=== PATIENT | male | born 1985 | race Caucasian/White ===

== ENCOUNTER 2017-06-28 13:48 | Inpatient (IN) | payer OTHER ==
[~2017-06-28] VITALS: Ht 177.8 cm; Wt 52.8 kg
[~2017-06-28 13:48] MED LIST: ABAC300; ACETAMINOPHEN500 MG PO; ALBU8HFA2 INH; ALBU90OI INH; ALBU90OI6; AMOCLA875 PO; AMOX500 PO; AZIT250 PO; Atrovent Inha12.9 GM INH; BASAGLAR K100 UNIT/1 SQ; Bactrim Ds Tab1 EACH PO; CEPH500 PO; CLIN150 PO; CLON1 PO; CYCL10 PO; Ciprodex Otic7.5 ML RIGHTEAR; D3-5050000 UNIT PO; DICL250 PO; DOXY100 PO; HYDACE5 PO; HYDGUAL120 PO; Humalog100 UNIT/1 SC; INS70/30I; INSDET100; INSDET100 SC; INSDET100 SQ; INSDETPEN SC; INSR10I; INSR10I SC; INSULANI; INSULANI SC; INSULIN; INSULIN 70/30; INSULISPEN SC; Keflex500 MG PO; LISI5; Lisinopril2.5 MG PO; MAGOX 400400 MG PO; MARIJUANA; NAPR500 PO; NAPR550 PO; NEOPOLHCSU LEFTEAR; Novolog Fl100 UNIT/1 SC; Novolog Fl100 UNIT/1 SQ; OMEP20ER PO; OXYACE5T PO; PENVK500 PO; PRED20 PO; PROC10 PO; Prednisone50 MG PO; RXCYCL10 PO; RXHYDACE PO; RXNAPNA550 PO; RXOXYACE PO; RXTRAM50 PO; SUCR1 PO; TRAM50 PO; TRAZ50 PO; Ventolin/Prove6.7 GM INH; Zithromax Tri-500 MG PO; Zofran Odt4 MG SL; [UNRECOGNIZED DRUG - OTHER]; [UNRECOGNIZED DRUG - OTHER] PO
[2017-06-28 15:14] LABS: BASOPHILS ABSOLUTE AUTO 0.08 K/mm3 (0.00-0.23); BASOPHILS PERCENT AUTO 0 % (0-2); EOSINOPHILS ABSOLUTE AUTO 0.08 K/mm3 (0.00-0.68); EOSINOPHILS PERCENT AUTO 0 % (0-6); Hematocrit 37.7 % (37.0-53.0); Hemoglobin 12.5 g/dL (13.5-17.5); IMMATURE GRAN ABSOLUTE AUTO 0.14 K/mm3 (0.00-0.10); IMMATURE GRAN PERCENT AUTO 1 % (0-1); LYMPHOCYTES ABSOLUTE AUTO 1.88 K/mm3 (0.84-5.20); LYMPHOCYTES PERCENT AUTO 8 % (21-46); MONOCYTES ABSOLUTE AUTO 1.07 K/mm3 (0.16-1.47); MONOCYTES PERCENT AUTO 5 % (4-13); Mean Corpuscular HGB 28.7 pg (26.0-34.0); Mean Corpuscular HGB Conc 33.2 g/dL (31.5-36.5); Mean Corpuscular Volume 87 fL (80-100); Mean Platelet Volume 9.2 fL (9.1-12.4); NEUTROPHILS ABSOLUTE AUTO 19.17 K/mm3 (1.96-9.15); NEUTROPHILS PERCENT AUTO 85 % (41-73); Platelet Count 440 K/mm3 (150-400); RDW Coefficient Variation 11.6 % (11.7-14.2); Red Blood Cell Count 4.36 M/mm3 (4.30-5.90); White Blood Cell Count 22.42 K/mm3 (4.00-11.30)
[2017-06-28 15:34] LABS: Alanine Aminotransfer (ALT/SGP 12 U/L (12-78); Albumin, Blood 2.7 g/dL (3.4-5.0); Albumin/Globulin Ratio 0.5 (0.8-1.8); Alk Phos 143 U/L (50-136); Anion Gap 10 mmol/L (6-16); Aspartate Aminotrans (AST/SGOT 5 U/L (12-37); Bilirubin, Total 0.2 mg/dL (0.1-1.0); Blood Urea Nitrogen 19 mg/dL (8-24); Bun/Creatinine Ratio 20.3 (12.0-20.0); CO2, Blood 29 mmol/L (21-32); Calcium, Blood 8.6 mg/dL (8.5-10.1); Chloride, Blood 92 mmol/L (98-108); Creatinine, Blood 0.94 mg/dL (0.60-1.20); Globulin, Blood 5.3 g/dL (2.2-4.0); Glomerular Filtration Rate >60 (60-); Glucose, Blood 452 mg/dL (70-99); Potassium, Blood 3.9 mmol/L (3.5-5.5); Sodium, Blood 131 mmol/L (136-145)
[2017-06-28 20:59] LABS: Influenza A Negative (NEGATIVE); Influenza B Negative (NEGATIVE)
[2017-06-29 22:54] LABS: Source, Urine Clean Catch
[2017-06-29 22:59] LABS: Bilirubin, Urine Neg (Neg); Blood, Urine 5+ (Neg); Glucose Qualitative, Urine 4+ (Neg); Ketones, Urine 2+ (Neg); Leukocyte Esterase, Urine Neg (Neg); Nitrite, Urine Neg (Neg); Protein, Urine 3+ (Neg); Urobilinogen, Urine NORM (Normal)
[2017-06-29 23:04] LABS: Appearance, Urine Clear (Clear); Bacteria Not Seen /hpf; Color, Urine Yellow (P-Yellow); Red Blood Cells, Urine 50-100 /hpf (0-2); Squamous Epithelial Cells Rare /hpf (Few); White Blood Cells, Urine Not Seen /hpf (0-5)
[2017-06-30 05:20] LABS: Hematocrit 30.7 % (37.0-53.0); Hemoglobin 9.9 g/dL (13.5-17.5); Mean Corpuscular HGB 28.3 pg (26.0-34.0); Mean Corpuscular HGB Conc 32.2 g/dL (31.5-36.5); Mean Corpuscular Volume 88 fL (80-100); Mean Platelet Volume 9.4 fL (9.1-12.4); Platelet Count 398 K/mm3 (150-400); RDW Coefficient Variation 11.4 % (11.7-14.2); RDW Standard Deviation 36.7 fL (35.1-46.3); White Blood Cell Count 14.09 K/mm3 (4.00-11.30)
[2017-06-30] MEDS ORDERED: ACET325 PO (09:44)
[2017-06-30] MEDS ORDERED: ASCO500 PO (09:45)
[2017-06-30] MEDS ORDERED: NICO21TP TOP (09:46)
[2017-06-30] MEDS ORDERED: AMOX875 PO (09:47)
[2017-06-30] MEDS ORDERED: PRED20 PO (09:48)
[2017-06-30] MEDS ORDERED: ONDA4ODT MM (09:48)
== END 2017-06-30 10:14 | disposition home or self-care (01) | DRG 871 ==
LOC: ER 13:48 → PCU 16:31
PROVIDERS: Family Medicine; Internal Medicine; Psychiatry & Neurology Psychiatry
DX: A41.9 Sepsis, unspecified organism (principal); J18.9 Pneumonia, unspecified organism; R65.21 Severe sepsis with septic shock; E44.0 Moderate protein-calorie malnutrition; J44.0 Chronic obstructive pulmonary disease with (acute) lower respiratory infection; Z68.1 Body mass index [BMI] 19.9 or less, adult; E10.65 Type 1 diabetes mellitus with hyperglycemia; M41.9 Scoliosis, unspecified; G89.29 Other chronic pain; M54.9 Dorsalgia, unspecified; F17.210 Nicotine dependence, cigarettes, uncomplicated; Z88.6 Allergy status to analgesic agent; Z88.1 Allergy status to other antibiotic agents; Z88.2 Allergy status to sulfonamides; Z87.730 Personal history of (corrected) cleft lip and palate; Z79.4 Long term (current) use of insulin
CPT/HCPCS: 36415; 71046; 80053; 81001; 82010; 82947; 83036; 83605; 85025; 85027; 87040; 87070; 87077; 87186; 87205; 87804; 93005; 93010; 94640; 94760; 96361; 96365; 96372; 96375; 99283; 99285; J0456; J0696; J1650; J1815; J2405; J7030; J7050

== ENCOUNTER 2017-08-19 11:09 | Emergency (ER) | payer OTHER ==
[~2017-08-19] VITALS: Ht 177.8 cm; Wt 59.0 kg
[~2017-08-19 11:09] MED LIST changes: +ACET325 PO; +AMOX875 PO; +ASCO500 PO; +NICO21TP TOP; +ONDA4ODT MM
[2017-08-19 12:34] LABS: BASOPHILS ABSOLUTE AUTO 0.06 K/mm3 (0.00-0.23); BASOPHILS PERCENT AUTO 0 % (0-2); EOSINOPHILS ABSOLUTE AUTO 0.03 K/mm3 (0.00-0.68); EOSINOPHILS PERCENT AUTO 0 % (0-6); Hematocrit 41.3 % (37.0-53.0); Hemoglobin 13.3 g/dL (13.5-17.5); IMMATURE GRAN ABSOLUTE AUTO 0.07 K/mm3 (0.00-0.10); IMMATURE GRAN PERCENT AUTO 0 % (0-1); LYMPHOCYTES ABSOLUTE AUTO 1.48 K/mm3 (0.84-5.20); LYMPHOCYTES PERCENT AUTO 9 % (21-46); MONOCYTES ABSOLUTE AUTO 0.69 K/mm3 (0.16-1.47); MONOCYTES PERCENT AUTO 4 % (4-13); Mean Corpuscular HGB 29.2 pg (26.0-34.0); Mean Corpuscular HGB Conc 32.2 g/dL (31.5-36.5); Mean Corpuscular Volume 91 fL (80-100); Mean Platelet Volume 8.6 fL (9.1-12.4); NEUTROPHILS ABSOLUTE AUTO 15.14 K/mm3 (1.96-9.15); NEUTROPHILS PERCENT AUTO 87 % (41-73); Platelet Count 483 K/mm3 (150-400); RDW Coefficient Variation 12.3 % (11.7-14.2); Red Blood Cell Count 4.56 M/mm3 (4.30-5.90); White Blood Cell Count 17.47 K/mm3 (4.00-11.30)
[2017-08-19 12:55] LABS: Alanine Aminotransfer (ALT/SGP 18 U/L (12-78); Albumin, Blood 3.3 g/dL (3.4-5.0); Albumin/Globulin Ratio 0.8 (0.8-1.8); Alk Phos 103 U/L (50-136); Anion Gap 7 mmol/L (6-16); Aspartate Aminotrans (AST/SGOT 16 U/L (12-37); Bilirubin, Total 0.2 mg/dL (0.1-1.0); Blood Urea Nitrogen 13 mg/dL (8-24); Bun/Creatinine Ratio 22.1 (12.0-20.0); CO2, Blood 27 mmol/L (21-32); Calcium, Blood 9.2 mg/dL (8.5-10.1); Chloride, Blood 110 mmol/L (98-108); Creatinine, Blood 0.59 mg/dL (0.60-1.20); Globulin, Blood 4.3 g/dL (2.2-4.0); Glomerular Filtration Rate >60 (60-); Glucose, Blood 81 mg/dL (70-99); Potassium, Blood 3.9 mmol/L (3.5-5.5); Sodium, Blood 144 mmol/L (136-145); Total Protein, Blood 7.6 g/dL (6.4-8.2)
[2017-08-19 13:00] LABS: Troponin I <0.015 ng/mL (0.000-0.040)
[2017-08-19] MEDS ORDERED: PROM25 PO (14:47)
== END 2017-08-19 15:16 | disposition home or self-care (01) ==
LOC: ER 11:09
PROVIDERS: Internal Medicine
DX: A08.4 Viral intestinal infection, unspecified (principal); E86.0 Dehydration; E10.9 Type 1 diabetes mellitus without complications; J44.9 Chronic obstructive pulmonary disease, unspecified; F17.210 Nicotine dependence, cigarettes, uncomplicated; Z88.6 Allergy status to analgesic agent; Z88.2 Allergy status to sulfonamides; Z88.1 Allergy status to other antibiotic agents; Z79.51 Long term (current) use of inhaled steroids; Z79.899 Other long term (current) drug therapy
CPT/HCPCS: 36415; 80053; 82947; 83690; 83735; 84484; 85025; 96374; 96375; 99283; J1630; J2405; J2550; J7120

== ENCOUNTER 2017-08-31 15:45 | Emergency (ER) | payer OTHER ==
[~2017-08-31] VITALS: Ht 177.8 cm; Wt 56.7 kg
[~2017-08-31 15:45] MED LIST changes: +PROM25 PO
[2017-08-31 16:38] LABS: Bicarbonate Venous 23.2 mmol/L (24.0-30.0); PCO2 Venous 34.1 mmHg (38-42); PO2 Venous 132 mmHg (38-42); pH Blood Venous 7.43 (7.34-7.37)
[2017-08-31 16:52] LABS: Source, Urine Clean Catch
[2017-08-31 16:59] LABS: Hematocrit 40.1 % (37.0-53.0); Mean Corpuscular HGB 29.8 pg (26.0-34.0); Mean Corpuscular HGB Conc 32.4 g/dL (31.5-36.5); Mean Corpuscular Volume 92 fL (80-100); Mean Platelet Volume 9.3 fL (9.1-12.4); Platelet Count 464 K/mm3 (150-400); RDW Coefficient Variation 12.3 % (11.7-14.2); RDW Standard Deviation 41.6 fL (35.1-46.3); Red Blood Cell Count 4.36 M/mm3 (4.30-5.90); White Blood Cell Count 28.55 K/mm3 (4.00-11.30)
[2017-08-31 17:14] LABS: Alanine Aminotransfer (ALT/SGP 14 U/L (12-78); Albumin/Globulin Ratio 0.7 (0.8-1.8); Alk Phos 122 U/L (50-136); Anion Gap 16 mmol/L (6-16); Aspartate Aminotrans (AST/SGOT 31 U/L (12-37); Bilirubin, Total 0.7 mg/dL (0.1-1.0); Blood Urea Nitrogen 14 mg/dL (8-24); Bun/Creatinine Ratio 18.9 (12.0-20.0); CO2, Blood 20 mmol/L (21-32); Calcium, Blood 9.3 mg/dL (8.5-10.1); Chloride, Blood 100 mmol/L (98-108); Creatinine, Blood 0.74 mg/dL (0.60-1.20); Globulin, Blood 4.3 g/dL (2.2-4.0); Glomerular Filtration Rate >60 (60-); Glucose, Blood 444 mg/dL (70-99); Sodium, Blood 136 mmol/L (136-145); Total Protein, Blood 7.3 g/dL (6.4-8.2)
[2017-08-31 17:20] LABS: Beta-hydroxybutyrate 31.8 mg/dL (0.2-2.8)
[2017-08-31 17:30] LABS: Appearance, Urine Clear (Clear); Bilirubin, Urine Neg (Neg); Blood, Urine 5+ (Neg); Color, Urine Yellow (P-Yellow); Glucose Qualitative, Urine 4+ (Neg); Ketones, Urine 3+ (Neg); Leukocyte Esterase, Urine Neg (Neg); Nitrite, Urine Neg (Neg); Protein, Urine 4+ (Neg); Specific Gravity, Urine 1.015 (1.003-1.022); Urobilinogen, Urine NORM (Normal)
[2017-08-31 17:43] LABS: Squamous Epithelial Cells Few /hpf (Few)
[2017-08-31 17:44] LABS: Bacteria Few /hpf
[2017-08-31 17:46] LABS: BAND PERCENT MAN 1 % (0-8); BASOPHILS ABSOLUTE MAN 0.28 K/mm3 (0.00-0.23); BASOPHILS PERCENT MAN 1 % (0-2); EOSINOPHILS ABSOLUTE MAN 0.28 K/mm3 (0.00-0.68); EOSINOPHILS PERCENT MAN 1 % (0-6); LYMPHOCYTES ABSOLUTE MAN 1.42 K/mm3 (0.84-5.20); LYMPHOCYTES PERCENT MAN 5 % (21-46); MONOCYTES ABSOLUTE MAN 1.14 K/mm3 (0.16-1.47); MONOCYTES PERCENT MAN 4 % (4-13); SEG NEUTROPHILS PERCENT MAN 88 % (41-73); TOTAL CELLS COUNTED 100
[2017-08-31] MEDS ORDERED: PROM25 PO (19:55)
[2017-08-31] MEDS ORDERED: PROM25S PR (19:55)
== END 2017-08-31 20:20 | disposition home or self-care (01) ==
LOC: ER 15:45
PROVIDERS: Emergency Medicine; Physician Assistant
DX: E10.65 Type 1 diabetes mellitus with hyperglycemia (principal); J44.9 Chronic obstructive pulmonary disease, unspecified; F17.210 Nicotine dependence, cigarettes, uncomplicated; Z88.2 Allergy status to sulfonamides; Z88.6 Allergy status to analgesic agent; Z88.8 Allergy status to other drugs, medicaments and biological substances; Z79.4 Long term (current) use of insulin; Z79.51 Long term (current) use of inhaled steroids; Z79.899 Other long term (current) drug therapy
CPT/HCPCS: 36415; 80053; 81001; 82010; 82803; 82947; 85025; 93005; 93010; 96361; 96374; 96375; 99284; J1630; J1815; J2405; J2550; J7030; J7120

== ENCOUNTER 2017-11-20 08:05 | Emergency (ER) | payer OTHER ==
[~2017-11-20] VITALS: Ht 177.8 cm; Wt 54.4 kg
[~2017-11-20 08:05] MED LIST changes: +PROM25S PR
[2017-11-20 09:06] LABS: BASOPHILS ABSOLUTE AUTO 0.08 K/mm3 (0.00-0.23); BASOPHILS PERCENT AUTO 1 % (0-2); EOSINOPHILS ABSOLUTE AUTO 0.22 K/mm3 (0.00-0.68); EOSINOPHILS PERCENT AUTO 1 % (0-6); Hematocrit 42.6 % (37.0-53.0); Hemoglobin 14.2 g/dL (13.5-17.5); IMMATURE GRAN ABSOLUTE AUTO 0.06 K/mm3 (0.00-0.10); IMMATURE GRAN PERCENT AUTO 0 % (0-1); LYMPHOCYTES ABSOLUTE AUTO 2.58 K/mm3 (0.84-5.20); LYMPHOCYTES PERCENT AUTO 15 % (21-46); MONOCYTES PERCENT AUTO 5 % (4-13); Mean Corpuscular HGB 29.3 pg (26.0-34.0); Mean Corpuscular HGB Conc 33.3 g/dL (31.5-36.5); Mean Corpuscular Volume 88 fL (80-100); Mean Platelet Volume 8.8 fL (9.1-12.4); NEUTROPHILS ABSOLUTE AUTO 13.11 K/mm3 (1.96-9.15); NEUTROPHILS PERCENT AUTO 77 % (41-73); Platelet Count 507 K/mm3 (150-400); RDW Coefficient Variation 12.3 % (11.7-14.2); RDW Standard Deviation 39.4 fL (35.1-46.3); Red Blood Cell Count 4.84 M/mm3 (4.30-5.90); White Blood Cell Count 16.95 K/mm3 (4.00-11.30)
[2017-11-20 09:10] LABS: Chloride (POC) 99 mmol/L (98-108); Creatinine (POC) 0.9 mg/dL (0.8-1.3); Glucose (ISTAT POC) 74 mg/dL (70-99); Potassium (POC) 3.3 mmol/L (3.5-5.5); Sodium (POC) 143 mmol/L (135-148); Total CO2 (POC) 32 mmol/L (21-32)
[2017-11-20 09:20] LABS: Alanine Aminotransfer (ALT/SGP 22 U/L (12-78); Albumin, Blood 3.5 g/dL (3.4-5.0); Albumin/Globulin Ratio 0.8 (0.8-1.8); Alk Phos 120 U/L (50-136); Anion Gap 10 mmol/L (6-16); Aspartate Aminotrans (AST/SGOT 22 U/L (12-37); Bilirubin, Total 0.4 mg/dL (0.1-1.0); Blood Urea Nitrogen 24 mg/dL (8-24); CO2, Blood 30 mmol/L (21-32); Calcium, Blood 9.5 mg/dL (8.5-10.1); Chloride, Blood 104 mmol/L (98-108); Creatinine, Blood 0.92 mg/dL (0.60-1.20); Globulin, Blood 4.3 g/dL (2.2-4.0); Glomerular Filtration Rate >60 (60-); Glucose, Blood 73 mg/dL (70-99); Potassium, Blood 3.4 mmol/L (3.5-5.5); Sodium, Blood 144 mmol/L (136-145); Total Protein, Blood 7.8 g/dL (6.4-8.2)
[2017-11-20] MEDS ORDERED: METO10 PO (10:10)
[2017-11-20] MEDS ORDERED: PHENERGAN25 MG PR (10:10)
== END 2017-11-20 10:32 | disposition home or self-care (01) ==
LOC: ER 08:05
PROVIDERS: Emergency Medicine
DX: R10.13 Epigastric pain (principal); R10.11 Right upper quadrant pain; R11.2 Nausea with vomiting, unspecified; E87.6 Hypokalemia; E10.9 Type 1 diabetes mellitus without complications; J44.9 Chronic obstructive pulmonary disease, unspecified; F17.210 Nicotine dependence, cigarettes, uncomplicated; Z88.6 Allergy status to analgesic agent; Z88.2 Allergy status to sulfonamides; Z88.1 Allergy status to other antibiotic agents; Z79.51 Long term (current) use of inhaled steroids
CPT/HCPCS: 36415; 76705; 80047; 80053; 82947; 83690; 85014; 85025; 96361; 96374; 96375; 99284; J1200; J2765; J7030

== ENCOUNTER 2017-12-20 08:39 | Emergency (ER) | payer OTHER ==
[~2017-12-20] VITALS: Ht 177.8 cm; Wt 56.7 kg
[~2017-12-20 08:39] MED LIST changes: +METO10 PO; +PHENERGAN25 MG PR
[2017-12-20] MEDS ORDERED: LISI5 PO (08:56)
[2017-12-20 09:16] LABS: BASOPHILS ABSOLUTE AUTO 0.09 K/mm3 (0.00-0.23); BASOPHILS PERCENT AUTO 1 % (0-2); EOSINOPHILS ABSOLUTE AUTO 0.43 K/mm3 (0.00-0.68); EOSINOPHILS PERCENT AUTO 3 % (0-6); IMMATURE GRAN ABSOLUTE AUTO 0.06 K/mm3 (0.00-0.10); IMMATURE GRAN PERCENT AUTO 1 % (0-1); LYMPHOCYTES ABSOLUTE AUTO 2.02 K/mm3 (0.84-5.20); LYMPHOCYTES PERCENT AUTO 15 % (21-46); MONOCYTES ABSOLUTE AUTO 0.79 K/mm3 (0.16-1.47); MONOCYTES PERCENT AUTO 6 % (4-13); Mean Corpuscular HGB 29.2 pg (26.0-34.0); Mean Corpuscular HGB Conc 32.5 g/dL (31.5-36.5); Mean Corpuscular Volume 90 fL (80-100); Mean Platelet Volume 8.8 fL (9.1-12.4); NEUTROPHILS ABSOLUTE AUTO 9.92 K/mm3 (1.96-9.15); NEUTROPHILS PERCENT AUTO 75 % (41-73); Platelet Count 438 K/mm3 (150-400); RDW Coefficient Variation 12.1 % (11.7-14.2); RDW Standard Deviation 40.2 fL (35.1-46.3); Red Blood Cell Count 4.45 M/mm3 (4.30-5.90); White Blood Cell Count 13.31 K/mm3 (4.00-11.30)
[2017-12-20 09:30] LABS: Calcium, Ionized (POC) 1.24 mmol/L (1.10-1.46); Chloride (POC) 99 mmol/L (98-108); Creatinine (POC) 0.9 mg/dL (0.8-1.3); Glucose (ISTAT POC) 548 mg/dL (70-99); Hemoglobin (POC) 13.3 g/dL (13.5-17.5); Potassium (POC) 4.3 mmol/L (3.5-5.5); Sodium (POC) 138 mmol/L (135-148); Total CO2 (POC) 29 mmol/L (21-32)
[2017-12-20 09:42] LABS: Alanine Aminotransfer (ALT/SGP 13 U/L (12-78); Albumin, Blood 3.6 g/dL (3.4-5.0); Albumin/Globulin Ratio 0.9 (0.8-1.8); Alk Phos 112 U/L (50-136); Anion Gap 8 mmol/L (6-16); Aspartate Aminotrans (AST/SGOT 13 U/L (12-37); Bilirubin, Total 0.4 mg/dL (0.1-1.0); Blood Urea Nitrogen 20 mg/dL (8-24); Bun/Creatinine Ratio 25.4 (12.0-20.0); CO2, Blood 29 mmol/L (21-32); Calcium, Blood 9.6 mg/dL (8.5-10.1); Chloride, Blood 102 mmol/L (98-108); Creatinine, Blood 0.79 mg/dL (0.60-1.20); Globulin, Blood 3.8 g/dL (2.2-4.0); Glomerular Filtration Rate >60 (60-); Glucose, Blood 584 mg/dL (70-99); Potassium, Blood 4.3 mmol/L (3.5-5.5); Sodium, Blood 139 mmol/L (136-145); Total Protein, Blood 7.4 g/dL (6.4-8.2)
[2017-12-20 09:47] LABS: Beta-hydroxybutyrate 6.9 mg/dL (0.2-2.8)
[2017-12-20 09:49] LABS: PCO2 Arterial 30.4 mmHg (35-45); PO2 Arterial 95.2 mmHg (80-100); pH Blood Arterial 7.53 (7.35-7.45)
== END 2017-12-20 10:40 | disposition home or self-care (01) ==
LOC: ER 08:39
PROVIDERS: Emergency Medicine
DX: R11.2 Nausea with vomiting, unspecified (principal); Z88.8 Allergy status to other drugs, medicaments and biological substances; Z88.2 Allergy status to sulfonamides; Z79.899 Other long term (current) drug therapy; Z79.4 Long term (current) use of insulin; E10.9 Type 1 diabetes mellitus without complications; J44.9 Chronic obstructive pulmonary disease, unspecified; F17.210 Nicotine dependence, cigarettes, uncomplicated
CPT/HCPCS: 36415; 36600; 80047; 80053; 82010; 82803; 83690; 85014; 85025; 96361; 96374; 96375; 99284-25; J2405; J2550; J7030

== ENCOUNTER 2018-01-25 06:24 | Emergency (ER) | payer OTHER ==
[~2018-01-25] VITALS: Ht 177.8 cm; Wt 52.2 kg
[~2018-01-25 06:24] MED LIST changes: +LISI5 PO
[2018-01-25] MEDS ORDERED: FLUO10 (06:45)
[2018-01-25 07:35] LABS: Calcium, Ionized (POC) 1.12 mmol/L (1.10-1.46); Chloride (POC) 92 mmol/L (98-108); Creatinine (POC) 0.7 mg/dL (0.8-1.3); Glucose (ISTAT POC) 507 mg/dL (70-99); Hemoglobin (POC) 12.6 g/dL (13.5-17.5); Potassium (POC) 4.2 mmol/L (3.5-5.5); Sodium (POC) 132 mmol/L (135-148); Total CO2 (POC) 28 mmol/L (21-32)
[2018-01-25] MEDS ORDERED: Zovirax800 MG PO (08:06)
[2018-01-25] MEDS ORDERED: Cleocin HCl300 MG PO (08:06)
[2018-01-25] MEDS ORDERED: Naprosyn500 MG PO (22:10)
[2018-01-25] MEDS ORDERED: Augmentin 875-1 EACH PO (22:10)
== END 2018-01-25 09:03 | disposition home or self-care (01) ==
LOC: ER 06:24
PROVIDERS: Emergency Medicine
DX: B00.1 Herpesviral vesicular dermatitis (principal); E10.65 Type 1 diabetes mellitus with hyperglycemia; Z88.2 Allergy status to sulfonamides; Z88.1 Allergy status to other antibiotic agents; Z88.8 Allergy status to other drugs, medicaments and biological substances; Z79.899 Other long term (current) drug therapy; Z79.4 Long term (current) use of insulin; Z79.2 Long term (current) use of antibiotics; J44.9 Chronic obstructive pulmonary disease, unspecified; F17.210 Nicotine dependence, cigarettes, uncomplicated
CPT/HCPCS: 36415; 80047; 82947; 85014; 96360; 99283-25; J7030

== ENCOUNTER 2018-01-25 19:38 | Emergency (ER) | payer OTHER ==
[~2018-01-25] VITALS: Ht 177.8 cm; Wt 52.2 kg
[~2018-01-25 19:38] MED LIST changes: +Cleocin HCl300 MG PO; +FLUO10; +Zovirax800 MG PO
[2018-01-25] MEDS ORDERED: Naprosyn500 MG PO (22:10)
[2018-01-25] MEDS ORDERED: Augmentin 875-1 EACH PO (22:10)
== END 2018-01-25 22:25 | disposition home or self-care (01) ==
LOC: ER 19:38
DX: K13.0 Diseases of lips (principal); E11.9 Type 2 diabetes mellitus without complications; J44.9 Chronic obstructive pulmonary disease, unspecified; Z88.8 Allergy status to other drugs, medicaments and biological substances; Z88.2 Allergy status to sulfonamides; Z88.1 Allergy status to other antibiotic agents; Z79.899 Other long term (current) drug therapy; Z79.4 Long term (current) use of insulin; F17.200 Nicotine dependence, unspecified, uncomplicated
CPT/HCPCS: 10060; 64400; 82947; 90471; 90714; 99283-25

== ENCOUNTER 2018-07-12 14:31 | Emergency (ER) | payer OTHER ==
[~2018-07-12] VITALS: Ht 177.8 cm; Wt 59.0 kg
[~2018-07-12 14:31] MED LIST changes: +Augmentin 875-1 EACH PO; +Naprosyn500 MG PO
[2018-07-12 15:20] LABS: Base Excess Venous 5.4 mmol/L; Bicarbonate Venous 27.7 mmol/L (24.0-30.0); PCO2 Venous 51.3 mmHg (38-42); PO2 Venous 46.6 mmHg (38-42); pH Blood Venous 7.38 (7.34-7.37)
[2018-07-12 15:31] LABS: BASOPHILS ABSOLUTE AUTO 0.12 K/mm3 (0.00-0.23); BASOPHILS PERCENT AUTO 1 % (0-2); EOSINOPHILS ABSOLUTE AUTO 0.04 K/mm3 (0.00-0.68); EOSINOPHILS PERCENT AUTO 0 % (0-6); Hematocrit 43.5 % (37.0-53.0); Hemoglobin 14.2 g/dL (13.5-17.5); IMMATURE GRAN PERCENT AUTO 1 % (0-1); LYMPHOCYTES PERCENT AUTO 7 % (21-46); MONOCYTES ABSOLUTE AUTO 0.51 K/mm3 (0.16-1.47); MONOCYTES PERCENT AUTO 2 % (4-13); Mean Corpuscular HGB 29.5 pg (26.0-34.0); Mean Corpuscular HGB Conc 32.6 g/dL (31.5-36.5); Mean Corpuscular Volume 90 fL (80-100); Mean Platelet Volume 9.2 fL (9.1-12.4); NEUTROPHILS ABSOLUTE AUTO 19.43 K/mm3 (1.96-9.15); NEUTROPHILS PERCENT AUTO 89 % (41-73); Platelet Count 521 K/mm3 (150-400); RDW Coefficient Variation 12.1 % (11.7-14.2); Red Blood Cell Count 4.81 M/mm3 (4.30-5.90)
[2018-07-12 16:00] LABS: Alanine Aminotransfer (ALT/SGP 22 U/L (12-78); Albumin, Blood 3.8 g/dL (3.4-5.0); Albumin/Globulin Ratio 0.9 (0.8-1.8); Alk Phos 144 U/L (50-136); Anion Gap 9 mmol/L (6-16); Aspartate Aminotrans (AST/SGOT 12 U/L (12-37); Bilirubin, Total 0.3 mg/dL (0.1-1.0); Blood Urea Nitrogen 20 mg/dL (8-24); Bun/Creatinine Ratio 22.3 (12.0-20.0); CO2, Blood 29 mmol/L (21-32); Calcium, Blood 9.7 mg/dL (8.5-10.1); Chloride, Blood 99 mmol/L (98-108); Globulin, Blood 4.4 g/dL (2.2-4.0); Glomerular Filtration Rate >60 (60-); Glucose, Blood 404 mg/dL (70-99); Potassium, Blood 4.2 mmol/L (3.5-5.5); Sodium, Blood 137 mmol/L (136-145); Total Protein, Blood 8.2 g/dL (6.4-8.2)
[2018-07-12 16:05] LABS: Beta-hydroxybutyrate 9.6 mg/dL (0.2-2.8)
[2018-07-12] MEDS ORDERED: Zofran4 MG PO (16:42)
== END 2018-07-12 17:53 | disposition home or self-care (01) ==
LOC: ER 14:31
PROVIDERS: Physician Assistant
DX: G43.A0 Cyclical vomiting, in migraine, not intractable (principal); D72.829 Elevated white blood cell count, unspecified; E10.65 Type 1 diabetes mellitus with hyperglycemia; J44.9 Chronic obstructive pulmonary disease, unspecified; F17.210 Nicotine dependence, cigarettes, uncomplicated
CPT/HCPCS: 36415; 80053; 82010; 82803; 82947; 83690; 83735; 85025; 93005; 93010; 96361; 96374; 96375; 99285-25; J1200; J1815; J2405; J2765; J7030

== ENCOUNTER 2018-08-17 09:20 | Emergency (ER) | payer OTHER ==
[~2018-08-17] VITALS: Ht 177.8 cm; Wt 58.1 kg
[~2018-08-17 09:20] MED LIST changes: +Zofran4 MG PO
[2018-08-17] MEDS ORDERED: AMOX875 PO (09:49)
== END 2018-08-17 09:53 | disposition home or self-care (01) ==
LOC: ER 09:20
DX: L02.01 Cutaneous abscess of face (principal); E11.9 Type 2 diabetes mellitus without complications; J44.9 Chronic obstructive pulmonary disease, unspecified; F17.210 Nicotine dependence, cigarettes, uncomplicated; Z79.899 Other long term (current) drug therapy; Z79.4 Long term (current) use of insulin
CPT/HCPCS: 10060; 99282-25

== ENCOUNTER 2018-11-05 11:10 | Emergency (ER) | payer OTHER ==
[~2018-11-05] VITALS: Ht 175.3 cm; Wt 61.2 kg
[~2018-11-05 11:10] MED LIST changes: +Flagyl500 MG PO
[2018-11-05 11:39] LABS: BASOPHILS ABSOLUTE AUTO 0.11 K/mm3 (0.00-0.23); BASOPHILS PERCENT AUTO 1 % (0-2); EOSINOPHILS ABSOLUTE AUTO 0.21 K/mm3 (0.00-0.68); EOSINOPHILS PERCENT AUTO 1 % (0-6); Hematocrit 41.8 % (37.0-53.0); Hemoglobin 13.9 g/dL (13.5-17.5); IMMATURE GRAN ABSOLUTE AUTO 0.05 K/mm3 (0.00-0.10); IMMATURE GRAN PERCENT AUTO 0 % (0-1); LYMPHOCYTES ABSOLUTE AUTO 1.39 K/mm3 (0.84-5.20); LYMPHOCYTES PERCENT AUTO 9 % (21-46); MONOCYTES ABSOLUTE AUTO 0.71 K/mm3 (0.16-1.47); MONOCYTES PERCENT AUTO 4 % (4-13); Mean Corpuscular HGB 29.9 pg (26.0-34.0); Mean Corpuscular HGB Conc 33.3 g/dL (31.5-36.5); Mean Corpuscular Volume 90 fL (80-100); Mean Platelet Volume 8.7 fL (9.1-12.4); NEUTROPHILS ABSOLUTE AUTO 13.69 K/mm3 (1.96-9.15); NEUTROPHILS PERCENT AUTO 85 % (41-73); Platelet Count 451 K/mm3 (150-400); RDW Coefficient Variation 12.2 % (11.7-14.2); RDW Standard Deviation 40.5 fL (35.1-46.3); Red Blood Cell Count 4.65 M/mm3 (4.30-5.90); White Blood Cell Count 16.16 K/mm3 (4.00-11.30)
[2018-11-05 11:57] LABS: Alanine Aminotransfer (ALT/SGP 22 U/L (12-78); Albumin, Blood 3.8 g/dL (3.4-5.0); Alk Phos 113 U/L (50-136); Anion Gap 6 mmol/L (6-16); Aspartate Aminotrans (AST/SGOT 13 U/L (12-37); Bilirubin, Total 0.5 mg/dL (0.1-1.0); Blood Urea Nitrogen 32 mg/dL (8-24); Bun/Creatinine Ratio 25.4 (12.0-20.0); CO2, Blood 29 mmol/L (21-32); Calcium, Blood 9.6 mg/dL (8.5-10.1); Chloride, Blood 103 mmol/L (98-108); Creatinine, Blood 1.26 mg/dL (0.60-1.20); Glomerular Filtration Rate >60 (60-); Glucose, Blood 351 mg/dL (70-99); Potassium, Blood 4.1 mmol/L (3.5-5.5); Sodium, Blood 138 mmol/L (136-145); Total Protein, Blood 7.8 g/dL (6.4-8.2)
[2018-11-05 12:02] LABS: PCO2 Arterial 43.8 mmHg (35-45); pH Blood Arterial 7.41 (7.35-7.45)
[2018-11-05] MEDS ORDERED: COMPAZINE10 MG PO (12:32)
== END 2018-11-05 12:56 | disposition home or self-care (01) ==
LOC: ER 11:10
PROVIDERS: Emergency Medicine
DX: R11.2 Nausea with vomiting, unspecified (principal); T40.7X5A Adverse effect of cannabis (derivatives), initial encounter; F12.10 Cannabis abuse, uncomplicated; J44.9 Chronic obstructive pulmonary disease, unspecified; E11.9 Type 2 diabetes mellitus without complications; Z90.49 Acquired absence of other specified parts of digestive tract; F17.210 Nicotine dependence, cigarettes, uncomplicated
CPT/HCPCS: 36415; 36600; 80053; 82010; 82803; 82947; 83690; 85025; 96361; 96374; 96375; 99284-25; J1200; J1630; J2405; J7030

== ENCOUNTER 2018-12-28 18:26 | Emergency (ER) | payer OTHER ==
[~2018-12-28] VITALS: Ht 177.8 cm; Wt 62.1 kg
[~2018-12-28 18:26] MED LIST changes: +COMPAZINE10 MG PO; +NOVOLOG FL100 UNIT/1 SC; -Novolog Fl100 UNIT/1 SC
[2018-12-28 18:55] LABS: Calcium, Ionized (POC) 1.19 mmol/L (1.10-1.46); Chloride (POC) 100 mmol/L (98-108); Creatinine (POC) 0.9 mg/dL (0.8-1.3); Glucose (ISTAT POC) 214 mg/dL (70-99); Hemoglobin (POC) 12.9 g/dL (13.5-17.5); Potassium (POC) 3.8 mmol/L (3.5-5.5); Sodium (POC) 142 mmol/L (135-148); Total CO2 (POC) 29 mmol/L (21-32)
== END 2018-12-28 19:01 | disposition home or self-care (01) ==
LOC: ER 18:26
PROVIDERS: Physician Assistant
DX: S86.112A Strain of other muscle(s) and tendon(s) of posterior muscle group at lower leg level, left leg, initial encounter (principal); J44.9 Chronic obstructive pulmonary disease, unspecified; E11.9 Type 2 diabetes mellitus without complications; F17.210 Nicotine dependence, cigarettes, uncomplicated; Z88.1 Allergy status to other antibiotic agents; Z88.6 Allergy status to analgesic agent; Z88.2 Allergy status to sulfonamides; Z79.899 Other long term (current) drug therapy; Z79.4 Long term (current) use of insulin; X58.XXXA Exposure to other specified factors, initial encounter
CPT/HCPCS: 80047; 85014; 99283

== ENCOUNTER 2019-02-05 14:47 | Observation (INO) | payer OTHER ==
[~2019-02-05] VITALS: Ht 177.8 cm; Wt 58.2 kg
[2019-02-05 15:36] LABS: BASOPHILS ABSOLUTE AUTO 0.08 K/mm3 (0.00-0.23); BASOPHILS PERCENT AUTO 0 % (0-2); EOSINOPHILS PERCENT AUTO 0 % (0-6); Hematocrit 43.2 % (37.0-53.0); Hemoglobin 14.1 g/dL (13.5-17.5); IMMATURE GRAN ABSOLUTE AUTO 0.15 K/mm3 (0.00-0.10); IMMATURE GRAN PERCENT AUTO 1 % (0-1); LYMPHOCYTES ABSOLUTE AUTO 0.72 K/mm3 (0.84-5.20); LYMPHOCYTES PERCENT AUTO 3 % (21-46); MONOCYTES ABSOLUTE AUTO 0.84 K/mm3 (0.16-1.47); MONOCYTES PERCENT AUTO 3 % (4-13); Mean Corpuscular HGB 29.6 pg (26.0-34.0); Mean Corpuscular HGB Conc 32.6 g/dL (31.5-36.5); Mean Corpuscular Volume 91 fL (80-100); NEUTROPHILS ABSOLUTE AUTO 26.32 K/mm3 (1.96-9.15); NEUTROPHILS PERCENT AUTO 94 % (41-73); Platelet Count 463 K/mm3 (150-400); RDW Coefficient Variation 12.2 % (11.7-14.2); RDW Standard Deviation 40.6 fL (35.1-46.3); Red Blood Cell Count 4.77 M/mm3 (4.30-5.90); White Blood Cell Count 28.11 K/mm3 (4.00-11.30)
[2019-02-05 15:56] LABS: Alanine Aminotransfer (ALT/SGP 24 U/L (12-78); Albumin, Blood 3.8 g/dL (3.4-5.0); Albumin/Globulin Ratio 0.9 (0.8-1.8); Alk Phos 131 U/L (50-136); Anion Gap 5 mmol/L (6-16); Aspartate Aminotrans (AST/SGOT 14 U/L (12-37); Bilirubin, Total 0.4 mg/dL (0.1-1.0); Blood Urea Nitrogen 22 mg/dL (8-24); Bun/Creatinine Ratio 23.8 (12.0-20.0); CO2, Blood 27 mmol/L (21-32); Calcium, Blood 10.1 mg/dL (8.5-10.1); Chloride, Blood 105 mmol/L (98-108); Creatinine, Blood 0.92 mg/dL (0.60-1.20); Globulin, Blood 4.1 g/dL (2.2-4.0); Glomerular Filtration Rate >60 (60-); Glucose, Blood 435 mg/dL (70-99); Potassium, Blood 4.2 mmol/L (3.5-5.5); Sodium, Blood 137 mmol/L (136-145); Total Protein, Blood 7.9 g/dL (6.4-8.2)
[2019-02-05] MEDS ORDERED: QUET25 PO (16:42)
[2019-02-05] MEDS ORDERED: BASAGLAR SC (16:42)
[2019-02-05 19:53] LABS: Source, Urine Clean Catch
[2019-02-05 19:59] LABS: Bilirubin, Urine Neg (Neg); Blood, Urine 5+ (Neg); Glucose Qualitative, Urine 4+ (Neg); Ketones, Urine 3+ (Neg); Leukocyte Esterase, Urine Neg (Neg); Nitrite, Urine Neg (Neg); Protein, Urine 3+ (Neg); Specific Gravity, Urine 1.015 (1.003-1.022); Urobilinogen, Urine NORM (Normal)
[2019-02-05 20:05] LABS: Appearance, Urine Clear (Clear); Color, Urine Yellow (P-Yellow)
[2019-02-05 20:06] LABS: Bacteria Mod /hpf; Mucus Light (0-Heavy); Squamous Epithelial Cells Rare /hpf (Few); White Blood Cells, Urine 0-2 /hpf (0-5)
--- NOTE | 2019-02-05 21:30 | NUR ---
transfer report from Leonor VANN in ER on diabetic PT being admitted with NVD acute and chronic issues with gastroparesis. Will be on tele monitoring. Await admission. BG was elevated and had insulin in ER will check HS blood glucose and administer insulin as RX.
[2019-02-05] MEDS ORDERED: Ventolin/Prove6.7 GM INH (22:38)
--- NOTE | 2019-02-05 23:47 | NUR ---
33 year old MAle admitted with nausea and vomiting intractable. He also had diarrhea athome. Tolerating clear liquid diet. On 3rd l normal saline. BG at HS 381 and sliding scale was for 15 units which he onluy took 8 units. He said he would bottom out if he took 15 units. He takes long acting insulin once daily in AM skipped yesterday. He only uses sliding scale insulin 2 times daily and drinks regular mountain dew daily. He smokes 3/4 PPD cigarettes daily and marijuana daily. Encouraged cessation. Refused lovenox allows SCD. Up to bathroom passed large amts flatus. On tele sinus tach 104. Denies acute pain. Declined seroquel then requested it for anxiety. Uses PRN MDI albuterol.
[2019-02-06 05:09] LABS: BASOPHILS ABSOLUTE AUTO 0.07 K/mm3 (0.00-0.23); BASOPHILS PERCENT AUTO 0 % (0-2); EOSINOPHILS ABSOLUTE AUTO 0.06 K/mm3 (0.00-0.68); EOSINOPHILS PERCENT AUTO 0 % (0-6); Hematocrit 33.9 % (37.0-53.0); Hemoglobin 11.2 g/dL (13.5-17.5); IMMATURE GRAN ABSOLUTE AUTO 0.08 K/mm3 (0.00-0.10); IMMATURE GRAN PERCENT AUTO 0 % (0-1); LYMPHOCYTES ABSOLUTE AUTO 3.69 K/mm3 (0.84-5.20); LYMPHOCYTES PERCENT AUTO 18 % (21-46); MONOCYTES ABSOLUTE AUTO 1.35 K/mm3 (0.16-1.47); MONOCYTES PERCENT AUTO 7 % (4-13); Mean Corpuscular HGB 30.3 pg (26.0-34.0); Mean Corpuscular Volume 92 fL (80-100); NEUTROPHILS ABSOLUTE AUTO 15.59 K/mm3 (1.96-9.15); NEUTROPHILS PERCENT AUTO 75 % (41-73); Platelet Count 359 K/mm3 (150-400); RDW Coefficient Variation 12.3 % (11.7-14.2); RDW Standard Deviation 41.2 fL (35.1-46.3); White Blood Cell Count 20.84 K/mm3 (4.00-11.30)
[2019-02-06 05:31] LABS: Anion Gap 7 mmol/L (6-16); Blood Urea Nitrogen 22 mg/dL (8-24); Bun/Creatinine Ratio 26.7 (12.0-20.0); CO2, Blood 25 mmol/L (21-32); Calcium, Blood 8.2 mg/dL (8.5-10.1); Chloride, Blood 108 mmol/L (98-108); Creatinine, Blood 0.82 mg/dL (0.60-1.20); Glomerular Filtration Rate >60 (60-); Glucose, Blood 273 mg/dL (70-99); Potassium, Blood 4.1 mmol/L (3.5-5.5); Sodium, Blood 140 mmol/L (136-145)
[2019-02-06 11:44] LABS: U Amphetamine Screen Not Detected; U Barbituate Screen Not Detected; U Benzodiazapine Screen Not Detected; U Cocaine Screen Not Detected; U Methamphetamine Screen Not Detected
[2019-02-06 11:45] LABS: U Buprenorphine Screen Not Detected; U Cannabinoids Screen DETECTED; U Methadone Screen Not Detected; U Opiates Screen Not Detected; U Oxycodone Screen Not Detected; U Phencyclidine Screen Not Detected; U Propoxyphene Screen Not Detected
--- NOTE | 2019-02-06 18:38 | NUR ---
SHIFT SUMMARY PATIENT A&OX4, SOMEWHAT IRRITABLE AND IMPULSIVE AT TIMES. PATIENT C/O NAUSEA AND VOMITING FOR A COUPLE HOURS AT THE BEGINNING OF THE SHIFT, STATES HE HAS HAD SEVERE N/V AT THAT TIME FOR ABOUT A WEEK NOW. ZOFRAN GIVEN, N/V IMPROVED AFTER A BIT. FULL LIQUIDS ORDERED FOR LUNCH, PATIENT TOLERATED WELL. PT DID NOT HAVE ANY MORE DIARRHEA. PT DENIES PAIN, SOB, WEAKNESS. BLOOD SUGARS HIGH ALL OF SHIFT, LANTUS AND REGULAR INSULIN GIVEN. SCDS ON. ADA DIET ORDERED FOR DINNER, PATIENT TOLERATED MEAL. PT TOOK A WALK WITH HIS MOTHER.
[2019-02-07 04:56] LABS: BASOPHILS ABSOLUTE AUTO 0.09 K/mm3 (0.00-0.23); BASOPHILS PERCENT AUTO 1 % (0-2); EOSINOPHILS ABSOLUTE AUTO 0.22 K/mm3 (0.00-0.68); EOSINOPHILS PERCENT AUTO 2 % (0-6); Hematocrit 32.1 % (37.0-53.0); Hemoglobin 10.3 g/dL (13.5-17.5); IMMATURE GRAN ABSOLUTE AUTO 0.04 K/mm3 (0.00-0.10); IMMATURE GRAN PERCENT AUTO 0 % (0-1); LYMPHOCYTES ABSOLUTE AUTO 3.94 K/mm3 (0.84-5.20); LYMPHOCYTES PERCENT AUTO 30 % (21-46); MONOCYTES ABSOLUTE AUTO 0.86 K/mm3 (0.16-1.47); MONOCYTES PERCENT AUTO 7 % (4-13); Mean Corpuscular HGB 28.7 pg (26.0-34.0); Mean Corpuscular HGB Conc 32.1 g/dL (31.5-36.5); Mean Platelet Volume 9.2 fL (9.1-12.4); NEUTROPHILS ABSOLUTE AUTO 7.88 K/mm3 (1.96-9.15); NEUTROPHILS PERCENT AUTO 61 % (41-73); Platelet Count 336 K/mm3 (150-400); RDW Coefficient Variation 12.3 % (11.7-14.2); RDW Standard Deviation 39.7 fL (35.1-46.3); Red Blood Cell Count 3.59 M/mm3 (4.30-5.90); White Blood Cell Count 13.03 K/mm3 (4.00-11.30)
[2019-02-07 04:57] LABS: Mean Corpuscular Volume 89 fL (80-100)
--- NOTE | 2019-02-07 05:03 | NUR ---
PATIENT UP INDEPENDENTLY IN ROOM AND HALLWAYS. PATIENT WENT OUTSIDE A COUPLE OF TIMES AT THE BEGINNING OF THE NIGHT. PATIENT DENIES ANY PAIN. PATIENT SLIGHTLY AGGRESSION VERBALLY AT TIMES. PATIENT IRRATATED IF HE HAS TO WAIT FOR ANYTHING. PATIENT USING CALL LIGHT APPROPRIATELY.
[2019-02-07 05:31] LABS: Anion Gap 5 mmol/L (6-16); Blood Urea Nitrogen 15 mg/dL (8-24); CO2, Blood 28 mmol/L (21-32); Calcium, Blood 8.2 mg/dL (8.5-10.1); Chloride, Blood 111 mmol/L (98-108); Creatinine, Blood 0.68 mg/dL (0.60-1.20); Glomerular Filtration Rate >60 (60-); Glucose, Blood 86 mg/dL (70-99); Potassium, Blood 3.8 mmol/L (3.5-5.5); Sodium, Blood 144 mmol/L (136-145)
--- NOTE | 2019-02-07 07:12 | NUR ---
PATIENT VOMITING, GIVEN PRN.
--- NOTE | 2019-02-07 18:28 | NUR ---
SHIFT SUMMARY PATIENT NAUSEOUS AT BEGINNING OF SHIFT. NIGHT RN GAVE PRN NAUSEA MED, PT STATED THE MED HELPED SOMEWHAT. PATIENT STAYED IN BED ATTEMPTING TO SLEEP ALL MORNING, STATED HE WAS "GOING TO RIDE OUT" THE NAUSEA. PT REFUSED BREAKFAST AND LUNCH, REFUSED SCHEDULED REGULAR SS INSULIN, AND REFUSED AM SEROQUEL. PT REQUESTED 35 UNITS OF LANTUS GIVEN INSTEAD OF THE ORDERED 20 UNITS (35 GIVEN). TELE DC-ED BY DR ROGERS. BP HIGH, DR ROGERS AWARE, NORVASC ORDERED. IN AFTERNOON PT DENIED NAUSEA AND FELT BETTER. PT SHOWERED AND ORDERED/ATE A REGULAR ADA MEAL FOR DINNER.
[2019-02-08 04:51] LABS: BASOPHILS ABSOLUTE AUTO 0.07 K/mm3 (0.00-0.23); BASOPHILS PERCENT AUTO 1 % (0-2); EOSINOPHILS ABSOLUTE AUTO 0.21 K/mm3 (0.00-0.68); EOSINOPHILS PERCENT AUTO 2 % (0-6); Hematocrit 33.8 % (37.0-53.0); Hemoglobin 11.3 g/dL (13.5-17.5); IMMATURE GRAN ABSOLUTE AUTO 0.04 K/mm3 (0.00-0.10); IMMATURE GRAN PERCENT AUTO 0 % (0-1); LYMPHOCYTES ABSOLUTE AUTO 3.68 K/mm3 (0.84-5.20); LYMPHOCYTES PERCENT AUTO 31 % (21-46); MONOCYTES ABSOLUTE AUTO 0.92 K/mm3 (0.16-1.47); MONOCYTES PERCENT AUTO 8 % (4-13); Mean Corpuscular HGB 30.2 pg (26.0-34.0); Mean Corpuscular HGB Conc 33.4 g/dL (31.5-36.5); Mean Corpuscular Volume 90 fL (80-100); Mean Platelet Volume 8.8 fL (9.1-12.4); NEUTROPHILS ABSOLUTE AUTO 7.05 K/mm3 (1.96-9.15); NEUTROPHILS PERCENT AUTO 59 % (41-73); Platelet Count 348 K/mm3 (150-400); RDW Coefficient Variation 12.1 % (11.7-14.2); RDW Standard Deviation 40.2 fL (35.1-46.3); Red Blood Cell Count 3.74 M/mm3 (4.30-5.90); White Blood Cell Count 11.97 K/mm3 (4.00-11.30)
[2019-02-08 05:14] LABS: Alanine Aminotransfer (ALT/SGP 19 U/L (12-78); Albumin, Blood 2.5 g/dL (3.4-5.0); Albumin/Globulin Ratio 0.8 (0.8-1.8); Alk Phos 84 U/L (50-136); Anion Gap 6 mmol/L (6-16); Aspartate Aminotrans (AST/SGOT 11 U/L (12-37); Bilirubin, Total 0.2 mg/dL (0.1-1.0); Blood Urea Nitrogen 10 mg/dL (8-24); Bun/Creatinine Ratio 14.8 (12.0-20.0); CO2, Blood 30 mmol/L (21-32); Chloride, Blood 109 mmol/L (98-108); Creatinine, Blood 0.68 mg/dL (0.60-1.20); Globulin, Blood 3.2 g/dL (2.2-4.0); Glomerular Filtration Rate >60 (60-); Glucose, Blood 90 mg/dL (70-99); Phosphorus, Blood 3.8 mg/dL (2.5-4.9); Potassium, Blood 3.4 mmol/L (3.5-5.5); Sodium, Blood 145 mmol/L (136-145); Total Protein, Blood 5.7 g/dL (6.4-8.2)
--- NOTE | 2019-02-08 06:27 | NUR ---
SHIFT SUMMARY: BHAVIK WAS COOPERATIVE BUT TENDED TO HAVE AN ATTITUDE ABOUT HIS DX AND TREATMENTS. HE WAS IN AND OUT OF THE ROOM A COUPLE OF TIMES THIS SHIFT TO GO SIT OUTSIDE, DENYING HE SMOKED. THEN HE HAD HIS FRIENDS COME IN AND THERE HE CAME BACK SMELLING LIKE MARIJUANA. HE ADMITTED TO GOING OUT TO SMOKE IT, INFORMED IT THAT IT WAS AGAINST HOSPITAL POLICY HE SAID HE KNEW THAT, AND THAT WE CAN NOT ALLOW HIM OUT IF THAT IS WHAT HE WILL BE DOING. HE SAID HE WILL NOT GO OUT ANYMORE TONIGHT. HE ONLY ALLOWED THIS RN TO GIVE 4 UNITS OF INSULIN WHICH WAS LESS THEN RECOMMENED ORDER DOSE. LATER IN THE NIGHT HIS BLOOD SUGAR DROPPED TO 70'S OJ WAS GIVEN PER HIS REQUEST. HE SLEPT THROUGHOUT THE REST OF THE NIGHT. CALL LIGHT REMAINED WITH IN REACH AND USED APPROPRIATLY. WILL REPORT TO DAY SHIFT RN.
--- NOTE | 2019-02-08 08:19 | NUR ---
Called Physician Notified Dr. Rm RE: pt requesting 30u of Lantus (10u more than prescribed dose on EMAR). Received orders to administer per EMAR only. 20u of Lantus given per EMAR. Patient was cooperative with decision.
[2019-02-08] MEDS ORDERED: AMLO10 PO (10:00)
[2019-02-08] MEDS ORDERED: OMEPRAZOLE20 MG PO (10:01)
[2019-02-08] MEDS ORDERED: Prinivil10 MG PO (10:01)
--- NOTE | 2019-02-08 10:32 | NUR ---
Discharge Summary Reviewed discharge paperwork with patient and family member at bedside. Given opportunity for patient to ask questions. Meds faxed to [facility]. Patient to discharge home via personal vehicle. Belongings sent home with patient. Followup appointment to be scheduled by Virgilio. IVs taken out, both WNL. Offered wheelchair transport to exit doors, patient declined; instead ambulated out of hospital. Education and pamphlets provided on new meds.
== END 2019-02-08 10:29 | disposition home or self-care (01) ==
LOC: ER 14:47 → MEDS 14:48
PROVIDERS: Family Medicine; Hospitalist; Physician Assistant; ADMIT Family Medicine
DX: R11.2 Nausea with vomiting, unspecified (principal); D72.829 Elevated white blood cell count, unspecified; E10.9 Type 1 diabetes mellitus without complications; I10 Essential (primary) hypertension; F11.20 Opioid dependence, uncomplicated; F41.9 Anxiety disorder, unspecified; F17.210 Nicotine dependence, cigarettes, uncomplicated; Z88.1 Allergy status to other antibiotic agents; Z88.6 Allergy status to analgesic agent; Z88.2 Allergy status to sulfonamides
CPT/HCPCS: 36415; 71046; 80048; 80053; 81001; 82010; 82800; 82947; 83605; 83735; 84100; 85025; 87040; 87086; 93005; 93010; 96361; 96372; 96374; 96375; 96376; 99285-25; C9113; G0378; G0480; J1650; J1815; J2405; J2550; J7030

== ENCOUNTER 2019-06-10 13:32 | Emergency (ER) | payer OTHER ==
[~2019-06-10] VITALS: Ht 177.8 cm; Wt 61.2 kg
[~2019-06-10 13:32] MED LIST changes: +AMLO10 PO; +BASAGLAR SC; +OMEPRAZOLE20 MG PO; +Prinivil10 MG PO; +QUET25 PO
== END 2019-06-10 15:19 | disposition home or self-care (01) ==
LOC: ER 13:32
DX: S60.221A Contusion of right hand, initial encounter (principal); W22.8XXA Striking against or struck by other objects, initial encounter; E10.9 Type 1 diabetes mellitus without complications; J44.9 Chronic obstructive pulmonary disease, unspecified; F17.210 Nicotine dependence, cigarettes, uncomplicated; Z88.8 Allergy status to other drugs, medicaments and biological substances; Z88.1 Allergy status to other antibiotic agents; Z88.2 Allergy status to sulfonamides; Z79.899 Other long term (current) drug therapy
CPT/HCPCS: 73130; 99283-25

== ENCOUNTER 2019-08-03 11:05 | Observation (INO) | payer OTHER ==
[~2019-08-03] VITALS: Ht 177.8 cm; Wt 56.9 kg
[~2019-08-03 11:05] MED LIST changes: +ADMELOG SO100 UNIT/1 SC; +ATOR20 PO; +BASAGLAR K100 UNIT/2 SC; +CILO100 PO; +QUET100 PO
[2019-08-03 12:06] LABS: BASOPHILS ABSOLUTE AUTO 0.09 K/mm3 (0.00-0.23); BASOPHILS PERCENT AUTO 1 % (0-2); EOSINOPHILS ABSOLUTE AUTO 0.03 K/mm3 (0.00-0.68); EOSINOPHILS PERCENT AUTO 0 % (0-6); Hematocrit 43.1 % (37.0-53.0); Hemoglobin 13.9 g/dL (13.5-17.5); IMMATURE GRAN PERCENT AUTO 1 % (0-1); LYMPHOCYTES ABSOLUTE AUTO 2.14 K/mm3 (0.84-5.20); LYMPHOCYTES PERCENT AUTO 11 % (21-46); MONOCYTES ABSOLUTE AUTO 1.21 K/mm3 (0.16-1.47); MONOCYTES PERCENT AUTO 6 % (4-13); Mean Corpuscular HGB Conc 32.3 g/dL (31.5-36.5); Mean Corpuscular Volume 93 fL (80-100); NEUTROPHILS ABSOLUTE AUTO 16.41 K/mm3 (1.96-9.15); NEUTROPHILS PERCENT AUTO 82 % (41-73); Platelet Count 550 K/mm3 (150-400); RDW Coefficient Variation 11.9 % (11.7-14.2); RDW Standard Deviation 40.5 fL (35.1-46.3); Red Blood Cell Count 4.64 M/mm3 (4.30-5.90); White Blood Cell Count 19.98 K/mm3 (4.00-11.30)
[2019-08-03 12:23] LABS: Alanine Aminotransfer (ALT/SGP 28 U/L (12-78); Albumin/Globulin Ratio 0.9 (0.8-1.8); Alk Phos 129 U/L (50-136); Anion Gap 13 mmol/L (6-16); Aspartate Aminotrans (AST/SGOT 29 U/L (12-37); Beta-hydroxybutyrate 37.8 mg/dL (0.2-2.8); Bilirubin, Total 0.8 mg/dL (0.1-1.0); Blood Urea Nitrogen 29 mg/dL (8-24); Bun/Creatinine Ratio 27.6 (12.0-20.0); CO2, Blood 22 mmol/L (21-32); Chloride, Blood 97 mmol/L (98-108); Creatinine, Blood 1.05 mg/dL (0.60-1.20); Globulin, Blood 4.7 g/dL (2.2-4.0); Glomerular Filtration Rate >60 (60-); Glucose, Blood 579 mg/dL (70-99); Potassium, Blood 4.8 mmol/L (3.5-5.5); Sodium, Blood 132 mmol/L (136-145); Total Protein, Blood 8.7 g/dL (6.4-8.2)
[2019-08-03 12:27] LABS: Base Excess Venous -6.2 mmol/L; Bicarbonate Venous 19.3 mmol/L (24.0-30.0); PCO2 Venous 45.2 mmHg (38-42); pH Blood Venous 7.27 (7.34-7.37)
[2019-08-03 12:56] LABS: Glucose, Blood 601 mg/dL (70-99)
[2019-08-03 17:20] LABS: Source, Urine Clean Catch
[2019-08-03 17:33] LABS: Bilirubin, Urine Neg (Neg); Blood, Urine 3+ (Neg); Glucose Qualitative, Urine 4+ (Neg); Ketones, Urine 2+ (Neg); Leukocyte Esterase, Urine Neg (Neg); Nitrite, Urine Neg (Neg); Protein, Urine 3+ (Neg); Specific Gravity, Urine 1.015 (1.003-1.022); Urobilinogen, Urine NORM (Normal)
[2019-08-03 17:40] LABS: Appearance, Urine Clear (Clear); Color, Urine Yellow (P-Yellow)
[2019-08-03 18:16] LABS: White Blood Cells, Urine 0-2 /hpf (0-5)
[2019-08-03 18:17] LABS: Bacteria Few /hpf; Hyaline Casts 0-2 /lpf (0-2); Squamous Epithelial Cells Few /hpf (Few)
--- NOTE | 2019-08-03 19:00 | NUR ---
ASUMMED CARE NOTE: ASSUMED CARE @ 1900, RECEVIED REPORT FROM CHIDI VANN. PT IS ALERT AND ORIENTEDX4. PT IS INDEPENDENT IN ROOM. PT IN SINUS TACH W/ HR @ 105. PT IS DENYING NAUSEA/VOMITING AT THIS TIME. PT IS AGITATED THAT HE IS BEING PLACED ON CLEAR LIQUIDS. HE IS SCREAMING IN HIS ROOM WHILE ON THE PHONE WITH HIS MOM. PT WAS REMINDED ON HOW TO TREAT STAFF. WILL CONTINUE TO MONITOR PT T/O SHIFT.
--- NOTE | 2019-08-03 19:17 | NUR ---
PATIENT ARRIVED FROM ED AT 1816 VIA GURNEY. TRANSFERRED TO BED INDEPENDENTLY, AMBULATED STEADILY. CALL LIGHT IN REACH. IV NS AND 1/2 NS + 20 KCL INFUSING ON ARRIVAL. DENIES PAIN, N/V, REQUESTING CLEAR ENSURE.
[2019-08-03 20:49] LABS: Anion Gap 9 mmol/L (6-16); Blood Urea Nitrogen 28 mg/dL (8-24); Bun/Creatinine Ratio 31.2 (12.0-20.0); CO2, Blood 23 mmol/L (21-32); Calcium, Blood 8.1 mg/dL (8.5-10.1); Chloride, Blood 105 mmol/L (98-108); Glomerular Filtration Rate >60 (60-); Glucose, Blood 390 mg/dL (70-99); Potassium, Blood 3.9 mmol/L (3.5-5.5); Sodium, Blood 137 mmol/L (136-145)
--- NOTE | 2019-08-03 21:35 | NUR ---
UPDATE: CALLED HOSPITALIST JUAN DAVID, UPDATING HER ON PT'S RECENT LABS AND BLOOD SUGAR. PT ALSO REQUESTED THAT HIS SEROQUEL DOSE BE CHANGED FROM 150 TO 100MG. WILL CONTINUE TO MONITOR PT.
[2019-08-04 00:57] LABS: Anion Gap 5 mmol/L (6-16); Blood Urea Nitrogen 23 mg/dL (8-24); Bun/Creatinine Ratio 26.3 (12.0-20.0); CO2, Blood 27 mmol/L (21-32); Chloride, Blood 109 mmol/L (98-108); Creatinine, Blood 0.87 mg/dL (0.60-1.20); Glomerular Filtration Rate >60 (60-); Glucose, Blood 167 mg/dL (70-99); Potassium, Blood 3.8 mmol/L (3.5-5.5); Sodium, Blood 141 mmol/L (136-145)
[2019-08-04 03:32] LABS: BASOPHILS ABSOLUTE AUTO 0.08 K/mm3 (0.00-0.23); BASOPHILS PERCENT AUTO 1 % (0-2); EOSINOPHILS ABSOLUTE AUTO 0.14 K/mm3 (0.00-0.68); EOSINOPHILS PERCENT AUTO 1 % (0-6); Hematocrit 31.3 % (37.0-53.0); Hemoglobin 10.3 g/dL (13.5-17.5); IMMATURE GRAN ABSOLUTE AUTO 0.09 K/mm3 (0.00-0.10); IMMATURE GRAN PERCENT AUTO 1 % (0-1); LYMPHOCYTES ABSOLUTE AUTO 4.88 K/mm3 (0.84-5.20); LYMPHOCYTES PERCENT AUTO 28 % (21-46); MONOCYTES PERCENT AUTO 8 % (4-13); Mean Corpuscular HGB 30.2 pg (26.0-34.0); Mean Corpuscular HGB Conc 32.9 g/dL (31.5-36.5); Mean Corpuscular Volume 92 fL (80-100); Mean Platelet Volume 8.6 fL (9.1-12.4); NEUTROPHILS ABSOLUTE AUTO 10.64 K/mm3 (1.96-9.15); NEUTROPHILS PERCENT AUTO 62 % (41-73); Platelet Count 372 K/mm3 (150-400); RDW Coefficient Variation 11.8 % (11.7-14.2); RDW Standard Deviation 39.8 fL (35.1-46.3); Red Blood Cell Count 3.41 M/mm3 (4.30-5.90); White Blood Cell Count 17.23 K/mm3 (4.00-11.30)
[2019-08-04 03:51] LABS: Alanine Aminotransfer (ALT/SGP 16 U/L (12-78); Albumin, Blood 2.6 g/dL (3.4-5.0); Albumin/Globulin Ratio 0.9 (0.8-1.8); Alk Phos 81 U/L (50-136); Anion Gap 6 mmol/L (6-16); Aspartate Aminotrans (AST/SGOT 9 U/L (12-37); Bilirubin, Total 0.3 mg/dL (0.1-1.0); Blood Urea Nitrogen 21 mg/dL (8-24); Bun/Creatinine Ratio 24.5 (12.0-20.0); CO2, Blood 27 mmol/L (21-32); Calcium, Blood 8.2 mg/dL (8.5-10.1); Chloride, Blood 110 mmol/L (98-108); Creatinine, Blood 0.86 mg/dL (0.60-1.20); Globulin, Blood 2.9 g/dL (2.2-4.0); Glomerular Filtration Rate >60 (60-); Glucose, Blood 104 mg/dL (70-99); Sodium, Blood 143 mmol/L (136-145); Total Protein, Blood 5.5 g/dL (6.4-8.2)
--- NOTE | 2019-08-04 05:47 | NUR ---
SHIFT SUMMARY: PT HAS REMAINED ALERT AND ORIENTEDX3 AND ON RA. PT CONTINUES TO DENY N/V. PT WAS ABLE TO EAT A HALF A SANDWICH, DIET ORDER FOR ADA DIET WAS PLACED. PT REFUSED TO TAKE LONG ACTING INSULIN. PT WAS EDUCATED ON S/S OF DKA AND MANAGMENT OF HYPERGLYCEMIA. BLOOD SUGARS ARE NOW BELOW 200, CBG'S CAN NOW BE CHECKED AC&HS. PT WAS IN SINUS TACH AT THE START OF SHIFT, PT IS NOW NSR WITH HR IN THE 80'S. EKG PERFOMED PER ORDERS, SEE CHART. PT HAS BEEN USING URINAL AT BEDSIDE. BED AT LOWEST LEVEL, CALL LIGHT WITHIN REACH. WILL CONTINUE TO MONITOR UNTIL REPORT IS GIVEN TO ONCOMING SHIFT.
[2019-08-04 08:25] LABS: BASOPHILS PERCENT AUTO 1 % (0-2); EOSINOPHILS ABSOLUTE AUTO 0.16 K/mm3 (0.00-0.68); EOSINOPHILS PERCENT AUTO 1 % (0-6); Hematocrit 33.2 % (37.0-53.0); Hemoglobin 10.8 g/dL (13.5-17.5); IMMATURE GRAN ABSOLUTE AUTO 0.04 K/mm3 (0.00-0.10); IMMATURE GRAN PERCENT AUTO 0 % (0-1); LYMPHOCYTES ABSOLUTE AUTO 2.89 K/mm3 (0.84-5.20); LYMPHOCYTES PERCENT AUTO 20 % (21-46); MONOCYTES ABSOLUTE AUTO 0.96 K/mm3 (0.16-1.47); MONOCYTES PERCENT AUTO 7 % (4-13); Mean Corpuscular HGB 29.9 pg (26.0-34.0); Mean Corpuscular HGB Conc 32.5 g/dL (31.5-36.5); Mean Corpuscular Volume 92 fL (80-100); Mean Platelet Volume 8.6 fL (9.1-12.4); NEUTROPHILS ABSOLUTE AUTO 10.27 K/mm3 (1.96-9.15); NEUTROPHILS PERCENT AUTO 71 % (41-73); Platelet Count 404 K/mm3 (150-400); RDW Coefficient Variation 11.8 % (11.7-14.2); RDW Standard Deviation 39.8 fL (35.1-46.3); Red Blood Cell Count 3.61 M/mm3 (4.30-5.90); White Blood Cell Count 14.42 K/mm3 (4.00-11.30)
[2019-08-04 08:34] LABS: Anion Gap 6 mmol/L (6-16); Blood Urea Nitrogen 19 mg/dL (8-24); Bun/Creatinine Ratio 28.1 (12.0-20.0); CO2, Blood 24 mmol/L (21-32); Calcium, Blood 8.3 mg/dL (8.5-10.1); Chloride, Blood 106 mmol/L (98-108); Creatinine, Blood 0.68 mg/dL (0.60-1.20); Glomerular Filtration Rate >60 (60-); Glucose, Blood 236 mg/dL (70-99); Potassium, Blood 4.3 mmol/L (3.5-5.5); Sodium, Blood 136 mmol/L (136-145)
--- NOTE | 2019-08-04 13:27 | NUR ---
CARE ASSUMED ASSESSMENT COMPLETED. PT A&OX4, ABRUPT AND CHILDLIKE WITH BEHAVIORS AND AFFECT, IRRITABLE AND IRRATIONAL. HR 100-110 SINUS, BP ELEVATED, PT AGREED TO TAKE LISINOPRIL ONLY AFTER EXPLAINING DANGERS OF HTN, REFUSED OTHER AM MEDICATIONS. LANUTS AND PLETAL SCHEDULES CHANGED TO REFLECT HOME REGIMEN. PT MEDICATED FOR NAUSEA PER ORDERS, THEN VOMITED AFTER EATING BREAKFAST.
--- NOTE | 2019-08-04 13:29 | NUR ---
UPDATE DR. GARDINER IN TO SEE PATIENT, NEW ORDERS RECEIVED. PT MEDICATED FOR HYPERGLYCEMIA, REFUSED LUNCH D/T CONTINUED NAUSEA/VOMITING. DR. GARDINER CONTACTED FOR ADDTIONAL N/V ORDERS. PT SLEEPING UPON RECEIVING NEW ORDERS, NOT WOKEN TO MEDICATE. BP REMAINS ELEVATED BUT HAS DECREASED, DR. HEIN. HR REMAINS 90'S-110. IVF DC'D.
[2019-08-04] MEDS ORDERED: ACET325 PO (15:33)
[2019-08-04] MEDS ORDERED: PANT40 PO (15:36)
--- NOTE | 2019-08-04 16:32 | NUR ---
DISCHARGE NOTE PT WOKE UP FROM [facility] THIS AFTERNOON WITH NO C/O N/V, ATE LUNCH WITHOUT DIFFICULTY, DENIES DISCOMFORT AFTER EATING. TOLERATED PO MEDICATION WELL. DR. GARDINER IN TO REASSESS, DISCHARGE ORDERS RECEIVED. 1630 GLUCOSE LEVEL TAKEN, INSULIN ADMINISTERED PER AUG. IV DC'D WITH TIP INTACT, PRESSURE DRESSING APPLIED. PT GIVEN DC INSTRUCTIONS, VERBALIZES UNDERSTANDING, RX SENT TO [facility] IN [place] PER PT PREFERENCE, PT AWARE. PT DC TO HOME WITH BELONGINGS AND DC INSTRUCTIONS, MOTHER TO DRIVE, GAIT STEADY UPON DISCHARGE, PT PLEASANT AND COOPERATIVE AT THIS TIME.
== END 2019-08-04 16:20 | disposition home or self-care (01) ==
LOC: ER 11:05 → PCU 11:06 → ICUW 18:23
PROVIDERS: Emergency Medicine; Family Medicine; Physician Assistant; ADMIT Hospitalist
DX: E10.65 Type 1 diabetes mellitus with hyperglycemia (principal); E86.9 Volume depletion, unspecified; R11.2 Nausea with vomiting, unspecified; K21.9 Gastro-esophageal reflux disease without esophagitis; I10 Essential (primary) hypertension; E10.51 Type 1 diabetes mellitus with diabetic peripheral angiopathy without gangrene; J44.9 Chronic obstructive pulmonary disease, unspecified; F17.210 Nicotine dependence, cigarettes, uncomplicated; F41.9 Anxiety disorder, unspecified; Z88.6 Allergy status to analgesic agent; Z88.2 Allergy status to sulfonamides; Z79.899 Other long term (current) drug therapy; Z88.8 Allergy status to other drugs, medicaments and biological substances
CPT/HCPCS: 36415; 80048; 80053; 81001; 82010; 82803; 82947; 85025; 93005; 93010; 96361; 96374; 96376; 99285-25; A9270-GY; G0378; J1815; J2550; J3480; J7030; J7120

== ENCOUNTER 2019-08-25 09:48 | Inpatient (IN) | payer OTHER ==
[~2019-08-25] VITALS: Ht 162.6 cm; Wt 65.8 kg
[~2019-08-25 09:48] MED LIST changes: +ATOR10 PO; -ATOR20 PO; -CILO100 PO; +Cilostazol100 MG PO; +PANT40 PO; -QUET100 PO
[2019-08-25 10:15] LABS: BASOPHILS PERCENT AUTO 0 % (0-2); EOSINOPHILS PERCENT AUTO 0 % (0-6); Hematocrit 43.7 % (37.0-53.0); Hemoglobin 13.4 g/dL (13.5-17.5); IMMATURE GRAN ABSOLUTE AUTO 0.19 K/mm3 (0.00-0.10); IMMATURE GRAN PERCENT AUTO 1 % (0-1); LYMPHOCYTES ABSOLUTE AUTO 1.24 K/mm3 (0.84-5.20); LYMPHOCYTES PERCENT AUTO 5 % (21-46); MONOCYTES ABSOLUTE AUTO 0.53 K/mm3 (0.16-1.47); MONOCYTES PERCENT AUTO 2 % (4-13); Mean Corpuscular HGB 29.5 pg (26.0-34.0); Mean Corpuscular HGB Conc 30.7 g/dL (31.5-36.5); Mean Corpuscular Volume 96 fL (80-100); NEUTROPHILS ABSOLUTE AUTO 21.82 K/mm3 (1.96-9.15); NEUTROPHILS PERCENT AUTO 91 % (41-73); Platelet Count 559 K/mm3 (150-400); RDW Coefficient Variation 12.3 % (11.7-14.2); Red Blood Cell Count 4.54 M/mm3 (4.30-5.90); White Blood Cell Count 23.88 K/mm3 (4.00-11.30)
[2019-08-25 10:30] LABS: Base Excess Venous -6.1 mmol/L; Bicarbonate Venous 19.5 mmol/L (24.0-30.0); PCO2 Venous 42.7 mmHg (38-42); PO2 Venous 64.2 mmHg (38-42); pH Blood Venous 7.29 (7.34-7.37)
[2019-08-25 10:44] LABS: Albumin, Blood 3.9 g/dL (3.4-5.0); Albumin/Globulin Ratio 0.9 (0.8-1.8); Bilirubin, Total 0.7 mg/dL (0.1-1.0); Bun/Creatinine Ratio 29.4 (12.0-20.0); Creatinine, Blood 1.53 mg/dL (0.60-1.20); Globulin, Blood 4.3 g/dL (2.2-4.0); Potassium, Blood 4.8 mmol/L (3.5-5.5); Total Protein, Blood 8.2 g/dL (6.4-8.2)
[2019-08-25 13:13] LABS: Source, Urine Clean Catch
[2019-08-25 13:27] LABS: Bilirubin, Urine Neg (Neg); Blood, Urine 3+ (Neg); Glucose Qualitative, Urine 4+ (Neg); Ketones, Urine 2+ (Neg); Leukocyte Esterase, Urine Neg (Neg); Nitrite, Urine Neg (Neg); Protein, Urine 2+ (Neg); Urobilinogen, Urine NORM (Normal)
[2019-08-25 13:47] LABS: Appearance, Urine Clear (Clear); Color, Urine Pale Yellow (P-Yellow)
[2019-08-25] MEDS ORDERED: QUETIAPINE FUMA50 M1 PO (13:54)
[2019-08-25 13:57] LABS: Bacteria Few /hpf; Squamous Epithelial Cells Not Seen /hpf (Few); White Blood Cells, Urine 0-2 /hpf (0-5)
[2019-08-25 14:25] LABS: Alanine Aminotransfer (ALT/SGP 27 U/L (12-78); Albumin/Globulin Ratio 0.9 (0.8-1.8); Alk Phos 100 U/L (50-136); Anion Gap 11 mmol/L (6-16); Aspartate Aminotrans (AST/SGOT 11 U/L (12-37); Bilirubin, Total 0.4 mg/dL (0.1-1.0); Blood Urea Nitrogen 41 mg/dL (8-24); Bun/Creatinine Ratio 31.1 (12.0-20.0); CO2, Blood 24 mmol/L (21-32); Calcium, Blood 8.1 mg/dL (8.5-10.1); Chloride, Blood 105 mmol/L (98-108); Creatinine, Blood 1.32 mg/dL (0.60-1.20); Globulin, Blood 3.4 g/dL (2.2-4.0); Glomerular Filtration Rate >60 (60-); Glucose, Blood 297 mg/dL (70-99); Total Protein, Blood 6.4 g/dL (6.4-8.2)
[2019-08-25 14:49] LABS: Sodium, Blood 140 mmol/L (136-145)
== END 2019-08-25 15:19 | disposition left against medical advice (07) | DRG 639 ==
LOC: ER 09:48 → ERHOLD 15:03
PROVIDERS: Physician Assistant; ADMIT Internal Medicine
DX: E10.10 Type 1 diabetes mellitus with ketoacidosis without coma (principal); G89.29 Other chronic pain; M41.9 Scoliosis, unspecified; J44.9 Chronic obstructive pulmonary disease, unspecified; E10.51 Type 1 diabetes mellitus with diabetic peripheral angiopathy without gangrene; I10 Essential (primary) hypertension; F41.9 Anxiety disorder, unspecified; F17.210 Nicotine dependence, cigarettes, uncomplicated; Z53.29 Procedure and treatment not carried out because of patient's decision for other reasons; Z79.899 Other long term (current) drug therapy; Z79.4 Long term (current) use of insulin
CPT/HCPCS: 36415; 80053; 81001; 82010; 82803; 82947; 85025; 93005; 93010; 96361; 96374; 99285-25; J1815; J2550; J7030

== ENCOUNTER 2019-10-23 18:35 | Emergency (ER) | payer OTHER ==
[~2019-10-23] VITALS: Ht 177.8 cm; Wt 56.7 kg
[~2019-10-23 18:35] MED LIST changes: +QUETIAPINE FUMA50 M1 PO
[2019-10-23 19:57] LABS: BASOPHILS ABSOLUTE AUTO 0.07 K/mm3 (0.00-0.23); BASOPHILS PERCENT AUTO 0 % (0-2); EOSINOPHILS PERCENT AUTO 0 % (0-6); Hematocrit 46.2 % (37.0-53.0); Hemoglobin 14.9 g/dL (13.5-17.5); IMMATURE GRAN ABSOLUTE AUTO 0.13 K/mm3 (0.00-0.10); IMMATURE GRAN PERCENT AUTO 1 % (0-1); LYMPHOCYTES ABSOLUTE AUTO 1.07 K/mm3 (0.84-5.20); LYMPHOCYTES PERCENT AUTO 5 % (21-46); MONOCYTES ABSOLUTE AUTO 0.71 K/mm3 (0.16-1.47); MONOCYTES PERCENT AUTO 3 % (4-13); Mean Corpuscular HGB 29.4 pg (26.0-34.0); Mean Corpuscular HGB Conc 32.3 g/dL (31.5-36.5); Mean Corpuscular Volume 91 fL (80-100); NEUTROPHILS ABSOLUTE AUTO 20.44 K/mm3 (1.96-9.15); NEUTROPHILS PERCENT AUTO 91 % (41-73); Platelet Count 561 K/mm3 (150-400); RDW Coefficient Variation 12.1 % (11.7-14.2); RDW Standard Deviation 40.2 fL (35.1-46.3); Red Blood Cell Count 5.06 M/mm3 (4.30-5.90); White Blood Cell Count 22.42 K/mm3 (4.00-11.30)
[2019-10-23 20:17] LABS: Albumin, Blood 4.4 g/dL (3.4-5.0); Albumin/Globulin Ratio 0.9 (0.8-1.8); Bilirubin, Total 0.5 mg/dL (0.1-1.0); Bun/Creatinine Ratio 18.6 (12.0-20.0); Calcium, Blood 9.7 mg/dL (8.5-10.1); Creatinine, Blood 1.56 mg/dL (0.60-1.20); Potassium, Blood 4.7 mmol/L (3.5-5.5); Total Protein, Blood 9.4 g/dL (6.4-8.2)
[2019-10-23 20:51] LABS: Base Excess Venous 1.2 mmol/L; Bicarbonate Venous 25.3 mmol/L (24.0-30.0); PCO2 Venous 41.4 mmHg (38-42); PO2 Venous 100 mmHg (38-42); pH Blood Venous 7.41 (7.34-7.37)
[2019-10-23] MEDS ORDERED: PROM25 PO (21:56)
[2019-10-23] MEDS ORDERED: Phenergan25 MG PR (21:56)
== END 2019-10-23 23:13 | disposition home or self-care (01) ==
LOC: ER 18:35
PROVIDERS: Emergency Medicine
DX: E10.65 Type 1 diabetes mellitus with hyperglycemia (principal); E86.0 Dehydration; M54.9 Dorsalgia, unspecified; G89.29 Other chronic pain; J44.9 Chronic obstructive pulmonary disease, unspecified; F17.210 Nicotine dependence, cigarettes, uncomplicated; Z88.2 Allergy status to sulfonamides; Z88.1 Allergy status to other antibiotic agents; Z88.6 Allergy status to analgesic agent; Z88.8 Allergy status to other drugs, medicaments and biological substances; Z79.899 Other long term (current) drug therapy
CPT/HCPCS: 36415; 80053; 82803; 82947; 85025; 96361; 96374; 96375; 99284-25; A9270-GY; J1200; J2765; J7030; J7120

== ENCOUNTER 2019-11-16 19:55 | Emergency (ER) | payer OTHER ==
[~2019-11-16] VITALS: Ht 177.8 cm; Wt 49.9 kg
[~2019-11-16 19:55] MED LIST changes: -ADMELOG SO100 UNIT/1 SC; -ATOR10 PO; -BASAGLAR K100 UNIT/2 SC; -Cilostazol100 MG PO; +Phenergan25 MG PR; -Prinivil10 MG PO; -QUETIAPINE FUMA50 M1 PO
[2019-11-16 20:49] LABS: BASOPHILS ABSOLUTE AUTO 0.12 K/mm3 (0.00-0.23); BASOPHILS PERCENT AUTO 0 % (0-2); EOSINOPHILS ABSOLUTE AUTO 0.05 K/mm3 (0.00-0.68); EOSINOPHILS PERCENT AUTO 0 % (0-6); Hematocrit 44.8 % (37.0-53.0); Hemoglobin 14.1 g/dL (13.5-17.5); IMMATURE GRAN ABSOLUTE AUTO 0.18 K/mm3 (0.00-0.10); IMMATURE GRAN PERCENT AUTO 1 % (0-1); LYMPHOCYTES ABSOLUTE AUTO 1.21 K/mm3 (0.84-5.20); LYMPHOCYTES PERCENT AUTO 5 % (21-46); MONOCYTES ABSOLUTE AUTO 1.28 K/mm3 (0.16-1.47); MONOCYTES PERCENT AUTO 5 % (4-13); Mean Corpuscular HGB 29.2 pg (26.0-34.0); Mean Corpuscular HGB Conc 31.5 g/dL (31.5-36.5); Mean Corpuscular Volume 93 fL (80-100); Mean Platelet Volume 8.7 fL (9.1-12.4); NEUTROPHILS ABSOLUTE AUTO 24.16 K/mm3 (1.96-9.15); NEUTROPHILS PERCENT AUTO 90 % (41-73); Platelet Count 519 K/mm3 (150-400); RDW Standard Deviation 41.3 fL (35.1-46.3); Red Blood Cell Count 4.83 M/mm3 (4.30-5.90)
[2019-11-16 21:31] LABS: Alanine Aminotransfer (ALT/SGP 24 U/L (12-78); Albumin, Blood 3.8 g/dL (3.4-5.0); Albumin/Globulin Ratio 0.9 (0.8-1.8); Alk Phos 111 U/L (50-136); Anion Gap 9 mmol/L (6-16); Aspartate Aminotrans (AST/SGOT 15 U/L (12-37); Bilirubin, Total 0.4 mg/dL (0.1-1.0); Blood Urea Nitrogen 23 mg/dL (8-24); Bun/Creatinine Ratio 20.2 (12.0-20.0); CO2, Blood 26 mmol/L (21-32); Calcium, Blood 9.5 mg/dL (8.5-10.1); Chloride, Blood 109 mmol/L (98-108); Creatinine, Blood 1.14 mg/dL (0.60-1.20); Globulin, Blood 4.2 g/dL (2.2-4.0); Glomerular Filtration Rate >60 (60-); Glucose, Blood 350 mg/dL (70-99); Potassium, Blood 4.4 mmol/L (3.5-5.5); Sodium, Blood 144 mmol/L (136-145)
[2019-11-16] MEDS ORDERED: Cartridge Stam1 EACH (21:45)
[2019-11-16 22:10] LABS: Beta-hydroxybutyrate 18.9 mg/dL (0.2-2.8)
[2019-11-16 22:34] LABS: Bicarbonate Venous 23.3 mmol/L (24.0-30.0); PO2 Venous 115 mmHg (38-42); pH Blood Venous 7.34 (7.34-7.37)
[2019-11-18] MEDS ORDERED: LISI5 PO (12:54)
[2019-11-18] MEDS ORDERED: QUETIAPINE FUMA50 M1 PO (12:55)
[2019-11-18] MEDS ORDERED: ADMELOG100 UNIT/2 (12:57)
[2019-11-18] MEDS ORDERED: ATOR10 PO (13:07)
[2019-11-18] MEDS ORDERED: Cilostazol100 MG PO (13:07)
[2019-11-18] MEDS ORDERED: ALBU90OI INH (13:08)
[2019-11-18] MEDS ORDERED: METO10 PO (16:00)
== END 2019-11-17 00:07 | disposition home or self-care (01) ==
LOC: ER 19:55
PROVIDERS: Emergency Medicine; Physician Assistant
DX: E10.65 Type 1 diabetes mellitus with hyperglycemia (principal); R11.2 Nausea with vomiting, unspecified; Z88.1 Allergy status to other antibiotic agents; Z88.2 Allergy status to sulfonamides; Z88.6 Allergy status to analgesic agent; Z88.8 Allergy status to other drugs, medicaments and biological substances; Z79.899 Other long term (current) drug therapy; J44.9 Chronic obstructive pulmonary disease, unspecified; F17.210 Nicotine dependence, cigarettes, uncomplicated
CPT/HCPCS: 36415; 80053; 82010; 82803; 85025; 96361; 96374; 96375; 99284-25; J1200; J1630; J7120

== ENCOUNTER 2019-12-07 08:41 | Observation (INO) | payer OTHER ==
[~2019-12-07] VITALS: Ht 177.8 cm; Wt 56.1 kg
[~2019-12-07 08:41] MED LIST changes: +ADMELOG100 UNIT/2 SC; +ATOR10 PO; +Cartridge Stam1 EACH; +Cilostazol100 MG PO; +QUETIAPINE FUMA50 M1 PO
[2019-12-07 09:07] LABS: BASOPHILS ABSOLUTE AUTO 0.08 K/mm3 (0.00-0.23); BASOPHILS PERCENT AUTO 0 % (0-2); EOSINOPHILS ABSOLUTE AUTO 0.01 K/mm3 (0.00-0.68); EOSINOPHILS PERCENT AUTO 0 % (0-6); Hematocrit 43.9 % (37.0-53.0); Hemoglobin 13.3 g/dL (13.5-17.5); IMMATURE GRAN ABSOLUTE AUTO 0.11 K/mm3 (0.00-0.10); IMMATURE GRAN PERCENT AUTO 1 % (0-1); LYMPHOCYTES PERCENT AUTO 7 % (21-46); MONOCYTES ABSOLUTE AUTO 1.01 K/mm3 (0.16-1.47); MONOCYTES PERCENT AUTO 4 % (4-13); Mean Corpuscular HGB 29.2 pg (26.0-34.0); Mean Corpuscular HGB Conc 30.3 g/dL (31.5-36.5); Mean Corpuscular Volume 97 fL (80-100); Mean Platelet Volume 9.1 fL (9.1-12.4); NEUTROPHILS ABSOLUTE AUTO 21.05 K/mm3 (1.96-9.15); NEUTROPHILS PERCENT AUTO 88 % (41-73); Platelet Count 548 K/mm3 (150-400); RDW Coefficient Variation 11.9 % (11.7-14.2); RDW Standard Deviation 42.4 fL (35.1-46.3); Red Blood Cell Count 4.55 M/mm3 (4.30-5.90); White Blood Cell Count 23.86 K/mm3 (4.00-11.30)
[2019-12-07 09:28] LABS: Magnesium, Blood 2.2 mg/dL (1.6-2.4)
[2019-12-07 09:51] LABS: Albumin, Blood 3.7 g/dL (3.4-5.0); Albumin/Globulin Ratio 0.9 (0.8-1.8); Beta-hydroxybutyrate 58.5 mg/dL (0.2-2.8); Bilirubin, Total 0.6 mg/dL (0.1-1.0); Bun/Creatinine Ratio 27.2 (12.0-20.0); Calcium, Blood 8.5 mg/dL (8.5-10.1); Creatinine, Blood 1.58 mg/dL (0.60-1.20); Globulin, Blood 4.1 g/dL (2.2-4.0); Potassium, Blood 4.9 mmol/L (3.5-5.5); Total Protein, Blood 7.8 g/dL (6.4-8.2)
--- NOTE | 2019-12-07 11:21 | NUR ---
PATIENT ARRIVED ICU 3 AFTER REPORT FROM SHANI VANN. MALNOURISHED LOOKING 36 YO MAIL WITH SORES IN VARIOUS STAGES OF HEALING ON HIS SKIN. CHEWING ICE CHIPS. WAS ABLE TO TRANSFER HIMSELF FROM STRETCHER TO ICU BED WITHOUT INCIDENT.
[2019-12-07 11:40] LABS: PCO2 Arterial 36.3 mmHg (35-45); PO2 Arterial 78.1 mmHg (80-100); pH Blood Arterial 7.39 (7.35-7.45)
[2019-12-07 12:12] LABS: Bun/Creatinine Ratio 28.8 (12.0-20.0); Calcium, Blood 8.4 mg/dL (8.5-10.1); Creatinine, Blood 1.53 mg/dL (0.60-1.20); Potassium, Blood 4.5 mmol/L (3.5-5.5)
[2019-12-07 13:11] LABS: Glucose, Blood 611 mg/dL (70-99)
[2019-12-07 13:41] LABS: PCO2 Arterial 41.1 mmHg (35-45); PO2 Arterial 78.3 mmHg (80-100); pH Blood Arterial 7.43 (7.35-7.45)
[2019-12-07 13:59] LABS: Anion Gap 7 mmol/L (6-16); Blood Urea Nitrogen 43 mg/dL (8-24); Bun/Creatinine Ratio 31.4 (12.0-20.0); CO2, Blood 28 mmol/L (21-32); Calcium, Blood 8.2 mg/dL (8.5-10.1); Chloride, Blood 100 mmol/L (98-108); Creatinine, Blood 1.37 mg/dL (0.60-1.20); Glomerular Filtration Rate >60 (60-); Glucose, Blood 479 mg/dL (70-99); Potassium, Blood 4.6 mmol/L (3.5-5.5); Sodium, Blood 135 mmol/L (136-145)
--- NOTE | 2019-12-07 15:30 | NUR ---
CONSULTED DR. MONGE RE: LABS. ORDER TO TITRATE INSULIN PUMP OFF. GIVE HOME DOSE OF LONG ACTING INSULIN. REDUCE .45% NS TO 125 ML/HR. AND CHANGE STATUS TO MED/NO TELE WHEN INSULIN GTT IS OFF. 01/2019 PATIENT WAS RX'D 35 UNITS GLARGINE DAILY AND LISPRO 8 UNITS TID.
--- NOTE | 2019-12-07 16:32 | NUR ---
CBG 285. INSULIN GTT TO 1 UNIT/HR. LANTUS 35 UNITS SQ GIVEN. 1/2 NS AT 125 ML/HR. WILL TURN OFF INSULIN GTT IN 1 HOUR.
--- NOTE | 2019-12-07 21:34 | NUR ---
REPORT GIVEN TO TINO RN AND PT TRANSPORTED TO ROOM 306 @ 1411.
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
[2019-12-08 04:55] LABS: BASOPHILS PERCENT AUTO 1 % (0-2); EOSINOPHILS ABSOLUTE AUTO 0.18 K/mm3 (0.00-0.68); EOSINOPHILS PERCENT AUTO 1 % (0-6); Hematocrit 35.5 % (37.0-53.0); Hemoglobin 11.4 g/dL (13.5-17.5); IMMATURE GRAN ABSOLUTE AUTO 0.04 K/mm3 (0.00-0.10); IMMATURE GRAN PERCENT AUTO 0 % (0-1); LYMPHOCYTES PERCENT AUTO 19 % (21-46); MONOCYTES ABSOLUTE AUTO 0.98 K/mm3 (0.16-1.47); MONOCYTES PERCENT AUTO 6 % (4-13); Mean Corpuscular HGB Conc 32.1 g/dL (31.5-36.5); Mean Platelet Volume 8.4 fL (9.1-12.4); NEUTROPHILS ABSOLUTE AUTO 13.14 K/mm3 (1.96-9.15); NEUTROPHILS PERCENT AUTO 74 % (41-73); Platelet Count 446 K/mm3 (150-400); RDW Coefficient Variation 11.9 % (11.7-14.2); Red Blood Cell Count 3.93 M/mm3 (4.30-5.90); White Blood Cell Count 17.74 K/mm3 (4.00-11.30)
[2019-12-08 04:56] LABS: Mean Corpuscular Volume 90 fL (80-100)
[2019-12-08 05:13] LABS: Alanine Aminotransfer (ALT/SGP 17 U/L (12-78); Albumin/Globulin Ratio 0.9 (0.8-1.8); Alk Phos 81 U/L (50-136); Anion Gap 4 mmol/L (6-16); Aspartate Aminotrans (AST/SGOT 12 U/L (12-37); Bilirubin, Total 0.5 mg/dL (0.1-1.0); Blood Urea Nitrogen 25 mg/dL (8-24); Bun/Creatinine Ratio 27.1 (12.0-20.0); CO2, Blood 30 mmol/L (21-32); Calcium, Blood 8.1 mg/dL (8.5-10.1); Chloride, Blood 107 mmol/L (98-108); Creatinine, Blood 0.92 mg/dL (0.60-1.20); Globulin, Blood 3.2 g/dL (2.2-4.0); Glomerular Filtration Rate >60 (60-); Glucose, Blood 88 mg/dL (70-99); Potassium, Blood 3.9 mmol/L (3.5-5.5); Sodium, Blood 141 mmol/L (136-145); Total Protein, Blood 6.2 g/dL (6.4-8.2)
[2019-12-08] MEDS ORDERED: METO10 PO (14:59)
--- NOTE | 2019-12-08 15:53 | NUR ---
PATIENT DISCHARGE: PATIENT DISCHARGED TO HOME THIS SHIFT. MEDICATION RECONCILIATION COMPLETED; NO NEW MEDS TO REPORT. DISCHARGE EDUCATION COMPLETED WITH PATIENT. PATIENT INDEPENDENT IN ROOM; PATIENT ESCORTED TO EXIT BY [facility] STAFF @ 6957. PATIENT DEPARTED [facility] VIA PRIVATE AUTO.
== END 2019-12-08 15:43 | disposition home or self-care (01) ==
LOC: ER 08:41 → ICUW 08:42 → ER 08:42 → MEDS 08:43 → ICUW 08:43 → MEDS 08:44 → ICUW 10:47 → MEDS 10:47 → ICUE 11:02 → ICUW 11:02 → ICUE 11:03 → MEDS 21:38 → ICUE 21:38 → MEDS 12-08 15:43
PROVIDERS: Emergency Medicine; ADMIT Family Medicine
DX: E10.10 Type 1 diabetes mellitus with ketoacidosis without coma (principal); E86.0 Dehydration; I10 Essential (primary) hypertension; E10.51 Type 1 diabetes mellitus with diabetic peripheral angiopathy without gangrene; J44.9 Chronic obstructive pulmonary disease, unspecified; F41.9 Anxiety disorder, unspecified; F17.200 Nicotine dependence, unspecified, uncomplicated; Z88.2 Allergy status to sulfonamides; Z88.1 Allergy status to other antibiotic agents; Z88.6 Allergy status to analgesic agent; Z88.8 Allergy status to other drugs, medicaments and biological substances; Z79.899 Other long term (current) drug therapy
CPT/HCPCS: 36415; 36600; 80048; 80053; 82010; 82803; 82947; 83735; 85025; 96361; 96374; 96375; 99285-25; A9270-GY; G0378; J1200; J1815; J2405; J2550; J3480; J7120

== ENCOUNTER 2019-12-29 04:26 | Emergency (ER) | payer OTHER ==
[~2019-12-29] VITALS: Ht 177.8 cm; Wt 61.2 kg
[2019-12-29 06:36] LABS: BASOPHILS ABSOLUTE AUTO 0.09 K/mm3 (0.00-0.23); BASOPHILS PERCENT AUTO 1 % (0-2); EOSINOPHILS PERCENT AUTO 2 % (0-6); Hematocrit 39.7 % (37.0-53.0); Hemoglobin 12.9 g/dL (13.5-17.5); IMMATURE GRAN ABSOLUTE AUTO 0.05 K/mm3 (0.00-0.10); IMMATURE GRAN PERCENT AUTO 0 % (0-1); LYMPHOCYTES ABSOLUTE AUTO 2.26 K/mm3 (0.84-5.20); LYMPHOCYTES PERCENT AUTO 18 % (21-46); MONOCYTES ABSOLUTE AUTO 0.81 K/mm3 (0.16-1.47); MONOCYTES PERCENT AUTO 6 % (4-13); Mean Corpuscular HGB 30.3 pg (26.0-34.0); Mean Corpuscular HGB Conc 32.5 g/dL (31.5-36.5); Mean Corpuscular Volume 93 fL (80-100); Mean Platelet Volume 9.8 fL (9.1-12.4); NEUTROPHILS PERCENT AUTO 72 % (41-73); Platelet Count 438 K/mm3 (150-400); RDW Standard Deviation 40.9 fL (35.1-46.3); Red Blood Cell Count 4.26 M/mm3 (4.30-5.90); White Blood Cell Count 12.71 K/mm3 (4.00-11.30)
[2019-12-29 06:42] LABS: Albumin, Blood 3.9 g/dL (3.4-5.0); Albumin/Globulin Ratio 1.1 (0.8-1.8); Bilirubin, Total 0.4 mg/dL (0.1-1.0); Bun/Creatinine Ratio 10.3 (12.0-20.0); Creatinine, Blood 1.75 mg/dL (0.60-1.20); Globulin, Blood 3.5 g/dL (2.2-4.0); Potassium, Blood 3.5 mmol/L (3.5-5.5); Total Protein, Blood 7.4 g/dL (6.4-8.2)
[2019-12-29 06:44] LABS: Creatine Kinase MB 2.4 ng/mL (0.0-3.6)
== END 2019-12-29 07:35 | disposition home or self-care (01) ==
LOC: ER 04:26
PROVIDERS: Emergency Medicine
DX: R07.9 Chest pain, unspecified (principal); E86.0 Dehydration; Z88.1 Allergy status to other antibiotic agents; Z88.2 Allergy status to sulfonamides; Z88.6 Allergy status to analgesic agent; Z88.8 Allergy status to other drugs, medicaments and biological substances; Z79.899 Other long term (current) drug therapy; E10.9 Type 1 diabetes mellitus without complications; J44.9 Chronic obstructive pulmonary disease, unspecified; F17.200 Nicotine dependence, unspecified, uncomplicated
CPT/HCPCS: 36415; 71046; 80053; 82550; 82553; 85025; 96360; 99284-25; J7030

== ENCOUNTER 2020-03-25 10:33 | Emergency (ER) | payer OTHER ==
[~2020-03-25] VITALS: Ht 177.8 cm; Wt 59.0 kg
[2020-03-25 11:24] LABS: BASOPHILS ABSOLUTE AUTO 0.08 K/mm3 (0.00-0.23); BASOPHILS PERCENT AUTO 1 % (0-2); EOSINOPHILS ABSOLUTE AUTO 0.21 K/mm3 (0.00-0.68); EOSINOPHILS PERCENT AUTO 2 % (0-6); Hematocrit 44.6 % (37.0-53.0); Hemoglobin 14.6 g/dL (13.5-17.5); IMMATURE GRAN ABSOLUTE AUTO 0.04 K/mm3 (0.00-0.10); IMMATURE GRAN PERCENT AUTO 0 % (0-1); LYMPHOCYTES ABSOLUTE AUTO 1.66 K/mm3 (0.84-5.20); LYMPHOCYTES PERCENT AUTO 15 % (21-46); MONOCYTES ABSOLUTE AUTO 1.24 K/mm3 (0.16-1.47); MONOCYTES PERCENT AUTO 11 % (4-13); Mean Corpuscular HGB Conc 32.7 g/dL (31.5-36.5); Mean Corpuscular Volume 92 fL (80-100); Mean Platelet Volume 9.1 fL (9.1-12.4); NEUTROPHILS ABSOLUTE AUTO 8.11 K/mm3 (1.96-9.15); NEUTROPHILS PERCENT AUTO 72 % (41-73); Platelet Count 397 K/mm3 (150-400); RDW Coefficient Variation 11.8 % (11.7-14.2); RDW Standard Deviation 39.6 fL (35.1-46.3); Red Blood Cell Count 4.87 M/mm3 (4.30-5.90); White Blood Cell Count 11.34 K/mm3 (4.00-11.30)
[2020-03-25 11:42] LABS: Alanine Aminotransfer (ALT/SGP 28 U/L (12-78); Albumin, Blood 3.4 g/dL (3.4-5.0); Albumin/Globulin Ratio 0.9 (0.8-1.8); Alk Phos 121 U/L (50-136); Anion Gap 7 mmol/L (6-16); Aspartate Aminotrans (AST/SGOT 12 U/L (12-37); Bilirubin, Total 0.4 mg/dL (0.1-1.0); Blood Urea Nitrogen 23 mg/dL (8-24); Bun/Creatinine Ratio 17.6 (12.0-20.0); CO2, Blood 30 mmol/L (21-32); Calcium, Blood 9.3 mg/dL (8.5-10.1); Chloride, Blood 100 mmol/L (98-108); Creatinine, Blood 1.31 mg/dL (0.60-1.20); Globulin, Blood 3.9 g/dL (2.2-4.0); Glomerular Filtration Rate >60 (60-); Glucose, Blood 322 mg/dL (70-99); Potassium, Blood 4.2 mmol/L (3.5-5.5); Sodium, Blood 137 mmol/L (136-145); Total Protein, Blood 7.3 g/dL (6.4-8.2)
[2020-03-25 12:23] LABS: Base Excess Venous 2.4 mmol/L; Bicarbonate Venous 25.3 mmol/L (24.0-30.0); PCO2 Venous 51.2 mmHg (38-42); PO2 Venous 47.7 mmHg (38-42); pH Blood Venous 7.35 (7.34-7.37)
[2020-03-25 15:20] LABS: Appearance, Urine Clear (Clear); Bilirubin, Urine Neg (Neg); Blood, Urine 3+ (Neg); Color, Urine Yellow (P-Yellow); Glucose Qualitative, Urine 4+ (Neg); Ketones, Urine 1+ (Neg); Leukocyte Esterase, Urine Neg (Neg); Nitrite, Urine Neg (Neg); Protein, Urine 4+ (Neg); Urobilinogen, Urine NORM (Normal)
[2020-03-25 15:46] LABS: Bacteria Few /hpf; Squamous Epithelial Cells Rare /hpf (Few)
[2020-03-25] MEDS ORDERED: Reglan10 MG PO (16:01)
== END 2020-03-25 16:10 | disposition home or self-care (01) ==
LOC: ER 10:33
PROVIDERS: Emergency Medicine
DX: E10.65 Type 1 diabetes mellitus with hyperglycemia (principal); E86.0 Dehydration; R11.2 Nausea with vomiting, unspecified; F17.200 Nicotine dependence, unspecified, uncomplicated; Z88.1 Allergy status to other antibiotic agents; Z88.2 Allergy status to sulfonamides; Z88.6 Allergy status to analgesic agent; Z88.8 Allergy status to other drugs, medicaments and biological substances; Z79.899 Other long term (current) drug therapy
CPT/HCPCS: 36415; 71045; 80053; 81001; 82330; 82803; 82947; 85025; 93005; 93010; 96374; 96375; 99284-25; J1200; J2765; J7030

== ENCOUNTER 2020-03-29 15:11 | Emergency (ER) | payer OTHER ==
[~2020-03-29] VITALS: Ht 177.8 cm; Wt 59.0 kg
[~2020-03-29 15:11] MED LIST changes: +Reglan10 MG PO
== END 2020-03-29 18:19 | disposition left against medical advice (07) ==
LOC: ER 15:11
DX: R06.02 Shortness of breath (principal); R05 Cough; Z53.21 Procedure and treatment not carried out due to patient leaving prior to being seen by health care provider
CPT/HCPCS: 71046; 82947

== ENCOUNTER 2020-03-29 20:06 | Emergency (ER) | payer OTHER ==
[~2020-03-29] VITALS: Ht 177.8 cm; Wt 59.0 kg
== END 2020-03-29 21:35 | disposition home or self-care (01) ==
LOC: ER 20:06
DX: R45.1 Restlessness and agitation (principal); R45.851 Suicidal ideations; F17.210 Nicotine dependence, cigarettes, uncomplicated; Z88.1 Allergy status to other antibiotic agents; Z88.2 Allergy status to sulfonamides; Z88.6 Allergy status to analgesic agent; Z88.8 Allergy status to other drugs, medicaments and biological substances; Z79.4 Long term (current) use of insulin; Z79.899 Other long term (current) drug therapy
CPT/HCPCS: 99284

== ENCOUNTER 2020-04-22 12:21 | Emergency (ER) | payer OTHER ==
[~2020-04-22] VITALS: Ht 177.8 cm; Wt 57.1 kg
[2020-04-22] MEDS ORDERED: BASAGLAR K100 UNIT/6 SC (13:08)
== END 2020-04-22 13:40 | disposition home or self-care (01) ==
LOC: ER 12:21
DX: Z76.0 Encounter for issue of repeat prescription (principal); E10.9 Type 1 diabetes mellitus without complications; J44.9 Chronic obstructive pulmonary disease, unspecified; F17.200 Nicotine dependence, unspecified, uncomplicated; Z88.2 Allergy status to sulfonamides; Z88.1 Allergy status to other antibiotic agents; Z88.6 Allergy status to analgesic agent; Z79.4 Long term (current) use of insulin; Z79.899 Other long term (current) drug therapy
CPT/HCPCS: 99281

== ENCOUNTER 2020-04-29 19:06 | Emergency (ER) | payer OTHER ==
[~2020-04-29] VITALS: Ht 177.8 cm; Wt 57.1 kg
[~2020-04-29 19:06] MED LIST changes: +BASAGLAR K100 UNIT/6 SC
[2020-04-29 19:48] LABS: BASOPHILS ABSOLUTE AUTO 0.09 K/mm3 (0.00-0.23); BASOPHILS PERCENT AUTO 1 % (0-2); EOSINOPHILS ABSOLUTE AUTO 0.28 K/mm3 (0.00-0.68); EOSINOPHILS PERCENT AUTO 2 % (0-6); Hemoglobin 12.5 g/dL (13.5-17.5); IMMATURE GRAN ABSOLUTE AUTO 0.11 K/mm3 (0.00-0.10); IMMATURE GRAN PERCENT AUTO 1 % (0-1); LYMPHOCYTES ABSOLUTE AUTO 2.48 K/mm3 (0.84-5.20); LYMPHOCYTES PERCENT AUTO 16 % (21-46); MONOCYTES ABSOLUTE AUTO 0.73 K/mm3 (0.16-1.47); MONOCYTES PERCENT AUTO 5 % (4-13); Mean Corpuscular HGB 29.9 pg (26.0-34.0); Mean Corpuscular HGB Conc 32.1 g/dL (31.5-36.5); Mean Corpuscular Volume 93 fL (80-100); Mean Platelet Volume 8.6 fL (9.1-12.4); NEUTROPHILS ABSOLUTE AUTO 11.62 K/mm3 (1.96-9.15); NEUTROPHILS PERCENT AUTO 76 % (41-73); Platelet Count 567 K/mm3 (150-400); RDW Coefficient Variation 11.9 % (11.7-14.2); Red Blood Cell Count 4.18 M/mm3 (4.30-5.90); White Blood Cell Count 15.31 K/mm3 (4.00-11.30)
[2020-04-29 20:06] LABS: Alanine Aminotransfer (ALT/SGP 21 U/L (12-78); Albumin/Globulin Ratio 0.8 (0.8-1.8); Alk Phos 104 U/L (50-136); Anion Gap 4 mmol/L (6-16); Aspartate Aminotrans (AST/SGOT 15 U/L (12-37); Bilirubin, Total 0.3 mg/dL (0.1-1.0); Blood Urea Nitrogen 21 mg/dL (8-24); Bun/Creatinine Ratio 17.1 (12.0-20.0); CO2, Blood 30 mmol/L (21-32); Calcium, Blood 8.8 mg/dL (8.5-10.1); Chloride, Blood 100 mmol/L (98-108); Creatinine, Blood 1.23 mg/dL (0.60-1.20); Glomerular Filtration Rate >60 (60-); Glucose, Blood 496 mg/dL (70-99); Potassium, Blood 4.6 mmol/L (3.5-5.5); Sodium, Blood 134 mmol/L (136-145)
== END 2020-04-29 21:51 | disposition left against medical advice (07) ==
LOC: ER 19:06
PROVIDERS: Emergency Medicine
DX: Z53.21 Procedure and treatment not carried out due to patient leaving prior to being seen by health care provider (principal)
CPT/HCPCS: 36415; 80053; 82947; 85025

== ENCOUNTER 2020-07-27 07:44 | Emergency (ER) | payer OTHER ==
[~2020-07-27] VITALS: Ht 177.8 cm; Wt 56.7 kg
[2020-07-27] MEDS ORDERED: ALBU90OI INH (09:08)
[2020-07-27] MEDS ORDERED: [UNRECOGNIZED DRUG - OTHER] (09:20)
== END 2020-07-27 09:22 | disposition home or self-care (01) ==
LOC: ER 07:44
DX: J20.9 Acute bronchitis, unspecified (principal); Z20.822 Contact with and (suspected) exposure to COVID-19; Z88.1 Allergy status to other antibiotic agents; Z88.2 Allergy status to sulfonamides; Z88.8 Allergy status to other drugs, medicaments and biological substances; Z79.899 Other long term (current) drug therapy; Z79.4 Long term (current) use of insulin; E10.9 Type 1 diabetes mellitus without complications; J44.9 Chronic obstructive pulmonary disease, unspecified; F17.210 Nicotine dependence, cigarettes, uncomplicated
CPT/HCPCS: 71045; 99283-25; A9270; J1100

== ENCOUNTER 2020-07-31 14:09 | Emergency (ER) | payer OTHER ==
[~2020-07-31] VITALS: Ht 177.8 cm; Wt 58.0 kg
[~2020-07-31 14:09] MED LIST changes: +[UNRECOGNIZED DRUG - OTHER]
[2020-07-31 14:54] LABS: BASOPHILS ABSOLUTE AUTO 0.08 K/mm3 (0.00-0.23); BASOPHILS PERCENT AUTO 1 % (0-2); EOSINOPHILS ABSOLUTE AUTO 0.54 K/mm3 (0.00-0.68); EOSINOPHILS PERCENT AUTO 4 % (0-6); Hemoglobin 13.3 g/dL (13.5-17.5); IMMATURE GRAN ABSOLUTE AUTO 0.03 K/mm3 (0.00-0.10); IMMATURE GRAN PERCENT AUTO 0 % (0-1); LYMPHOCYTES ABSOLUTE AUTO 2.89 K/mm3 (0.84-5.20); LYMPHOCYTES PERCENT AUTO 23 % (21-46); MONOCYTES ABSOLUTE AUTO 0.75 K/mm3 (0.16-1.47); MONOCYTES PERCENT AUTO 6 % (4-13); Mean Corpuscular HGB 29.8 pg (26.0-34.0); Mean Corpuscular HGB Conc 32.4 g/dL (31.5-36.5); Mean Corpuscular Volume 92 fL (80-100); Mean Platelet Volume 9.2 fL (9.1-12.4); NEUTROPHILS ABSOLUTE AUTO 8.49 K/mm3 (1.96-9.15); NEUTROPHILS PERCENT AUTO 67 % (41-73); Platelet Count 412 K/mm3 (150-400); RDW Coefficient Variation 11.8 % (11.7-14.2); RDW Standard Deviation 39.5 fL (35.1-46.3); Red Blood Cell Count 4.46 M/mm3 (4.30-5.90); White Blood Cell Count 12.78 K/mm3 (4.00-11.30)
[2020-07-31 15:37] LABS: Alanine Aminotransfer (ALT/SGP 24 U/L (12-78); Albumin/Globulin Ratio 0.8 (0.8-1.8); Alk Phos 104 U/L (50-136); Anion Gap 7 mmol/L (6-16); Aspartate Aminotrans (AST/SGOT 15 U/L (12-37); Bilirubin, Total 0.2 mg/dL (0.1-1.0); Blood Urea Nitrogen 19 mg/dL (8-24); CO2, Blood 31 mmol/L (21-32); Calcium, Blood 8.7 mg/dL (8.5-10.1); Chloride, Blood 101 mmol/L (98-108); Creatinine, Blood 0.83 mg/dL (0.60-1.20); Globulin, Blood 3.6 g/dL (2.2-4.0); Glomerular Filtration Rate >60 (60-); Glucose, Blood 291 mg/dL (70-99); Potassium, Blood 3.7 mmol/L (3.5-5.5); Sodium, Blood 139 mmol/L (136-145); Total Protein, Blood 6.6 g/dL (6.4-8.2)
[2020-07-31] MEDS ORDERED: AZIT250 PO (15:56)
== END 2020-07-31 16:30 | disposition home or self-care (01) ==
LOC: ER 14:09
PROVIDERS: Physician Assistant
DX: J40 Bronchitis, not specified as acute or chronic (principal); J44.9 Chronic obstructive pulmonary disease, unspecified; F17.210 Nicotine dependence, cigarettes, uncomplicated; E10.9 Type 1 diabetes mellitus without complications; Z79.899 Other long term (current) drug therapy; Z88.1 Allergy status to other antibiotic agents; Z88.2 Allergy status to sulfonamides; Z88.6 Allergy status to analgesic agent
CPT/HCPCS: 36415; 71045; 80053; 82947; 85025; 99283-25

== ENCOUNTER 2021-02-07 17:37 | Inpatient (IN) | payer OTHER ==
[~2021-02-07] VITALS: Ht 177.8 cm; Wt 68.0 kg
[2021-02-07 18:42] LABS: EOSINOPHILS ABSOLUTE AUTO 0.02 K/mm3 (0.00-0.68); EOSINOPHILS PERCENT AUTO 0 % (0-6); Hematocrit 40.2 % (37.0-53.0); Hemoglobin 12.4 g/dL (13.5-17.5); IMMATURE GRAN ABSOLUTE AUTO 1.46 K/mm3 (0.00-0.10); IMMATURE GRAN PERCENT AUTO 4 % (0-1); LYMPHOCYTES ABSOLUTE AUTO 3.24 K/mm3 (0.84-5.20); LYMPHOCYTES PERCENT AUTO 8 % (21-46); MONOCYTES ABSOLUTE AUTO 2.32 K/mm3 (0.16-1.47); MONOCYTES PERCENT AUTO 6 % (4-13); Mean Corpuscular HGB Conc 30.8 g/dL (31.5-36.5); Mean Corpuscular Volume 97 fL (80-100); Mean Platelet Volume 10.1 fL (9.1-12.4); NEUTROPHILS ABSOLUTE AUTO 32.05 K/mm3 (1.96-9.15); NEUTROPHILS PERCENT AUTO 82 % (41-73); NRBC ABSOLUTE 0.06 K/mm3 (0.00-0.02); NRBC Auto 0.2 /100 WBC (0.0-0.2); Platelet Count 439 K/mm3 (150-400); RDW Coefficient Variation 11.5 % (11.7-14.2); RDW Standard Deviation 40.9 fL (35.1-46.3); Red Blood Cell Count 4.14 M/mm3 (4.30-5.90); White Blood Cell Count 39.17 K/mm3 (4.00-11.30)
[2021-02-07 18:44] LABS: BASOPHILS ABSOLUTE AUTO 0.08 K/mm3 (0.00-0.23); BASOPHILS PERCENT AUTO 0 % (0-2)
[2021-02-07 19:05] LABS: Ethanol (Alcohol), Blood, Med <3 mg/dL; Magnesium, Blood 2.9 mg/dL (1.6-2.4); Salicylate 5.5 mg/dL (2.8-20.0); Troponin I <0.015 ng/mL (0.000-0.040)
[2021-02-07 19:17] LABS: Alanine Aminotransfer (ALT/SGP 32 U/L (12-78); Albumin, Blood 2.9 g/dL (3.4-5.0); Albumin/Globulin Ratio 0.7 (0.8-1.8); Alk Phos 126 U/L (50-136); Anion Gap 36 mmol/L (6-16); Aspartate Aminotrans (AST/SGOT 27 U/L (12-37); Bilirubin, Total 0.6 mg/dL (0.1-1.0); Blood Urea Nitrogen 63 mg/dL (8-24); Bun/Creatinine Ratio 34.1 (12.0-20.0); CO2, Blood 3 mmol/L (21-32); Calcium, Blood 8.5 mg/dL (8.5-10.1); Chloride, Blood 76 mmol/L (98-108); Creatinine, Blood 1.85 mg/dL (0.60-1.20); Globulin, Blood 4.2 g/dL (2.2-4.0); Glomerular Filtration Rate 41 (60-); Glucose, Blood 1125 mg/dL (70-99); Sodium, Blood 115 mmol/L (136-145); Total Protein, Blood 7.1 g/dL (6.4-8.2)
[2021-02-07 19:18] LABS: Acetaminophen, Random <2.0 ug/mL (10.0-30.0)
[2021-02-07 19:21] LABS: Glucose, Blood 1106 mg/dL (70-99)
[2021-02-07 19:47] LABS: PCO2 Venous 16.8 mmHg (38-42); pH Blood Venous 6.95 (7.34-7.37)
[2021-02-07 19:48] LABS: Base Excess Venous -28.4 mmol/L; Bicarbonate Venous 6.5 mmol/L (24.0-30.0); PO2 Venous 118 mmHg (38-42)
[2021-02-07 20:34] LABS: Source, Urine Clean Catch
[2021-02-07 20:38] LABS: Appearance, Urine Clear (Clear); Bilirubin, Urine Neg (Neg); Blood, Urine 1+ (Neg); Color, Urine Yellow (P-Yellow); Glucose Qualitative, Urine 4+ (Neg); Ketones, Urine 3+ (Neg); Leukocyte Esterase, Urine Neg (Neg); Nitrite, Urine Neg (Neg); Protein, Urine 3+ (Neg); Urobilinogen, Urine NORM (Normal)
[2021-02-07 20:47] LABS: Bacteria Mod /hpf; Granular Casts 0-2 /lpf (0); Red Blood Cells, Urine 0-2 /hpf (0-2); Squamous Epithelial Cells Few /hpf (Few)
[2021-02-07 20:51] LABS: U Amphetamine Screen DETECTED; U Barbituate Screen Not Detected; U Benzodiazapine Screen Not Detected; U Buprenorphine Screen Not Detected; U Cannabinoids Screen DETECTED; U Cocaine Screen Not Detected; U Methadone Screen Not Detected; U Methamphetamine Screen DETECTED; U Opiates Screen Not Detected; U Oxycodone Screen Not Detected; U Phencyclidine Screen Not Detected; U Propoxyphene Screen Not Detected
[2021-02-07 20:53] LABS: Glucose, Blood 1069 mg/dL (70-99)
[2021-02-07 21:50] LABS: SARS-Cov-2 (COVID-19) PCR, MMC NEGATIVE (NEGATIVE)
[2021-02-07 21:52] LABS: Glucose, Blood 993 mg/dL (70-99)
[2021-02-07 22:40] LABS: Glucose, Blood 938 mg/dL (70-99)
[2021-02-07 23:48] LABS: Glucose, Blood 832 mg/dL (70-99)
[2021-02-08 00:43] LABS: Glucose, Blood 781 mg/dL (70-99)
[2021-02-08 01:42] LABS: Bun/Creatinine Ratio 32.7 (12.0-20.0); Calcium, Blood 7.3 mg/dL (8.5-10.1); Creatinine, Blood 1.96 mg/dL (0.60-1.20); Potassium, Blood 3.8 mmol/L (3.5-5.5)
[2021-02-08 02:57] LABS: Bun/Creatinine Ratio 33.7 (12.0-20.0); Calcium, Blood 7.3 mg/dL (8.5-10.1); Creatinine, Blood 1.84 mg/dL (0.60-1.20); Potassium, Blood 3.7 mmol/L (3.5-5.5)
[2021-02-08 04:01] LABS: Glucose, Blood 526 mg/dL (70-99)
[2021-02-08 06:10] LABS: Hematocrit 27.7 % (37.0-53.0); Hemoglobin 10.4 g/dL (13.5-17.5); Mean Corpuscular HGB 30.8 pg (26.0-34.0); Mean Corpuscular HGB Conc 37.5 g/dL (31.5-36.5); Mean Platelet Volume 8.8 fL (9.1-12.4); Platelet Count 387 K/mm3 (150-400); RDW Coefficient Variation 11.1 % (11.7-14.2); RDW Standard Deviation 32.6 fL (35.1-46.3); Red Blood Cell Count 3.38 M/mm3 (4.30-5.90); White Blood Cell Count 20.57 K/mm3 (4.00-11.30)
[2021-02-08 06:11] LABS: Mean Corpuscular Volume 82 fL (80-100)
[2021-02-08 06:29] LABS: Bun/Creatinine Ratio 38.6 (12.0-20.0); Calcium, Blood 7.5 mg/dL (8.5-10.1); Creatinine, Blood 1.53 mg/dL (0.60-1.20); Potassium, Blood 3.9 mmol/L (3.5-5.5)
[2021-02-08 13:25] LABS: Base Excess Venous -1.7 mmol/L; Bicarbonate Venous 23.2 mmol/L (24.0-30.0); PCO2 Venous 38.4 mmHg (38-42); pH Blood Venous 7.39 (7.34-7.37)
--- NOTE | 2021-02-08 13:42 | NUR ---
RECEIVED REPORT FROM SOO PIEDRA. PT TRANSPORTED TO UNIT. VITAL SIGNS TAKEN, ORDERS REVIEWED. SPOKE WITH DR. RUANO FOR CLARIFICATION OF ORDERS. IV SITES PATENT WITH NO SIGNS OF INFILTRATION. IV ON LHAND INFUSING NS AT 250ML/HR. PT CHANGED TO DIABETIC DIET. WILL CONTINUE TO MONITOR BG Q4H ORDERED.
[2021-02-08 15:52] LABS: Anion Gap 14 mmol/L (6-16); Blood Urea Nitrogen 42 mg/dL (8-24); Bun/Creatinine Ratio 38.5 (12.0-20.0); CO2, Blood 19 mmol/L (21-32); Chloride, Blood 106 mmol/L (98-108); Creatinine, Blood 1.09 mg/dL (0.60-1.20); Glomerular Filtration Rate >60 (60-); Glucose, Blood 325 mg/dL (70-99); Potassium, Blood 4.9 mmol/L (3.5-5.5); Sodium, Blood 139 mmol/L (136-145)
--- NOTE | 2021-02-08 17:47 | NUR ---
PT RESTING COMFORTABLY IN BED. NO COMPLAINTS OF NAUSEA, VOMITING OR PAIN. IV RUNNING NS AT 125ML/HR AT [facility]. PT CALLS APPROPRIATLY WHEN NEEDS ARISE. SLIDING SCALE INSULIN ORDER CHANGED TO HIGH CORRECTION SCALE. NEW ORDER FOR LISINOPRIL STARTED TODAY. WILL CONTINUE TO CHECK BLOOD GLUCOSE Q4H. WILL GIVE REPORT TO ONCOMING TOURIST ESCORT RN.
[2021-02-08 21:20] LABS: Anion Gap 3 mmol/L (6-16); Blood Urea Nitrogen 32 mg/dL (8-24); Bun/Creatinine Ratio 32.3 (12.0-20.0); CO2, Blood 28 mmol/L (21-32); Calcium, Blood 7.5 mg/dL (8.5-10.1); Chloride, Blood 109 mmol/L (98-108); Creatinine, Blood 0.99 mg/dL (0.60-1.20); Glomerular Filtration Rate >60 (60-); Glucose, Blood 199 mg/dL (70-99); Potassium, Blood 4.3 mmol/L (3.5-5.5); Sodium, Blood 140 mmol/L (136-145)
--- NOTE | 2021-02-09 00:31 | NUR ---
PT RANG CALL LIGHT.STATED HE FELT "WEIRD." CHEM-BG CHECKED.RESULTS SHOWED GLUCOSE TO BE 36. HE WAS SITTING UP IN BED EATING A DINNER ROLL. PT WAS PROVIDED JUICE AND SODA. PT WAS RE-CHECKED AND GLUCOSE WAS BACK UP TO 101.WILL CONTINUE TO MONITOR.
--- NOTE | 2021-02-09 02:31 | NUR ---
PT AMBULATED TO RESTROOM AND HAD BOWEL MOVEMENT. BEDDING WAS CHANGED PRIOR TO HIM GETTING BACK IN BED. PT ASKED FOR A SANDWICH. PT GIVEN HALF OF TURKEY SANDWICH AND DIET CHAD MIST.
[2021-02-09 02:51] LABS: Anion Gap 1 mmol/L (6-16); Blood Urea Nitrogen 24 mg/dL (8-24); Bun/Creatinine Ratio 27.8 (12.0-20.0); CO2, Blood 28 mmol/L (21-32); Calcium, Blood 7.1 mg/dL (8.5-10.1); Chloride, Blood 111 mmol/L (98-108); Creatinine, Blood 0.86 mg/dL (0.60-1.20); Glomerular Filtration Rate >60 (60-); Glucose, Blood 136 mg/dL (70-99); Sodium, Blood 140 mmol/L (136-145)
--- NOTE | 2021-02-09 06:54 | NUR ---
PT UPSET BY ORDERED DOSE OF [address] RN [address] RIVERA AND ORDER WAS READJUSTED. PT STILL UPSET BY READJUSTED DOSE. PT THREATENED TO LEAVE AMA MULTIPLE TIMES THROUGHOUT THE NIGHT AND WAS THREATENING TO LEAVE AMA BEFORE GETTING [address] RUANO CAME IN TO ROUND ON HIM AT THIS MOMENT AND CHANGED ORDERED DOSE TO 38UNITS. PT AGREED TO GET DOSE OF INSULIN BUT STILL WANTED TO LEAVE AMA. DR. RUANO FILLED OUT AMA FORM AND EXPLAINED TO PT THE RISK. PT SIGNED AMA FORM, IV'S DC'D AND GOWN WAS GIVEN HIM TO WEAR HOME. PT LEFT AMA AT 0654 WITH ALL PERSONAL BELONGINGS AND WAS WALKED OUT BY MA. BLAIR AND ESCORTED TO PT'S DAD'S VEHICLE.
== END 2021-02-09 07:15 | disposition left against medical advice (07) | DRG 638 ==
LOC: ER 17:37 → ERHOLD 20:27 → ORSCIP 02-08 11:15
PROVIDERS: Emergency Medicine Emergency Medical Services; Family Medicine; Student in an Organized Health Care Education/Training Program; ADMIT Internal Medicine
DX: E10.10 Type 1 diabetes mellitus with ketoacidosis without coma (principal); N17.9 Acute kidney failure, unspecified; E87.1 Hypo-osmolality and hyponatremia; R65.10 Systemic inflammatory response syndrome (SIRS) of non-infectious origin without acute organ dysfunction; E86.0 Dehydration; Z20.822 Contact with and (suspected) exposure to COVID-19; E87.5 Hyperkalemia; D72.829 Elevated white blood cell count, unspecified; I10 Essential (primary) hypertension; F41.9 Anxiety disorder, unspecified; F15.10 Other stimulant abuse, uncomplicated; E10.649 Type 1 diabetes mellitus with hypoglycemia without coma; E10.51 Type 1 diabetes mellitus with diabetic peripheral angiopathy without gangrene; M54.9 Dorsalgia, unspecified; G89.29 Other chronic pain; J44.9 Chronic obstructive pulmonary disease, unspecified; F17.210 Nicotine dependence, cigarettes, uncomplicated; Z91.14 Patient's other noncompliance with medication regimen; Z98.890 Other specified postprocedural states; Z79.4 Long term (current) use of insulin; Z79.899 Other long term (current) drug therapy; Z88.1 Allergy status to other antibiotic agents; Z88.2 Allergy status to sulfonamides; Z88.8 Allergy status to other drugs, medicaments and biological substances
CPT/HCPCS: 36415; 71045; 80048; 80053; 81001; 82010; 82803; 82947; 83605; 83690; 83735; 84132; 84484; 85025; 85027; 87086; 93005; 93010; 94644; 96361; 96365; 96375; 99285-25; A9270; G0480; J0610; J0780; J1200; J1650; J1815; J1885; J2543; J3480; J7030; J7042; U0004

== ENCOUNTER 2021-04-20 08:38 | Inpatient (IN) | payer OTHER ==
[~2021-04-20] VITALS: Ht 177.8 cm; Wt 54.4 kg
[~2021-04-20 08:38] MED LIST changes: +CILOSTAZOL50 M1 PO; -Cilostazol100 MG PO; -[UNRECOGNIZED DRUG - OTHER]; +[UNRECOGNIZED DRUG - OTHER] SC
[2021-04-20 09:48] LABS: BASOPHILS ABSOLUTE AUTO 0.12 K/mm3 (0.00-0.23); BASOPHILS PERCENT AUTO 1 % (0-2); EOSINOPHILS ABSOLUTE AUTO 0.01 K/mm3 (0.00-0.68); EOSINOPHILS PERCENT AUTO 0 % (0-6); Hematocrit 42.1 % (37.0-53.0); Hemoglobin 13.2 g/dL (13.5-17.5); IMMATURE GRAN ABSOLUTE AUTO 0.77 K/mm3 (0.00-0.10); IMMATURE GRAN PERCENT AUTO 3 % (0-1); LYMPHOCYTES ABSOLUTE AUTO 1.58 K/mm3 (0.84-5.20); LYMPHOCYTES PERCENT AUTO 6 % (21-46); MONOCYTES ABSOLUTE AUTO 0.75 K/mm3 (0.16-1.47); MONOCYTES PERCENT AUTO 3 % (4-13); Mean Corpuscular HGB 30.4 pg (26.0-34.0); Mean Corpuscular HGB Conc 31.4 g/dL (31.5-36.5); Mean Corpuscular Volume 97 fL (80-100); Mean Platelet Volume 9.5 fL (9.1-12.4); NEUTROPHILS ABSOLUTE AUTO 23.09 K/mm3 (1.96-9.15); NEUTROPHILS PERCENT AUTO 88 % (41-73); Platelet Count 504 K/mm3 (150-400); RDW Coefficient Variation 12.2 % (11.7-14.2); RDW Standard Deviation 43.4 fL (35.1-46.3); Red Blood Cell Count 4.34 M/mm3 (4.30-5.90); White Blood Cell Count 26.32 K/mm3 (4.00-11.30)
[2021-04-20 09:50] LABS: Base Excess Venous -21.6 mmol/L; Bicarbonate Venous 9.9 mmol/L (24.0-30.0); PCO2 Venous 30.9 mmHg (38-42); PO2 Venous 79.7 mmHg (38-42); pH Blood Venous 7.06 (7.34-7.37)
[2021-04-20 10:17] LABS: Albumin, Blood 2.8 g/dL (3.4-5.0); Albumin/Globulin Ratio 0.6 (0.8-1.8); Bilirubin, Total 0.4 mg/dL (0.1-1.0); Calcium, Blood 9.1 mg/dL (8.5-10.1); Creatinine, Blood 1.63 mg/dL (0.60-1.20); Globulin, Blood 4.4 g/dL (2.2-4.0); Potassium, Blood 5.6 mmol/L (3.5-5.5); Total Protein, Blood 7.2 g/dL (6.4-8.2)
[2021-04-20 13:24] LABS: Glucose, Blood 630 mg/dL (70-99)
[2021-04-20 14:18] LABS: Source, Urine Clean Catch
[2021-04-20 14:22] LABS: Appearance, Urine Clear (Clear); Bilirubin, Urine Neg (Neg); Blood, Urine 2+ (Neg); Color, Urine Yellow (P-Yellow); Glucose Qualitative, Urine 4+ (Neg); Ketones, Urine 4+ (Neg); Leukocyte Esterase, Urine Neg (Neg); Nitrite, Urine Neg (Neg); Protein, Urine 3+ (Neg); Specific Gravity, Urine 1.015 (1.003-1.022); Urobilinogen, Urine NORM (Normal)
[2021-04-20 14:35] LABS: U Amphetamine Screen Not Detected; U Barbituate Screen Not Detected; U Benzodiazapine Screen Not Detected; U Buprenorphine Screen Not Detected; U Cannabinoids Screen DETECTED; U Cocaine Screen Not Detected; U Methadone Screen Not Detected; U Methamphetamine Screen Not Detected; U Opiates Screen Not Detected; U Oxycodone Screen Not Detected; U Phencyclidine Screen Not Detected; U Propoxyphene Screen Not Detected
[2021-04-20 14:36] LABS: Bacteria Few /hpf; Red Blood Cells, Urine 0-2 /hpf (0-2); Squamous Epithelial Cells Rare /hpf (Few); White Blood Cells, Urine 0-2 /hpf (0-5)
[2021-04-20 14:55] LABS: Bun/Creatinine Ratio 29.1 (12.0-20.0); Calcium, Blood 8.5 mg/dL (8.5-10.1); Creatinine, Blood 1.41 mg/dL (0.60-1.20); Potassium, Blood 4.5 mmol/L (3.5-5.5)
[2021-04-20 15:57] LABS: SARS-Cov-2 (COVID-19) PCR, MMC NEGATIVE (NEGATIVE)
--- NOTE | 2021-04-20 16:53 | NUR ---
1300 Pt transferred from ER on stretcher AAOX3, on RA saturating well. Pt assessment done. Pt has R arm PIV infusing Insulin @ 5U/ml, urine sample, and labs collected. Pt febrile, able to void, move all extremties. Pt NPO, damp swabs given. Family updated on status of pt. Will monitor pt closely.
[2021-04-20 18:29] LABS: Anion Gap 7 mmol/L (6-16); Blood Urea Nitrogen 32 mg/dL (8-24); Bun/Creatinine Ratio 30.2 (12.0-20.0); CO2, Blood 25 mmol/L (21-32); Calcium, Blood 8.7 mg/dL (8.5-10.1); Chloride, Blood 113 mmol/L (98-108); Creatinine, Blood 1.06 mg/dL (0.60-1.20); Glomerular Filtration Rate >60 (60-); Glucose, Blood 173 mg/dL (70-99); Sodium, Blood 145 mmol/L (136-145)
[2021-04-20 22:16] LABS: Anion Gap 5 mmol/L (6-16); Blood Urea Nitrogen 28 mg/dL (8-24); Bun/Creatinine Ratio 30.1 (12.0-20.0); CO2, Blood 27 mmol/L (21-32); Calcium, Blood 8.2 mg/dL (8.5-10.1); Chloride, Blood 111 mmol/L (98-108); Creatinine, Blood 0.93 mg/dL (0.60-1.20); Glomerular Filtration Rate >60 (60-); Glucose, Blood 166 mg/dL (70-99); Potassium, Blood 3.8 mmol/L (3.5-5.5); Sodium, Blood 143 mmol/L (136-145)
--- NOTE | 2021-04-21 05:10 | NUR ---
SUMMARY: neuro- wnl cv- htn and tachy but overall stable tonight. cap refill <3sec, palp pulsesx4 resp wnl gi diet ordered. had 1 sandwhich with semglee. insulin turned off 1hr later per . ac/hs bsc. gu 1L out. clear yellow skin intact. PIVx2 flush.
[2021-04-21 09:01] LABS: BASOPHILS ABSOLUTE AUTO 0.07 K/mm3 (0.00-0.23); BASOPHILS PERCENT AUTO 0 % (0-2); EOSINOPHILS PERCENT AUTO 1 % (0-6); Hematocrit 38.2 % (37.0-53.0); IMMATURE GRAN ABSOLUTE AUTO 0.06 K/mm3 (0.00-0.10); IMMATURE GRAN PERCENT AUTO 0 % (0-1); LYMPHOCYTES ABSOLUTE AUTO 2.79 K/mm3 (0.84-5.20); LYMPHOCYTES PERCENT AUTO 15 % (21-46); MONOCYTES ABSOLUTE AUTO 0.91 K/mm3 (0.16-1.47); MONOCYTES PERCENT AUTO 5 % (4-13); Mean Corpuscular HGB 30.4 pg (26.0-34.0); NEUTROPHILS ABSOLUTE AUTO 14.66 K/mm3 (1.96-9.15); NEUTROPHILS PERCENT AUTO 79 % (41-73); Platelet Count 438 K/mm3 (150-400); RDW Coefficient Variation 12.2 % (11.7-14.2); RDW Standard Deviation 39.6 fL (35.1-46.3); Red Blood Cell Count 4.28 M/mm3 (4.30-5.90); White Blood Cell Count 18.59 K/mm3 (4.00-11.30)
[2021-04-21 09:04] LABS: Mean Corpuscular Volume 89 fL (80-100)
[2021-04-21] MEDS ORDERED: HUMULIN R100 UNIT/2 IV (09:59)
--- NOTE | 2021-04-21 12:34 | NUR ---
PT DISCHARGED TO HOME AROUND 1030. EDUCATION ON BLOOD GLUCOSE MANAGEMENT PROVIDED. DISCHARGE PACKET EXPLAINED AND PROVIDED TO PATIENT. MEDICATIONS CALLED INTO [facility]. [facility] WITH NEW PCP.
--- NOTE | 2021-04-21 12:38 | NUR ---
MORNING SMEGLEE NOT GIVEN PATIENT STATES HE LIKES TO TAKE HIS LANTUS AT NIGHT. PATIENT AWARE TO FOLLOW MEDICATION REGIMEN ORDERED. NURSING CARE PROVIDED ALONGSIDE MACHINE MARKER THAD.
== END 2021-04-21 10:30 | disposition home or self-care (01) | DRG 638 ==
LOC: ER 08:38 → ICUW 11:28
PROVIDERS: Emergency Medicine; Nurse Practitioner Acute Care; ADMIT Internal Medicine
DX: E10.10 Type 1 diabetes mellitus with ketoacidosis without coma (principal); N17.9 Acute kidney failure, unspecified; R65.10 Systemic inflammatory response syndrome (SIRS) of non-infectious origin without acute organ dysfunction; E87.1 Hypo-osmolality and hyponatremia; Z20.822 Contact with and (suspected) exposure to COVID-19; J44.9 Chronic obstructive pulmonary disease, unspecified; E87.6 Hypokalemia; E86.0 Dehydration; Z23 Encounter for immunization; Z91.14 Patient's other noncompliance with medication regimen; E10.51 Type 1 diabetes mellitus with diabetic peripheral angiopathy without gangrene; F15.10 Other stimulant abuse, uncomplicated; G89.29 Other chronic pain; Z98.890 Other specified postprocedural states; F17.210 Nicotine dependence, cigarettes, uncomplicated; Z88.1 Allergy status to other antibiotic agents; Z88.8 Allergy status to other drugs, medicaments and biological substances
CPT/HCPCS: 36415; 80048; 80053; 81001; 82010; 82803; 82947; 85025; 96361; 96374; 99285; A9270; J1650; J1815; J2765; J7030; J7120; U0004

== ENCOUNTER 2021-06-02 10:29 | Emergency (ER) | payer OTHER ==
[~2021-06-02] VITALS: Ht 177.8 cm; Wt 66.7 kg
[~2021-06-02 10:29] MED LIST changes: +HUMULIN R100 UNIT/2 IV
== END 2021-06-02 12:00 | disposition home or self-care (01) ==
LOC: ER 10:29
DX: S92.525A Nondisplaced fracture of middle phalanx of left lesser toe(s), initial encounter for closed fracture (principal); E10.9 Type 1 diabetes mellitus without complications; J44.9 Chronic obstructive pulmonary disease, unspecified; F17.210 Nicotine dependence, cigarettes, uncomplicated; Z88.2 Allergy status to sulfonamides; Z88.1 Allergy status to other antibiotic agents; Z88.8 Allergy status to other drugs, medicaments and biological substances; Z79.899 Other long term (current) drug therapy; X58.XXXA Exposure to other specified factors, initial encounter
CPT/HCPCS: 73630; 82947; 99283-25

== ENCOUNTER 2021-08-06 09:33 | Inpatient (IN) | payer OTHER ==
[~2021-08-06] VITALS: Ht 177.8 cm; Wt 59.0 kg
[~2021-08-06 09:33] MED LIST changes: +HUMALOG KW100 UNIT/1 SC; +LEVFLO500 PO
[2021-08-06 10:03] LABS: Base Excess Venous -28.1 mmol/L; Bicarbonate Venous 6.7 mmol/L (24.0-30.0); PCO2 Venous 14.6 mmHg (38-42); PO2 Venous 128 mmHg (38-42)
[2021-08-06 10:05] LABS: pH Blood Venous 6.98 (7.34-7.37)
[2021-08-06 10:13] LABS: EOSINOPHILS ABSOLUTE AUTO 0.05 K/mm3 (0.00-0.68); EOSINOPHILS PERCENT AUTO 0 % (0-6); Hematocrit 38.1 % (37.0-53.0); Hemoglobin 11.4 g/dL (13.5-17.5); IMMATURE GRAN ABSOLUTE AUTO 2.02 K/mm3 (0.00-0.10); IMMATURE GRAN PERCENT AUTO 5 % (0-1); LYMPHOCYTES ABSOLUTE AUTO 3.59 K/mm3 (0.84-5.20); LYMPHOCYTES PERCENT AUTO 9 % (21-46); MONOCYTES PERCENT AUTO 6 % (4-13); Mean Corpuscular HGB 30.9 pg (26.0-34.0); Mean Corpuscular HGB Conc 29.9 g/dL (31.5-36.5); Mean Corpuscular Volume 103 fL (80-100); Mean Platelet Volume 10.1 fL (9.1-12.4); NEUTROPHILS ABSOLUTE AUTO 32.17 K/mm3 (1.96-9.15); NEUTROPHILS PERCENT AUTO 80 % (41-73); Platelet Count 526 K/mm3 (150-400); RDW Coefficient Variation 11.9 % (11.7-14.2); RDW Standard Deviation 44.8 fL (35.1-46.3); Red Blood Cell Count 3.69 M/mm3 (4.30-5.90); White Blood Cell Count 40.19 K/mm3 (4.00-11.30)
[2021-08-06 10:15] LABS: Calcium, Ionized (POC) 0.91 mmol/L (1.10-1.46); Chloride (POC) 79 mmol/L (98-108); Creatinine (POC) 2.9 mg/dL (0.8-1.3); Glucose (ISTAT POC) >700 mg/dL (70-99); Hemoglobin (POC) 13.3 g/dL (13.5-17.5); Potassium (POC) 7.8 mmol/L (3.5-5.5); Sodium (POC) 108 mmol/L (135-148); Total CO2 (POC) 6 mmol/L (21-32)
[2021-08-06 10:17] LABS: BASOPHILS ABSOLUTE AUTO 0.06 K/mm3 (0.00-0.23); BASOPHILS PERCENT AUTO 0 % (0-2)
[2021-08-06 10:55] LABS: Albumin, Blood 2.8 g/dL (3.4-5.0); Albumin/Globulin Ratio 0.8 (0.8-1.8); Bilirubin, Total 0.5 mg/dL (0.1-1.0); Calcium, Blood 7.5 mg/dL (8.5-10.1); Creatinine, Blood 2.46 mg/dL (0.60-1.20); Globulin, Blood 3.5 g/dL (2.2-4.0); Potassium, Blood 7.8 mmol/L (3.5-5.5); Total Protein, Blood 6.3 g/dL (6.4-8.2)
[2021-08-06 11:22] LABS: Beta-hydroxybutyrate 134.1 mg/dL (0.2-2.8)
[2021-08-06] MEDS ORDERED: SEMGLEE (Y100 UNIT/2 SC (13:06)
[2021-08-06] MEDS ORDERED: BASAGLAR K100 UNIT/1 SC (13:08)
[2021-08-06 14:19] LABS: Glucose, Blood 926 mg/dL (70-99)
[2021-08-06 15:07] LABS: Bun/Creatinine Ratio 28.4 (12.0-20.0); Calcium, Blood 7.7 mg/dL (8.5-10.1); Creatinine, Blood 2.04 mg/dL (0.60-1.20)
[2021-08-06 15:11] LABS: Potassium, Blood 4.1 mmol/L (3.5-5.5)
[2021-08-06 16:27] LABS: Glucose, Blood 691 mg/dL (70-99)
--- NOTE | 2021-08-06 18:32 | NUR ---
PT ARRIVED FROM ED THIS AFTERNOON. HE HAS BEEN SLEEPY, BUT AROUSES TO VOICE AND IS ORIENTEDX4. SOMEWHAT IRRITABLE AND UNCOOPERATIVE. SUPERVISION WHILE USING BATHROOM HE APPEARS SOMEWHAT UNSTEADY. ROOM AIR, RR 25-35. ST 110-120. 1 BM THIS SHIFT. URINATES IN URINAL. ISULIN HAS BEEN RUNNING AT 8ML/HR FOR MOST OF THIS SHIFT, JUST DECREASED TO 7ML/HR.
[2021-08-06 19:33] LABS: Bun/Creatinine Ratio 30.3 (12.0-20.0); Calcium, Blood 7.4 mg/dL (8.5-10.1); Creatinine, Blood 1.45 mg/dL (0.60-1.20)
--- NOTE | 2021-08-06 19:52 | NUR ---
Assumed care. Report received from adalgisa RN. Pt resting in bed, on room air. IV access in L/EJ and L/arm, IV pumps running Insulin 7 units/hr, 1/2 NS 500 ml/hr, and NS tko 10 ml/hr. VS stable, no acute needs at this time. Will continue to monitor.
[2021-08-06 23:02] LABS: Anion Gap 6 mmol/L (6-16); Blood Urea Nitrogen 42 mg/dL (8-24); Bun/Creatinine Ratio 35.3 (12.0-20.0); CO2, Blood 30 mmol/L (21-32); Calcium, Blood 7.6 mg/dL (8.5-10.1); Chloride, Blood 103 mmol/L (98-108); Creatinine, Blood 1.19 mg/dL (0.60-1.20); Glomerular Filtration Rate >60 (60-); Glucose, Blood 226 mg/dL (70-99); Potassium, Blood 3.6 mmol/L (3.5-5.5); Sodium, Blood 139 mmol/L (136-145)
--- NOTE | 2021-08-06 23:51 | NUR ---
PHYSICIAN CONTACT. DR. SAWANT CONTACTED FOR PT BG LEVEL 175, ORDERS OBTAINED FOR 25 UNITS LONG ACTING INSULIN, FEED PATIENT AND TURN INSULIN DRIP OFF 1/2 HOUR AFTER FOOD AND LONG ACTING INSULIN GIVEN. ADDITIONAL ORDERS OBTAINED TO CONTINUE 1/2 NS AN INFUSION AT 125 ML/HR AND ONE TIME DOSE OF 20 MEQ POTASSIUM.
[2021-08-07 03:57] LABS: BASOPHILS ABSOLUTE AUTO 0.06 K/mm3 (0.00-0.23); BASOPHILS PERCENT AUTO 0 % (0-2); EOSINOPHILS ABSOLUTE AUTO 0.04 K/mm3 (0.00-0.68); EOSINOPHILS PERCENT AUTO 0 % (0-6); Hematocrit 29.6 % (37.0-53.0); Hemoglobin 10.5 g/dL (13.5-17.5); IMMATURE GRAN ABSOLUTE AUTO 0.26 K/mm3 (0.00-0.10); IMMATURE GRAN PERCENT AUTO 1 % (0-1); LYMPHOCYTES ABSOLUTE AUTO 2.09 K/mm3 (0.84-5.20); LYMPHOCYTES PERCENT AUTO 8 % (21-46); MONOCYTES ABSOLUTE AUTO 1.75 K/mm3 (0.16-1.47); MONOCYTES PERCENT AUTO 7 % (4-13); Mean Corpuscular HGB 30.6 pg (26.0-34.0); Mean Corpuscular HGB Conc 35.5 g/dL (31.5-36.5); Mean Platelet Volume 9.6 fL (9.1-12.4); NEUTROPHILS ABSOLUTE AUTO 22.87 K/mm3 (1.96-9.15); NEUTROPHILS PERCENT AUTO 85 % (41-73); Platelet Count 441 K/mm3 (150-400); RDW Coefficient Variation 11.7 % (11.7-14.2); RDW Standard Deviation 36.3 fL (35.1-46.3); Red Blood Cell Count 3.43 M/mm3 (4.30-5.90); White Blood Cell Count 27.07 K/mm3 (4.00-11.30)
[2021-08-07 03:59] LABS: Mean Corpuscular Volume 86 fL (80-100)
[2021-08-07 04:31] LABS: Anion Gap 9 mmol/L (6-16); Blood Urea Nitrogen 35 mg/dL (8-24); Bun/Creatinine Ratio 32.1 (12.0-20.0); CO2, Blood 27 mmol/L (21-32); Calcium, Blood 7.8 mg/dL (8.5-10.1); Chloride, Blood 103 mmol/L (98-108); Creatinine, Blood 1.09 mg/dL (0.60-1.20); Glomerular Filtration Rate >60 (60-); Glucose, Blood 126 mg/dL (70-99); Sodium, Blood 139 mmol/L (136-145)
[2021-08-07 06:29] LABS: Anion Gap 5 mmol/L (6-16); Blood Urea Nitrogen 29 mg/dL (8-24); Bun/Creatinine Ratio 27.4 (12.0-20.0); CO2, Blood 29 mmol/L (21-32); Calcium, Blood 7.4 mg/dL (8.5-10.1); Chloride, Blood 106 mmol/L (98-108); Creatinine, Blood 1.06 mg/dL (0.60-1.20); Glomerular Filtration Rate >60 (60-); Glucose, Blood 177 mg/dL (70-99); Sodium, Blood 140 mmol/L (136-145)
--- NOTE | 2021-08-07 06:39 | NUR ---
Shift summary. Pt rested in bed throughout shift. Alert and oriented, able to use call light. Pt very hungry, several sandwiches fed to patient after transitioning off of insulin drip, see note. 1/2 NS infusing at 125 ml/hr, NS tko at 10 ml/hr. No other acute needs during shift. See shift assessment for further details. Will continue to monitor and report off to dayshift RN.
--- NOTE | 2021-08-07 09:20 | NUR ---
ASSUMED CARE OF PATIENT 0700: AOX4, FOLLOWS COMMANDS, AGITATED OVER PHONE WITH FAMILY, VSS ON RA, NEW 18G IV ROJELIO, L EJ REMOVED NO BLEEDING DRESSING CDI, CBG WNL, TOLERATING BREAKFAST, SLIDING SCALE ORDER PLACED, WILL CONTINUE TO MONITOR.
--- NOTE | 2021-08-07 13:21 | NUR ---
AOX4, FOLLOWS COMMANDS, CBGS 100-LOW 300S, COVERED WITH LISPRO, ST 100S, +2 PULSES, BP WNL, LUNGS CLEAR/DIM, DENIES SOB, SATS WNL, ABDOMEN NON TENDER, DKA LABS CO2/GAP CORRECTED, LINES STOPPED, WENT OVER DIABETIC EDUCATION WITH PATIENT AND TO FOLLOW UP WITH PCP IN 1 WEEK REGARDING HEALTH AND HOUSING CONCERNS, PATIENT AGREED TO DISCHARGE PLAN, PAPER SCRUBS PROVIDED, IVS REMOVED, SITES CDI NO BLEEDING, PATIENT LEFT WITHOUT WITNESS BUT VERBALIZED TO NURSE WHEN IN ROOM THAT HIS MOM WOULD BE PICKING HIM UP BY PRIVATE VEHICLE.
== END 2021-08-07 13:00 | disposition home or self-care (01) | DRG 638 ==
LOC: ER 09:33 → ICUW 13:21 → ICUE 13:21
PROVIDERS: Family Medicine; Student in an Organized Health Care Education/Training Program; ADMIT Internal Medicine
DX: E10.10 Type 1 diabetes mellitus with ketoacidosis without coma (principal); N17.9 Acute kidney failure, unspecified; E86.0 Dehydration; I95.9 Hypotension, unspecified; R00.0 Tachycardia, unspecified; T73.0XXA Starvation, initial encounter; Z88.1 Allergy status to other antibiotic agents; Z88.2 Allergy status to sulfonamides; Z79.4 Long term (current) use of insulin; F12.90 Cannabis use, unspecified, uncomplicated; E87.5 Hyperkalemia; R53.83 Other fatigue; E78.5 Hyperlipidemia, unspecified; D72.829 Elevated white blood cell count, unspecified; M41.9 Scoliosis, unspecified; F15.90 Other stimulant use, unspecified, uncomplicated; Z79.899 Other long term (current) drug therapy; G89.29 Other chronic pain; M54.9 Dorsalgia, unspecified; F17.210 Nicotine dependence, cigarettes, uncomplicated
CPT/HCPCS: 36415; 71045; 80047; 80048; 80053; 82010; 82803; 82947; 83605; 85014; 85025; 93005; 93010; 94644; 94760; 96365; 96366; 96375; 96376; 99285-25; A9270; J0610; J1815; J3480; J7030; J7120

== ENCOUNTER 2021-09-20 18:45 | Inpatient (IN) | payer OTHER ==
[~2021-09-20] VITALS: Ht 177.8 cm; Wt 53.9 kg
[~2021-09-20 18:45] MED LIST changes: +BASAGLAR K100 UNIT/1 SC; +SEMGLEE (Y100 UNIT/2 SC
[2021-09-20 19:14] LABS: BASOPHILS ABSOLUTE AUTO 0.16 K/mm3 (0.00-0.23); BASOPHILS PERCENT AUTO 1 % (0-2); EOSINOPHILS ABSOLUTE AUTO 0.01 K/mm3 (0.00-0.68); EOSINOPHILS PERCENT AUTO 0 % (0-6); Hematocrit 43.4 % (37.0-53.0); Hemoglobin 12.3 g/dL (13.5-17.5); IMMATURE GRAN ABSOLUTE AUTO 1.01 K/mm3 (0.00-0.10); IMMATURE GRAN PERCENT AUTO 4 % (0-1); LYMPHOCYTES ABSOLUTE AUTO 2.01 K/mm3 (0.84-5.20); LYMPHOCYTES PERCENT AUTO 7 % (21-46); MONOCYTES ABSOLUTE AUTO 1.27 K/mm3 (0.16-1.47); MONOCYTES PERCENT AUTO 4 % (4-13); Mean Corpuscular HGB 30.1 pg (26.0-34.0); Mean Corpuscular HGB Conc 28.3 g/dL (31.5-36.5); Mean Corpuscular Volume 106 fL (80-100); Mean Platelet Volume 9.8 fL (9.1-12.4); NEUTROPHILS ABSOLUTE AUTO 24.32 K/mm3 (1.96-9.15); NEUTROPHILS PERCENT AUTO 85 % (41-73); Platelet Count 577 K/mm3 (150-400); RDW Coefficient Variation 12.1 % (11.7-14.2); RDW Standard Deviation 48.1 fL (35.1-46.3); Red Blood Cell Count 4.09 M/mm3 (4.30-5.90); White Blood Cell Count 28.78 K/mm3 (4.00-11.30)
[2021-09-20 19:15] LABS: Calcium, Ionized (POC) 0.99 mmol/L (1.10-1.46); Chloride (POC) 78 mmol/L (98-108); Creatinine (POC) 2.4 mg/dL (0.8-1.3); Glucose (ISTAT POC) >700 mg/dL (70-99); Hemoglobin (POC) 12.6 g/dL (13.5-17.5); Potassium (POC) 7.8 mmol/L (3.5-5.5); Sodium (POC) 105 mmol/L (135-148); Total CO2 (POC) 7 mmol/L (21-32)
[2021-09-20 19:45] LABS: Magnesium, Blood 2.7 mg/dL (1.6-2.4)
[2021-09-20 20:06] LABS: Albumin, Blood 3.2 g/dL (3.4-5.0); Albumin/Globulin Ratio 0.8 (0.8-1.8); Bilirubin, Total 0.6 mg/dL (0.1-1.0); Bun/Creatinine Ratio 30.5 (12.0-20.0); Calcium, Blood 8.1 mg/dL (8.5-10.1); Creatinine, Blood 2.1 mg/dL (0.60-1.20); Potassium, Blood 7.6 mmol/L (3.5-5.5); Total Protein, Blood 7.2 g/dL (6.4-8.2)
[2021-09-20 20:25] LABS: pH Blood Venous 7.04 (7.34-7.37)
[2021-09-20 20:26] LABS: Base Excess Venous -25.3 mmol/L; PCO2 Venous 19.6 mmHg (38-42); PO2 Venous 124 mmHg (38-42)
[2021-09-20 21:02] LABS: Beta-hydroxybutyrate 131.1 mg/dL (0.2-2.8); Phosphorus, Blood 10.1 mg/dL (2.5-4.9)
[2021-09-20 21:32] LABS: Glucose, Blood 1139 mg/dL (70-99)
[2021-09-20 21:52] LABS: Source, Urine Voided
[2021-09-20 21:58] LABS: Appearance, Urine Clear (Clear); Bilirubin, Urine Neg (Neg); Blood, Urine 2+ (Neg); Glucose Qualitative, Urine 4+ (Neg); Ketones, Urine 4+ (Neg); Leukocyte Esterase, Urine Neg (Neg); Nitrite, Urine Neg (Neg); Protein, Urine 2+ (Neg); Specific Gravity, Urine 1.015 (1.003-1.022); Urobilinogen, Urine NORM (Normal)
[2021-09-20 22:17] LABS: Color, Urine Pale Yellow (P-Yellow); Hyaline Casts 0-2 /lpf (0-2)
[2021-09-20 22:18] LABS: Bacteria Mod /hpf; Red Blood Cells, Urine 0-2 /hpf (0-2); Squamous Epithelial Cells Rare /hpf (Few); White Blood Cells, Urine 0-2 /hpf (0-5)
[2021-09-20 22:31] LABS: U Amphetamine Screen DETECTED; U Barbituate Screen Not Detected; U Benzodiazapine Screen Not Detected; U Buprenorphine Screen Not Detected; U Cannabinoids Screen Not Detected; U Cocaine Screen Not Detected; U Methadone Screen Not Detected; U Methamphetamine Screen DETECTED; U Opiates Screen Not Detected; U Oxycodone Screen Not Detected; U Phencyclidine Screen Not Detected; U Propoxyphene Screen Not Detected
[2021-09-20 22:43] LABS: Calcium, Blood 9.6 mg/dL (8.5-10.1); Creatinine, Blood 1.85 mg/dL (0.60-1.20); Potassium, Blood 4.5 mmol/L (3.5-5.5)
--- NOTE | 2021-09-20 23:00 | NUR ---
PT ADMITTED TO ROOM ICU 6 FROM ED. PT ARRIVES TO ROOM AT 2140. PT VERY IRRITABLE AND VOICES HIS DISPLEASURE AT HAVING TO HAVE HIS BLOOD GLUCOSE CHECKED FREQUENTLY WHILE ON INSULIN DRIP AND WITH CURRENT DKA.
[2021-09-20 23:29] LABS: Glucose, Blood 806 mg/dL (70-99)
--- NOTE | 2021-09-21 00:40 | NUR ---
PT CONTINUES ON INSULIN DRIP THAT HAS BEEN REDUCED TO 6 UNITS PER HOUR. HOURLY LAB DRAW THROUGH IV TO MONITOR DKA PROGRESS. ORDERS HAVE BEEN RECEIVED FROM DR FUENTES. PT HAS BEEN UP TO VOID AND DOES HAVE 1 LITER URINE OUTPUT. PT UNSTABLE ON HIS FEET WHEN HE WAS STANDING. PT ANGRY THAT THIS RN WAS IN ROOM TO ENSURE HE IS SAFE AND DOES NOT FALL. PT AWARE OF FALL RISK AND IS ACCEPTING. PT AGREES TO SIT AT EDGE OF BED TO URINATE. WILL REVIEW CHART AND PLAN OF CARE FOR THIS PT.
[2021-09-21 01:01] LABS: Glucose, Blood 669 mg/dL (70-99)
--- NOTE | 2021-09-21 01:17 | NUR ---
PT'S BLOOD GLUCOSE HAS DECREASED FASTER THAN 80 PER HOUR. HAVE PLACED INSULIN ON HOLD FOR 1 HOUR. WILL RECHECK AT 0200.
[2021-09-21 03:17] LABS: Bun/Creatinine Ratio 36.1 (12.0-20.0); Calcium, Blood 8.9 mg/dL (8.5-10.1); Creatinine, Blood 1.47 mg/dL (0.60-1.20); Potassium, Blood 4.8 mmol/L (3.5-5.5)
--- NOTE | 2021-09-21 03:31 | NUR ---
HAVE RESTARTED INSULIN AT 2 UNITS PER HOUR. PT'S GLUCOSE LEVEL LESS THAN 500 AT THIS TIME. WILL CONTINUE HOURLY GLUCOSE CHECKS. CALL MADE TO DR FUENTES WITH UPDATE ON PT.
--- NOTE | 2021-09-21 05:28 | NUR ---
0400 INCREASED INSULIN DRIP TO 3 UNITS/HR. THIS REMAINS UNCHANGED. PT CONTINUES TO KEEP HIMSELF COVERED WITH HIS OWN SLEEPING BAG THAT HE BROUGHT TO THE HOSPITAL. PT REMAINS WITHOUT WANTING TO COOPERATE FULLY WITH CARE. NON AGRESSIVE. WILL CONTINUE TO MONITOR PT, AND WILL REPORT OFF TO ONCOMING RN.
[2021-09-21 06:11] LABS: Hematocrit 28.9 % (37.0-53.0); Hemoglobin 10.4 g/dL (13.5-17.5); Mean Corpuscular HGB 30.7 pg (26.0-34.0); Mean Platelet Volume 8.7 fL (9.1-12.4); Platelet Count 502 K/mm3 (150-400); RDW Coefficient Variation 11.7 % (11.7-14.2); Red Blood Cell Count 3.39 M/mm3 (4.30-5.90); White Blood Cell Count 25.05 K/mm3 (4.00-11.30)
[2021-09-21 06:13] LABS: Mean Corpuscular Volume 85 fL (80-100)
[2021-09-21 06:29] LABS: Anion Gap 7 mmol/L (6-16); Blood Urea Nitrogen 45 mg/dL (8-24); Bun/Creatinine Ratio 35.4 (12.0-20.0); CO2, Blood 27 mmol/L (21-32); Calcium, Blood 8.9 mg/dL (8.5-10.1); Chloride, Blood 107 mmol/L (98-108); Creatinine, Blood 1.27 mg/dL (0.60-1.20); Glomerular Filtration Rate >60 (60-); Glucose, Blood 366 mg/dL (70-99); Potassium, Blood 4.3 mmol/L (3.5-5.5); Sodium, Blood 141 mmol/L (136-145)
--- NOTE | 2021-09-21 08:31 | NUR ---
REPORTED TO DR LEE VIA CELL PHONE BS 250, DR THOMAS WANTS TO WAIT ABOUT FOUR HOURS BEFORE WE START D5 1/2 NS. PATIETN VERY DROWSY, PATIENTS OWN SLEEPING BAG OVER HIS HEAD, REPORT FROM PM RN, CALL LIGHT WITH IN REACH
[2021-09-21 10:39] LABS: Anion Gap 4 mmol/L (6-16); Blood Urea Nitrogen 38 mg/dL (8-24); Bun/Creatinine Ratio 37.6 (12.0-20.0); CO2, Blood 27 mmol/L (21-32); Calcium, Blood 8.8 mg/dL (8.5-10.1); Chloride, Blood 109 mmol/L (98-108); Creatinine, Blood 1.01 mg/dL (0.60-1.20); Glomerular Filtration Rate >60 (60-); Glucose, Blood 191 mg/dL (70-99); Potassium, Blood 4.3 mmol/L (3.5-5.5); Sodium, Blood 140 mmol/L (136-145)
--- NOTE | 2021-09-21 16:36 | NUR ---
Pt. is awake and ferociously eating a meat sandwich. Pt. welcomes my visit. Pt. is unsettled about his family that is non-supportive. Listen empthetically and provide pastoral care with a calming presence. Pt. verbalizes "I normally don't want to talk to you guys." (referring to pastoral care) I thanked him for trusting me. As pt. verbalizes details of his home situation, pt. becomes cathartic. Pt. displays evidence of anxiety about being discharged to an unsupportive environment. With more empathy, the pt. displays evidenceof being supportive. Prayed for Pt. with his permission. Pt. verbalized gratitude for the spiritual care visit.
--- NOTE | 2021-09-21 17:56 | NUR ---
REPORT TO BENOIT RN ON MEDICAL, PATIENT TRANSFERRED VIA W/C TO ROOM 340, PATIENT VERY INPATIENT, NON COMPLIANT TO FOOD AMOUNTS, PATIENT INDEPEDANT IN ROOM, MAKES NEEDS KNOWN, STATUS CHANGED TO MEDICAL NO TELE
--- NOTE | 2021-09-21 18:05 | NUR ---
PT TRANSFER FROM ICU TO MED FLOOR. 35 YR OLD MALE PT ADMITTED FOR DKA, CURRENT CBG OF 411, ON RA, INDEPENDENT IN ROOM, A/O, ADA/VEG DIET. PT HAS HIS OWN SLEEPING BAG WITH HIM HE USES RATHER THAN HOSPITAL BLANKETS. PT ORIENTED TO ROOM, SURROUNDING AREA, AND CALL LIGHT. CALL LIGHT WITHIN REACH AND ABLE TO CALL APPROPRIATE.
--- NOTE | 2021-09-22 03:50 | NUR ---
SHIFT SUMMARY PT ADMITTED FOR DKA, INITIALLY AT ICU FOR DM MANAGEMENT WITH INSULIN DRIP. PT AOX4. PT REQUEST FOR SNACKS MULTIPLE TIMES LAST NIGHT. PROVIDE EDUC REGARDING ADA DIET. PT APPEARS TO BECOME UPSET ABOUT HIS LIMITATION TO HIS DIET. ALSO PT WAS ANXIOUS AND HAD A PANIC ATTACK. CALLED HIS MOM AND REQUESTING TO GET PICKED UP SO HE CAN LEAVE AMA. I EXPLAINED PT RIGHTS AND SAFETY CONCERNS FOR LEAVING AMA. SINCE MOM REFUSE TO PICK HIM UP, HE GOT REALLY UPSET, CURSING AND AGITATED. CALLED HOSPITALIST, DR. PRESLEY, NOTIFIED OF THIS, NEW ORDER ATIVAN 1MG FOR 1 TIME DOSE WAS GIVEN VIA IV. AND ALSO NOTIFIED HIM OF INCREASE CBG AND ELEVATED BP. PT APPEARS TO BE CALM AFTER ATIVAN WAS GIVEN. PT DECIDED TO STAY AND NOT LEAVE AMA. CALL LIGHT WITHIN REACH. WILL CONTINUE TO MONITOR AND NOTIFY ONCOMING NURSE.
[2021-09-22 05:28] LABS: BASOPHILS ABSOLUTE AUTO 0.05 K/mm3 (0.00-0.23); BASOPHILS PERCENT AUTO 0 % (0-2); EOSINOPHILS ABSOLUTE AUTO 0.07 K/mm3 (0.00-0.68); EOSINOPHILS PERCENT AUTO 0 % (0-6); Hematocrit 30.9 % (37.0-53.0); Hemoglobin 10.4 g/dL (13.5-17.5); IMMATURE GRAN ABSOLUTE AUTO 0.06 K/mm3 (0.00-0.10); IMMATURE GRAN PERCENT AUTO 0 % (0-1); LYMPHOCYTES ABSOLUTE AUTO 3.12 K/mm3 (0.84-5.20); LYMPHOCYTES PERCENT AUTO 19 % (21-46); MONOCYTES ABSOLUTE AUTO 0.75 K/mm3 (0.16-1.47); MONOCYTES PERCENT AUTO 5 % (4-13); Mean Corpuscular HGB 30.4 pg (26.0-34.0); Mean Corpuscular HGB Conc 33.7 g/dL (31.5-36.5); Mean Platelet Volume 9.1 fL (9.1-12.4); NEUTROPHILS ABSOLUTE AUTO 12.61 K/mm3 (1.96-9.15); NEUTROPHILS PERCENT AUTO 76 % (41-73); Platelet Count 417 K/mm3 (150-400); RDW Coefficient Variation 12.4 % (11.7-14.2); RDW Standard Deviation 41.3 fL (35.1-46.3); Red Blood Cell Count 3.42 M/mm3 (4.30-5.90); White Blood Cell Count 16.66 K/mm3 (4.00-11.30)
[2021-09-22 05:32] LABS: Mean Corpuscular Volume 90 fL (80-100)
[2021-09-22 05:50] LABS: Anion Gap 4 mmol/L (6-16); Blood Urea Nitrogen 24 mg/dL (8-24); Bun/Creatinine Ratio 27.6 (12.0-20.0); CO2, Blood 28 mmol/L (21-32); Chloride, Blood 107 mmol/L (98-108); Creatinine, Blood 0.87 mg/dL (0.60-1.20); Glomerular Filtration Rate >60 (60-); Glucose, Blood 277 mg/dL (70-99); Sodium, Blood 139 mmol/L (136-145)
--- NOTE | 2021-09-22 08:00 | NUR ---
PT IRRITABLE BUT COOPERATIVE. DENIES BLOOD SUGAR BEING ELEVATED. DENIES PAIN. A/O X3. H/R REGUALR. NO MURMURS NOTED. ON ROOM AIR. LUNGS CLEAR BILATERALLY. BREATHING IS EASY AND UNLABORED. BOWEL SOUNDS HYPERACTIVE. PT STATES LAST BOWEL MOVEMENT WAS YESTERDAY. AMBULATES INDEPENDENTLY TO RESTROOM. WALK OCCASIONALLY. DR. THOMAS CHANGED INSULIN MEDICATIONS. MEDICATED PER EMAR. PT STATES HE IS HOMELESS. REFERALL MADE TO CARE MANAGEMENT. REFERALL ALSO MADE TO GREEN CHAIN MARKER TO EDUCATE PATIENT. BED IN LOW POSTION, CALL LIGHT IN REACH, CALLS APPROPRIATLY.
[2021-09-22 09:02] LABS: Percent Saturation 32.2 % (20.0-50.0)
--- NOTE | 2021-09-22 10:29 | NUR ---
PT UP AMBULATING IN HALLWAY. IRRITABLE THAT HE HAS TO WEAR A MASK IN THE FACITLITY. PT WAS GIVEN SHIRT AND MASK.
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
--- NOTE | 2021-09-22 12:42 | NUR ---
Spiritual Care Attempted. Pt. is sleeping under covers and not respond to my presence.
--- NOTE | 2021-09-22 18:17 | NUR ---
PT IRRITABLE AND FLAT DURING SHIFT. NON-COMPLIANT WITH DIABETIC DIET OR WANTING TO TAKE INSULIN. STS "MY DOCTOR TOLD ME IF MY BS WAS BETWEEN 150-200 I DID NOT HAVE TO TAKE INSULIN". PT REMINDED THE DR. THOMAS IS TRYING TO MANAGE HIS BS DOWN TO A REGULAR LEVEL. PT DENIES WANTING TO TAKE INSULIN BEFORE DINNER. NURSE AND I STRESSED IMPORTANCE OF MEDICATION ADHERENCE. HE AGREED TO TAKE INSULIN DOSE BEFORE DINNER. PT A/O X3-4. H/R REGULAR IN 80'S. NO MURMUR NOTED. NO TELE. PT ON ROOM AIR. LUNG SOUNDS CLEAR BILATERALLY. BREATHING IS EASY AND UNLABORED. PT AMBULATES TO RESTROOM INDEPENDENTLY. REPEATEDLY ASKED FOR SNACKS AND DIET PEPSI TODAY. CALL LIGHT IN REACH, CALLS APPROPRIALTY, BED IN LOW POSITION.
--- NOTE | 2021-09-22 18:25 | NUR ---
AGREE WITH STUDENT NOTES.
--- NOTE | 2021-09-22 18:52 | NUR ---
PT WENT FOR WALK, CAME BACK. UPSET WITH STEVE MOTHER. HE STATES REFUSING TO LET HIM TALK TO HIS CHILD ON PHONE. STATES NOT SUICIDAL, BUT ANGRY AND UPSET, STATES HAS SUICIDAL GENE, BUT WOULD NEVER KILL SELF THIS WOULD HURT CHILD. SPOKE TO DR THOMAS ON PHONE. HE STATES BELIEVES PT NOT HARMING SELF. STATES PRETTY UNDERSTANDING OF THIS PTS SITUATION. PASSING INFO TO BENJAMIN VANN ALSO
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
--- NOTE | 2021-09-22 22:46 | NUR ---
PER CHARGE NURSE YADI. PT LEFT AMA, SIGNED FORM. AND CHARGE NURSE CALLED THE MD. IV PULLED BY PATIENT. HE WAS UPSET. HE STATES THAT HIS PARENT WOULD PICK HIM UP.
== END 2021-09-22 21:34 | disposition left against medical advice (07) | DRG 637 ==
LOC: ER 18:45 → ICUE 20:30 → ICUW 20:30 → ICUE 21:45 → MEDS 09-21 17:57
PROVIDERS: Emergency Medicine; Internal Medicine; Student in an Organized Health Care Education/Training Program; ADMIT Internal Medicine
DX: E10.10 Type 1 diabetes mellitus with ketoacidosis without coma (principal); R65.11 Systemic inflammatory response syndrome (SIRS) of non-infectious origin with acute organ dysfunction; N17.9 Acute kidney failure, unspecified; E44.0 Moderate protein-calorie malnutrition; G89.29 Other chronic pain; M54.9 Dorsalgia, unspecified; F17.210 Nicotine dependence, cigarettes, uncomplicated; E87.5 Hyperkalemia; M41.9 Scoliosis, unspecified; J44.9 Chronic obstructive pulmonary disease, unspecified; F15.10 Other stimulant abuse, uncomplicated; I73.00 Raynaud's syndrome without gangrene; E83.39 Other disorders of phosphorus metabolism; E83.51 Hypocalcemia; Z91.14 Patient's other noncompliance with medication regimen; Z59.00 Homelessness unspecified; Z68.20 Body mass index [BMI] 20.0-20.9, adult; Z88.1 Allergy status to other antibiotic agents; Z88.8 Allergy status to other drugs, medicaments and biological substances; Z90.89 Acquired absence of other organs; Z98.890 Other specified postprocedural states; Z79.51 Long term (current) use of inhaled steroids
CPT/HCPCS: 36415; 80047; 80048; 80053; 81001; 82010; 82607; 82728; 82746; 82803; 82947; 83540; 83550; 83690; 83735; 84100; 85014; 85025; 85027; 87086; 93005; 93010; 96365; 96366; 96375; 96376; 99285-25; A9270; C1751; G0480; J1650; J1815; J2060; J3480; J7030

== ENCOUNTER 2021-10-23 10:33 | Emergency (ER) | payer OTHER ==
[~2021-10-23] VITALS: Ht 177.8 cm; Wt 59.0 kg
[2021-10-23 12:35] LABS: Albumin, Blood 2.3 g/dL (3.4-5.0); Albumin/Globulin Ratio 0.5 (0.8-1.8); Bilirubin, Total 0.2 mg/dL (0.1-1.0); Calcium, Blood 8.8 mg/dL (8.5-10.1); Creatinine, Blood 1.22 mg/dL (0.60-1.20); Globulin, Blood 4.4 g/dL (2.2-4.0); Potassium, Blood 4.6 mmol/L (3.5-5.5); Total Protein, Blood 6.7 g/dL (6.4-8.2)
[2021-10-23 13:11] LABS: BASOPHILS ABSOLUTE AUTO 0.06 K/mm3 (0.00-0.23); BASOPHILS PERCENT AUTO 1 % (0-2); EOSINOPHILS ABSOLUTE AUTO 0.01 K/mm3 (0.00-0.68); EOSINOPHILS PERCENT AUTO 0 % (0-6); Hematocrit 39.2 % (37.0-53.0); Hemoglobin 13.2 g/dL (13.5-17.5); IMMATURE GRAN PERCENT AUTO 2 % (0-1); LYMPHOCYTES ABSOLUTE AUTO 1.53 K/mm3 (0.84-5.20); LYMPHOCYTES PERCENT AUTO 16 % (21-46); MONOCYTES ABSOLUTE AUTO 0.99 K/mm3 (0.16-1.47); MONOCYTES PERCENT AUTO 11 % (4-13); Mean Corpuscular HGB 29.8 pg (26.0-34.0); Mean Corpuscular HGB Conc 33.7 g/dL (31.5-36.5); Mean Corpuscular Volume 89 fL (80-100); Mean Platelet Volume 8.7 fL (9.1-12.4); NEUTROPHILS ABSOLUTE AUTO 6.68 K/mm3 (1.96-9.15); NEUTROPHILS PERCENT AUTO 71 % (41-73); Platelet Count 456 K/mm3 (150-400); RDW Coefficient Variation 12.5 % (11.7-14.2); RDW Standard Deviation 40.9 fL (35.1-46.3); Red Blood Cell Count 4.43 M/mm3 (4.30-5.90); White Blood Cell Count 9.47 K/mm3 (4.00-11.30)
[2021-10-23 13:12] LABS: Base Excess Venous -0.3 mmol/L; Bicarbonate Venous 23.8 mmol/L (24.0-30.0); PCO2 Venous 45.7 mmHg (38-42); pH Blood Venous 7.35 (7.34-7.37)
== END 2021-10-23 14:12 | disposition home or self-care (01) ==
LOC: ER 10:33
PROVIDERS: Emergency Medicine
DX: E10.65 Type 1 diabetes mellitus with hyperglycemia (principal); E86.0 Dehydration; J44.9 Chronic obstructive pulmonary disease, unspecified; F17.210 Nicotine dependence, cigarettes, uncomplicated; F12.90 Cannabis use, unspecified, uncomplicated; Z88.1 Allergy status to other antibiotic agents; Z88.2 Allergy status to sulfonamides; Z88.8 Allergy status to other drugs, medicaments and biological substances; Z79.4 Long term (current) use of insulin; Z79.899 Other long term (current) drug therapy
CPT/HCPCS: 36415; 80053; 82803; 82947; 85025; J1815; J7030

== ENCOUNTER 2021-10-29 04:31 | Emergency (ER) | payer OTHER ==
[~2021-10-29] VITALS: Ht 177.8 cm; Wt 59.0 kg
== END 2021-10-29 06:21 | disposition home or self-care (01) ==
LOC: ER 04:31
DX: U07.1 COVID-19 (principal); E10.9 Type 1 diabetes mellitus without complications; J44.9 Chronic obstructive pulmonary disease, unspecified; F17.210 Nicotine dependence, cigarettes, uncomplicated; F12.90 Cannabis use, unspecified, uncomplicated; Z88.1 Allergy status to other antibiotic agents; Z88.2 Allergy status to sulfonamides; Z88.8 Allergy status to other drugs, medicaments and biological substances; Z79.4 Long term (current) use of insulin; Z79.899 Other long term (current) drug therapy
CPT/HCPCS: 71045; 82947; A9270

== ENCOUNTER 2021-11-30 21:10 | Inpatient (IN) | payer OTHER ==
[~2021-11-30] VITALS: Ht 182.9 cm; Wt 60.6 kg
[2021-11-30 21:44] LABS: Base Excess Venous -28.7 mmol/L; Bicarbonate Venous 6.2 mmol/L (24.0-30.0); PCO2 Venous 14.4 mmHg (38-42)
[2021-11-30 21:45] LABS: Calcium, Ionized (POC) 0.97 mmol/L (1.10-1.46); Chloride (POC) 81 mmol/L (98-108); Creatinine (POC) 2.3 mg/dL (0.8-1.3); Glucose (ISTAT POC) >700 mg/dL (70-99); Hemoglobin (POC) 12.2 g/dL (13.5-17.5); Potassium (POC) 7.4 mmol/L (3.5-5.5); Sodium (POC) 109 mmol/L (135-148); Total CO2 (POC) 6 mmol/L (21-32)
[2021-11-30 21:46] LABS: pH Blood Venous 6.96 (7.34-7.37)
[2021-11-30 21:48] LABS: BASOPHILS ABSOLUTE AUTO 0.23 K/mm3 (0.00-0.23); BASOPHILS PERCENT AUTO 1 % (0-2); EOSINOPHILS ABSOLUTE AUTO 0.02 K/mm3 (0.00-0.68); EOSINOPHILS PERCENT AUTO 0 % (0-6); Hematocrit 35.7 % (37.0-53.0); Hemoglobin 10.7 g/dL (13.5-17.5); IMMATURE GRAN ABSOLUTE AUTO 1.15 K/mm3 (0.00-0.10); IMMATURE GRAN PERCENT AUTO 3 % (0-1); LYMPHOCYTES ABSOLUTE AUTO 2.08 K/mm3 (0.84-5.20); LYMPHOCYTES PERCENT AUTO 6 % (21-46); MONOCYTES PERCENT AUTO 6 % (4-13); Mean Corpuscular HGB 31.2 pg (26.0-34.0); Mean Corpuscular Volume 104 fL (80-100); Mean Platelet Volume 9.6 fL (9.1-12.4); NEUTROPHILS PERCENT AUTO 84 % (41-73); Platelet Count 644 K/mm3 (150-400); RDW Coefficient Variation 13.2 % (11.7-14.2); RDW Standard Deviation 50.8 fL (35.1-46.3); Red Blood Cell Count 3.43 M/mm3 (4.30-5.90); White Blood Cell Count 34.78 K/mm3 (4.00-11.30)
[2021-11-30 22:20] LABS: Alanine Aminotransfer (ALT/SGP 20 U/L (12-78); Albumin, Blood 2.7 g/dL (3.4-5.0); Albumin/Globulin Ratio 0.8 (0.8-1.8); Alk Phos 138 U/L (50-136); Anion Gap 38 mmol/L (6-16); Aspartate Aminotrans (AST/SGOT 16 U/L (12-37); Bilirubin, Total 0.6 mg/dL (0.1-1.0); Blood Urea Nitrogen 56 mg/dL (8-24); Bun/Creatinine Ratio 25.8 (12.0-20.0); CO2, Blood 4 mmol/L (21-32); Chloride, Blood 71 mmol/L (98-108); Creatinine, Blood 2.17 mg/dL (0.60-1.20); Globulin, Blood 3.5 g/dL (2.2-4.0); Glomerular Filtration Rate 39 (60-); Glucose, Blood 1185 mg/dL (70-99); Potassium, Blood 7.3 mmol/L (3.5-5.5); Sodium, Blood 113 mmol/L (136-145); Total Protein, Blood 6.2 g/dL (6.4-8.2)
[2021-11-30 22:21] LABS: Beta-hydroxybutyrate >138.0 mg/dL (0.2-2.8)
[2021-11-30 23:18] LABS: Bun/Creatinine Ratio 27.4 (12.0-20.0); Creatinine, Blood 1.97 mg/dL (0.60-1.20); Potassium, Blood 7.2 mmol/L (3.5-5.5)
[2021-11-30 23:24] LABS: Calcium, Blood 10.6 mg/dL (8.5-10.1)
[2021-12-01 00:15] LABS: Glucose, Blood 1027 mg/dL (70-99)
[2021-12-01 00:16] LABS: Source, Urine Clean Catch
[2021-12-01 00:21] LABS: Bilirubin, Urine Neg (Neg); Blood, Urine 2+ (Neg); Glucose Qualitative, Urine 4+ (Neg); Ketones, Urine 3+ (Neg); Leukocyte Esterase, Urine Neg (Neg); Nitrite, Urine Neg (Neg); Protein, Urine 3+ (Neg); Urobilinogen, Urine NORM (Normal)
[2021-12-01 00:26] LABS: Appearance, Urine Clear (Clear); Color, Urine Yellow (P-Yellow)
[2021-12-01 00:27] LABS: Bacteria Not Seen /hpf; Red Blood Cells, Urine 0-2 /hpf (0-2); Renal Epithelial Few /hpf (0-Rare); Squamous Epithelial Cells Not Seen /hpf (Few); White Blood Cells, Urine Not Seen /hpf (0-5)
[2021-12-01 00:33] LABS: U Amphetamine Screen DETECTED; U Barbituate Screen Not Detected; U Benzodiazapine Screen Not Detected; U Cannabinoids Screen Not Detected; U Cocaine Screen Not Detected; U Methadone Screen Not Detected; U Methamphetamine Screen DETECTED; U Opiates Screen Not Detected; U Phencyclidine Screen Not Detected
[2021-12-01 00:34] LABS: U Buprenorphine Screen Not Detected; U Oxycodone Screen Not Detected; U Propoxyphene Screen Not Detected
[2021-12-01 01:46] LABS: Glucose, Blood 875 mg/dL (70-99)
[2021-12-01 03:24] LABS: Glucose, Blood 616 mg/dL (70-99)
[2021-12-01 03:47] LABS: Hematocrit 29.2 % (37.0-53.0); Hemoglobin 10.4 g/dL (13.5-17.5); Mean Corpuscular HGB 31.6 pg (26.0-34.0); Mean Corpuscular HGB Conc 35.6 g/dL (31.5-36.5); Mean Platelet Volume 8.9 fL (9.1-12.4); Platelet Count 572 K/mm3 (150-400); RDW Coefficient Variation 12.8 % (11.7-14.2); RDW Standard Deviation 41.8 fL (35.1-46.3); Red Blood Cell Count 3.29 M/mm3 (4.30-5.90); White Blood Cell Count 29.85 K/mm3 (4.00-11.30)
[2021-12-01 03:50] LABS: Mean Corpuscular Volume 89 fL (80-100)
[2021-12-01 04:09] LABS: Albumin, Blood 2.4 g/dL (3.4-5.0); Albumin/Globulin Ratio 0.8 (0.8-1.8); Bilirubin, Total 0.8 mg/dL (0.1-1.0); Bun/Creatinine Ratio 29.8 (12.0-20.0); Calcium, Blood 10.2 mg/dL (8.5-10.1); Creatinine, Blood 1.71 mg/dL (0.60-1.20); Globulin, Blood 3.2 g/dL (2.2-4.0); Total Protein, Blood 5.6 g/dL (6.4-8.2)
[2021-12-01 04:12] LABS: Potassium, Blood 4.3 mmol/L (3.5-5.5)
[2021-12-01 04:20] LABS: BAND PERCENT MAN 6 % (0-8); BASOPHILS ABSOLUTE MAN 0.59 K/mm3 (0.00-0.23); BASOPHILS PERCENT MAN 2 % (0-2); EOSINOPHILS PERCENT MAN 0 % (0-6); LYMPHOCYTES ABSOLUTE MAN 3.58 K/mm3 (0.84-5.20); LYMPHOCYTES PERCENT MAN 12 % (21-46); MONOCYTES ABSOLUTE MAN 1.49 K/mm3 (0.16-1.47); MONOCYTES PERCENT MAN 5 % (4-13); NEUTROPHILS ABSOLUTE MAN 24.17 K/mm3 (1.96-9.15); SEG NEUTROPHILS PERCENT MAN 75 % (41-73); TOTAL CELLS COUNTED 100
[2021-12-01 04:55] LABS: Glucose (ISTAT POC) 431 mg/dL (70-99)
--- NOTE | 2021-12-01 04:56 | NUR ---
PT'S BG WAS RAN ON ISTAT AT BEDSIDE. BEDSIDE READING WAS 431. INSULIN DRIP DECREASED TO 6
--- NOTE | 2021-12-01 06:04 | NUR ---
PT. CAME IN OVERNIGHT IN DKA WITH A BG IN 1100S, PT. WAS PLACED ON AN INSULIN DRIP AND HAS BEEN TITRATED ALL NIGHT AND IS NOW RECIEVING 6 UNITS PER HOUR, DOWN FROM 12 WHEN HE CAME IN. GAP IS STILL OPEN BUT PT. IS NO LONGER SLURRING OR NAUSEOUS AT THIS TIME. PT. URINATED IN URINAL AND PUT OUT AROUND 3 LITERS OVERNIGHT. PT. RESTING COMFORTABLY AT THIS TIME.
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
[2021-12-01 09:41] LABS: Bun/Creatinine Ratio 33.1 (12.0-20.0); Calcium, Blood 9.9 mg/dL (8.5-10.1); Creatinine, Blood 1.21 mg/dL (0.60-1.20)
--- NOTE | 2021-12-01 10:40 | NUR ---
DR BAEZ: PROVIDER AT BEDSIDE TO MASOOD PT. 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 ORDERS PLACED FOR LONG-ACTING & SS INSULIN COVERAGE TO BEGIN NOW. INSULIN DRIP MAY BE D/C'd 90 MINS AFTER LONG-ACTING HAS BEEN GIVEN. ADA DIET ORDERED TO BEGIN AT LUNCH & THE D5 1/2 NS DRIP HAS BEEN STOPPED PER ORDERS.
--- NOTE | 2021-12-01 17:26 | NUR ---
ASSUMED CARE FROM DANE VANN, PLANS FOR PT TO TRANSFER TO MEDICAL FLOOR. REMAINS ALERT AND ORIENTED, INDEPENDENT IN ROOM. SITTING UP EATING DINNER AT THIS TIME. ALL NEEDS MET AT THIS TIME. REPORT TO MED FLOOR RN
--- NOTE | 2021-12-01 18:35 | NUR ---
PT TRANSFERRED TO MEDICAL FLOOR WITH ALL BELONGINGS.
--- NOTE | 2021-12-01 22:25 | NUR ---
AMA NOTE PT DEMANDED I REMOVE ONE OF HIS IV'S. PT THREATENED TO REMOVE IT HIMSELF IF I DID NOT COMPLY IMMEDIATELY. PT DEMANDED SNACKS (HE WAS EATING A PLATE OF FOOD WHEN I ARRIVED ON SHIFT AND WAS INTRODUCED TO HIM). PT LEFT FLOOR TO [employer] MACHINE BECAUSE "NURSING STAFF ARE TOO SLOW". WHEN HE RETURNED THE PT DEMANDED CUP OF ICE IMMEDIATELY. PT STATED "IF YOU ARE NOT TOO BUSY". I DID RETRIEVE HIS CUP OF ICE. I THEN TESTED HIS BLOOD GLUCOSE LEVEL. PT YELLING AND CURSING LOUDLY ON PHONE AT HIS MOTHER. PRESSURED SPEECH NOTED. HE SEEMED IMPATIENT WITH NURSING STAFF. I DID REMOVE ONE IV HE REQUESTED. THEN HE DECIDED TO LEAVE AMA SOON AFTER. I DID ADMINISTER HIS SCHEDULED INSULIN BEFORE HE LEFT. I THEN REMOVED THE OTHER IV.
== END 2021-12-01 21:25 | disposition left against medical advice (07) | DRG 637 ==
LOC: ER 21:10 → ICUW 22:00 → MEDS 12-01 18:53
PROVIDERS: Student in an Organized Health Care Education/Training Program; ADMIT Internal Medicine
DX: E10.10 Type 1 diabetes mellitus with ketoacidosis without coma (principal); R65.11 Systemic inflammatory response syndrome (SIRS) of non-infectious origin with acute organ dysfunction; E87.1 Hypo-osmolality and hyponatremia; I47.2 Ventricular tachycardia; N17.9 Acute kidney failure, unspecified; M54.9 Dorsalgia, unspecified; J44.9 Chronic obstructive pulmonary disease, unspecified; G89.29 Other chronic pain; M41.9 Scoliosis, unspecified; F17.210 Nicotine dependence, cigarettes, uncomplicated; E87.5 Hyperkalemia; F15.10 Other stimulant abuse, uncomplicated; Z91.14 Patient's other noncompliance with medication regimen; Z90.89 Acquired absence of other organs; Z98.890 Other specified postprocedural states; Z88.1 Allergy status to other antibiotic agents; Z88.2 Allergy status to sulfonamides; Z88.8 Allergy status to other drugs, medicaments and biological substances; Z79.4 Long term (current) use of insulin; Z79.899 Other long term (current) drug therapy
CPT/HCPCS: 36415; 71045; 80047; 80048; 80053; 81001; 82010; 82803; 82947; 83735; 85014; 85025; 93005; 93010; 96365; 99285-25; A9270; J1650; J1815; J2765; J7030; J7042

== ENCOUNTER 2022-01-12 12:20 | Inpatient (IN) | payer OTHER ==
[~2022-01-12] VITALS: Ht 177.8 cm; Wt 60.3 kg
[2022-01-12 13:21] LABS: Base Excess Venous -28.8 mmol/L; Bicarbonate Venous 6.3 mmol/L (24.0-30.0); PCO2 Venous 11.7 mmHg (38-42)
[2022-01-12 13:22] LABS: BASOPHILS ABSOLUTE AUTO 0.24 K/mm3 (0.00-0.23); BASOPHILS PERCENT AUTO 1 % (0-2); EOSINOPHILS ABSOLUTE AUTO 0.03 K/mm3 (0.00-0.68); EOSINOPHILS PERCENT AUTO 0 % (0-6); Hemoglobin 10.8 g/dL (13.5-17.5); IMMATURE GRAN ABSOLUTE AUTO 1.73 K/mm3 (0.00-0.10); IMMATURE GRAN PERCENT AUTO 5 % (0-1); LYMPHOCYTES ABSOLUTE AUTO 2.89 K/mm3 (0.84-5.20); LYMPHOCYTES PERCENT AUTO 9 % (21-46); MONOCYTES ABSOLUTE AUTO 1.84 K/mm3 (0.16-1.47); MONOCYTES PERCENT AUTO 6 % (4-13); Mean Corpuscular HGB 31.2 pg (26.0-34.0); Mean Corpuscular HGB Conc 31.8 g/dL (31.5-36.5); Mean Corpuscular Volume 98 fL (80-100); Mean Platelet Volume 10.2 fL (9.1-12.4); NEUTROPHILS ABSOLUTE AUTO 26.59 K/mm3 (1.96-9.15); NEUTROPHILS PERCENT AUTO 80 % (41-73); Platelet Count 317 K/mm3 (150-400); RDW Coefficient Variation 12.9 % (11.7-14.2); RDW Standard Deviation 46.1 fL (35.1-46.3); Red Blood Cell Count 3.46 M/mm3 (4.30-5.90); White Blood Cell Count 33.32 K/mm3 (4.00-11.30); pH Blood Venous 6.98 (7.34-7.37)
[2022-01-12 14:00] LABS: Albumin, Blood 2.2 g/dL (3.4-5.0); Albumin/Globulin Ratio 0.7 (0.8-1.8); Bilirubin, Total 0.5 mg/dL (0.1-1.0); Bun/Creatinine Ratio 34.2 (12.0-20.0); Calcium, Blood 6.5 mg/dL (8.5-10.1); Creatinine, Blood 1.52 mg/dL (0.60-1.20); Globulin, Blood 3.1 g/dL (2.2-4.0); Potassium, Blood 7.4 mmol/L (3.5-5.5); Total Protein, Blood 5.3 g/dL (6.4-8.2)
[2022-01-12 16:32] LABS: Glucose, Blood 1019 mg/dL (70-99)
[2022-01-12 17:06] LABS: Source, Urine Clean Catch
[2022-01-12 17:14] LABS: Appearance, Urine Clear (Clear); Bilirubin, Urine Neg (Neg); Blood, Urine 2+ (Neg); Glucose Qualitative, Urine 4+ (Neg); Ketones, Urine 3+ (Neg); Leukocyte Esterase, Urine Neg (Neg); Nitrite, Urine Neg (Neg); Protein, Urine 2+ (Neg); Urobilinogen, Urine NORM (Normal)
[2022-01-12 17:23] LABS: Color, Urine Pale Yellow (P-Yellow)
[2022-01-12 17:24] LABS: Red Blood Cells, Urine 0-2 /hpf (0-2); White Blood Cells, Urine 0-2 /hpf (0-5)
[2022-01-12 17:25] LABS: Bacteria Rare /hpf; Squamous Epithelial Cells Not Seen /hpf (Few)
[2022-01-12 17:32] LABS: U Methamphetamine Screen DETECTED
[2022-01-12 17:33] LABS: U Amphetamine Screen Not Detected; U Barbituate Screen Not Detected; U Benzodiazapine Screen Not Detected; U Buprenorphine Screen Not Detected; U Cannabinoids Screen Not Detected; U Cocaine Screen Not Detected; U Methadone Screen Not Detected; U Opiates Screen Not Detected; U Oxycodone Screen Not Detected; U Phencyclidine Screen Not Detected; U Propoxyphene Screen Not Detected
[2022-01-12 17:55] LABS: Albumin, Blood 2.4 g/dL (3.4-5.0); Anion Gap 23 mmol/L (6-16); Blood Urea Nitrogen 55 mg/dL (8-24); Bun/Creatinine Ratio 34.2 (12.0-20.0); CO2, Blood 11 mmol/L (21-32); Calcium, Blood 7.9 mg/dL (8.5-10.1); Chloride, Blood 95 mmol/L (98-108); Creatinine, Blood 1.61 mg/dL (0.60-1.20); Glomerular Filtration Rate 56 (60-); Glucose, Blood 671 mg/dL (70-99); Phosphorus, Blood 5.4 mg/dL (2.5-4.9); Potassium, Blood 4.4 mmol/L (3.5-5.5); Sodium, Blood 129 mmol/L (136-145)
--- NOTE | 2022-01-12 18:53 | NUR ---
ADMIT PT ARRIVED TO ICU 5 AT 1814. PT DROWSY, BUT WAKES EASILY TO VOICE. SINUS TACH WITH RATE IN THE 110S, BP STABLE, SPO2 98% ON RA. INSULIN GTT INFUSING AT 4UN/HR UPON ARRIVAL. ADMIT COMPLETED WITH PT. CALL LIGHT IN REACH. CONTINUING TO MONITOR.
--- NOTE | 2022-01-12 19:19 | NUR ---
Assumed care. Report received from adalgisa RN. Pt resting in bed att, alert and oriented, on room air. Pt has IV access in L/ac & R/ac. NS infusing at 200 ml/hr, insulin infusing at 2 units/hr. VS stable, no acute needs at this time. Will continue to monitor.
[2022-01-12 21:20] LABS: Albumin, Blood 2.3 g/dL (3.4-5.0); Anion Gap 13 mmol/L (6-16); Blood Urea Nitrogen 44 mg/dL (8-24); Bun/Creatinine Ratio 34.4 (12.0-20.0); CO2, Blood 21 mmol/L (21-32); Calcium, Blood 7.7 mg/dL (8.5-10.1); Chloride, Blood 103 mmol/L (98-108); Creatinine, Blood 1.28 mg/dL (0.60-1.20); Glomerular Filtration Rate 73 (60-); Glucose, Blood 317 mg/dL (70-99); Magnesium, Blood 2.1 mg/dL (1.6-2.4); Phosphorus, Blood 2.7 mg/dL (2.5-4.9); Potassium, Blood 4.4 mmol/L (3.5-5.5); Sodium, Blood 137 mmol/L (136-145)
[2022-01-13 01:31] LABS: Albumin, Blood 2.1 g/dL (3.4-5.0); Anion Gap 7 mmol/L (6-16); Blood Urea Nitrogen 38 mg/dL (8-24); Bun/Creatinine Ratio 35.8 (12.0-20.0); CO2, Blood 24 mmol/L (21-32); Calcium, Blood 7.5 mg/dL (8.5-10.1); Chloride, Blood 107 mmol/L (98-108); Creatinine, Blood 1.06 mg/dL (0.60-1.20); Glomerular Filtration Rate 92 (60-); Glucose, Blood 321 mg/dL (70-99); Magnesium, Blood 1.9 mg/dL (1.6-2.4); Phosphorus, Blood 2.5 mg/dL (2.5-4.9); Potassium, Blood 4.4 mmol/L (3.5-5.5); Sodium, Blood 138 mmol/L (136-145)
--- NOTE | 2022-01-13 06:16 | NUR ---
Shift summary. Pt rested in bed throughout shift. C/o hunger, order obtained from Dr. Cosme for ADA diet. Insulin infusing at 7 units/hr currently, D5 1/2NS with KCL at 150 ml/hr. No acute overnight events, VS stable throughout shift. See assessment for further details. Will continue to monitor and report off to dayshift RN.
--- NOTE | 2022-01-13 07:18 | NUR ---
TOOK OVER CARE OF PT AT 0700, PT ON 7 UNITS OF INSULIN GTT.
[2022-01-13 08:14] LABS: Hematocrit 28.7 % (37.0-53.0); Hemoglobin 10.4 g/dL (13.5-17.5); Mean Corpuscular HGB 31.2 pg (26.0-34.0); Mean Corpuscular HGB Conc 36.2 g/dL (31.5-36.5); Mean Platelet Volume 8.8 fL (9.1-12.4); Platelet Count 408 K/mm3 (150-400); RDW Coefficient Variation 12.6 % (11.7-14.2); RDW Standard Deviation 39.6 fL (35.1-46.3); Red Blood Cell Count 3.33 M/mm3 (4.30-5.90); White Blood Cell Count 26.81 K/mm3 (4.00-11.30)
[2022-01-13 08:17] LABS: Mean Corpuscular Volume 86 fL (80-100)
[2022-01-13 08:30] LABS: Albumin, Blood 2.2 g/dL (3.4-5.0); Anion Gap 5 mmol/L (6-16); Blood Urea Nitrogen 30 mg/dL (8-24); CO2, Blood 26 mmol/L (21-32); Calcium, Blood 7.7 mg/dL (8.5-10.1); Chloride, Blood 107 mmol/L (98-108); Creatinine, Blood 0.94 mg/dL (0.60-1.20); Glomerular Filtration Rate 106 (60-); Glucose, Blood 260 mg/dL (70-99); Phosphorus, Blood 1.1 mg/dL (2.5-4.9); Sodium, Blood 138 mmol/L (136-145)
--- NOTE | 2022-01-13 16:55 | NUR ---
SUMMARY NEURO: WNL LUNGS: DIMINISHED BASES, TACHYPNEIC IN LOW 20'S CARDIAC; ST 110'S SKIN: SCATTERED ABRASIONS GI: WNL : WNL
--- NOTE | 2022-01-13 19:22 | NUR ---
ASSUMED CARE AT 1900 PATIENT IS ALERT AND ORIENTED X4. 02 SATS >95% ON RA, DENIES ANY SOB. HR SR-ST 95-110. DENIES CP/PRESSURE, BP STABLE. INDEPENDENT IN THE ROOM. SITTING UP EATING A SANDWICH IN BED. CALL LIGHT IN REACH. SEE SHIFT ASSESSMENT FROM MORE INFORMATION.
--- NOTE | 2022-01-13 20:16 | NUR ---
PATIENT REFUSED NIGHT TIME MEDICATIONS. PATIENT TEACHING ON IMPORTANCE OF MEDICATIONS. PATIENT CALLED THIS RN BACK TO THE ROOM APPROX. 20 MINUTES LATER, REQUESTED INSULIN COVERAGE, INSULIN GIVEN. PATIENT BECOMING MORE AGITATED AFTER TALKING ON THE PHONE. NOW IN ROOM WATCHING TV.
--- NOTE | 2022-01-14 01:38 | NUR ---
PATIENT EATING THROUGH THE NIGHT DESPITE EDUCATION PROVIDED ON GLUCOSE LEVELS AND DIET. PATIENT ASKED FOR GLUCOSE TO BE RECHECKED, GLUCOSE 360, CALLED HOSPITALIST, ORDERS FOR ADDITIONAL COVERAGE. PATIENT REFUSED INSULIN STATING "I'LL BE FINE, I WILL BE LOW NEXT TIME". EDUCATION PROVIDED, PATIENT STILL REFUSING.
[2022-01-14 03:43] LABS: BASOPHILS ABSOLUTE AUTO 0.03 K/mm3 (0.00-0.23); BASOPHILS PERCENT AUTO 0 % (0-2); EOSINOPHILS ABSOLUTE AUTO 0.08 K/mm3 (0.00-0.68); EOSINOPHILS PERCENT AUTO 1 % (0-6); Hematocrit 30.2 % (37.0-53.0); Hemoglobin 10.5 g/dL (13.5-17.5); IMMATURE GRAN ABSOLUTE AUTO 0.07 K/mm3 (0.00-0.10); IMMATURE GRAN PERCENT AUTO 0 % (0-1); LYMPHOCYTES ABSOLUTE AUTO 3.13 K/mm3 (0.84-5.20); LYMPHOCYTES PERCENT AUTO 19 % (21-46); MONOCYTES ABSOLUTE AUTO 0.85 K/mm3 (0.16-1.47); MONOCYTES PERCENT AUTO 5 % (4-13); Mean Corpuscular HGB 31.3 pg (26.0-34.0); Mean Corpuscular HGB Conc 34.8 g/dL (31.5-36.5); Mean Corpuscular Volume 90 fL (80-100); Mean Platelet Volume 8.7 fL (9.1-12.4); NEUTROPHILS ABSOLUTE AUTO 12.22 K/mm3 (1.96-9.15); NEUTROPHILS PERCENT AUTO 75 % (41-73); Platelet Count 343 K/mm3 (150-400); RDW Coefficient Variation 13.4 % (11.7-14.2); Red Blood Cell Count 3.36 M/mm3 (4.30-5.90); White Blood Cell Count 16.38 K/mm3 (4.00-11.30)
[2022-01-14 03:58] LABS: Albumin, Blood 2.1 g/dL (3.4-5.0); Anion Gap 7 mmol/L (6-16); Blood Urea Nitrogen 21 mg/dL (8-24); CO2, Blood 28 mmol/L (21-32); Calcium, Blood 7.5 mg/dL (8.5-10.1); Chloride, Blood 104 mmol/L (98-108); Creatinine, Blood 0.78 mg/dL (0.60-1.20); Glomerular Filtration Rate 117 (60-); Glucose, Blood 314 mg/dL (70-99); Phosphorus, Blood 1.9 mg/dL (2.5-4.9); Potassium, Blood 4.4 mmol/L (3.5-5.5); Sodium, Blood 139 mmol/L (136-145)
--- NOTE | 2022-01-14 08:34 | NUR ---
PT BECOMING AGITATED DUE TO LACK OF ACCESS TO PHONE IN THEIR ROOM. STAFF TRIED TO FIND ALTERNATE CORDS AND TRIED A NEW PHONE. PT INSISTED ON USING PHONE AT NURSES STATION. PT DECLINED ACCESS TO PHONE AT NURSES STATION DUE TO CONCERN FOR PRIVACY OF OTHER PT'S. WHEN DIRECTED BACK TO ROOM, PT STATED THEY WANTED TO LEAVE AMA, USING PROFANITY TOWARDS STAFF, TOSSING HOSPTAL SUPPLIES AND STATING HE IS CONFRONTATIONAL. SECURITY NOTIFIED AND CAME TO UNIT. DR. HALEY NOTIFIED OF PT'S WISHES TO LEAVE AMA, SHE STATED SHE WILL BE IN BY 9AM. PT EDUCATED ON RISK AND BENEFITS OF LEAVING AMA, VERBALIZED UNDERSTANDING, SIGNED AMA PAPERWORK. IV'S REMOVED. PT LEFT AROUND 0830
--- NOTE | 2022-01-14 10:10 | NUR ---
Left AMA: This RN came to east side of unit and noticed patient was outside his room, using the phone, with RN Monique standing near and speaking to patient. Monique RN informing patient that he needs to return to his room, and cannot be out at the nurses station. This RN then approached patient and asked if his phone call had already connected to whomever he was calling. Patient then stated "No". This RN then asked patient to return to his room, and would be assisted with making a phone call from his room. Patient immediately became angry, raising his voice, stating "the phone in the room doesn't work", "you dont want to mess with me, I'm confrontational, I'll fuck you up". This RN informed that exceptions would be made if unable to get phone to dial out from room. This RN also informed the patient that his behavior and threatening comments are not acceptable or tolerated by [facility] Medical staff. Security called to unit. Patient continued to be angry and yell at staff, demanding he was leaving the hospital. Patient informed of risk involved with leaving hospital AMA. IV's removed, and security escorted patient out of facility.
== END 2022-01-14 08:30 | disposition left against medical advice (07) | DRG 638 ==
LOC: ER 12:20 → ERHOLD 15:00 → ICUE 18:10
PROVIDERS: Emergency Medicine; Physician Assistant; ADMIT Internal Medicine
DX: E10.10 Type 1 diabetes mellitus with ketoacidosis without coma (principal); N17.9 Acute kidney failure, unspecified; R65.10 Systemic inflammatory response syndrome (SIRS) of non-infectious origin without acute organ dysfunction; E86.0 Dehydration; E87.5 Hyperkalemia; J44.9 Chronic obstructive pulmonary disease, unspecified; E78.00 Pure hypercholesterolemia, unspecified; M54.9 Dorsalgia, unspecified; G89.29 Other chronic pain; M41.9 Scoliosis, unspecified; E83.39 Other disorders of phosphorus metabolism; Z53.29 Procedure and treatment not carried out because of patient's decision for other reasons; M51.9 Unspecified thoracic, thoracolumbar and lumbosacral intervertebral disc disorder; R94.31 Abnormal electrocardiogram [ECG] [EKG]; F17.210 Nicotine dependence, cigarettes, uncomplicated; F15.90 Other stimulant use, unspecified, uncomplicated; F12.90 Cannabis use, unspecified, uncomplicated; R00.0 Tachycardia, unspecified; Z88.1 Allergy status to other antibiotic agents; Z91.14 Patient's other noncompliance with medication regimen; Z88.8 Allergy status to other drugs, medicaments and biological substances; Z88.2 Allergy status to sulfonamides; Z79.4 Long term (current) use of insulin; Z79.02 Long term (current) use of antithrombotics/antiplatelets; Z79.51 Long term (current) use of inhaled steroids; Z98.890 Other specified postprocedural states
CPT/HCPCS: 36415; 71045; 80053; 80069; 81001; 82010; 82803; 82947; 83605; 83735; 85025; 85027; 87040; 93005; 93010; 96365; 96366; 96375; 99285-25; A9270; C9113; J0610; J1815; J3480; J7030; J7040; J7060; J7120

== ENCOUNTER 2022-02-08 13:58 | Inpatient (IN) | payer OTHER ==
[~2022-02-08] VITALS: Ht 172.7 cm; Wt 58.4 kg
[2022-02-08 14:38] LABS: Hematocrit 34.1 % (37.0-53.0); Mean Corpuscular HGB 31.4 pg (26.0-34.0); Mean Corpuscular HGB Conc 32.3 g/dL (31.5-36.5); Mean Corpuscular Volume 97 fL (80-100); Platelet Count 626 K/mm3 (150-400); RDW Coefficient Variation 12.8 % (11.7-14.2); RDW Standard Deviation 45.8 fL (35.1-46.3); White Blood Cell Count 35.15 K/mm3 (4.00-11.30)
[2022-02-08 14:47] LABS: PCO2 Venous 13.7 mmHg (38-42); pH Blood Venous 6.95 (7.34-7.37)
[2022-02-08 14:48] LABS: Bicarbonate Venous 6.1 mmol/L (24.0-30.0)
[2022-02-08 14:57] LABS: BAND PERCENT MAN 1 % (0-8); BASOPHILS PERCENT MAN 3 % (0-2); EOSINOPHILS PERCENT MAN 0 % (0-6); LYMPHOCYTES PERCENT MAN 3 % (21-46); METAMYELOCYTE PERCENT MAN 1 % (0-0); MONOCYTES PERCENT MAN 2 % (4-13); SEG NEUTROPHILS PERCENT MAN 90 % (41-73); TOTAL CELLS COUNTED 100
[2022-02-08 14:58] LABS: EOSINOPHILS ABSOLUTE AUTO 3.71 K/mm3 (0.00-0.68); EOSINOPHILS PERCENT AUTO 11 % (0-6); IMMATURE GRAN ABSOLUTE AUTO 0.92 K/mm3 (0.00-0.10); IMMATURE GRAN PERCENT AUTO 3 % (0-1); NEUTROPHILS ABSOLUTE AUTO 26.85 K/mm3 (1.96-9.15); NEUTROPHILS PERCENT AUTO 76 % (41-73)
[2022-02-08 15:05] LABS: Magnesium, Blood 2.8 mg/dL (1.6-2.4)
[2022-02-08 15:08] LABS: Albumin, Blood 2.3 g/dL (3.4-5.0); Albumin/Globulin Ratio 0.7 (0.8-1.8); Bilirubin, Total 0.7 mg/dL (0.1-1.0); Bun/Creatinine Ratio 26.7 (12.0-20.0); Calcium, Blood 7.7 mg/dL (8.5-10.1); Creatinine, Blood 2.02 mg/dL (0.60-1.20); Globulin, Blood 3.4 g/dL (2.2-4.0); Potassium, Blood 7.4 mmol/L (3.5-5.5); Total Protein, Blood 5.7 g/dL (6.4-8.2)
[2022-02-08 15:46] LABS: Glucose, Blood 1409 mg/dL (70-99)
[2022-02-08 15:49] LABS: Beta-hydroxybutyrate >138.0 mg/dL (0.2-2.8)
[2022-02-08 18:09] LABS: Glucose, Blood 991 mg/dL (70-99)
--- NOTE | 2022-02-08 18:49 | NUR ---
SUMMARY Assumed care of pt with Marika VANN, on pt arrival to ICU 12 from ED at 1631. Admit for DKA. Pt arrived with insulin drip at 5.5 units/hr. Orders per Dr Adams for 5 units regular insulin IV bolus held until current sugar and electrolyte measurements obtained. Noted that potassium was normal and sugar decreasing within recommended parameters, therefore IV insulin bolus held. Drip continued at rate of 5.5 units/hr. Powerglide placed to ROJELIO. Pt tolerated well. Responsive to verbal stimulus but lethargic and does not answer questions. Follows commands, but slowly. Kussmaul breathing noted. SpO2 90% or greater RA. ST per monitor. BP stable.
--- NOTE | 2022-02-08 19:00 | NUR ---
ASSUMED CARE PT A/O X3. SLIGHT CONFUSION AT TIMES. PT STATES HE 'DOSEN'T WANT TO AWNSER QUESTIONS'. LUNG SOUNDS CLEAR W/ DIM BASES. ON RA. ST 110's. SBP 130's. INSULIN GTT AT 5.5UNITS/HR. NS 75ML/HR. PT ABLE TO STAND AT BEDSIDE TO VOID.
[2022-02-08 19:27] LABS: Potassium, Blood 4.6 mmol/L (3.5-5.5)
[2022-02-08 20:02] LABS: Glucose, Blood 792 mg/dL (70-99)
[2022-02-08 21:53] LABS: Glucose, Blood 515 mg/dL (70-99)
--- NOTE | 2022-02-08 23:01 | NUR ---
CALL TO MD CALL TO DR. CANTU REGARDING PT'S COMPLAINT OF ITCHINESS. ORDERS RECEIVED.
[2022-02-09 03:13] LABS: Potassium, Blood 3.5 mmol/L (3.5-5.5)
[2022-02-09 03:32] LABS: Bun/Creatinine Ratio 37.2 (12.0-20.0); Calcium, Blood 7.9 mg/dL (8.5-10.1); Creatinine, Blood 1.13 mg/dL (0.60-1.20); Potassium, Blood 3.6 mmol/L (3.5-5.5)
[2022-02-09 04:21] LABS: Hematocrit 29.1 % (37.0-53.0); Hemoglobin 10.8 g/dL (13.5-17.5); Mean Corpuscular Volume 82 fL (80-100); Mean Platelet Volume 9.4 fL (9.1-12.4); NRBC ABSOLUTE 0.02 K/mm3 (0.00-0.02); NRBC Auto 0.1 /100 WBC (0.0-0.2); Platelet Count 510 K/mm3 (150-400); RDW Coefficient Variation 12.2 % (11.7-14.2); RDW Standard Deviation 36.4 fL (35.1-46.3); Red Blood Cell Count 3.53 M/mm3 (4.30-5.90); White Blood Cell Count 27.42 K/mm3 (4.00-11.30)
[2022-02-09 04:22] LABS: Mean Corpuscular HGB 30.5 pg (26.0-34.0); Mean Corpuscular HGB Conc 37.1 g/dL (31.5-36.5)
--- NOTE | 2022-02-09 05:44 | NUR ---
SHIFT SUMMARY PT A/O X 3, CONFUSED AT TIMES. MENTATION CLEARING T/O NIGHT. IRRITABLE THIS AM AND ASKING FOR FOOD. EDUCATED ON NPO STATUS, AND PLAN TO TRANSITION TO SQ INSULIN THIS AM. OFFERED ICE CHIPS. PT ABLE TO STAND AT BEDSIDE TO VOID. INSULIN GTT CURRENTLY AT 1 UNIT/HR AND D5 1/2 AT 150ML/HR. TITRATING TO KEEP GLUCOSE BETWEEN 150-250. BED ALARM IN PLACE.
--- NOTE | 2022-02-09 07:15 | NUR ---
ASSUMED CARE OF PT @0700. PT RESTING IN BED DURING BEDSIDE REPORT. ASKING FOR FOOD AND COMPLAINING HIS IV'S ARE UNCOMFORTABLE. A&O X4. RR 20'S, HR 100-110, SBP 120'S. INSULIN INFUSING @1U/HR.
--- NOTE | 2022-02-09 18:20 | NUR ---
SUMMARY PT MEDICAL FLOOR STATUS WITHOUT TELEMETRY. DR JENNINGS OFFERED DISCHARGE. PT STATES HE IS NOT READY FOR DISCHARGE UNTIL TOMORROW MORNING. ASSESSMENT REMAINS UNCHANGED THROUGHOUT DAY. PT INDEPENDENTLY MOVING AROUND BED AND ROOM, AND FEEDING SELF. ON RA.
--- NOTE | 2022-02-09 19:43 | NUR ---
ASSUMED CARE PT LAYING IN BED. REQUESTING FOOD AND DRINKS. GIVEN A SNACK. CBG TAKEN AND COVERAGE GIVEN. VSS. MED c NO TELE STATUS. IND IN ROOM AND VOIDING UNMEASURED IN TOILET. CALL LIGHT IN REACH.
--- NOTE | 2022-02-10 02:00 | NUR ---
ASSUMED CARE ASSUMED CARE OF PT. WAS NOTIFIED BY RN'S THAT PT WISHED TO BE LEFT ALONE TIL MORNING LABS.
[2022-02-10 04:29] LABS: Hematocrit 29.5 % (37.0-53.0); Hemoglobin 10.5 g/dL (13.5-17.5); Mean Corpuscular HGB 31.3 pg (26.0-34.0); Mean Corpuscular HGB Conc 35.6 g/dL (31.5-36.5); Mean Platelet Volume 8.6 fL (9.1-12.4); Platelet Count 365 K/mm3 (150-400); RDW Standard Deviation 41.1 fL (35.1-46.3); Red Blood Cell Count 3.36 M/mm3 (4.30-5.90); White Blood Cell Count 14.04 K/mm3 (4.00-11.30)
[2022-02-10 04:30] LABS: Mean Corpuscular Volume 88 fL (80-100)
[2022-02-10 04:58] LABS: Bun/Creatinine Ratio 24.4 (12.0-20.0); Creatinine, Blood 0.82 mg/dL (0.60-1.20); Potassium, Blood 3.4 mmol/L (3.5-5.5)
--- NOTE | 2022-02-10 06:23 | NUR ---
SHIFT SUMMARY PT IS ALERT AND ORIENTED X4. PT IN A GOOD MOOD. ASKING FOR A LOT OF SNACKS AND WAS GIVEN CHEESE/JELLO/PUDDING AND A DIET PEPSI. PT SPEAKS RAPIDLY, BUT SEEMS COMFORTABLE.
--- NOTE | 2022-02-10 17:25 | NUR ---
PT GIVEN WRITTEN & VERBAL DC INSTRUCTIONS. EDUCATED THOROUGHLY ON THE IMPORTANCE OF BEING VIGILANT FOR RETURN OF DKA SYMPTOMS & RETURNING TO ED IF WORSE IN ANY WAY. UNDERSTANDING VERB. OPPORTUNITY PROVIDED FOR QUESTIONS, ALL QUESTIONS ANSWERED. PT DENIES ANY UNMET NEEDS.
== END 2022-02-10 17:45 | disposition home or self-care (01) | DRG 637 ==
LOC: ER 13:58 → ICUW 15:37
PROVIDERS: Emergency Medicine; Internal Medicine; ADMIT Internal Medicine
DX: E10.10 Type 1 diabetes mellitus with ketoacidosis without coma (principal); G92.8 Other toxic encephalopathy; N17.9 Acute kidney failure, unspecified; E87.5 Hyperkalemia; F43.9 Reaction to severe stress, unspecified; D64.9 Anemia, unspecified; D75.839 Thrombocytosis, unspecified; E10.65 Type 1 diabetes mellitus with hyperglycemia; M54.9 Dorsalgia, unspecified; G89.29 Other chronic pain; M41.9 Scoliosis, unspecified; J44.9 Chronic obstructive pulmonary disease, unspecified; M51.9 Unspecified thoracic, thoracolumbar and lumbosacral intervertebral disc disorder; D72.828 Other elevated white blood cell count; F15.10 Other stimulant abuse, uncomplicated; I73.00 Raynaud's syndrome without gangrene; F17.210 Nicotine dependence, cigarettes, uncomplicated; F12.10 Cannabis abuse, uncomplicated; Z91.14 Patient's other noncompliance with medication regimen; Z59.00 Homelessness unspecified; Z71.51 Drug abuse counseling and surveillance of drug abuser; Z88.8 Allergy status to other drugs, medicaments and biological substances; Z88.1 Allergy status to other antibiotic agents; Z88.2 Allergy status to sulfonamides; Z98.890 Other specified postprocedural states; Z79.4 Long term (current) use of insulin; Z79.51 Long term (current) use of inhaled steroids
CPT/HCPCS: 36415; 80048; 80051; 80053; 82010; 82803; 82947; 83605; 83690; 83735; 85025; 85027; 93005; 93010; 96365; 96375; 99285-25; A9270; C1751; J0610; J1815; J7030; J7042

== ENCOUNTER 2022-03-18 20:54 | Inpatient (IN) | payer OTHER ==
[~2022-03-18] VITALS: Ht 177.8 cm; Wt 59.9 kg
[2022-03-18 21:35] LABS: Calcium, Ionized (POC) 1.02 mmol/L (1.10-1.46); Chloride (POC) 81 mmol/L (98-108); Creatinine (POC) 2.3 mg/dL (0.8-1.3); Glucose (ISTAT POC) >700 mg/dL (70-99); Hemoglobin (POC) 12.6 g/dL (13.5-17.5); Potassium (POC) 7.2 mmol/L (3.5-5.5); Sodium (POC) 106 mmol/L (135-148); Total CO2 (POC) 6 mmol/L (21-32)
[2022-03-18 21:49] LABS: Hematocrit 36.3 % (37.0-53.0); Hemoglobin 11.1 g/dL (13.5-17.5); Mean Corpuscular HGB 32.2 pg (26.0-34.0); Mean Corpuscular HGB Conc 30.6 g/dL (31.5-36.5); Mean Corpuscular Volume 105 fL (80-100); Mean Platelet Volume 9.7 fL (9.1-12.4); Platelet Count 571 K/mm3 (150-400); RDW Coefficient Variation 13.6 % (11.7-14.2); RDW Standard Deviation 52.5 fL (35.1-46.3); Red Blood Cell Count 3.45 M/mm3 (4.30-5.90); White Blood Cell Count 36.66 K/mm3 (4.00-11.30)
[2022-03-18 22:24] LABS: Alanine Aminotransfer (ALT/SGP 38 U/L (12-78); Albumin, Blood 2.8 g/dL (3.4-5.0); Albumin/Globulin Ratio 0.8 (0.8-1.8); Alk Phos 146 U/L (50-136); Anion Gap 39 mmol/L (6-16); Aspartate Aminotrans (AST/SGOT 24 U/L (12-37); Bilirubin, Total 0.5 mg/dL (0.1-1.0); Blood Urea Nitrogen 62 mg/dL (8-24); CO2, Blood 3 mmol/L (21-32); Calcium, Blood 8.1 mg/dL (8.5-10.1); Chloride, Blood 69 mmol/L (98-108); Globulin, Blood 3.7 g/dL (2.2-4.0); Glomerular Filtration Rate 36 (60-); Glucose, Blood 1291 mg/dL (70-99); Potassium, Blood 7.2 mmol/L (3.5-5.5); Sodium, Blood 111 mmol/L (136-145); Total Protein, Blood 6.5 g/dL (6.4-8.2)
[2022-03-18 22:30] LABS: BAND PERCENT MAN 17 % (0-8); BASOPHILS ABSOLUTE MAN 0.73 K/mm3 (0.00-0.23); BASOPHILS PERCENT MAN 2 % (0-2); EOSINOPHILS PERCENT MAN 0 % (0-6); LYMPHOCYTES ABSOLUTE MAN 3.29 K/mm3 (0.84-5.20); LYMPHOCYTES PERCENT MAN 9 % (21-46); METAMYELOCYTE ABSOLUTE MAN 0.36 K/mm3 (0.00-0.00); METAMYELOCYTE PERCENT MAN 1 % (0-0); MONOCYTES ABSOLUTE MAN 1.46 K/mm3 (0.16-1.47); MONOCYTES PERCENT MAN 4 % (4-13); MYELOCYTE ABSOLUTE MAN 0.73 K/mm3 (0.00-0.00); MYELOCYTE PERCENT MAN 2 % (0-0); NEUTROPHILS ABSOLUTE MAN 30.06 K/mm3 (1.96-9.15); SEG NEUTROPHILS PERCENT MAN 65 % (41-73); TOTAL CELLS COUNTED 100
[2022-03-18 22:30] LABS: Base Excess Venous -30.2 mmol/L; Bicarbonate Venous 5.2 mmol/L (24.0-30.0); PCO2 Venous 21.3 mmHg (38-42); pH Blood Venous 6.84 (7.34-7.37)
[2022-03-18 22:38] LABS: Beta-hydroxybutyrate >138.0 mg/dL (0.2-2.8)
[2022-03-18 23:24] LABS: International Normalized Ratio 1.02; Prothrombin Time Results 10.7 Sec (9.7-11.5)
[2022-03-18 23:46] LABS: Calcium, Blood 7.5 mg/dL (8.5-10.1); Creatinine, Blood 2.32 mg/dL (0.60-1.20); Potassium, Blood 7.4 mmol/L (3.5-5.5)
--- NOTE | 2022-03-19 00:23 | NUR ---
ASSUMED PT CARE AT 2355 PT ARRIVED FROM ER SECONDARY TO DKA. INSULIN GTT INFUSING WITH CALCIUM GLUCONATE PIGGYBACKED, WHICH WAS SWITCHED TO Y SITE. SODIUM BICARB INFUSING AT 125MLHR. 20G TO RIGHT FOREARM. POWERGLIDE TO LEFT UPPER ARM. PT KUSSMAUL BREATHING. ALERT AND ORIENTED X3. ONLY ABLE TO SPEAK 1-2 WORDS D/T SOB WITH RR 30'S. PT NSR WITH HR 90-100'S. BP'S STABLE, SEE FLOWSHEET. PT ARRIVED FROM ED IN BILATERAL SOFT WRIST RESTRAINTS; HOWEVER, NO BEHAVIORS SINCE HE'S BEEN ON THE UNIT; THEREFORE, THEY REMAIN OFF AT THIS TIME. PT WAS GIVEN A WARM BLANKET AND HOB ELEVATED. NAUSEA BAG AT BEDSIDE; WILL CONTINUE TO ASSESS AND MEDICATE PER ORDERS.
[2022-03-19 00:43] LABS: Glucose, Blood 1198 mg/dL (70-99)
[2022-03-19 01:27] LABS: Glucose, Blood 1111 mg/dL (70-99)
[2022-03-19 02:27] LABS: Glucose, Blood 997 mg/dL (70-99)
[2022-03-19 03:21] LABS: Glucose, Blood 899 mg/dL (70-99)
[2022-03-19 04:25] LABS: Glucose, Blood 824 mg/dL (70-99)
--- NOTE | 2022-03-19 05:29 | NUR ---
END OF SHIFT SUMMARY PT HAS SLEPT MOST OF SHIFT. INSULING GTT AT 2 UNITS/HR WITH GLUCOSE SLOWLY TRENDING DOWN. PT HAS NOT VOIDED SINCE ARRIVAL TO UNIT. PT STATED HE DIDN'T HAVE TO AND WHEN INFORMED HIM OF A STRAIGHT CATH; HE ADAMANTELY REFUSED. WILL CONTINUE TO ENCOURAGE HIM TO VOID IN URINAL. BICARB CONTINUES INFUSING AT 125ML/HR. WILL CONTINUE TO MONITOR UNTIL REPORT IS HANDED OFF TO ONCOMING RN
[2022-03-19 05:32] LABS: Albumin, Blood 2.4 g/dL (3.4-5.0); Albumin/Globulin Ratio 0.8 (0.8-1.8); Bilirubin, Total 0.5 mg/dL (0.1-1.0); Bun/Creatinine Ratio 31.2 (12.0-20.0); Calcium, Blood 7.6 mg/dL (8.5-10.1); Creatinine, Blood 2.18 mg/dL (0.60-1.20); Total Protein, Blood 5.4 g/dL (6.4-8.2)
[2022-03-19 05:36] LABS: Potassium, Blood 5.2 mmol/L (3.5-5.5)
[2022-03-19 06:09] LABS: BASOPHILS ABSOLUTE AUTO 0.12 K/mm3 (0.00-0.23); BASOPHILS PERCENT AUTO 0 % (0-2); EOSINOPHILS ABSOLUTE AUTO 0.05 K/mm3 (0.00-0.68); EOSINOPHILS PERCENT AUTO 0 % (0-6); Hematocrit 26.4 % (37.0-53.0); Hemoglobin 9.7 g/dL (13.5-17.5); IMMATURE GRAN ABSOLUTE AUTO 0.94 K/mm3 (0.00-0.10); IMMATURE GRAN PERCENT AUTO 3 % (0-1); LYMPHOCYTES ABSOLUTE AUTO 3.54 K/mm3 (0.84-5.20); LYMPHOCYTES PERCENT AUTO 13 % (21-46); MONOCYTES ABSOLUTE AUTO 1.85 K/mm3 (0.16-1.47); MONOCYTES PERCENT AUTO 7 % (4-13); Mean Corpuscular HGB 31.9 pg (26.0-34.0); Mean Corpuscular HGB Conc 36.7 g/dL (31.5-36.5); Mean Platelet Volume 8.9 fL (9.1-12.4); NEUTROPHILS ABSOLUTE AUTO 21.63 K/mm3 (1.96-9.15); NEUTROPHILS PERCENT AUTO 77 % (41-73); Platelet Count 443 K/mm3 (150-400); RDW Coefficient Variation 13.1 % (11.7-14.2); RDW Standard Deviation 41.1 fL (35.1-46.3); Red Blood Cell Count 3.04 M/mm3 (4.30-5.90); White Blood Cell Count 28.13 K/mm3 (4.00-11.30)
[2022-03-19 06:10] LABS: Mean Corpuscular Volume 87 fL (80-100)
[2022-03-19 06:19] LABS: Source, Urine Clean Catch
[2022-03-19 06:23] LABS: Appearance, Urine Clear (Clear); Bilirubin, Urine Neg (Neg); Blood, Urine 4+ (Neg); Color, Urine Yellow (P-Yellow); Glucose Qualitative, Urine 4+ (Neg); Ketones, Urine 3+ (Neg); Leukocyte Esterase, Urine Neg (Neg); Nitrite, Urine Neg (Neg); Protein, Urine 3+ (Neg); Urobilinogen, Urine NORM (Normal)
[2022-03-19 06:25] LABS: Glucose, Blood 673 mg/dL (70-99)
[2022-03-19 06:34] LABS: Bacteria Few /hpf; Red Blood Cells, Urine 0-2 /hpf (0-2); Squamous Epithelial Cells Rare /hpf (Few)
[2022-03-19 06:40] LABS: Renal Epithelial Rare /hpf (0-Rare)
[2022-03-19 06:42] LABS: Granular Casts 0-2 /lpf (0); Mucus Light (0-Heavy)
[2022-03-19 07:18] LABS: U Amphetamine Screen Not Detected; U Barbituate Screen Not Detected; U Benzodiazapine Screen Not Detected; U Buprenorphine Screen Not Detected; U Cannabinoids Screen DETECTED; U Cocaine Screen Not Detected; U Methadone Screen Not Detected; U Methamphetamine Screen Not Detected; U Opiates Screen Not Detected; U Oxycodone Screen Not Detected; U Phencyclidine Screen Not Detected; U Propoxyphene Screen Not Detected
[2022-03-19 07:42] LABS: Glucose, Blood 607 mg/dL (70-99)
--- NOTE | 2022-03-19 08:06 | NUR ---
SHIFT ASSESSMENT ASSUMED CARE OF PT @ 1900. BEDSIDE REPORT RECEIVED FROM SOO MARCANO. PT SLEEPING, WAKENS EASILY TO VERBAL STIMULI. SLOW TO RESPOND BUT ALERT AND ORIENTED, QUICKLY BACK TO SLEEP WITH DECREASED STIMULI. PT REMAINS TACHYCARDIC c HR <115. BP STABLE. PT USING URINAL, SPECIMEN SENT TO LAB BY NIGHT NURSE. Q1 CBG'S. INSULIN GTT @ 2U/HR, DECREASED TO 1.5U/HR. SODIUM BICARB c 1/2NS INFUSING @ 125ML/HR.
[2022-03-19 09:03] LABS: Phosphorus, Blood 3.2 mg/dL (2.5-4.9)
--- NOTE | 2022-03-19 09:09 | NUR ---
ULTRASOUND IN ROOM WE ATTEMPTED TO OBTAIN POST VOID TEST, PT REFUSING TO COMPLY. DURING THAT TIME PT ALSO REFUSING HEPARIN INJECTION, PT EDUCATED OF THE PURPOSE AND RISKS, PT CONTINUED TO DECLINE.
[2022-03-19 09:58] LABS: Glucose, Blood 500 mg/dL (70-99)
[2022-03-19 11:16] LABS: Bun/Creatinine Ratio 35.6 (12.0-20.0); Calcium, Blood 7.8 mg/dL (8.5-10.1); Creatinine, Blood 1.63 mg/dL (0.60-1.20); Potassium, Blood 4.3 mmol/L (3.5-5.5)
[2022-03-19 16:55] LABS: Bun/Creatinine Ratio 36.4 (12.0-20.0); Calcium, Blood 8.2 mg/dL (8.5-10.1); Creatinine, Blood 1.29 mg/dL (0.60-1.20); Potassium, Blood 3.9 mmol/L (3.5-5.5)
--- NOTE | 2022-03-19 17:54 | NUR ---
SHIFT SUMMARY PT ALERT AND ORIENTED, TALKING WITH STAFF IN FULL SENTENCES. TOLERATING FOOD AND DRINK, WALKING TO BEDSIDE URINAL NEEDED. INSULIN GTT IS OFF, GLUCOSE ~200. INSULIN COVERAGE TRANSITIONED TO HOME REGIMEN. SINUS TACH ON THE COOK LARDER, BP STABLE, PT REFUSING TO WEAR PULSE OXIMETRY AT THIS TIME, LAST PULSE OX READING WAS 98% ON RA. WILL CONTINUE TO MONITOR.
[2022-03-19 23:47] LABS: Bun/Creatinine Ratio 38.8 (12.0-20.0); Creatinine, Blood 0.98 mg/dL (0.60-1.20); Potassium, Blood 3.7 mmol/L (3.5-5.5)
[2022-03-20 06:07] LABS: BASOPHILS ABSOLUTE AUTO 0.01 K/mm3 (0.00-0.23); BASOPHILS PERCENT AUTO 0 % (0-2); EOSINOPHILS ABSOLUTE AUTO 0.03 K/mm3 (0.00-0.68); EOSINOPHILS PERCENT AUTO 0 % (0-6); Hematocrit 26.4 % (37.0-53.0); Hemoglobin 9.7 g/dL (13.5-17.5); IMMATURE GRAN ABSOLUTE AUTO 0.08 K/mm3 (0.00-0.10); IMMATURE GRAN PERCENT AUTO 0 % (0-1); LYMPHOCYTES ABSOLUTE AUTO 1.92 K/mm3 (0.84-5.20); LYMPHOCYTES PERCENT AUTO 11 % (21-46); MONOCYTES ABSOLUTE AUTO 0.97 K/mm3 (0.16-1.47); MONOCYTES PERCENT AUTO 5 % (4-13); Mean Corpuscular HGB 32.4 pg (26.0-34.0); Mean Corpuscular HGB Conc 36.7 g/dL (31.5-36.5); Mean Corpuscular Volume 88 fL (80-100); Mean Platelet Volume 8.8 fL (9.1-12.4); NEUTROPHILS PERCENT AUTO 83 % (41-73); Platelet Count 393 K/mm3 (150-400); RDW Coefficient Variation 14.3 % (11.7-14.2); RDW Standard Deviation 45.3 fL (35.1-46.3); Red Blood Cell Count 2.99 M/mm3 (4.30-5.90); White Blood Cell Count 17.81 K/mm3 (4.00-11.30)
[2022-03-20 06:19] LABS: Bun/Creatinine Ratio 29.1 (12.0-20.0); Calcium, Blood 7.9 mg/dL (8.5-10.1); Magnesium, Blood 2.3 mg/dL (1.6-2.4); Phosphorus, Blood 1.9 mg/dL (2.5-4.9); Potassium, Blood 3.5 mmol/L (3.5-5.5)
--- NOTE | 2022-03-20 07:30 | NUR ---
DR. SAWANT UPDATED ON PATIENT STATUS. INFORMED THAT PATIENT HAD BLOOD SUGAR OF 57 THIS AM BUT CAME UP AFTER SOME JUICE AND CHEESE PER GUN TESTER RN. INFORMED THAT PHOS 1.9 THIS AM. STATED SHE WOULD PLACE ORDERS.
--- NOTE | 2022-03-20 08:10 | NUR ---
INITIAL ASSESSMENT PATIENT ALERT AND ORIENTED X 4. PATIENT COOPERATIVE. FLAT AFFECT NOTED. PATIENT HAS NO COMPLAINTS OF PAIN. PATIENT HAS TEMP OF 100.3 DEGREES FAHRENHEIT BUT HAS NUMEROUS BLANKETS ON AND DOES NOT WANT TO TAKE THEM OFF. PATIENT SATTING 90% AND GREATER ON RA. LUNGS CLEAR. PATIENT IN ST, HR LOW 100S. SBP IN THE 130S. GI WNL. STRONG APPETITE. WNL. SCATTERED SCABS NOTED. BLOOD SUGAR OF 241; COVERAGE GIVEN. BED LOW, CALL LIGHT IN REACH. WILL CONTINUE TO MONITOR.
--- NOTE | 2022-03-20 12:05 | NUR ---
PATIENT HAS TEMP OF 99.5 DEGREES FAHRENHEIT. HR IN THE 80S. SBP IN THE 120S. PATIENT CONTINUOUSLY HUNGRY AND ASKING FOR FOOD. NO COMPLAINTS OF PAIN. NO OTHER ACUTE CHANGES TO NOTE ON AT THIS TIME. WILL CONTINUE TO MONITOR.
--- NOTE | 2022-03-20 14:51 | NUR ---
SHIFT SUMMARY PATIENT REMAINED ALERT AND ORIENTED THROUGHOUT SHIFT. PATIENT HAD SLIGHT TEMP DURING SHIFT BUT ALSO USUALLY HAD MANY BLANKETS ON. PATIENT FLAT AND COOPERATIVE AT BEGINNING OF SHIFT. PATIENT MOOD IMPROVED THROUGHOUT SHIFT. PATIENT REMAINED SATTING 90% AND GREATER ON RA. PATIENT REMAINED SR TO ST, HR 80S TO LOW 100S. SBP 120S TO 130S. GI WNL. PATIENT HAD STRONG APPETITE. WNL. NO CHANGES TO SKIN NOTED. PATIENT RECEIVED 30 MM K PHOS FOR PHOS OF 1.9 THIS AM. PATIENT ALSO RECEIVED 1 L NS FOR FLUID HYDRATION THIS SHIFT. BLOOD SUGARS 200S TO 300S, ALTHOUGH PATIENT EATING CONSTANTLY. PATIENT HAD SHOWER. IVS REMOVED. FAMILY CALLED TO COME SENIOR RESTAURANT MANAGER. PATIENT STATED HE UNDERSTOOD ALL DISCHARGE INFORMATION. BELONGINGS TAKEN OUT WITH PATIENT AND PATIENT WALKED OUT TO STEP-FATHER, ANANDFinicity, TRUCK. DISCHARGE COMPLETE.
== END 2022-03-20 14:50 | disposition home or self-care (01) | DRG 638 ==
LOC: ER 20:54 → ICUW 03-19 00:01 → ICUE 03-19 00:01
PROVIDERS: Emergency Medicine; Internal Medicine; ADMIT Internal Medicine
DX: E10.10 Type 1 diabetes mellitus with ketoacidosis without coma (principal); N17.9 Acute kidney failure, unspecified; E86.0 Dehydration; E83.39 Other disorders of phosphorus metabolism; E87.6 Hypokalemia; E78.00 Pure hypercholesterolemia, unspecified; I95.9 Hypotension, unspecified; M54.9 Dorsalgia, unspecified; G89.29 Other chronic pain; M41.9 Scoliosis, unspecified; J44.9 Chronic obstructive pulmonary disease, unspecified; F15.10 Other stimulant abuse, uncomplicated; I73.00 Raynaud's syndrome without gangrene; F17.210 Nicotine dependence, cigarettes, uncomplicated; F12.10 Cannabis abuse, uncomplicated; M51.9 Unspecified thoracic, thoracolumbar and lumbosacral intervertebral disc disorder; Z91.14 Patient's other noncompliance with medication regimen; Z88.1 Allergy status to other antibiotic agents; Z79.899 Other long term (current) drug therapy; Z98.890 Other specified postprocedural states; Z88.2 Allergy status to sulfonamides; Z88.8 Allergy status to other drugs, medicaments and biological substances; Z79.4 Long term (current) use of insulin; Z79.51 Long term (current) use of inhaled steroids
CPT/HCPCS: 76770; 80047; 80048; 80053; 81001; 82010; 82803; 82947; 83735; 83880; 84100; 85014; 85025; 85610; 93005; 93010; 96361; 96365; 96368; 96372-59; 99285-25; A9270; C1751; J0610; J1644; J1815; J3010; J7030; J7040; J7060

== ENCOUNTER 2022-04-24 13:14 | Inpatient (IN) | payer OTHER ==
[~2022-04-24] VITALS: Ht 177.8 cm; Wt 57.3 kg
[2022-04-24 14:43] LABS: BASOPHILS ABSOLUTE AUTO 0.13 K/mm3 (0.00-0.23); BASOPHILS PERCENT AUTO 1 % (0-2); EOSINOPHILS ABSOLUTE AUTO 0.05 K/mm3 (0.00-0.68); EOSINOPHILS PERCENT AUTO 0 % (0-6); Hematocrit 39.3 % (37.0-53.0); Hemoglobin 12.6 g/dL (13.5-17.5); IMMATURE GRAN ABSOLUTE AUTO 0.23 K/mm3 (0.00-0.10); IMMATURE GRAN PERCENT AUTO 1 % (0-1); LYMPHOCYTES ABSOLUTE AUTO 1.58 K/mm3 (0.84-5.20); LYMPHOCYTES PERCENT AUTO 10 % (21-46); MONOCYTES ABSOLUTE AUTO 0.89 K/mm3 (0.16-1.47); MONOCYTES PERCENT AUTO 6 % (4-13); Mean Corpuscular HGB 31.9 pg (26.0-34.0); Mean Corpuscular HGB Conc 32.1 g/dL (31.5-36.5); Mean Corpuscular Volume 100 fL (80-100); Mean Platelet Volume 9.4 fL (9.1-12.4); NEUTROPHILS ABSOLUTE AUTO 13.14 K/mm3 (1.96-9.15); NEUTROPHILS PERCENT AUTO 82 % (41-73); Platelet Count 473 K/mm3 (150-400); RDW Coefficient Variation 12.7 % (11.7-14.2); RDW Standard Deviation 46.4 fL (35.1-46.3); Red Blood Cell Count 3.95 M/mm3 (4.30-5.90); White Blood Cell Count 16.02 K/mm3 (4.00-11.30)
[2022-04-24 14:47] LABS: Base Excess Venous -23.1 mmol/L; Bicarbonate Venous 9.1 mmol/L (24.0-30.0); PCO2 Venous 28.7 mmHg (38-42)
[2022-04-24 14:49] LABS: pH Blood Venous 7.03 (7.34-7.37)
[2022-04-24 15:27] LABS: Alanine Aminotransfer (ALT/SGP 44 U/L (12-78); Albumin, Blood 2.7 g/dL (3.4-5.0); Albumin/Globulin Ratio 0.6 (0.8-1.8); Alk Phos 196 U/L (50-136); Anion Gap 30 mmol/L (6-16); Aspartate Aminotrans (AST/SGOT 23 U/L (12-37); Bilirubin, Total 0.4 mg/dL (0.1-1.0); Blood Urea Nitrogen 34 mg/dL (8-24); Bun/Creatinine Ratio 28.8 (12.0-20.0); CO2, Blood 8 mmol/L (21-32); Calcium, Blood 8.8 mg/dL (8.5-10.1); Chloride, Blood 84 mmol/L (98-108); Creatinine, Blood 1.18 mg/dL (0.60-1.20); Globulin, Blood 4.2 g/dL (2.2-4.0); Glomerular Filtration Rate 81 (60-); Glucose, Blood 841 mg/dL (70-99); Sodium, Blood 122 mmol/L (136-145); Total Protein, Blood 6.9 g/dL (6.4-8.2)
[2022-04-24 15:28] LABS: Beta-hydroxybutyrate >138.0 mg/dL (0.2-2.8)
[2022-04-24 17:09] LABS: Source, Urine Clean Catch
[2022-04-24 17:15] LABS: Appearance, Urine Clear (Clear); Bilirubin, Urine Neg (Neg); Blood, Urine 2+ (Neg); Color, Urine Yellow (P-Yellow); Glucose Qualitative, Urine 4+ (Neg); Ketones, Urine 4+ (Neg); Leukocyte Esterase, Urine Neg (Neg); Nitrite, Urine Neg (Neg); Protein, Urine 3+ (Neg); Specific Gravity, Urine 1.015 (1.003-1.022); Urobilinogen, Urine NORM (Normal)
[2022-04-24 17:29] LABS: Hyaline Casts 0-2 /lpf (0-2)
[2022-04-24 17:30] LABS: Amorphous Light (0-Heavy); Bacteria Few /hpf; Red Blood Cells, Urine 0-2 /hpf (0-2); Squamous Epithelial Cells Not Seen /hpf (Few); White Blood Cells, Urine 0-2 /hpf (0-5)
[2022-04-24] MEDS ORDERED: Novolog Flexpen SC (19:12)
[2022-04-24] MEDS ORDERED: BASAGLAR K100 UNIT/6 SC (19:13)
[2022-04-24 19:46] LABS: Albumin, Blood 2.2 g/dL (3.4-5.0); Anion Gap 20 mmol/L (6-16); Blood Urea Nitrogen 33 mg/dL (8-24); Bun/Creatinine Ratio 31.7 (12.0-20.0); CO2, Blood 14 mmol/L (21-32); Calcium, Blood 7.9 mg/dL (8.5-10.1); Chloride, Blood 101 mmol/L (98-108); Creatinine, Blood 1.04 mg/dL (0.60-1.20); Glomerular Filtration Rate 94 (60-); Glucose, Blood 409 mg/dL (70-99); Phosphorus, Blood 3.7 mg/dL (2.5-4.9); Potassium, Blood 4.3 mmol/L (3.5-5.5)
[2022-04-24 19:48] LABS: Sodium, Blood 135 mmol/L (136-145)
[2022-04-25 00:37] LABS: Anion Gap 11 mmol/L (6-16); Blood Urea Nitrogen 23 mg/dL (8-24); CO2, Blood 20 mmol/L (21-32); Calcium, Blood 7.5 mg/dL (8.5-10.1); Chloride, Blood 107 mmol/L (98-108); Creatinine, Blood 0.82 mg/dL (0.60-1.20); Glomerular Filtration Rate 115 (60-); Glucose, Blood 245 mg/dL (70-99); Phosphorus, Blood 2.5 mg/dL (2.5-4.9); Potassium, Blood 4.5 mmol/L (3.5-5.5); Sodium, Blood 138 mmol/L (136-145)
[2022-04-25 03:30] LABS: BASOPHILS ABSOLUTE AUTO 0.06 K/mm3 (0.00-0.23); BASOPHILS PERCENT AUTO 1 % (0-2); EOSINOPHILS ABSOLUTE AUTO 0.11 K/mm3 (0.00-0.68); EOSINOPHILS PERCENT AUTO 1 % (0-6); Hematocrit 29.9 % (37.0-53.0); Hemoglobin 10.5 g/dL (13.5-17.5); IMMATURE GRAN ABSOLUTE AUTO 0.08 K/mm3 (0.00-0.10); IMMATURE GRAN PERCENT AUTO 1 % (0-1); LYMPHOCYTES ABSOLUTE AUTO 2.51 K/mm3 (0.84-5.20); LYMPHOCYTES PERCENT AUTO 22 % (21-46); MONOCYTES ABSOLUTE AUTO 0.93 K/mm3 (0.16-1.47); MONOCYTES PERCENT AUTO 8 % (4-13); Mean Corpuscular HGB 31.7 pg (26.0-34.0); Mean Corpuscular HGB Conc 35.1 g/dL (31.5-36.5); Mean Platelet Volume 8.5 fL (9.1-12.4); NEUTROPHILS PERCENT AUTO 68 % (41-73); Platelet Count 403 K/mm3 (150-400); RDW Coefficient Variation 12.7 % (11.7-14.2); RDW Standard Deviation 41.8 fL (35.1-46.3); Red Blood Cell Count 3.31 M/mm3 (4.30-5.90); White Blood Cell Count 11.69 K/mm3 (4.00-11.30)
[2022-04-25 03:33] LABS: Mean Corpuscular Volume 90 fL (80-100)
[2022-04-25 03:47] LABS: Albumin, Blood 1.9 g/dL (3.4-5.0); Anion Gap 8 mmol/L (6-16); Blood Urea Nitrogen 20 mg/dL (8-24); Bun/Creatinine Ratio 27.4 (12.0-20.0); CO2, Blood 22 mmol/L (21-32); Calcium, Blood 7.4 mg/dL (8.5-10.1); Chloride, Blood 107 mmol/L (98-108); Creatinine, Blood 0.73 mg/dL (0.60-1.20); Glomerular Filtration Rate 119 (60-); Glucose, Blood 272 mg/dL (70-99); Magnesium, Blood 1.7 mg/dL (1.6-2.4); Potassium, Blood 4.2 mmol/L (3.5-5.5); Sodium, Blood 137 mmol/L (136-145)
[2022-04-25 08:30] LABS: Bun/Creatinine Ratio 20.4 (12.0-20.0); Calcium, Blood 7.7 mg/dL (8.5-10.1); Creatinine, Blood 0.79 mg/dL (0.60-1.20); Potassium, Blood 4.5 mmol/L (3.5-5.5)
[2022-04-25 09:56] LABS: Base Excess Venous -9.3 mmol/L; Bicarbonate Venous 17.6 mmol/L (24.0-30.0); PCO2 Venous 35.8 mmHg (38-42); pH Blood Venous 7.29 (7.34-7.37)
[2022-04-26 03:58] LABS: Bun/Creatinine Ratio 32.5 (12.0-20.0); Calcium, Blood 7.7 mg/dL (8.5-10.1); Creatinine, Blood 0.65 mg/dL (0.60-1.20); Potassium, Blood 3.8 mmol/L (3.5-5.5)
== END 2022-04-26 12:00 | disposition home or self-care (01) | DRG 639 ==
LOC: ER 13:14 → ICUW 17:03 → ICUE 18:55 → ICUW 04-26 05:30
PROVIDERS: Family Medicine; Physician Assistant; ADMIT Internal Medicine
DX: E10.10 Type 1 diabetes mellitus with ketoacidosis without coma (principal); E87.5 Hyperkalemia; M54.9 Dorsalgia, unspecified; G89.29 Other chronic pain; Q35.9 Cleft palate, unspecified; J44.9 Chronic obstructive pulmonary disease, unspecified; F17.210 Nicotine dependence, cigarettes, uncomplicated; M41.9 Scoliosis, unspecified; M51.9 Unspecified thoracic, thoracolumbar and lumbosacral intervertebral disc disorder; E78.5 Hyperlipidemia, unspecified; F15.10 Other stimulant abuse, uncomplicated; Z59.819 Housing instability, housed unspecified; Z59.00 Homelessness unspecified; Z91.14 Patient's other noncompliance with medication regimen; Z98.890 Other specified postprocedural states; Z88.8 Allergy status to other drugs, medicaments and biological substances; Z88.1 Allergy status to other antibiotic agents; Z79.4 Long term (current) use of insulin; Z79.899 Other long term (current) drug therapy
CPT/HCPCS: 36415; 80048; 80053; 80069; 81001; 82010; 82803; 82947; 83735; 85025; 93005; 93010; A9270; C9113; J1650; J1815; J7030

== ENCOUNTER 2022-05-03 12:23 | Inpatient (IN) | payer OTHER ==
[~2022-05-03] VITALS: Ht 177.8 cm; Wt 60.0 kg
[~2022-05-03 12:23] MED LIST changes: +Novolog Flexpen SC
[2022-05-03 13:35] LABS: Bicarbonate Venous 5.3 mmol/L (24.0-30.0); PCO2 Venous 13.7 mmHg (38-42)
[2022-05-03 13:38] LABS: pH Blood Venous 6.87 (7.34-7.37)
[2022-05-03 13:39] LABS: Base Excess Venous -30.9 mmol/L
[2022-05-03 13:51] LABS: BASOPHILS ABSOLUTE AUTO 0.21 K/mm3 (0.00-0.23); BASOPHILS PERCENT AUTO 1 % (0-2); EOSINOPHILS ABSOLUTE AUTO 0.03 K/mm3 (0.00-0.68); EOSINOPHILS PERCENT AUTO 0 % (0-6); Hematocrit 38.1 % (37.0-53.0); Hemoglobin 12.1 g/dL (13.5-17.5); IMMATURE GRAN ABSOLUTE AUTO 0.78 K/mm3 (0.00-0.10); IMMATURE GRAN PERCENT AUTO 3 % (0-1); LYMPHOCYTES ABSOLUTE AUTO 2.29 K/mm3 (0.84-5.20); LYMPHOCYTES PERCENT AUTO 8 % (21-46); MONOCYTES ABSOLUTE AUTO 1.54 K/mm3 (0.16-1.47); MONOCYTES PERCENT AUTO 6 % (4-13); Mean Corpuscular HGB 32.1 pg (26.0-34.0); Mean Corpuscular HGB Conc 31.8 g/dL (31.5-36.5); Mean Corpuscular Volume 101 fL (80-100); Mean Platelet Volume 9.2 fL (9.1-12.4); NEUTROPHILS ABSOLUTE AUTO 22.94 K/mm3 (1.96-9.15); NEUTROPHILS PERCENT AUTO 83 % (41-73); Platelet Count 920 K/mm3 (150-400); RDW Coefficient Variation 12.8 % (11.7-14.2); RDW Standard Deviation 47.5 fL (35.1-46.3); Red Blood Cell Count 3.77 M/mm3 (4.30-5.90); White Blood Cell Count 27.79 K/mm3 (4.00-11.30)
[2022-05-03 14:04] LABS: Alanine Aminotransfer (ALT/SGP 29 U/L (12-78); Albumin, Blood 2.3 g/dL (3.4-5.0); Albumin/Globulin Ratio 0.6 (0.8-1.8); Alk Phos 173 U/L (50-136); Anion Gap 35 mmol/L (6-16); Aspartate Aminotrans (AST/SGOT 27 U/L (12-37); Bilirubin, Total 0.4 mg/dL (0.1-1.0); Blood Urea Nitrogen 37 mg/dL (8-24); Bun/Creatinine Ratio 26.2 (12.0-20.0); CO2, Blood 3 mmol/L (21-32); Calcium, Blood 7.8 mg/dL (8.5-10.1); Chloride, Blood 82 mmol/L (98-108); Creatinine, Blood 1.41 mg/dL (0.60-1.20); Globulin, Blood 3.9 g/dL (2.2-4.0); Glomerular Filtration Rate 65 (60-); Glucose, Blood 898 mg/dL (70-99); Potassium, Blood 6.6 mmol/L (3.5-5.5); Sodium, Blood 120 mmol/L (136-145); Total Protein, Blood 6.2 g/dL (6.4-8.2)
[2022-05-03 14:10] LABS: Calcium, Ionized (POC) 1.08 mmol/L (1.10-1.46); Chloride (POC) 93 mmol/L (98-108); Creatinine (POC) 1.6 mg/dL (0.8-1.3); Glucose (ISTAT POC) >700 mg/dL (70-99); Hemoglobin (POC) 13.9 g/dL (13.5-17.5); Potassium (POC) 7.2 mmol/L (3.5-5.5); Sodium (POC) 117 mmol/L (135-148); Total CO2 (POC) 5 mmol/L (21-32)
[2022-05-03 16:28] LABS: Anion Gap 30 mmol/L (6-16); Blood Urea Nitrogen 36 mg/dL (8-24); Bun/Creatinine Ratio 26.9 (12.0-20.0); CO2, Blood 4 mmol/L (21-32); Calcium, Blood 7.3 mg/dL (8.5-10.1); Chloride, Blood 91 mmol/L (98-108); Creatinine, Blood 1.34 mg/dL (0.60-1.20); Glomerular Filtration Rate 70 (60-); Glucose, Blood 829 mg/dL (70-99); Potassium, Blood 5.8 mmol/L (3.5-5.5); Sodium, Blood 125 mmol/L (136-145)
[2022-05-03 16:40] LABS: Chloride (POC) 98 mmol/L (98-108); Creatinine (POC) 1.4 mg/dL (0.8-1.3); Glucose (ISTAT POC) >700 mg/dL (70-99); Hemoglobin (POC) 12.2 g/dL (13.5-17.5); Potassium (POC) 5.2 mmol/L (3.5-5.5); Sodium (POC) 124 mmol/L (135-148); Total CO2 (POC) 6 mmol/L (21-32)
[2022-05-03 17:24] LABS: Influenza A, PCR NEGATIVE (NEGATIVE); Influenza B, PCR NEGATIVE (NEGATIVE); Resp Syncytial Virus, PCR NEGATIVE (NEGATIVE); SARS-Cov-2 (COVID-19) PCR, MMC NEGATIVE (NEGATIVE)
[2022-05-03 17:42] LABS: Glucose, Blood 313 mg/dL (70-99)
[2022-05-03 17:47] LABS: Base Excess Venous -22.7 mmol/L; PCO2 Venous 23.2 mmHg (38-42)
--- NOTE | 2022-05-03 17:47 | NUR ---
NEW ADMIT: PT ARRIVED TO ICU WITH INSULIN GTT RUNNING AT 5.4UNITS/HR. LR RUNNING AT WIDE OPEN. PT TACHYPNEIC AND STATING HE IS COLD AND TIRED. SKIN ASSESSMENT DONE WITH WEBSITE DESIGNER BUT THOROUGH SKIN ASSESSMENT OF GROIN AND LEGS WAS NOT DONE DUE TO PT STATING HE WAS COLD AND WANTED TO BE LEFT ALONE. SCDS NOT PLACED FOR THE SAME REASONING. AFTER FIRST REFLEX GLUCOSE DONE, INSULIN GTT REDUCED TO 4 UNITS/HR. URINAL PROVIDED FOR ORDERED URINE SAMPLE. CALL LIGHT IN REACH.
[2022-05-03 17:48] LABS: pH Blood Venous 7.09 (7.34-7.37)
--- NOTE | 2022-05-03 18:31 | NUR ---
CALL TO DR DUMONT REGARDING CRITICAL LACTIC ACID. DR ORDERED RECHECK AT 1900 DUE TO QUESTIONING RESULTS. INFORMED DR THAT THIS RN IS QUESTIONING 313 BLOOD SUGAR WELL DUE TO 2 DIFFERENT MONITORS AND 3 DIFFERENT SITES USED ALL SHOWING "HIGH ON GLUCOSE MONITOR." REFLEX LABS PENDING.
[2022-05-03 18:45] LABS: Glucose, Blood 618 mg/dL (70-99)
[2022-05-03 20:10] LABS: Source, Urine Clean Catch
[2022-05-03 20:11] LABS: Base Excess Venous -16.7 mmol/L; Bicarbonate Venous 13.4 mmol/L (24.0-30.0); PCO2 Venous 18.3 mmHg (38-42); pH Blood Venous 7.32 (7.34-7.37)
[2022-05-03 20:15] LABS: Bun/Creatinine Ratio 26.4 (12.0-20.0); Calcium, Blood 7.7 mg/dL (8.5-10.1); Creatinine, Blood 1.21 mg/dL (0.60-1.20); Potassium, Blood 4.5 mmol/L (3.5-5.5)
[2022-05-03 20:19] LABS: Appearance, Urine Clear (Clear); Bilirubin, Urine Neg (Neg); Blood, Urine 2+ (Neg); Color, Urine Yellow (P-Yellow); Glucose Qualitative, Urine 4+ (Neg); Ketones, Urine 4+ (Neg); Leukocyte Esterase, Urine Neg (Neg); Nitrite, Urine Neg (Neg); Protein, Urine 3+ (Neg); Urobilinogen, Urine NORM (Normal)
[2022-05-03 20:25] LABS: Bacteria Few /hpf; Red Blood Cells, Urine 0-2 /hpf (0-2); Squamous Epithelial Cells Rare /hpf (Few); White Blood Cells, Urine 0-2 /hpf (0-5)
[2022-05-03 20:46] LABS: U Amphetamine Screen DETECTED; U Barbituate Screen Not Detected; U Benzodiazapine Screen Not Detected; U Buprenorphine Screen Not Detected; U Cannabinoids Screen Not Detected; U Cocaine Screen Not Detected; U Methadone Screen Not Detected; U Methamphetamine Screen DETECTED; U Opiates Screen Not Detected; U Oxycodone Screen Not Detected; U Phencyclidine Screen Not Detected; U Propoxyphene Screen Not Detected
[2022-05-03 21:02] LABS: Magnesium, Blood 2.1 mg/dL (1.6-2.4); Phosphorus, Blood 3.6 mg/dL (2.5-4.9)
[2022-05-03 21:53] LABS: Base Excess Venous -13.8 mmol/L; Bicarbonate Venous 15.1 mmol/L (24.0-30.0); PCO2 Venous 22.2 mmHg (38-42); pH Blood Venous 7.34 (7.34-7.37)
[2022-05-03 22:58] LABS: Bicarbonate Venous 16.7 mmol/L (24.0-30.0); PCO2 Venous 29.2 mmHg (38-42); pH Blood Venous 7.32 (7.34-7.37)
[2022-05-03 23:30] LABS: Bun/Creatinine Ratio 29.8 (12.0-20.0); Calcium, Blood 7.9 mg/dL (8.5-10.1); Creatinine, Blood 1.04 mg/dL (0.60-1.20); Potassium, Blood 4.4 mmol/L (3.5-5.5)
[2022-05-04 02:59] LABS: Base Excess Venous -0.6 mmol/L; Bicarbonate Venous 24.1 mmol/L (24.0-30.0); PCO2 Venous 36.1 mmHg (38-42); pH Blood Venous 7.43 (7.34-7.37)
[2022-05-04 03:23] LABS: Bun/Creatinine Ratio 26.4 (12.0-20.0); Calcium, Blood 7.7 mg/dL (8.5-10.1); Creatinine, Blood 0.95 mg/dL (0.60-1.20); Potassium, Blood 3.9 mmol/L (3.5-5.5)
--- NOTE | 2022-05-04 04:04 | NUR ---
Author called Dr. Estrada to clarify transitioning from insulin drip to subcutaneous therapy. Patient's BG seems to have stabilized in low- to mid-200s for past several hours. Potassium is 3.9 at last check. His gap has closed and patient is hungry. Per MD, ok to order ADA diet, leave the potassium levels untreated for now (as pt will likely eat) and continue continuous infusion overnight.
--- NOTE | 2022-05-04 07:30 | NUR ---
ASSUMED CARE OF PATIENT AT 0700, HE IS CURRENTLY ON INSULIN @ 2U AND D5.5NS @ 200ML/HR. HE WILL TRANSITION WITH PHYSICIAN APPROVAL THIS AM.
[2022-05-04 07:44] LABS: Bun/Creatinine Ratio 21.2 (12.0-20.0); Calcium, Blood 7.2 mg/dL (8.5-10.1); Creatinine, Blood 0.95 mg/dL (0.60-1.20); Potassium, Blood 3.6 mmol/L (3.5-5.5)
--- NOTE | 2022-05-04 07:46 | NUR ---
Patient remains overnight in ICU. No acute events. BG trending downward nicely. Started D5+1/2NS after 0000. Patient has been a bit resistive to cares, but has so far been cooperative with this author. He was ordered a diet and has been eating since about [id number]. Voiding and had one BM overnight. Has been in mild ST with rates in the 110s. On room air, satting >90% No skin issues observed. He demonstrates good strength and balance to commode.
--- NOTE | 2022-05-04 09:59 | NUR ---
PT TRANSITIONING OFF IV FLUIDS/INSULIN. PT HAS BEEN EATING, DENIES ANY COMPLAINTS. GLARGINE 40U SC GIVEN @ BREAKFAST. D5 1/2NS AND INSULIN GTT TURNED OFF.
--- NOTE | 2022-05-04 17:35 | NUR ---
BHAVIK HAS BEEN UP AND SHOWERED, HE HAS BEEN SLEEPING INTERMITTENTLY, HE JUST WOKE UP COVERED IN SWEAT FOR DINNER. HE FEELS FINE, NO COMPLAINTS, HIS APPETITE IS RAVENOUS AND THERE IS NOT ENOUGH FOOD TO KEEP HIM HAPPY. HE IS INDEPENDENT IN HIS ROOM. HE IS BEING MOVED FROM ICU TO MEDICAL FLOOR. HE HAS RECEIVED ONE DOSE OF HIS ANTIBIOTIC FOR HIS GRAM + COCCI. COUGH CONTINUES PRODUCTIVE OF BROWN/YELLOW RETURN.
--- NOTE | 2022-05-04 19:34 | NUR ---
SHIFT SUMMARY- PT TRANSFERD TO MEDICAL FLOOR FROM ICU. CALLED AND SPOKE TO DR PRESLEY RECIEVED ORDERS FOR BG CHECKS AC/HS AND PRN. LEATHER LEVELER RECOMMENDS CHECKING BG AT 0200 PASSED ON IN BEDSIDE REPORT. PT ALERT AND ORIENTED AND INDEPENDENT IN THE ROOM. PT IN BED, CALL LIGHT IN REACH NO S&S OF DISTRESS AT THE TIME OF DISCHARGE. BEDSIDE REPORT COMPLETED WITH NIGHT RN.
[2022-05-05 06:09] LABS: Bun/Creatinine Ratio 25.1 (12.0-20.0); Calcium, Blood 7.4 mg/dL (8.5-10.1); Creatinine, Blood 0.8 mg/dL (0.60-1.20); Potassium, Blood 3.8 mmol/L (3.5-5.5)
--- NOTE | 2022-05-05 06:38 | NUR ---
SHIFT SUMMARY PATIENT ALERT AND ORIENTED. MEDICATED PER EMAR FOR PAIN. PATIENT REPORTED SOME SHORTNESS OF BREATH, CALLED DR CANTU TO ASK FOR ALBUTERAL INHAILER PER PATIENT REQUEST. NO ACUTE ISSUES NOTED OVERNIGHT. CALL LIGHT WITHIN REACH. REPORT GIVEN TO ONCOMING RN.
[2022-05-05] MEDS ORDERED: HUMULIN R100 UNIT/2 SC (12:12)
[2022-05-05] MEDS ORDERED: Lisinopril2.5 MG PO (12:12)
[2022-05-05] MEDS ORDERED: INSULIN GL100 UNIT/2 SC (12:14)
--- NOTE | 2022-05-05 12:52 | NUR ---
PT DISCHARGED FROM THE UNIT. IV REMOVED DISCHARGE INSTRUCTIONS REVIEWED. PT REFUSED WC TO CAR. AMBULATED OFF THE UNIT. DAD TO DRIVE HOME.
== END 2022-05-05 12:48 | disposition home or self-care (01) | DRG 638 ==
LOC: ER 12:23 → ICUW 15:38 → ICUE 16:27 → MEDS 05-04 17:47 → ICUE 05-04 17:47 → MEDS 05-05 10:40
PROVIDERS: Internal Medicine; Physician Assistant; Student in an Organized Health Care Education/Training Program; ADMIT Student in an Organized Health Care Education/Training Program
DX: E10.10 Type 1 diabetes mellitus with ketoacidosis without coma (principal); R78.81 Bacteremia; F15.10 Other stimulant abuse, uncomplicated; I10 Essential (primary) hypertension; M54.9 Dorsalgia, unspecified; Z66 Do not resuscitate; G89.29 Other chronic pain; M41.9 Scoliosis, unspecified; M51.9 Unspecified thoracic, thoracolumbar and lumbosacral intervertebral disc disorder; J44.9 Chronic obstructive pulmonary disease, unspecified; I73.00 Raynaud's syndrome without gangrene; F17.210 Nicotine dependence, cigarettes, uncomplicated; F12.10 Cannabis abuse, uncomplicated; E78.5 Hyperlipidemia, unspecified; Z20.822 Contact with and (suspected) exposure to COVID-19; Z79.899 Other long term (current) drug therapy; Z88.8 Allergy status to other drugs, medicaments and biological substances; Z98.890 Other specified postprocedural states; Z88.1 Allergy status to other antibiotic agents; Z87.448 Personal history of other diseases of urinary system; Z88.2 Allergy status to sulfonamides; Z79.4 Long term (current) use of insulin
CPT/HCPCS: 0241U; 36415; 80047; 80048; 80053; 81001; 82010; 82803; 82947; 83605; 83735; 84100; 85014; 85025; 87040; 93005; 93010; 94640; 94760; 96374; 99285-25; A9270; J0610; J1815; J2543; J2765; J7030; J7042; J7120

== ENCOUNTER 2022-05-22 14:10 | Inpatient (IN) | payer OTHER ==
[~2022-05-22] VITALS: Ht 177.8 cm; Wt 63.6 kg
[~2022-05-22 14:10] MED LIST changes: +HUMULIN R100 UNIT/2 SC; +INSULIN GL100 UNIT/2 SC
[2022-05-22 15:16] LABS: BASOPHILS ABSOLUTE AUTO 0.17 K/mm3 (0.00-0.23); BASOPHILS PERCENT AUTO 1 % (0-2); EOSINOPHILS ABSOLUTE AUTO 0.01 K/mm3 (0.00-0.68); EOSINOPHILS PERCENT AUTO 0 % (0-6); Hematocrit 38.1 % (37.0-53.0); Hemoglobin 11.7 g/dL (13.5-17.5); IMMATURE GRAN ABSOLUTE AUTO 0.48 K/mm3 (0.00-0.10); IMMATURE GRAN PERCENT AUTO 2 % (0-1); LYMPHOCYTES ABSOLUTE AUTO 1.63 K/mm3 (0.84-5.20); LYMPHOCYTES PERCENT AUTO 5 % (21-46); MONOCYTES ABSOLUTE AUTO 2.26 K/mm3 (0.16-1.47); MONOCYTES PERCENT AUTO 8 % (4-13); Mean Corpuscular HGB 31.9 pg (26.0-34.0); Mean Corpuscular HGB Conc 30.7 g/dL (31.5-36.5); Mean Corpuscular Volume 104 fL (80-100); Mean Platelet Volume 9.6 fL (9.1-12.4); NEUTROPHILS ABSOLUTE AUTO 25.45 K/mm3 (1.96-9.15); NEUTROPHILS PERCENT AUTO 85 % (41-73); Platelet Count 671 K/mm3 (150-400); RDW Coefficient Variation 12.9 % (11.7-14.2); RDW Standard Deviation 49.6 fL (35.1-46.3); Red Blood Cell Count 3.67 M/mm3 (4.30-5.90)
[2022-05-22 15:46] LABS: BAND PERCENT MAN 13 % (0-8); BASOPHILS PERCENT MAN 1 % (0-2); EOSINOPHILS PERCENT MAN 0 % (0-6); LYMPHOCYTES PERCENT MAN 3 % (21-46); MONOCYTES PERCENT MAN 3 % (4-13); SEG NEUTROPHILS PERCENT MAN 80 % (41-73); TOTAL CELLS COUNTED 100
[2022-05-22 15:56] LABS: Alanine Aminotransfer (ALT/SGP 25 U/L (12-78); Albumin, Blood 2.2 g/dL (3.4-5.0); Albumin/Globulin Ratio 0.6 (0.8-1.8); Alk Phos 191 U/L (50-136); Anion Gap 37 mmol/L (6-16); Aspartate Aminotrans (AST/SGOT 19 U/L (12-37); Bilirubin, Total 0.5 mg/dL (0.1-1.0); Blood Urea Nitrogen 43 mg/dL (8-24); Bun/Creatinine Ratio 24.9 (12.0-20.0); CO2, Blood 4 mmol/L (21-32); Calcium, Blood 8.2 mg/dL (8.5-10.1); Chloride, Blood 72 mmol/L (98-108); Creatinine, Blood 1.73 mg/dL (0.60-1.20); Glomerular Filtration Rate 51 (60-); Glucose, Blood 1271 mg/dL (70-99); Potassium, Blood 6.9 mmol/L (3.5-5.5); Sodium, Blood 113 mmol/L (136-145); Total Protein, Blood 6.2 g/dL (6.4-8.2)
[2022-05-22 16:03] LABS: Base Excess Venous -29.6 mmol/L; Bicarbonate Venous 5.8 mmol/L (24.0-30.0); PCO2 Venous 20.3 mmHg (38-42); pH Blood Venous 6.87 (7.34-7.37)
[2022-05-22 16:08] LABS: Beta-hydroxybutyrate >138.0 mg/dL (0.2-2.8)
[2022-05-22 17:40] LABS: Magnesium, Blood 2.7 mg/dL (1.6-2.4)
[2022-05-22 17:43] LABS: Calcium, Blood 7.8 mg/dL (8.5-10.1); Creatinine, Blood 1.68 mg/dL (0.60-1.20); Phosphorus, Blood 8.9 mg/dL (2.5-4.9); Potassium, Blood 6.4 mmol/L (3.5-5.5)
--- NOTE | 2022-05-22 18:40 | NUR ---
PT ARRIVES TO ICU 15, 3L OF NS FINISHING INFUSING WITH INSULIN DRIP @ 6.4U/HR. HR 107, RESP RATE 28, BP 123/64, TEMP 97.6. PT MINIMALLY RESPONSIVE, IV IN LAC PATENT AND ACCEPTING RAPID INFUSION. PT COUGHING WITH CONGESTED COUGH, SHIVERS AND WARM SKIN.
--- NOTE | 2022-05-22 19:17 | NUR ---
ATTEMPTS AT GETTING CYNDIKEARA TO ANSWER QUESTIONS R/T ORIENTATION AND HOW HE IS DOING HAVE RETURNED VOID. REPORT TO SOO COLON. CBG REMAINS "HI". INSULIN AT 6.4U/HR AND LR @ 150ML/HR.
[2022-05-22 20:17] LABS: Influenza A, PCR NEGATIVE (NEGATIVE); Influenza B, PCR NEGATIVE (NEGATIVE); Resp Syncytial Virus, PCR NEGATIVE (NEGATIVE); SARS-Cov-2 (COVID-19) PCR, MMC NEGATIVE (NEGATIVE)
[2022-05-22 20:55] LABS: Glucose, Blood 901 mg/dL (70-99)
--- NOTE | 2022-05-22 21:00 | NUR ---
SPOKE TO DR SAWANT TO NOTIFY HER OF CRITICAL GLUCOSE. ORDERS GIVEN. SEE EMAR
[2022-05-22 22:09] LABS: Albumin, Blood 1.9 g/dL (3.4-5.0); Albumin/Globulin Ratio 0.5 (0.8-1.8); Bilirubin, Total 0.4 mg/dL (0.1-1.0); Bun/Creatinine Ratio 28.7 (12.0-20.0); Calcium, Blood 7.7 mg/dL (8.5-10.1); Creatinine, Blood 1.71 mg/dL (0.60-1.20); Globulin, Blood 3.5 g/dL (2.2-4.0); Potassium, Blood 4.8 mmol/L (3.5-5.5); Total Protein, Blood 5.4 g/dL (6.4-8.2)
[2022-05-22 22:49] LABS: Glucose, Blood 596 mg/dL (70-99)
[2022-05-23 00:10] LABS: Bun/Creatinine Ratio 28.3 (12.0-20.0); Calcium, Blood 7.9 mg/dL (8.5-10.1); Creatinine, Blood 1.52 mg/dL (0.60-1.20); Potassium, Blood 4.3 mmol/L (3.5-5.5)
[2022-05-23 00:43] LABS: Magnesium, Blood 2.4 mg/dL (1.6-2.4); Phosphorus, Blood 3.5 mg/dL (2.5-4.9)
--- NOTE | 2022-05-23 02:17 | NUR ---
PT COMPLAINING/TEARFUL OF GENERALIZED PAIN. TYLENOL WAS GIVEN EARLIER BUT DID NOT HELP. DR SINGLETON NOTIFIED. SEE EMAR
--- NOTE | 2022-05-23 02:56 | NUR ---
PT IS REFUSING TO ALLOW IV FLUIDS/INSULIN TO INFUSE BY REPEATEDLY BENDING HIS ARM. HE ALSO REFUSES TO WEAR HIS BLOOD PRESSURE CUFF AND PULSE OXIMETER. PT HAS BEEN REPEATEDLY EDUCATED AND REDIRECTED TO COMPLY WITH TREATMENTS PRESCRIBED FOR HIM BUT CONTINUES TO REMAIN OBSTINATE AND NON-COMPLIANT.
[2022-05-23 03:08] LABS: BASOPHILS ABSOLUTE AUTO 0.06 K/mm3 (0.00-0.23); BASOPHILS PERCENT AUTO 0 % (0-2); EOSINOPHILS ABSOLUTE AUTO 0.03 K/mm3 (0.00-0.68); EOSINOPHILS PERCENT AUTO 0 % (0-6); Hematocrit 26.1 % (37.0-53.0); Hemoglobin 9.7 g/dL (13.5-17.5); IMMATURE GRAN ABSOLUTE AUTO 0.16 K/mm3 (0.00-0.10); IMMATURE GRAN PERCENT AUTO 1 % (0-1); LYMPHOCYTES PERCENT AUTO 7 % (21-46); MONOCYTES ABSOLUTE AUTO 2.42 K/mm3 (0.16-1.47); MONOCYTES PERCENT AUTO 11 % (4-13); Mean Corpuscular HGB 32.1 pg (26.0-34.0); Mean Corpuscular HGB Conc 37.2 g/dL (31.5-36.5); Mean Platelet Volume 8.6 fL (9.1-12.4); NEUTROPHILS ABSOLUTE AUTO 18.67 K/mm3 (1.96-9.15); NEUTROPHILS PERCENT AUTO 82 % (41-73); Platelet Count 536 K/mm3 (150-400); RDW Coefficient Variation 12.1 % (11.7-14.2); RDW Standard Deviation 38.5 fL (35.1-46.3); Red Blood Cell Count 3.02 M/mm3 (4.30-5.90); White Blood Cell Count 22.84 K/mm3 (4.00-11.30)
[2022-05-23 03:25] LABS: Albumin, Blood 1.9 g/dL (3.4-5.0); Albumin/Globulin Ratio 0.5 (0.8-1.8); Bilirubin, Total 0.2 mg/dL (0.1-1.0); Calcium, Blood 7.9 mg/dL (8.5-10.1); Creatinine, Blood 1.26 mg/dL (0.60-1.20); Globulin, Blood 3.5 g/dL (2.2-4.0); Magnesium, Blood 2.3 mg/dL (1.6-2.4); Phosphorus, Blood 2.3 mg/dL (2.5-4.9); Potassium, Blood 4.3 mmol/L (3.5-5.5); Total Protein, Blood 5.4 g/dL (6.4-8.2)
--- NOTE | 2022-05-23 04:19 | NUR ---
DR SINGLETON NOTIFIED OF PT LABS. SEE ORDERS
[2022-05-23 05:16] LABS: Mean Corpuscular Volume 86 fL (80-100)
--- NOTE | 2022-05-23 05:38 | NUR ---
SHIFT SUMMERY PT HAS TRANSITIONED OFF OF INSULIN GTT TO LANTUS AND SSI PER MD ORDER. HE ATE W/OUT DIFFICULTY AND RESTING W/HIS EYES CLOSED AT THIS TIME. VS ARE STABLE AND LAB VALUES HAVE IMPROVED CONSIDERABLY FROM THE BEGINNING OF THE SHIFT. NO S/S OF ACUTE DISTRESS NOTED AT THIS TIME.
--- NOTE | 2022-05-23 08:15 | NUR ---
SHIFT ASSESSMENT PT ALERT AND ORIENTED, WAS UP IN ROOM USING BEDSIDE COMMODE PRIOR TO ASSESSMENT WITHOUT HELP. PT QUICKLY BACK TO BED WITH BLANKET OVER HIS HEAD. VERY AGITATED, NONCOMPLIANT WITH CARE. NOT LETTING PHYSICIAN PERFORM FULL ASSESSMENT BUT TALKING TO STAFF. CENTRIFUGAL SPINNER IN ROOM SHORTLY AFTER PHYSICIAN, ATTEMPTING TO DRAW BLOOD BUT PT DENIED CENTRIFUGAL SPINNER. THIS NURSE IN ROOM TO EXPLAIN REASONING FOR LAB DRAW BUT PT STILL REFUSED. PT NOW NOT WANTING ANYONE IN ROOM, REFUSING ALL CARE BUT STAYING IN BED. PT HAS HX OF SAME BEHAVIOR, WILL NOTIFY CHARGE NURSE AND SECURITY.
[2022-05-23 09:02] LABS: Bun/Creatinine Ratio 32.3 (12.0-20.0); Calcium, Blood 7.6 mg/dL (8.5-10.1); Creatinine, Blood 0.96 mg/dL (0.60-1.20); Magnesium, Blood 1.9 mg/dL (1.6-2.4); Phosphorus, Blood 2.5 mg/dL (2.5-4.9)
[2022-05-23] MEDS ORDERED: INSULIN GL100 UNIT/3 SC (12:46)
--- NOTE | 2022-05-23 13:39 | NUR ---
DISCHARGE PT ALERT AND ORIENTED, TOLERATING FOOD AND DRINK. REMAINS DIFFICULT TO TALK TO, BRASH AND UNCOOPERATIVE. PROVIDED PT WITH BLUE THROW AWAY SCRUBS AND SOCKS, DISCHARGE PACKET GIVEN AND PRESCRIPTION FAXED TO [facility] PER PT REQUEST. PTS NEPHEW CAME TO UNIT FOR RIDE, PT AMBULATED OUT WITH NEPHEW.
== END 2022-05-23 13:47 | disposition home or self-care (01) | DRG 639 ==
LOC: ER 14:10 → ICUW 16:53
PROVIDERS: Emergency Medicine; ADMIT Internal Medicine
DX: E10.10 Type 1 diabetes mellitus with ketoacidosis without coma (principal); E87.5 Hyperkalemia; M54.9 Dorsalgia, unspecified; G89.29 Other chronic pain; M41.9 Scoliosis, unspecified; M51.9 Unspecified thoracic, thoracolumbar and lumbosacral intervertebral disc disorder; J44.9 Chronic obstructive pulmonary disease, unspecified; F15.10 Other stimulant abuse, uncomplicated; I73.00 Raynaud's syndrome without gangrene; F17.210 Nicotine dependence, cigarettes, uncomplicated; F12.10 Cannabis abuse, uncomplicated; D72.829 Elevated white blood cell count, unspecified; Z20.822 Contact with and (suspected) exposure to COVID-19; Z91.14 Patient's other noncompliance with medication regimen; Q35.9 Cleft palate, unspecified; Z98.890 Other specified postprocedural states
CPT/HCPCS: 0241U; 36415; 71045; 80048; 80053; 82010; 82803; 82947; 83735; 84100; 85025; 93005; 93010; 94760; 96361; 96374; 96375; 99285-25; A9270; J0610; J0780; J1815; J7030

== ENCOUNTER 2022-05-24 12:41 | Inpatient (IN) | payer OTHER ==
[~2022-05-24] VITALS: Ht 177.8 cm; Wt 60.5 kg
[~2022-05-24 12:41] MED LIST changes: +INSULIN GL100 UNIT/3 SC
[2022-05-24 15:43] LABS: Base Excess Venous -21.9 mmol/L; Bicarbonate Venous 9.9 mmol/L (24.0-30.0); PCO2 Venous 25.3 mmHg (38-42)
[2022-05-24 15:50] LABS: BASOPHILS ABSOLUTE AUTO 0.04 K/mm3 (0.00-0.23); BASOPHILS PERCENT AUTO 0 % (0-2); EOSINOPHILS PERCENT AUTO 0 % (0-6); Hematocrit 35.6 % (37.0-53.0); Hemoglobin 10.8 g/dL (13.5-17.5); IMMATURE GRAN ABSOLUTE AUTO 0.06 K/mm3 (0.00-0.10); IMMATURE GRAN PERCENT AUTO 1 % (0-1); LYMPHOCYTES ABSOLUTE AUTO 0.52 K/mm3 (0.84-5.20); LYMPHOCYTES PERCENT AUTO 5 % (21-46); MONOCYTES ABSOLUTE AUTO 0.41 K/mm3 (0.16-1.47); MONOCYTES PERCENT AUTO 4 % (4-13); Mean Corpuscular HGB 31.8 pg (26.0-34.0); Mean Corpuscular HGB Conc 30.3 g/dL (31.5-36.5); Mean Platelet Volume 9.6 fL (9.1-12.4); NEUTROPHILS ABSOLUTE AUTO 9.16 K/mm3 (1.96-9.15); NEUTROPHILS PERCENT AUTO 90 % (41-73); Platelet Count 487 K/mm3 (150-400); RDW Coefficient Variation 13.7 % (11.7-14.2); RDW Standard Deviation 52.5 fL (35.1-46.3); White Blood Cell Count 10.19 K/mm3 (4.00-11.30)
[2022-05-24 15:52] LABS: Mean Corpuscular Volume 105 fL (80-100)
[2022-05-24 16:48] LABS: Albumin, Blood 2.2 g/dL (3.4-5.0); Albumin/Globulin Ratio 0.5 (0.8-1.8); Bilirubin, Total 0.4 mg/dL (0.1-1.0); Calcium, Blood 8.1 mg/dL (8.5-10.1); Globulin, Blood 4.1 g/dL (2.2-4.0); Potassium, Blood 6.1 mmol/L (3.5-5.5); Total Protein, Blood 6.3 g/dL (6.4-8.2)
[2022-05-24 17:27] LABS: Source, Urine Clean Catch
[2022-05-24 17:30] LABS: Appearance, Urine Clear (Clear); Bilirubin, Urine Neg (Neg); Blood, Urine 2+ (Neg); Glucose Qualitative, Urine 4+ (Neg); Ketones, Urine 4+ (Neg); Leukocyte Esterase, Urine Neg (Neg); Nitrite, Urine Neg (Neg); Protein, Urine 2+ (Neg); Urobilinogen, Urine NORM (Normal)
[2022-05-24 17:41] LABS: Color, Urine Pale Yellow (P-Yellow)
[2022-05-24 17:42] LABS: Bacteria Rare /hpf; Red Blood Cells, Urine 0-2 /hpf (0-2); Squamous Epithelial Cells Not Seen /hpf (Few); White Blood Cells, Urine 0-2 /hpf (0-5)
[2022-05-24 19:56] LABS: Anion Gap 27 mmol/L (6-16); CO2, Blood 7 mmol/L (21-32); Chloride, Blood 92 mmol/L (98-108); Glucose, Blood 1087 mg/dL (70-99); Potassium, Blood 5.3 mmol/L (3.5-5.5); Sodium, Blood 126 mmol/L (136-145)
[2022-05-24 21:33] LABS: Glucose, Blood 887 mg/dL (70-99)
--- NOTE | 2022-05-24 21:35 | NUR ---
ARRIVAL TO ICU PT ARRIVED TO ICU 16 VIA ED DAVID. PT A/O X 2. PT FALLS ASLEEP QUICKLY, REQUIRES NOXIOUS STIMULI TO ANSWER QUESTIONS. MOANS AT TIMES. ON RA W/ SPO2 GREATER THAN 90%. KUSSMAUL BREATHING NOTED. SEE ADMIT ASSESSMENT FOR FULL ASSESSMENT. HYPERTENSIVE, OTHER VSS. INSULIN GTT AT 6 UNITS/HR. FINGER STICK 'HI' AND LAB NOTIFIED TO DRAW STAT GLUCOSE. CALL MADE TO JAVIER (MOTHER) TO RECEIVE BLOOD CONSENT AND PROVIDE UPDATE.
[2022-05-24 22:56] LABS: Glucose, Blood 654 mg/dL (70-99)
--- NOTE | 2022-05-24 23:38 | NUR ---
BEHAVIOR PT REQUESTING TO GET OUT OF BED TO VOID. PT VERY UNSTEADY ON FEET AND TILTING BACK/FORTH. PT EDUCATED ON NEED FOR STAFF MEMBER IN ROOM WHILE STANDING. PT RAISED VOICE STATING "YOU JUST WANT TO LOOK AT MY TOBY-A-ANN-MARIE. NOTIFIED PT THAT A NURSE NEEDS TO BE IN ROOM FOR SAFETY AND TO PREVENT FALLS. OFFERED TO HAVE MALE NURSE IN ROOM INSTEAD OF FEMALE STAFF. PT STATED HE WOULD USE THE URINAL IN BED. WHEN THIS NURSE WENT BACK INTO ROOM, PT FOUND TO BE STANDING AT BEDSIDE. MALE NURSE IN TO HELP PT. BED ALARM TURNED ON.
--- NOTE | 2022-05-25 01:10 | NUR ---
PHONE THROWN PT COUGHING AND CRYING. THIS RN TO ROOM TO CHECK ON PT AND ASK IF HE IS OKAY OR IF HE NEEDS ANYTHING. PT STATED NO AND THAT HE WOULD LIKE TO CALL HIS MOM. PT GIVEN PHONE AND THIS RN OFFERED TO DIAL THE NUMBER FOR HIM. HE DECLINED. PT ASKED FOR HIS DOOR TO BE SHUT. A COUPLE OF MINS LATER, A LOUD SOUND WAS HEARD FROM HIS ROOM. WHEN CHECKING ON PT, PHONE FOUND TO BE ON THE GROUND BY THE WALL. PT TOLD THAT THROWING OBJECTS IS NOT ACCEPTABLE BEHAVIOR. THIS RN AGAIN OFFERED TO DIAL PHONE NUMBER. PT STATED WITH RAISED VOICE "GET OUT. GOODBYE. GOODBYE." COMPLIED WITH PT WISHES.
[2022-05-25 04:11] LABS: Potassium, Blood 3.8 mmol/L (3.5-5.5)
[2022-05-25 04:21] LABS: Hematocrit 27.7 % (37.0-53.0); Hemoglobin 9.9 g/dL (13.5-17.5); Mean Corpuscular HGB Conc 35.7 g/dL (31.5-36.5); Mean Platelet Volume 8.9 fL (9.1-12.4); Platelet Count 452 K/mm3 (150-400); RDW Standard Deviation 42.4 fL (35.1-46.3); Red Blood Cell Count 3.09 M/mm3 (4.30-5.90); White Blood Cell Count 11.22 K/mm3 (4.00-11.30)
[2022-05-25 04:26] LABS: Mean Corpuscular Volume 90 fL (80-100)
--- NOTE | 2022-05-25 06:00 | NUR ---
MELA THIS RN IN ROOM TO TAKE BLOOD GLUCOSE AT 0530. PT REQUESTED FOOD. PT EDUCATED ON CLEAR LIQUID DIET UNTIL TRANSITION TO LONG ACTING INSULIN. PT BEGAN RAISING VOICE, STATING "I WANT TO LEAVE RIGHT NOW. CALL MY FUCKING MOM." CALL MADE TO HOSP REGARDING SITUATION AND LONG ACTING INSULIN. 10 UNITS LANTUS ORDERED. PT REFUSED. AMA PAPERWORK SIGNED, IV'S REMOVED, AND PAPER SCRUBS PROVIDED. PT MOTHER CALLED. PT LEFT UNIT AT 0558.
== END 2022-05-25 05:58 | disposition left against medical advice (07) | DRG 639 ==
LOC: ER 12:41 → ICUW 19:26
PROVIDERS: Emergency Medicine; Physician Assistant; ADMIT Internal Medicine
DX: E10.10 Type 1 diabetes mellitus with ketoacidosis without coma (principal); Z91.14 Patient's other noncompliance with medication regimen; Z28.21 Immunization not carried out because of patient refusal; G89.29 Other chronic pain; M54.9 Dorsalgia, unspecified; M41.9 Scoliosis, unspecified; I73.00 Raynaud's syndrome without gangrene; F17.210 Nicotine dependence, cigarettes, uncomplicated; F15.10 Other stimulant abuse, uncomplicated; Z90.89 Acquired absence of other organs; Z98.890 Other specified postprocedural states; Z59.819 Housing instability, housed unspecified; Z88.1 Allergy status to other antibiotic agents; Z88.8 Allergy status to other drugs, medicaments and biological substances; Z79.4 Long term (current) use of insulin; Z79.899 Other long term (current) drug therapy
CPT/HCPCS: 36415; 80051; 80053; 81001; 82010; 82803; 82947; 85025; 85027; 96361; 96374; 99285-25; J0780; J1815; J7030; J7042

== ENCOUNTER 2022-05-27 06:23 | Inpatient (IN) | payer OTHER ==
[~2022-05-27] VITALS: Ht 167.6 cm; Wt 54.4 kg
[2022-05-27 07:35] LABS: Base Excess Venous -29.2 mmol/L; Bicarbonate Venous 5.8 mmol/L (24.0-30.0); PCO2 Venous 18.4 mmHg (38-42)
[2022-05-27 07:35] LABS: Calcium, Ionized (POC) 1.11 mmol/L (1.10-1.46); Chloride (POC) 95 mmol/L (98-108); Creatinine (POC) 1.5 mg/dL (0.8-1.3); Glucose (ISTAT POC) >700 mg/dL (70-99); Hemoglobin (POC) 12.2 g/dL (13.5-17.5); Potassium (POC) 5.6 mmol/L (3.5-5.5); Sodium (POC) 120 mmol/L (135-148); Total CO2 (POC) 6 mmol/L (21-32)
[2022-05-27 07:46] LABS: BASOPHILS ABSOLUTE AUTO 0.03 K/mm3 (0.00-0.23); BASOPHILS PERCENT AUTO 0 % (0-2); EOSINOPHILS ABSOLUTE AUTO 0.01 K/mm3 (0.00-0.68); EOSINOPHILS PERCENT AUTO 0 % (0-6); Hematocrit 33.4 % (37.0-53.0); Hemoglobin 10.4 g/dL (13.5-17.5); IMMATURE GRAN ABSOLUTE AUTO 0.18 K/mm3 (0.00-0.10); IMMATURE GRAN PERCENT AUTO 1 % (0-1); LYMPHOCYTES ABSOLUTE AUTO 0.77 K/mm3 (0.84-5.20); LYMPHOCYTES PERCENT AUTO 5 % (21-46); MONOCYTES ABSOLUTE AUTO 0.71 K/mm3 (0.16-1.47); MONOCYTES PERCENT AUTO 4 % (4-13); Mean Corpuscular HGB 31.9 pg (26.0-34.0); Mean Corpuscular HGB Conc 31.1 g/dL (31.5-36.5); Mean Platelet Volume 9.7 fL (9.1-12.4); NEUTROPHILS ABSOLUTE AUTO 15.16 K/mm3 (1.96-9.15); NEUTROPHILS PERCENT AUTO 90 % (41-73); NRBC ABSOLUTE 0.02 K/mm3 (0.00-0.02); NRBC Auto 0.1 /100 WBC (0.0-0.2); Platelet Count 432 K/mm3 (150-400); RDW Coefficient Variation 13.6 % (11.7-14.2); RDW Standard Deviation 51.3 fL (35.1-46.3); Red Blood Cell Count 3.26 M/mm3 (4.30-5.90); White Blood Cell Count 16.86 K/mm3 (4.00-11.30)
[2022-05-27 07:49] LABS: Mean Corpuscular Volume 103 fL (80-100)
[2022-05-27 07:59] LABS: Magnesium, Blood 2.9 mg/dL (1.6-2.4)
[2022-05-27 08:09] LABS: Alanine Aminotransfer (ALT/SGP 38 U/L (12-78); Albumin/Globulin Ratio 0.5 (0.8-1.8); Alk Phos 226 U/L (50-136); Anion Gap 31 mmol/L (6-16); Aspartate Aminotrans (AST/SGOT 66 U/L (12-37); Bilirubin, Total 0.4 mg/dL (0.1-1.0); Blood Urea Nitrogen 39 mg/dL (8-24); Bun/Creatinine Ratio 27.3 (12.0-20.0); CO2, Blood 5 mmol/L (21-32); Calcium, Blood 8.1 mg/dL (8.5-10.1); Chloride, Blood 86 mmol/L (98-108); Creatinine, Blood 1.43 mg/dL (0.60-1.20); Globulin, Blood 4.1 g/dL (2.2-4.0); Glomerular Filtration Rate 64 (60-); Glucose, Blood 1074 mg/dL (70-99); Potassium, Blood 5.6 mmol/L (3.5-5.5); Sodium, Blood 122 mmol/L (136-145); Total Protein, Blood 6.1 g/dL (6.4-8.2)
[2022-05-27 08:17] LABS: Beta-hydroxybutyrate >138.0 mg/dL (0.2-2.8)
[2022-05-27 08:30] LABS: Influenza A, PCR NEGATIVE (NEGATIVE); Influenza B, PCR NEGATIVE (NEGATIVE); Resp Syncytial Virus, PCR NEGATIVE (NEGATIVE); SARS-Cov-2 (COVID-19) PCR, MMC NEGATIVE (NEGATIVE)
[2022-05-27 09:04] LABS: Glucose, Blood 995 mg/dL (70-99)
[2022-05-27 10:29] LABS: Bun/Creatinine Ratio 29.1 (12.0-20.0); Calcium, Blood 7.6 mg/dL (8.5-10.1); Creatinine, Blood 1.34 mg/dL (0.60-1.20); Potassium, Blood 4.6 mmol/L (3.5-5.5)
[2022-05-27 11:07] LABS: Base Excess Venous -21.8 mmol/L; Bicarbonate Venous 9.6 mmol/L (24.0-30.0); PCO2 Venous 28.9 mmHg (38-42); pH Blood Venous 7.07 (7.34-7.37)
[2022-05-27 11:33] LABS: Glucose, Blood 950 mg/dL (70-99)
[2022-05-27 12:53] LABS: Glucose, Blood 722 mg/dL (70-99)
[2022-05-27 14:17] LABS: Glucose, Blood 515 mg/dL (70-99)
[2022-05-27 15:45] LABS: Source, Urine Clean Catch
[2022-05-27 16:03] LABS: Appearance, Urine Clear (Clear); Bilirubin, Urine Neg (Neg); Blood, Urine 2+ (Neg); Color, Urine Yellow (P-Yellow); Glucose Qualitative, Urine 4+ (Neg); Ketones, Urine 4+ (Neg); Leukocyte Esterase, Urine Neg (Neg); Nitrite, Urine Neg (Neg); Protein, Urine 3+ (Neg); Specific Gravity, Urine 1.015 (1.003-1.022); Urobilinogen, Urine NORM (Normal)
[2022-05-27 16:19] LABS: U Amphetamine Screen DETECTED; U Barbituate Screen Not Detected; U Benzodiazapine Screen Not Detected; U Buprenorphine Screen Not Detected; U Cannabinoids Screen Not Detected; U Cocaine Screen Not Detected; U Methadone Screen Not Detected; U Methamphetamine Screen DETECTED; U Opiates Screen Not Detected; U Oxycodone Screen Not Detected; U Phencyclidine Screen Not Detected; U Propoxyphene Screen Not Detected
[2022-05-27 16:21] LABS: Bacteria Mod /hpf; Hyaline Casts 0-2 /lpf (0-2); Squamous Epithelial Cells Few /hpf (Few); White Blood Cells, Urine 0-2 /hpf (0-5)
[2022-05-27 16:40] LABS: Bun/Creatinine Ratio 30.5 (12.0-20.0); Calcium, Blood 7.9 mg/dL (8.5-10.1); Creatinine, Blood 1.18 mg/dL (0.60-1.20); Potassium, Blood 3.4 mmol/L (3.5-5.5)
--- NOTE | 2022-05-27 17:12 | NUR ---
Pt arrived to ICU at approximately 1010. Pt obtunded, moaning in bed, not following commands or responding to questions. Insulin infusing at 5.94 units/hr. VS stable at time of transfer. Report received from SCHEDULE PLANNING MANAGER.
--- NOTE | 2022-05-27 18:38 | NUR ---
Shift summary. Pt remained in bed throughout shift. In locked wrist restraints for safety. Pt disoriented, pulling on lines and cords, attempting to get out of bed. PG placed, mayorga catheter inserted. Insulin currently infusing at 2 units/hr. VS within normal ranges, see assessment for further details. Will continue to monitor and report off to nightshift RN.
[2022-05-27 22:15] LABS: Bun/Creatinine Ratio 30.6 (12.0-20.0); Calcium, Blood 7.3 mg/dL (8.5-10.1); Creatinine, Blood 0.82 mg/dL (0.60-1.20); Potassium, Blood 3.5 mmol/L (3.5-5.5)
--- NOTE | 2022-05-28 01:34 | NUR ---
PT IS INTERMITTENTLY WAKING UP SAYING HE NEEDS HELP, THAT HE WANTS TO LEAVE. AUTHOR INFORMED HIM HE IS ON AN INVOLUNTARY HOLD FOR NOW AND IS UNABLE TO LEAVE. PT VOICED UNDERSTANDING, HOWEVER RASS -1/-2 ON PRECEDEX, SO MAY NEED TO REINFORCE.
--- NOTE | 2022-05-28 03:28 | NUR ---
NELSON NOT DRAWING BACK, WILL HAVE LAB COME DRAW PT
[2022-05-28 03:54] LABS: BASOPHILS ABSOLUTE AUTO 0.02 K/mm3 (0.00-0.23); BASOPHILS PERCENT AUTO 0 % (0-2); EOSINOPHILS ABSOLUTE AUTO 0.05 K/mm3 (0.00-0.68); EOSINOPHILS PERCENT AUTO 0 % (0-6); Hematocrit 26.2 % (37.0-53.0); Hemoglobin 9.3 g/dL (13.5-17.5); IMMATURE GRAN ABSOLUTE AUTO 0.05 K/mm3 (0.00-0.10); IMMATURE GRAN PERCENT AUTO 0 % (0-1); LYMPHOCYTES ABSOLUTE AUTO 0.93 K/mm3 (0.84-5.20); LYMPHOCYTES PERCENT AUTO 8 % (21-46); MONOCYTES ABSOLUTE AUTO 0.67 K/mm3 (0.16-1.47); MONOCYTES PERCENT AUTO 5 % (4-13); Mean Corpuscular HGB 31.1 pg (26.0-34.0); Mean Corpuscular HGB Conc 35.5 g/dL (31.5-36.5); Mean Platelet Volume 8.9 fL (9.1-12.4); NEUTROPHILS ABSOLUTE AUTO 10.68 K/mm3 (1.96-9.15); NEUTROPHILS PERCENT AUTO 86 % (41-73); Platelet Count 351 K/mm3 (150-400); RDW Coefficient Variation 12.5 % (11.7-14.2); RDW Standard Deviation 40.1 fL (35.1-46.3); Red Blood Cell Count 2.99 M/mm3 (4.30-5.90)
[2022-05-28 03:57] LABS: Mean Corpuscular Volume 88 fL (80-100)
[2022-05-28 04:15] LABS: Bun/Creatinine Ratio 25.4 (12.0-20.0); Calcium, Blood 7.6 mg/dL (8.5-10.1); Creatinine, Blood 0.79 mg/dL (0.60-1.20); Potassium, Blood 3.5 mmol/L (3.5-5.5)
--- NOTE | 2022-05-28 06:38 | NUR ---
SHIFT SUMMARY: patient has remained in locked [id number] medical restraints due to strength and h/o aggression, AMA, etc. See provider note for details. Patient has been mostly somnolent and confused thoughout the shift, but will occasionally wake and yell out for water or other needs. He was told he is on an involuntary hold, but that may need to be reinforced. Denies pain. Precedex increased for pt and staff safety; pt was given one PRN dose of Haldol. He's been SR with rates now in the 60s; BP has been WDL. Mild edema in hands. Lungs clear, occasional nonproductive cough. No BM this shift; good urine output. Insulin gtt remains on at low levels; currently at 0.5 u/hr. Will report off to day shift nurse when able.
--- NOTE | 2022-05-28 07:07 | NUR ---
Assumed care. Report received from nightshift RN. Pt in bed, sedated on Precedex at 1.4 mcg/kg/hr. Pt sleeping at this time. Insulin infusing at 0.5 units/hr, D51/2NS/KCL infusing at 150 ml/hr, NS TKO. Barrera catheter in place. No acute needs, VS stable. Continue to monitor.
[2022-05-28 15:28] LABS: Bun/Creatinine Ratio 23.4 (12.0-20.0); Calcium, Blood 7.5 mg/dL (8.5-10.1); Creatinine, Blood 0.73 mg/dL (0.60-1.20); Percent Saturation 16.7 % (20.0-50.0); Potassium, Blood 4.1 mmol/L (3.5-5.5)
--- NOTE | 2022-05-28 18:26 | NUR ---
Shift summary. Patient alert and oriented att. Precedex titrated off during shift. Insulin gtt DC'd, patient back on medium sliding scale coverage and basal insulin. Barrera catheter DC'd. Patient able to ambulate to the commode, independent in bed. Pt cooperative with care during shift, communicating needs appropriately. VS stable, see assessments for further details. Will report off to oncoming RN.
[2022-05-29 04:03] LABS: BASOPHILS ABSOLUTE AUTO 0.01 K/mm3 (0.00-0.23); BASOPHILS PERCENT AUTO 0 % (0-2); EOSINOPHILS ABSOLUTE AUTO 0.01 K/mm3 (0.00-0.68); EOSINOPHILS PERCENT AUTO 0 % (0-6); Hematocrit 25.8 % (37.0-53.0); Hemoglobin 9.1 g/dL (13.5-17.5); IMMATURE GRAN ABSOLUTE AUTO 0.04 K/mm3 (0.00-0.10); IMMATURE GRAN PERCENT AUTO 0 % (0-1); LYMPHOCYTES ABSOLUTE AUTO 1.17 K/mm3 (0.84-5.20); LYMPHOCYTES PERCENT AUTO 12 % (21-46); MONOCYTES PERCENT AUTO 5 % (4-13); Mean Corpuscular HGB 31.9 pg (26.0-34.0); Mean Corpuscular HGB Conc 35.3 g/dL (31.5-36.5); Mean Corpuscular Volume 91 fL (80-100); Mean Platelet Volume 9.3 fL (9.1-12.4); NEUTROPHILS ABSOLUTE AUTO 8.33 K/mm3 (1.96-9.15); NEUTROPHILS PERCENT AUTO 83 % (41-73); Platelet Count 306 K/mm3 (150-400); RDW Coefficient Variation 13.2 % (11.7-14.2); RDW Standard Deviation 43.4 fL (35.1-46.3); Red Blood Cell Count 2.85 M/mm3 (4.30-5.90); White Blood Cell Count 10.06 K/mm3 (4.00-11.30)
[2022-05-29 04:35] LABS: Alanine Aminotransfer (ALT/SGP 24 U/L (12-78); Albumin, Blood 1.5 g/dL (3.4-5.0); Albumin/Globulin Ratio 0.4 (0.8-1.8); Alk Phos 170 U/L (50-136); Anion Gap 8 mmol/L (6-16); Aspartate Aminotrans (AST/SGOT 16 U/L (12-37); Bilirubin, Total <0.1 mg/dL (0.1-1.0); Blood Urea Nitrogen 16 mg/dL (8-24); Bun/Creatinine Ratio 21.2 (12.0-20.0); CO2, Blood 24 mmol/L (21-32); Calcium, Blood 7.3 mg/dL (8.5-10.1); Chloride, Blood 108 mmol/L (98-108); Creatinine, Blood 0.75 mg/dL (0.60-1.20); Globulin, Blood 3.5 g/dL (2.2-4.0); Glomerular Filtration Rate 118 (60-); Glucose, Blood 328 mg/dL (70-99); Potassium, Blood 3.5 mmol/L (3.5-5.5); Sodium, Blood 140 mmol/L (136-145)
--- NOTE | 2022-05-29 06:23 | NUR ---
PATIENT AOX4 AND DENIES PAIN. PATIENT INTERMITTENTLY HAVING PERIODS OF TEMPERMENTAL OUTBURSTS INVOLVING SCREAMING, SHOUTING OBSCENITIES, AND RUDE/HOSTILE TO STAFF. PRN HALDOL GIVEN X1. RN ATTEMPTED TO GIVE A SECOND TIME BUT PATIENT REFUSED. SINUS TACH AND STABLE BP. MAINTAINING O2 SATS >92% ON ROOM AIR. PATIENT HAS LARGE APPETTITE AND REPORTS FRUSTRATION ABOUT DIABETIC FOOD OPTIONS. 2 BM'S OVERNIGHT. BG >390 AT MIDNIGHT, ONE TIME ORDER FOR 10U NOVOLIN OBTAINED FROM PROVIDER. IMPROVEMENT IN BG NOTED AFTER DOSE.
--- NOTE | 2022-05-29 15:48 | NUR ---
BHAVIK HAS BEEN SLEEPING ON AND OFF T/O THE DAY. HE HAS BEEN EATING WHEN HE IS NOT SLEEPING. WITH TELLING HIM HE CAN EAT HOWEVER MUCH HE WANTS IT HAS BEEN NON STOP SINCE THIS MORNING. HE WAS ABLE TO GET IN THE SHOWER. HIS BLOOD SUGARS HAVE BEEN BELOW 300, COVERAGE INDICATED. IRON INFUSION THIS AM WITH B12 IM INJECTION WELL.
--- NOTE | 2022-05-29 16:58 | NUR ---
DELIVERED IN A GALLON ZIP LOCK BAG WITH HANDWRITTEN CYNDY BERRY ICU 9, 2 BLACK CORDS, 2 WHITE CORDS, 2 WHITE BRICKS FOR PLUG IN, 2 BLACK PHONES, ONE WITH BROKEN SCREEN, ONE PAIR OF GLASSES, BROKEN AND ONE FRAME MG FOR THE LEFT SIDE MISSING. HAND DELIVERED AND VERIFIED WITH BHAVIK.
--- NOTE | 2022-05-29 17:13 | NUR ---
CYNDIKEARA HAS REFUSED ALL VITAL SIGNS TODAY. AGREED TO ALLOW THE POST ANESTHESIA ROOM NURSE TO BE OFF. WHEN HE IS AWAKE HE IS EATING, HE HAS NAPPED A COUPLE OF TIMES. ATTEMPTS MADE TO INCREASE HIS CALORIES WITH PRN TRAY REQUESTS FOR ADDITIONAL FOOD PER . HE ALSO EATS CHEESE AND NO ADDED SUGAR SNACKS FROM THE REFRIGERATOR. DINNER BG WAS 260 WITH 3 UNITS COVERAGE. HE HAS DRANK DIET PEPSI AND SOME WATER. VOIDING AND USING THE TOILET FOR BMS. WANTED TO WALK OUTSIDE THE UNIT WITH THE TRANSPORT PILOT, WAS DENIED HE IS STILL ON A HOLD. NO FURTHER CHANGES.
--- NOTE | 2022-05-29 19:15 | NUR ---
ASSUMED CARE OF PT, HE IS NOTED ALERT AND UP IN ROOM IND WITH STEADY GAIT. REQUESTS FOOD AT THIS TIME, 2 ROAST BEEF SANDWICHES, PUDDING, MILK, AND AVTAR CRACKERS WITH LARGE DIET PEPSI. HE DOES ADMIT TO PAIN/TENDERNESS TO LEFT UPPER ARM IV AND STATES THAT IS THE REASON FOR REFUSAL OF FLUSH/ROUTINE IV CARE THROUGHOUT DAY SHIFT, HE ACCEPTS OFFER TO DC THIS IV. HE IS AGREEABLE TO VITAL SIGN AND SHIFT ASSESSMENT AT THIS TIME. WILL CONT TO MONITOR AND PROVIDE CHOICES REGARDING CARE ABLE. PT IS AGREEABLE WITH PLAN OF CARE FOR THE SHIFT AT THIS TIME.
--- NOTE | 2022-05-30 02:03 | NUR ---
PT AT DOOR OF ROOM AND REPORTS THAT HE FEELS LIKE HE IS ABOUT TO BECOME AGITATED, REQUESTING MEDICATION "THAT HE GAVE ME LAST NIGHT" HALDOL DISCUSSED, ADMINISTERED PER PT REQUEST AND REPORT OF FEELING OF IMPENDING AGITATION.
--- NOTE | 2022-05-30 05:35 | NUR ---
PT AWAKE FREQUENTLY THIS SHIFT. HAS BEEN POLITE USING PLEASE AND THANK YOU THROUGHOUT NOC. IV TO LEFT UPPER ARM WAS REPORTED TO BE PAINFUL TO PT AND WAS DC'D AT SHIFT ASSESSMENT. DISCUSSED PLAN OF CARE FOR THE SHIFT WITH PT AND HE WAS AGREEABLE. CONTINUES TO HAVE FREQUENT FOOD REQUESTS AND HAS HAD MULTIPLE SANDWICHES AND CANNED SOUPS THIS SHIFT. TOLERATING WELL. HE DID REPORT THAT HE FEELS MOTIVATED TO QUITE USING METH HE HAS TWO CHILDREN THAT HE WOULD LIKE TO BE MORE INVOLVED WITH. HE DID COME TO THE DOOR ONCE THIS SHIFT TO REPORT THAT HE FELT LIKE HE WAS GETTING AGITATED AND REQUESTED HALDOL ADMINISTRATION.
--- NOTE | 2022-05-30 09:15 | NUR ---
ASSUMED CARE: REPORT RECEIVED FROM SEGUNDO Thaukr RN. ASSUMED CARE OF THIS PT AT APPROX 0700. ON ASSESSMENT, THE PT IS AWAKE, A&O. HE COMPLETES ALL CARE & AMBULATES INDEPENDENTLY IN THE ROOM. USES CALL LIGHT APPROPRIATELY. LS CLEAR, PT ON RA W/ O2 SATS > 92%. NO TELE IN PLACE, PT MEDICAL STATUS. HAS NO GI COMPLAINTS, TOLERATING LARGE AMNTS PO INTAKE WELL, DENIES NAUSEA. STS HAVING INTERMITTENT DIARRHEA. VOIDS URINE W/O DIFFICULTY. SKIN OVERALL INTACT, MULTIPLE AREAS OF SCARRING FROM "PICKING" PER PT. SCATTERED AREAS OF ECCHYMOSIS FROM PULLING ON RESTRAINTS WHILE "HIGH ON METH" PER PT. WILL CONTINUE TO MONITOR & UPDATE NEEDED.
[2022-05-30] MEDS ORDERED: MELATONIN5 M1 PO (14:13)
[2022-05-30] MEDS ORDERED: INSULIN LI100 UNIT/6 SC (14:15)
--- NOTE | 2022-05-30 14:20 | NUR ---
DISCHARGE TO HOME: 2 MD HOLD HAS BEEN DROPPED BY DR HALEY THIS PT IS NO LONGER VIOLENT OR ACUTELY INTOXICATED. DKA WELL-MANAGED AT THIS TIME. THE PT PLANS TO LEAVE THE FACILITY & CHECK SELF INTO [facility] FOR SUBSTANCE ABUSE TX. POWERGLIDE REMOVED & DISCHARGE EDUCATION COMPLETED. THE PT HAS TAKEN ALL OF HIS BELONGINGS OUT W/ HIM AT TIME OF DISCHARGE. PT TAKEN OUT VIA WC BY ZENAIDA AUGUSTIN AT APPROX 1420.
== END 2022-05-30 14:15 | disposition home or self-care (01) | DRG 637 ==
LOC: ER 06:23 → ICUW 08:59
PROVIDERS: Student in an Organized Health Care Education/Training Program; ADMIT Internal Medicine
DX: E10.10 Type 1 diabetes mellitus with ketoacidosis without coma (principal); G93.41 Metabolic encephalopathy; K85.90 Acute pancreatitis without necrosis or infection, unspecified; E44.0 Moderate protein-calorie malnutrition; F15.13 Other stimulant abuse with withdrawal; Z68.1 Body mass index [BMI] 19.9 or less, adult; R64 Cachexia; F91.9 Conduct disorder, unspecified; E88.09 Other disorders of plasma-protein metabolism, not elsewhere classified; D52.9 Folate deficiency anemia, unspecified; E87.6 Hypokalemia; R60.0 Localized edema; M54.9 Dorsalgia, unspecified; G89.29 Other chronic pain; M41.9 Scoliosis, unspecified; M51.9 Unspecified thoracic, thoracolumbar and lumbosacral intervertebral disc disorder; E83.51 Hypocalcemia; J44.9 Chronic obstructive pulmonary disease, unspecified; I73.00 Raynaud's syndrome without gangrene; F17.210 Nicotine dependence, cigarettes, uncomplicated; D50.9 Iron deficiency anemia, unspecified; F12.10 Cannabis abuse, uncomplicated; E10.65 Type 1 diabetes mellitus with hyperglycemia; R45.6 Violent behavior; Z20.822 Contact with and (suspected) exposure to COVID-19; Z78.1 Physical restraint status; Z88.8 Allergy status to other drugs, medicaments and biological substances; Z91.14 Patient's other noncompliance with medication regimen; Z59.811 Housing instability, housed, with risk of homelessness; Z88.1 Allergy status to other antibiotic agents; Z88.2 Allergy status to sulfonamides; Z98.890 Other specified postprocedural states; Z79.4 Long term (current) use of insulin; Z79.811 Long term (current) use of aromatase inhibitors
CPT/HCPCS: 0241U; 36415; 51702; 71045; 80047; 80048; 80053; 81001; 82010; 82330; 82607; 82728; 82746; 82803; 82947; 83540; 83550; 83690; 83735; 85014; 85025; 87086; 93005; 93010; 96361; 96374; 96375; 99285-25; A9270; C1751; J1630; J1650; J1790; J1815; J2916; J3420; J3480; J7050; J7120

== ENCOUNTER 2022-07-25 15:39 | Inpatient (IN) | payer OTHER ==
[~2022-07-25] VITALS: Ht 182.9 cm; Wt 62.0 kg
[~2022-07-25 15:39] MED LIST changes: +INSULIN ASPART SC; +INSULIN LI100 UNIT/6 SC; +MELATONIN5 M1 PO; +NOVOLOG FL100 UNIT/3 SC
[2022-07-25 16:51] LABS: Bicarbonate Venous 5.5 mmol/L (24.0-30.0); PCO2 Venous 15.1 mmHg (38-42); pH Blood Venous 6.87 (7.34-7.37)
[2022-07-25 16:52] LABS: Base Excess Venous -30.4 mmol/L
[2022-07-25 16:54] LABS: BASOPHILS ABSOLUTE AUTO 0.31 K/mm3 (0.00-0.23); BASOPHILS PERCENT AUTO 1 % (0-2); EOSINOPHILS ABSOLUTE AUTO 0.03 K/mm3 (0.00-0.68); EOSINOPHILS PERCENT AUTO 0 % (0-6); Hematocrit 39.6 % (37.0-53.0); Hemoglobin 11.9 g/dL (13.5-17.5); IMMATURE GRAN ABSOLUTE AUTO 1.48 K/mm3 (0.00-0.10); IMMATURE GRAN PERCENT AUTO 5 % (0-1); LYMPHOCYTES ABSOLUTE AUTO 2.38 K/mm3 (0.84-5.20); LYMPHOCYTES PERCENT AUTO 7 % (21-46); MONOCYTES ABSOLUTE AUTO 1.62 K/mm3 (0.16-1.47); MONOCYTES PERCENT AUTO 5 % (4-13); Mean Corpuscular HGB 31.2 pg (26.0-34.0); Mean Corpuscular HGB Conc 30.1 g/dL (31.5-36.5); Mean Corpuscular Volume 104 fL (80-100); Mean Platelet Volume 9.9 fL (9.1-12.4); NEUTROPHILS ABSOLUTE AUTO 26.89 K/mm3 (1.96-9.15); NEUTROPHILS PERCENT AUTO 82 % (41-73); Platelet Count 674 K/mm3 (150-400); RDW Coefficient Variation 13.1 % (11.7-14.2); RDW Standard Deviation 50.1 fL (35.1-46.3); Red Blood Cell Count 3.82 M/mm3 (4.30-5.90); White Blood Cell Count 32.71 K/mm3 (4.00-11.30)
[2022-07-25 17:58] LABS: Beta-hydroxybutyrate >138.0 mg/dL (0.2-2.8)
[2022-07-25 17:59] LABS: Alanine Aminotransfer (ALT/SGP 36 U/L (12-78); Albumin, Blood 2.8 g/dL (3.4-5.0); Albumin/Globulin Ratio 0.7 (0.8-1.8); Alk Phos 217 U/L (50-136); Anion Gap 33 mmol/L (6-16); Aspartate Aminotrans (AST/SGOT 34 U/L (12-37); Bilirubin, Total 0.5 mg/dL (0.1-1.0); Blood Urea Nitrogen 46 mg/dL (8-24); Bun/Creatinine Ratio 34.6 (12.0-20.0); CO2, Blood 2 mmol/L (21-32); Calcium, Blood 8.8 mg/dL (8.5-10.1); Chloride, Blood 77 mmol/L (98-108); Creatinine, Blood 1.33 mg/dL (0.60-1.20); Globulin, Blood 3.9 g/dL (2.2-4.0); Glomerular Filtration Rate 70 (60-); Glucose, Blood 1177 mg/dL (70-99); Potassium, Blood 7.3 mmol/L (3.5-5.5); Sodium, Blood 112 mmol/L (136-145); Total Protein, Blood 6.7 g/dL (6.4-8.2)
[2022-07-25 19:36] LABS: U Amphetamine Screen DETECTED; U Barbituate Screen Not Detected; U Benzodiazapine Screen Not Detected; U Buprenorphine Screen Not Detected; U Cannabinoids Screen Not Detected; U Cocaine Screen Not Detected; U Methadone Screen Not Detected; U Methamphetamine Screen DETECTED; U Opiates Screen Not Detected; U Oxycodone Screen Not Detected; U Phencyclidine Screen Not Detected; U Propoxyphene Screen Not Detected
[2022-07-25 20:39] LABS: Magnesium, Blood 2.7 mg/dL (1.6-2.4)
[2022-07-25 20:53] LABS: Bun/Creatinine Ratio 34.4 (12.0-20.0); Calcium, Blood 9.2 mg/dL (8.5-10.1); Creatinine, Blood 1.28 mg/dL (0.60-1.20); Phosphorus, Blood 8.5 mg/dL (2.5-4.9); Potassium, Blood 5.8 mmol/L (3.5-5.5)
--- NOTE | 2022-07-25 21:00 | NUR ---
PT ARRIVES TO ICU 3 FOR DKA AT 2044. SLIDE TRANSFERRED TO BED WITH 3 STAFF ASSIST AND TOLERATES WELL. C/O SENSITIVITY TO LIGHT, ROOM LIGHTS DIMMED. PT STATES THAT HE FEELS COLD AND JUST WISHES TO SLEEP. EXPRESSED FRUSTRATION WITH ADMISSION QUESTIONS, VERIFIED CHANGES SINCE PREVIOUS ADMISSION WITH PT SUCH LAST PO, LAST BM, MEDICATIONS, ETC AND THEN CONFIRMED THAT HX IS UNCHANGED FROM ADMIT EARLIER THIS MONTH. PT STATES "IT'S NOT LIKE I'M ASKING FOR FUCKING ROAST BEEF" WHEN NPO ORDERS EXPLAINED AFTER PT ASKS FOR ICE CHIPS AND WATER, EXPLAINED THAT CALL WILL BE PLACED TO MD REGARDING PT DIETARY REQUESTS. PT PLACES SHEET AND BLANKETS OVER HEAD AND REFUSES TO ANSWER FURTHER QUESTIONS AT THIS TIME.
[2022-07-25 21:37] LABS: Glucose, Blood 850 mg/dL (70-99)
[2022-07-25 22:40] LABS: Glucose, Blood 709 mg/dL (70-99)
--- NOTE | 2022-07-25 23:01 | NUR ---
APPROACHED PT TO SEE IF HE WOULD LIKE TO HAVE AN IV PLACED THAT HE WOULD HAVE HIS FREQUENT LABS DRAWN THROUGH. INADVERTANTLY TOUCHED PT'S COBAN ON HIS LEFT WRIST. PT BECAME VERY ANGRY, AGGRESSIVELY VERBAL WITH VULGARITY. OPTED TO REMOVE OFFER FOR IV. LAB IN ROOM DRAWING LAB AT THIS TIME. INFORMED PRIMARY RN THAT PT WAS COOPERATIVE WITH THIS RN'S CARE.
[2022-07-26 00:35] LABS: Bun/Creatinine Ratio 36.4 (12.0-20.0); Calcium, Blood 8.7 mg/dL (8.5-10.1); Creatinine, Blood 1.1 mg/dL (0.60-1.20); Potassium, Blood 4.7 mmol/L (3.5-5.5)
[2022-07-26 01:08] LABS: Magnesium, Blood 2.4 mg/dL (1.6-2.4)
[2022-07-26 01:46] LABS: Phosphorus, Blood 4.5 mg/dL (2.5-4.9)
--- NOTE | 2022-07-26 01:52 | NUR ---
REFUSAL OF URINAL PT UP TO EDGE OF BED WITHOUT USING CALL LIGHT, BED ALARM SOUNDING. ATTEMPTING UP OOB TO SIDE OPPOSITE IV INFUSION PUMP, PT GETS VERBALLY AGGRESSIVE WHEN THIS RN ATTEMPTS TO REDIRECT, HANDS PLACED TO PT SHOULDERS AND FIRMLY TOLD TO STOP COMPLETION OF GETTING OOB WOULD RESULT IN SELF DC'ING IV TO LEFT IJ. PT DOES STOP AND VERBALIZE THAT HE IS AGREEABLE TO GETTING OOB ON SAME SIDE IV INFUSION PUMP FOR VOID. DEMANDS HERBARIUM CURATOR REMOVED FOR VOID, REFUSES TO VOID IN URINAL, REMOVES MULTIPLE MONITORING LINES AND RAPIDLY TRANSFERS SELF TO TOILET, UNSTEADY GAIT IS NOTED. PT IS EDUCATED ON FALL PRECAUTIONS WELL NEED TO HAVE STAFF ASSIST IN ORDER TO ENSURE THAT IV DOES NOT GET PULLED. BED ALARM RETURNED TO ARMED STATUS ON PT RETURN TO BED.
[2022-07-26 04:22] LABS: Albumin, Blood 2.1 g/dL (3.4-5.0); Albumin/Globulin Ratio 0.7 (0.8-1.8); Bilirubin, Total 0.4 mg/dL (0.1-1.0); Bun/Creatinine Ratio 36.1 (12.0-20.0); Calcium, Blood 8.7 mg/dL (8.5-10.1); Globulin, Blood 3.1 g/dL (2.2-4.0); Magnesium, Blood 2.2 mg/dL (1.6-2.4); Phosphorus, Blood 2.8 mg/dL (2.5-4.9); Potassium, Blood 4.4 mmol/L (3.5-5.5); Total Protein, Blood 5.2 g/dL (6.4-8.2)
[2022-07-26 04:48] LABS: BASOPHILS PERCENT AUTO 0 % (0-2); EOSINOPHILS ABSOLUTE AUTO 0.03 K/mm3 (0.00-0.68); EOSINOPHILS PERCENT AUTO 0 % (0-6); Hematocrit 26.9 % (37.0-53.0); Hemoglobin 9.8 g/dL (13.5-17.5); IMMATURE GRAN ABSOLUTE AUTO 0.49 K/mm3 (0.00-0.10); IMMATURE GRAN PERCENT AUTO 2 % (0-1); LYMPHOCYTES ABSOLUTE AUTO 2.79 K/mm3 (0.84-5.20); LYMPHOCYTES PERCENT AUTO 12 % (21-46); MONOCYTES ABSOLUTE AUTO 1.65 K/mm3 (0.16-1.47); MONOCYTES PERCENT AUTO 7 % (4-13); Mean Corpuscular HGB 31.4 pg (26.0-34.0); Mean Corpuscular HGB Conc 36.4 g/dL (31.5-36.5); Mean Platelet Volume 9.2 fL (9.1-12.4); NEUTROPHILS PERCENT AUTO 78 % (41-73); Platelet Count 544 K/mm3 (150-400); RDW Coefficient Variation 12.7 % (11.7-14.2); RDW Standard Deviation 39.9 fL (35.1-46.3); Red Blood Cell Count 3.12 M/mm3 (4.30-5.90); White Blood Cell Count 23.36 K/mm3 (4.00-11.30)
[2022-07-26 05:19] LABS: Mean Corpuscular Volume 86 fL (80-100)
--- NOTE | 2022-07-26 06:55 | NUR ---
SUMMARY: PT ARRIVES TO ICU THIS SHIFT FROM ER FOR DKA, HE HAS NOT YET ALLOWED ASSESSMENT OF LEFT FINGER AMPUTATION WOUND AND BECOMES VERBALLY AGGRESSIVE WHEN ATTEMPTS TO EXPLAIN IMPORTANCE OF FULL ASSESSMENTS IS BEGUN WITH STATEMENTS SUCH "JUST DO YOUR FUCKING JOB!" HE REFUSES TO HAVE RN AT BEDSIDE WHEN UP FOR VOID AND STATES THAT STAFF CAN STAND OUTSIDE OF THE CURTAIN OF THE ROOM WHEN HE IS UP, EXPLAINED SAFETY PRECAUTIONS RELATED TO FALL RISK AND HE REMOVES RESEARCH/PROGRAM DIRECTOR AND MOVES QUICKLY TO TOILET OR THROWS URINAL DOWN AND STATES THAT HE JUST WON'T VOID UNTIL STAFF COMPLY WITH ALLOWING HIM UP INDEPENDENTLY IN ROOM. BLOOD SUGAR LEVELS HAVE IMPROVED TO LESS THAN 200 AT LAST CHECK AND IVF CHANGED FROM BICARB GTT WITH 1/2NS TO D5 1/2NS WITH KCL 20 MEQ PER LITER. VITALS HAVE REMAINED STABLE.
--- NOTE | 2022-07-26 07:41 | NUR ---
Assumed care at approximately 0700. Report received from nightshift RN. Pt sleeping in bed ATT, on RA, VS stable. Insulin infusing at 2 units/hr. No acute needs, continue to monitor.
[2022-07-26 08:40] LABS: Bun/Creatinine Ratio 36.2 (12.0-20.0); Calcium, Blood 8.5 mg/dL (8.5-10.1); Creatinine, Blood 0.83 mg/dL (0.60-1.20); Potassium, Blood 3.9 mmol/L (3.5-5.5)
--- NOTE | 2022-07-26 18:46 | NUR ---
Shift summary. Pt independent in room. Insulin and IV fluids titrated off this am at approximately 1155. Pt refused to participate in physical assessments during shift. VS stable, no apparent distress or acute needs this shift. Pt cooperative with medical interventions for care. Frequently asking for food and drink. Will continue to monitor and report off to nightshift RN.
--- NOTE | 2022-07-26 19:19 | NUR ---
ASSUMED CARE. PT DENIES PAIN OR DISCOMFORT. RESTING IN ROOM. REQUEST FOR SANDWHICH GIVEN. VS WNL. LS CLEAR. FINGER AMPUTATION IS WRAPPED WITH COBAN AND GAUZE, STATES IT WAS JUST CHANGED A COUPLE DAYS AGO. DENIES ANY OTHER CONCERNS OR NEEDS. AWAITING FOR TRANSFER TO THRID FLOOR.
--- NOTE | 2022-07-26 19:52 | NUR ---
REPORT GIVEN TO BRAULIO VANN.
--- NOTE | 2022-07-26 19:59 | NUR ---
SPOKE TO DR. CANTU REGARDING GLUCOSE ORDERS AND COVERAGE. ORDERS RECEIVED AND CHANGED TO MONITOR AND HS.
--- NOTE | 2022-07-27 04:47 | NUR ---
SHIFT SUMMARY REPORT FROM TRUDY RN IN ICU- PT BROUGHT TO ROOM VIA WC- CALL TO DR. CANTU RE: PT CBG 414 AND PT REQUESTING TYLENOL FOR BODY ACHES- NEW ORDER TO GIVE LANTUS ONE TIME DOSE AND TYLENOL DONE AND GIVEN- PT TOLERATED WELL PT REQUESTED DIET SODA AND SANDWICH
--- NOTE | 2022-07-27 17:57 | NUR ---
Received report from ongoing nurse. Pt axox3. Sleep while giving bedside report. Will continue to monitor.
[2022-07-28 05:43] LABS: Bun/Creatinine Ratio 42.2 (12.0-20.0); Creatinine, Blood 0.66 mg/dL (0.60-1.20); Potassium, Blood 3.8 mmol/L (3.5-5.5)
--- NOTE | 2022-07-28 06:05 | NUR ---
Shift Summary PT BP elevated early in shift, diastolic = 100. Given PRN Hydralazine. Pt was very hungry this shift, he requested at least 6 half sandwitches throughout the night. BS trending up through the night, starting from 220 up to 315 at 0400 labs. AOx4, independent in room, pleasant and cooperative.
[2022-07-28] MEDS ORDERED: HUMALOG JU100 UNIT/2 SC (11:14)
== END 2022-07-28 12:42 | disposition home or self-care (01) | DRG 637 ==
LOC: ER 15:39 → ICUW 19:38 → ICUE 20:30 → MEDS 07-26 20:15
PROVIDERS: Internal Medicine; Physician Assistant; ADMIT Internal Medicine
PROC: 4A133R1 Monitoring of Arterial Saturation, Peripheral, Percutaneous Approach (ICD-10-PCS; principal; 2022-07-25)
DX: E10.10 Type 1 diabetes mellitus with ketoacidosis without coma (principal); G93.41 Metabolic encephalopathy; N17.9 Acute kidney failure, unspecified; M54.9 Dorsalgia, unspecified; G89.29 Other chronic pain; M41.9 Scoliosis, unspecified; M51.9 Unspecified thoracic, thoracolumbar and lumbosacral intervertebral disc disorder; J44.9 Chronic obstructive pulmonary disease, unspecified; E87.5 Hyperkalemia; F15.10 Other stimulant abuse, uncomplicated; D72.829 Elevated white blood cell count, unspecified; I73.00 Raynaud's syndrome without gangrene; F17.210 Nicotine dependence, cigarettes, uncomplicated; F12.10 Cannabis abuse, uncomplicated; E83.42 Hypomagnesemia; Z98.890 Other specified postprocedural states; Z89.022 Acquired absence of left finger(s); Z79.4 Long term (current) use of insulin; Z79.899 Other long term (current) drug therapy; Z88.2 Allergy status to sulfonamides; Z88.1 Allergy status to other antibiotic agents; Z88.8 Allergy status to other drugs, medicaments and biological substances; Z91.14 Patient's other noncompliance with medication regimen; Z59.819 Housing instability, housed unspecified
CPT/HCPCS: 36415; 80048; 80053; 82010; 82803; 82947; 83735; 84100; 85025; 93005; 93010; 96365; 96375; 96376; 99285-25; A9270; J0360; J0610; J1815; J7030

== ENCOUNTER 2022-09-21 20:43 | Inpatient (IN) | payer OTHER ==
[~2022-09-21] VITALS: Ht 175.3 cm; Wt 62.3 kg
[~2022-09-21 20:43] MED LIST changes: +HUMALOG JU100 UNIT/2 SC
[2022-09-21 21:10] LABS: Calcium, Ionized (POC) 0.99 mmol/L (1.10-1.46); Chloride (POC) 82 mmol/L (98-108); Glucose (ISTAT POC) >700 mg/dL (70-99); Potassium (POC) 7.3 mmol/L (3.5-5.5); Sodium (POC) 107 mmol/L (135-148); Total CO2 (POC) 6 mmol/L (21-32)
[2022-09-21 21:22] LABS: Hematocrit 42.6 % (37.0-53.0); Hemoglobin 13.1 g/dL (13.5-17.5); Mean Corpuscular HGB 30.1 pg (26.0-34.0); Mean Corpuscular HGB Conc 30.8 g/dL (31.5-36.5); Mean Corpuscular Volume 98 fL (80-100); Mean Platelet Volume 10.5 fL (9.1-12.4); Platelet Count 315 K/mm3 (150-400); RDW Coefficient Variation 12.7 % (11.7-14.2); RDW Standard Deviation 45.6 fL (35.1-46.3); Red Blood Cell Count 4.35 M/mm3 (4.30-5.90); White Blood Cell Count 28.58 K/mm3 (4.00-11.30)
[2022-09-21 21:26] LABS: Base Excess Venous -28.9 mmol/L; Bicarbonate Venous 6.6 mmol/L (24.0-30.0); PCO2 Venous 14.4 mmHg (38-42)
[2022-09-21 21:27] LABS: pH Blood Venous 6.95 (7.34-7.37)
[2022-09-21 21:43] LABS: Magnesium, Blood 2.9 mg/dL (1.6-2.4)
[2022-09-21 21:54] LABS: Alanine Aminotransfer (ALT/SGP 33 U/L (12-78); Albumin, Blood 2.5 g/dL (3.4-5.0); Albumin/Globulin Ratio 0.7 (0.8-1.8); Alk Phos 169 U/L (50-136); Aspartate Aminotrans (AST/SGOT 21 U/L (12-37); Bilirubin, Total 0.5 mg/dL (0.1-1.0); Blood Urea Nitrogen 66 mg/dL (8-24); Bun/Creatinine Ratio 35.1 (12.0-20.0); Calcium, Blood 8.2 mg/dL (8.5-10.1); Chloride, Blood 71 mmol/L (98-108); Creatinine, Blood 1.88 mg/dL (0.60-1.20); Globulin, Blood 3.7 g/dL (2.2-4.0); Glomerular Filtration Rate 46 (60-); Total Protein, Blood 6.2 g/dL (6.4-8.2)
[2022-09-21 21:57] LABS: Anion Gap 34 mmol/L (6-16); CO2, Blood 4 mmol/L (21-32); Glucose, Blood 1491 mg/dL (70-99); Potassium, Blood 7.2 mmol/L (3.5-5.5); Sodium, Blood 109 mmol/L (136-145)
[2022-09-21 21:59] LABS: Beta-hydroxybutyrate >138.0 mg/dL (0.2-2.8)
[2022-09-22] VITALS (41 sets, daily range): BP systolic 114–181; BP diastolic 64–90
[2022-09-22 00:15] LABS: Calcium, Ionized (POC) 1.07 mmol/L (1.10-1.46); Chloride (POC) 91 mmol/L (98-108); Creatinine (POC) 1.8 mg/dL (0.8-1.3); Glucose (ISTAT POC) >700 mg/dL (70-99); Hemoglobin (POC) 11.9 g/dL (13.5-17.5); Potassium (POC) 7.1 mmol/L (3.5-5.5); Sodium (POC) 119 mmol/L (135-148); Total CO2 (POC) 11 mmol/L (21-32)
[2022-09-22 00:22] LABS: Blood Urea Nitrogen 65 mg/dL (8-24); Bun/Creatinine Ratio 39.6 (12.0-20.0); CO2, Blood 8 mmol/L (21-32); Calcium, Blood 7.9 mg/dL (8.5-10.1); Chloride, Blood 85 mmol/L (98-108); Creatinine, Blood 1.64 mg/dL (0.60-1.20); Glomerular Filtration Rate 55 (60-); Glucose, Blood 1041 mg/dL (70-99)
[2022-09-22 00:23] LABS: Anion Gap 29 mmol/L (6-16); Sodium, Blood 122 mmol/L (136-145)
--- NOTE | 2022-09-22 01:03 | NUR ---
CRITICAL LABS CALLED TO DR. PRESLEY. SEE NEW ORDERS
[2022-09-22 01:11] LABS: Glucose, Blood 866 mg/dL (70-99)
[2022-09-22 02:19] LABS: Glucose, Blood 767 mg/dL (70-99)
[2022-09-22 03:22] LABS: Bun/Creatinine Ratio 40.8 (12.0-20.0); Calcium, Blood 8.9 mg/dL (8.5-10.1); Creatinine, Blood 1.47 mg/dL (0.60-1.20); Potassium, Blood 4.3 mmol/L (3.5-5.5)
[2022-09-22 04:06] LABS: Glucose, Blood 578 mg/dL (70-99)
[2022-09-22 06:28] LABS: Source, Urine Clean Catch
[2022-09-22 06:30] LABS: Bilirubin, Urine Neg (Neg); Blood, Urine 2+ (Neg); Glucose Qualitative, Urine 4+ (Neg); Ketones, Urine 4+ (Neg); Leukocyte Esterase, Urine Neg (Neg); Nitrite, Urine Neg (Neg); Protein, Urine 3+ (Neg); Specific Gravity, Urine 1.015 (1.003-1.022); Urobilinogen, Urine NORM (Normal)
--- NOTE | 2022-09-22 06:30 | NUR ---
SHIFT SUMMARY: CYNDY WAS ADMITTED TO THE UNIT FOR DKA. ON ARRIVAL HE WOULD OPEN HIS EYES TO VERBAL STIMULI, ANSWER SIMPLE QUESTIONS, FOLLOWED SOME INSTRUCTIONS. HE IS NOW FOLLOWING COMMANDS, AOX3, AND ABLE TO MAKE NEEDS KNOWN. ARRIVED ON INSULIN AT 5 UNITS/HR NOW DOWN TO 3 UNITS. BLOOD SUGARS 1041 WITH LAST BLOOD SUGAR 394. ANION GAP 19 FROM 34. CO2 18 FROM 4. NOW ON LR AT 150ML/HR TILL BLOOD SUGARS DOWN BELOW 250. UA SENT TO LAB THIS AM, PENDING RESULTS. WBC 28.58, NO WOUNDS, BUT IS COUGHING UP THICK CREAM SECRETIONS. LUNGS CLEAR. POOR APPETITE, STATES HAS NOT BEEN FEELING WELL FOR A COUPLE OF DAYS.HR SINUS TACH IN THE 110'S WITH OCCATIONAL SPIKES TO 130S. USES URINAL AT BEDSIDE. POWERGLIDE PLACED IN ROJELIO, FLUSHES AND DRAWS WELL, THERE IS 2.5CM NOTED OUT OF SKIN. WILL REPORT TO DAYSHIFT.
[2022-09-22 06:34] LABS: Appearance, Urine Clear (Clear); Color, Urine Pale Yellow (P-Yellow)
[2022-09-22 06:37] LABS: Squamous Epithelial Cells Few /hpf (Few); White Blood Cells, Urine Not Seen /hpf (0-5)
[2022-09-22 06:38] LABS: Bacteria Rare /hpf; Mucus Mod (0-Heavy)
[2022-09-22 08:26] LABS: Bun/Creatinine Ratio 44.5 (12.0-20.0); Calcium, Blood 8.6 mg/dL (8.5-10.1); Creatinine, Blood 1.1 mg/dL (0.60-1.20); Potassium, Blood 3.9 mmol/L (3.5-5.5)
[2022-09-22 11:40] LABS: BASOPHILS ABSOLUTE AUTO 0.08 K/mm3 (0.00-0.23); BASOPHILS PERCENT AUTO 0 % (0-2); EOSINOPHILS ABSOLUTE AUTO 0.07 K/mm3 (0.00-0.68); EOSINOPHILS PERCENT AUTO 0 % (0-6); Hematocrit 29.2 % (37.0-53.0); Hemoglobin 10.9 g/dL (13.5-17.5); IMMATURE GRAN ABSOLUTE AUTO 0.17 K/mm3 (0.00-0.10); IMMATURE GRAN PERCENT AUTO 1 % (0-1); LYMPHOCYTES PERCENT AUTO 11 % (21-46); MONOCYTES ABSOLUTE AUTO 1.78 K/mm3 (0.16-1.47); MONOCYTES PERCENT AUTO 8 % (4-13); Mean Corpuscular HGB 30.2 pg (26.0-34.0); Mean Corpuscular HGB Conc 37.3 g/dL (31.5-36.5); Mean Platelet Volume 8.6 fL (9.1-12.4); NEUTROPHILS ABSOLUTE AUTO 18.21 K/mm3 (1.96-9.15); NEUTROPHILS PERCENT AUTO 80 % (41-73); Platelet Count 525 K/mm3 (150-400); RDW Coefficient Variation 11.9 % (11.7-14.2); RDW Standard Deviation 34.7 fL (35.1-46.3); Red Blood Cell Count 3.61 M/mm3 (4.30-5.90); White Blood Cell Count 22.71 K/mm3 (4.00-11.30)
[2022-09-22 11:41] LABS: Mean Corpuscular Volume 81 fL (80-100)
[2022-09-22 11:53] LABS: Bun/Creatinine Ratio 42.2 (12.0-20.0); Calcium, Blood 8.2 mg/dL (8.5-10.1); Creatinine, Blood 0.93 mg/dL (0.60-1.20); Potassium, Blood 3.7 mmol/L (3.5-5.5)
[2022-09-22 16:35] LABS: Bun/Creatinine Ratio 41.1 (12.0-20.0); Creatinine, Blood 0.95 mg/dL (0.60-1.20); Potassium, Blood 3.8 mmol/L (3.5-5.5)
--- NOTE | 2022-09-22 16:54 | NUR ---
SHIFT SUMMARY NEURO: A/O CARDIAC: ST, BP WNL RESP: ROOM AIR TO MAINTAIN O2 SAT> 95% GI: NO NAUSEA/VOMITING. EATS WELL, CONSTANTLY REQUESTING FOOD AND FLUIDS. PO INTAKE >3LITERS THIS SHFIT. INCONTINENT OF BM X2. : VOIDS, REQUESTED PT USE CLEAN URINAL FOR UA, PT HAS BEEN VOIDING IN THE TOILET DESPITE REQUEST FOR URINE SAMPLE. SKIN: INTACT IV: PIV X2 FLUSHING WELL, PG FLUSHES AND DRAWS BLOOD. SEE ICU-C FLOWSHEET FOR TITRATIONS. CBG 357 WITH AC CHECK BEFORE DINNER. LABS REVEAL DKA RESOLVED. NOTIFIED. ORDERS RECIEVED TO CHANGE PT STATUS TO MEDICAL WITH TELE. BOAT BUFFER PLASTIC NOTIFIED.
--- NOTE | 2022-09-22 20:11 | NUR ---
ASSUMED CARE PT IS A&O X4; MAP >65; SPO2 >92% ON RA. NO C/O OF CP, SOB, OR NAUSEA. PT IS RESTING QUIETLY/DROWSY.
--- NOTE | 2022-09-22 21:34 | NUR ---
UPDATE PT TRANSFERED TO ROOM 324 W/ NO ISSUES. ALL BELONGINGS/MEDICATIONS W/ PT.
[2022-09-23 02:08] VITALS: BP 154/78
--- NOTE | 2022-09-23 04:59 | NUR ---
SHIFT SUMMARY 36 YR M TRANSFERED FROM ICU AFTER BEING ADMITTED FOR DKA. FULL CODE. NO ACUTE CHANGES THIS SHIFT. PT CONSTANTLY ASKS FOR FOOD AND GETS UPSET WHEN HE IS TOLD NO. IT HAS BEEN EXPLAINED TO HIM MANY TIMES THE REASON FOR KEEPING HIS BLOOD SUGAR WITHIN A NORMAL RANGE. HE STATED TO THIS NURSE THAT HE LETS HIS SUGARS GET SUPER HIGH ON PURPOSE SO THAT HE CAN COME TO THE HOSPITAL.
[2022-09-23 05:26] LABS: BASOPHILS ABSOLUTE AUTO 0.05 K/mm3 (0.00-0.23); BASOPHILS PERCENT AUTO 0 % (0-2); EOSINOPHILS PERCENT AUTO 1 % (0-6); Hematocrit 28.6 % (37.0-53.0); Hemoglobin 10.1 g/dL (13.5-17.5); IMMATURE GRAN ABSOLUTE AUTO 0.07 K/mm3 (0.00-0.10); IMMATURE GRAN PERCENT AUTO 0 % (0-1); LYMPHOCYTES ABSOLUTE AUTO 2.48 K/mm3 (0.84-5.20); LYMPHOCYTES PERCENT AUTO 15 % (21-46); MONOCYTES ABSOLUTE AUTO 0.84 K/mm3 (0.16-1.47); MONOCYTES PERCENT AUTO 5 % (4-13); Mean Corpuscular HGB 29.9 pg (26.0-34.0); Mean Corpuscular HGB Conc 35.3 g/dL (31.5-36.5); Mean Corpuscular Volume 85 fL (80-100); Mean Platelet Volume 8.9 fL (9.1-12.4); NEUTROPHILS PERCENT AUTO 78 % (41-73); Platelet Count 436 K/mm3 (150-400); RDW Coefficient Variation 12.6 % (11.7-14.2); RDW Standard Deviation 37.9 fL (35.1-46.3); Red Blood Cell Count 3.38 M/mm3 (4.30-5.90); White Blood Cell Count 16.34 K/mm3 (4.00-11.30)
[2022-09-23 06:08] LABS: Albumin, Blood 1.8 g/dL (3.4-5.0); Anion Gap Unable to Calculate mmol/L (6-16); Blood Urea Nitrogen 26 mg/dL (8-24); Bun/Creatinine Ratio 28.3 (12.0-20.0); CO2, Blood 34 mmol/L (21-32); Calcium, Blood 7.9 mg/dL (8.5-10.1); Chloride, Blood 105 mmol/L (98-108); Creatinine, Blood 0.92 mg/dL (0.60-1.20); Glomerular Filtration Rate 109 (60-); Glucose, Blood 253 mg/dL (70-99); Phosphorus, Blood 1.9 mg/dL (2.5-4.9); Potassium, Blood 3.5 mmol/L (3.5-5.5); Sodium, Blood 138 mmol/L (136-145)
[2022-09-23 07:39] VITALS: BP 181/103
[2022-09-23 07:41] VITALS: BP 161/73
[2022-09-23 16:18] VITALS: BP 151/102
[2022-09-23 16:19] VITALS: BP 151/102
--- NOTE | 2022-09-23 18:12 | NUR ---
No acute changes to patient status this shift. Patient AOx3, cooperative and pleasant with cares. MD assessed patient at bedside, plan is to continue diabetic management. Reported High BPs to MD, instructed to monitor vitals. Novalog SSI given ac. Patient ready for discharge this evening, patient agrees to wait for discharge instructions.
[2022-09-23 19:06] VITALS: BP 183/89
--- NOTE | 2022-09-24 00:18 | NUR ---
REMOVED PIV FROM RFA AND LUE, PG REMAINS. PT ASKING FOR REMOVAL OF IVS.
[2022-09-24 03:10] VITALS: BP 149/81
== END 2022-09-24 08:25 | disposition home or self-care (01) | DRG 637 ==
LOC: ER 20:43 → ICUW 22:45 → MEDS 09-22 21:31 → ENPENDDIS 09-23 18:42 → MEDS 09-23 21:51
PROVIDERS: Family Medicine; Student in an Organized Health Care Education/Training Program; ADMIT Internal Medicine
DX: E10.10 Type 1 diabetes mellitus with ketoacidosis without coma (principal); G92.8 Other toxic encephalopathy; R65.11 Systemic inflammatory response syndrome (SIRS) of non-infectious origin with acute organ dysfunction; N17.9 Acute kidney failure, unspecified; J44.9 Chronic obstructive pulmonary disease, unspecified; E87.5 Hyperkalemia; E83.39 Other disorders of phosphorus metabolism; E88.09 Other disorders of plasma-protein metabolism, not elsewhere classified; E86.0 Dehydration; D64.9 Anemia, unspecified; D75.839 Thrombocytosis, unspecified; I73.00 Raynaud's syndrome without gangrene; F17.210 Nicotine dependence, cigarettes, uncomplicated; F17.290 Nicotine dependence, other tobacco product, uncomplicated; M41.9 Scoliosis, unspecified; F15.11 Other stimulant abuse, in remission; M51.36 Other intervertebral disc degeneration, lumbar region; Z98.890 Other specified postprocedural states; Z88.8 Allergy status to other drugs, medicaments and biological substances; Z88.2 Allergy status to sulfonamides; Z88.1 Allergy status to other antibiotic agents; Z88.6 Allergy status to analgesic agent
CPT/HCPCS: 36415; 71045; 80047; 80048; 80053; 80069; 81001; 82010; 82803; 82947; 83735; 85014; 85025; 85027; 93005; 93010; 96374; 96375; 96376; 99285-25; A9270; C1751; J0612; J1815; J7030; J7042; J7120; J7799

== ENCOUNTER 2022-10-04 04:28 | Inpatient (IN) | payer OTHER ==
[2022-10-04] VITALS (44 sets, daily range): BP systolic 112–183; BP diastolic 59–130
[~2022-10-04] VITALS: Ht 185.4 cm; Wt 66.9 kg
[2022-10-04 05:16] LABS: BASOPHILS ABSOLUTE AUTO 0.23 K/mm3 (0.00-0.23); BASOPHILS PERCENT AUTO 1 % (0-2); EOSINOPHILS ABSOLUTE AUTO 0.03 K/mm3 (0.00-0.68); EOSINOPHILS PERCENT AUTO 0 % (0-6); Hematocrit 41.3 % (37.0-53.0); Hemoglobin 11.7 g/dL (13.5-17.5); IMMATURE GRAN ABSOLUTE AUTO 0.99 K/mm3 (0.00-0.10); IMMATURE GRAN PERCENT AUTO 3 % (0-1); LYMPHOCYTES ABSOLUTE AUTO 2.93 K/mm3 (0.84-5.20); LYMPHOCYTES PERCENT AUTO 9 % (21-46); MONOCYTES ABSOLUTE AUTO 1.64 K/mm3 (0.16-1.47); MONOCYTES PERCENT AUTO 5 % (4-13); Mean Corpuscular HGB 30.5 pg (26.0-34.0); Mean Corpuscular HGB Conc 28.3 g/dL (31.5-36.5); Mean Corpuscular Volume 108 fL (80-100); NEUTROPHILS ABSOLUTE AUTO 27.18 K/mm3 (1.96-9.15); NEUTROPHILS PERCENT AUTO 82 % (41-73); Platelet Count 836 K/mm3 (150-400); RDW Coefficient Variation 12.7 % (11.7-14.2); RDW Standard Deviation 49.5 fL (35.1-46.3); Red Blood Cell Count 3.83 M/mm3 (4.30-5.90)
[2022-10-04 06:25] LABS: Albumin, Blood 2.3 g/dL (3.4-5.0); Albumin/Globulin Ratio 0.5 (0.8-1.8); Alk Phos 196 U/L (50-136); Anion Gap 35 mmol/L (6-16); Aspartate Aminotrans (AST/SGOT 44 U/L (12-37); Bilirubin, Total 0.5 mg/dL (0.1-1.0); Blood Urea Nitrogen 59 mg/dL (8-24); Calcium, Blood 8.1 mg/dL (8.5-10.1); Chloride, Blood 71 mmol/L (98-108); Creatinine, Blood 1.64 mg/dL (0.60-1.20); Globulin, Blood 4.2 g/dL (2.2-4.0); Glomerular Filtration Rate 55 (60-); Glucose, Blood 1467 mg/dL (70-99); Total Protein, Blood 6.5 g/dL (6.4-8.2)
[2022-10-04 06:29] LABS: Alanine Aminotransfer (ALT/SGP 40 U/L (12-78)
[2022-10-04 06:30] LABS: Beta-hydroxybutyrate >138.0 mg/dL (0.2-2.8)
[2022-10-04 06:31] LABS: Potassium, Blood 6.6 mmol/L (3.5-5.5)
[2022-10-04 06:36] LABS: Sodium, Blood 109 mmol/L (136-145)
[2022-10-04 06:37] LABS: CO2, Blood 3 mmol/L (21-32)
[2022-10-04 06:49] LABS: Bun/Creatinine Ratio 34.1 (12.0-20.0); Calcium, Blood 7.7 mg/dL (8.5-10.1); Creatinine, Blood 1.7 mg/dL (0.60-1.20); Potassium, Blood 5.6 mmol/L (3.5-5.5)
--- NOTE | 2022-10-04 08:02 | NUR ---
CARE ASSUMPTION PT ARRIVING FROM ER TO ICU 15. PT ON RM AIR W RAPID DEEP BREATHING. PT'S BP WNL AND STABLE. CARDIAC MONITPR SHOWING ST 100'S. PT VERY UNCOMFORTABLE AND SHOUTING OUT IN PAIN W ANY MOVEMENT OR TOUCH. PT ON INSULIN GTT AT 5, GREEN TOP SENT TO LAB FOR GLUCOSE.
[2022-10-04 08:50] LABS: Glucose, Blood 1161 mg/dL (70-99)
[2022-10-04 10:10] LABS: Glucose, Blood 1084 mg/dL (70-99)
[2022-10-04 10:40] LABS: Bun/Creatinine Ratio 36.1 (12.0-20.0); Calcium, Blood 7.8 mg/dL (8.5-10.1); Creatinine, Blood 1.55 mg/dL (0.60-1.20); Potassium, Blood 4.6 mmol/L (3.5-5.5)
[2022-10-04 11:46] LABS: Glucose, Blood 832 mg/dL (70-99)
[2022-10-04 12:42] LABS: Glucose, Blood 705 mg/dL (70-99)
[2022-10-04 14:21] LABS: Glucose, Blood 641 mg/dL (70-99)
[2022-10-04 14:22] LABS: Calcium, Blood 8.1 mg/dL (8.5-10.1); Creatinine, Blood 1.37 mg/dL (0.60-1.20)
--- NOTE | 2022-10-04 18:09 | NUR ---
DAYSHIFT SUMMARY PT HAS REMAINED VERY TIRED THIS SHIFT REFUSING TO STAY AWAKE OR ENGAGE IN CONVERSATION. PT IS AROUSEABLE TO SPEECH BUT IS RESISTANT TO CARE. CBG'S TRENDING DOWN ALL SHIFT W INSULIN GTT RUNNING AT 5 UNITS/HR. INSULIN GTT TURNED UP TO 6 AT 1700 AND REMAINS THER AT THIS TIME. 1800 CBG SHOWED 252 SO PROVIDER CONTACTED AND NOTIFIED OF GAP CLOSED AND CO2 CORRECTED W LOWER BLOOD GLUCOSE SO D5W 1/2NS WAS ORDERED THE PT IS NOT AWAKE ENOUGH TO EAT. BP TRENDING UP ALL SHIFT THE PT IS NOW MODERATELY HYPERTENSIVE. MONITOR HAS SHOWN ST 100-110'S THIS SHIFT. SPO2 >92% ON RM AIR. PT AFEBRILE. PT W KUSSMALS RESPIRATIONS ON ADMISSION WHICH HAS NOW RESOLVED AND RESP ARE NOW EVEN AND UNLABORED. PT RECIEVED ONE LITER OF NA BICARB PER MD ORDER. PT REFUSING HIS LOVENOX THIS SHIFT. PT CURRENTLY LYING IN BED COMFORTABLY ON RM AIR W CALL LIGHT WITHIN REACH. WILL REPORT TO ISABEL VANN.
[2022-10-04 18:25] LABS: Bun/Creatinine Ratio 40.4 (12.0-20.0); Calcium, Blood 8.1 mg/dL (8.5-10.1); Creatinine, Blood 1.14 mg/dL (0.60-1.20); Potassium, Blood 3.6 mmol/L (3.5-5.5)
--- NOTE | 2022-10-04 18:49 | NUR ---
UPDATE PROVIDER CONTACTED AND NOTIFIED OF 1800 ANION GAP AND CO2. ORDERS RECIEVED TO STOP INSULIN GTT AND D5W 1/2NS. PT STARTED ON NS AT 100ML/HR AND ORDERED A DIET. ORDER TO GIVE 10 UNITS LANTUS ONCE PT EATS. ORDER TO CONTINUE Q1H CBG CHECKS UNTIL STABLE AND THEN AC/HS W MEDIUM SS. PT AWAKE AND AGREEING TO EAT.
--- NOTE | 2022-10-04 19:10 | NUR ---
ASSUMED CARE PATIENT IN BED SLEEPING. NO FAMILY AT BEDSIDE.
[2022-10-04 22:03] LABS: Bun/Creatinine Ratio 40.6 (12.0-20.0); Creatinine, Blood 1.01 mg/dL (0.60-1.20); Potassium, Blood 3.8 mmol/L (3.5-5.5)
[2022-10-05] VITALS: BP 182/89
[2022-10-05 01:00] VITALS: BP 138/67
[2022-10-05 02:09] LABS: BASOPHILS ABSOLUTE AUTO 0.07 K/mm3 (0.00-0.23); BASOPHILS PERCENT AUTO 0 % (0-2); EOSINOPHILS ABSOLUTE AUTO 0.07 K/mm3 (0.00-0.68); EOSINOPHILS PERCENT AUTO 0 % (0-6); Hematocrit 26.7 % (37.0-53.0); Hemoglobin 9.6 g/dL (13.5-17.5); IMMATURE GRAN ABSOLUTE AUTO 0.12 K/mm3 (0.00-0.10); IMMATURE GRAN PERCENT AUTO 1 % (0-1); LYMPHOCYTES PERCENT AUTO 8 % (21-46); MONOCYTES ABSOLUTE AUTO 1.27 K/mm3 (0.16-1.47); MONOCYTES PERCENT AUTO 5 % (4-13); Mean Corpuscular HGB 29.9 pg (26.0-34.0); Mean Platelet Volume 8.6 fL (9.1-12.4); NEUTROPHILS ABSOLUTE AUTO 20.33 K/mm3 (1.96-9.15); NEUTROPHILS PERCENT AUTO 86 % (41-73); Platelet Count 607 K/mm3 (150-400); RDW Coefficient Variation 12.1 % (11.7-14.2); RDW Standard Deviation 36.3 fL (35.1-46.3); Red Blood Cell Count 3.21 M/mm3 (4.30-5.90); White Blood Cell Count 23.66 K/mm3 (4.00-11.30)
[2022-10-05 02:12] LABS: Mean Corpuscular Volume 83 fL (80-100)
[2022-10-05 02:22] LABS: Albumin, Blood 1.6 g/dL (3.4-5.0); Albumin/Globulin Ratio 0.5 (0.8-1.8); Bilirubin, Total 0.2 mg/dL (0.1-1.0); Bun/Creatinine Ratio 41.1 (12.0-20.0); Calcium, Blood 7.7 mg/dL (8.5-10.1); Creatinine, Blood 0.95 mg/dL (0.60-1.20); Globulin, Blood 3.2 g/dL (2.2-4.0); Total Protein, Blood 4.8 g/dL (6.4-8.2)
[2022-10-05 04:00] VITALS: BP 186/83
[2022-10-05 04:27] VITALS: BP 153/84
--- NOTE | 2022-10-05 06:25 | NUR ---
SHIFT SUMMARY PATIENT SLEPT MAJORITY OF THE NIGHT. VERY IRRITABLE. VS STABLE. URINE OUTPUT ADEQUATE
--- NOTE | 2022-10-05 07:22 | NUR ---
REPORT RECEIVED FROM CARLOS VANN IN ICU AT 1211
[2022-10-05 07:44] VITALS: BP 139/89
[2022-10-05 10:51] LABS: Bun/Creatinine Ratio 36.2 (12.0-20.0); Calcium, Blood 7.6 mg/dL (8.5-10.1); Creatinine, Blood 0.91 mg/dL (0.60-1.20); Potassium, Blood 4.1 mmol/L (3.5-5.5)
--- NOTE | 2022-10-05 16:59 | NUR ---
SHIFT SUMMARY PATIENT LETHARGIC THIS MORNING, REFUSED HIS LOVENOX. REQUESTING SNACKS, 8 SO FAR DURING SHIFT. BG AT [facility] WAS 394. PATIENT REQUESTING ADDITIONAL SNACKS. MD NOTIFIED. ADDITIONAL INSULIN ORDERED BY MD. PATIENT CUSSING WHEN NOT GIVEN ALL THE SNACKS HE WANTS AND BEGAN YELLING AND THROWING ITEMS ACROSS THE ROOM. SECURITY CALLED. PATIENT TALKED DOWN BY KEREN. PATIENT SIGNED MAD CONTRACT AND WAS NOT DISCHARGED. ADDITIONAL SNACKS GIVEN. WILL CONTINUE TO MONITOR.
--- NOTE | 2022-10-05 17:59 | NUR ---
THIS INGREDIENT SPECIALIST HAS REVIEWED AND AGREES WITH ALL NOTES AND ASSESSMENTS BY SOO SEVERINO.
--- NOTE | 2022-10-06 07:51 | NUR ---
FREQUENT REQUESTS FOR SNACKS. PROVIDED LOW CARB SNACKS AND DIET SODA. NO OTHER CHANGES NOTED IN PATIENT CONDITION. BLOOD SUGARS IN 300S.
[2022-10-06 08:11] VITALS: BP 176/85
[2022-10-06 08:57] LABS: BASOPHILS ABSOLUTE AUTO 0.06 K/mm3 (0.00-0.23); BASOPHILS PERCENT AUTO 1 % (0-2); EOSINOPHILS ABSOLUTE AUTO 0.06 K/mm3 (0.00-0.68); EOSINOPHILS PERCENT AUTO 1 % (0-6); Hematocrit 32.6 % (37.0-53.0); Hemoglobin 10.9 g/dL (13.5-17.5); IMMATURE GRAN ABSOLUTE AUTO 0.03 K/mm3 (0.00-0.10); IMMATURE GRAN PERCENT AUTO 0 % (0-1); LYMPHOCYTES ABSOLUTE AUTO 2.02 K/mm3 (0.84-5.20); LYMPHOCYTES PERCENT AUTO 21 % (21-46); MONOCYTES ABSOLUTE AUTO 0.58 K/mm3 (0.16-1.47); MONOCYTES PERCENT AUTO 6 % (4-13); Mean Corpuscular HGB 29.5 pg (26.0-34.0); Mean Corpuscular HGB Conc 33.4 g/dL (31.5-36.5); Mean Corpuscular Volume 88 fL (80-100); Mean Platelet Volume 8.6 fL (9.1-12.4); NEUTROPHILS ABSOLUTE AUTO 7.09 K/mm3 (1.96-9.15); NEUTROPHILS PERCENT AUTO 72 % (41-73); Platelet Count 523 K/mm3 (150-400); RDW Coefficient Variation 13.2 % (11.7-14.2); RDW Standard Deviation 41.9 fL (35.1-46.3); White Blood Cell Count 9.84 K/mm3 (4.00-11.30)
[2022-10-06 09:16] LABS: Albumin, Blood 1.7 g/dL (3.4-5.0); Anion Gap 2 mmol/L (6-16); Blood Urea Nitrogen 22 mg/dL (8-24); Bun/Creatinine Ratio 29.5 (12.0-20.0); CO2, Blood 29 mmol/L (21-32); Calcium, Blood 7.8 mg/dL (8.5-10.1); Chloride, Blood 102 mmol/L (98-108); Creatinine, Blood 0.75 mg/dL (0.60-1.20); Glomerular Filtration Rate 118 (60-); Glucose, Blood 380 mg/dL (70-99); Phosphorus, Blood 2.2 mg/dL (2.5-4.9); Sodium, Blood 133 mmol/L (136-145)
--- NOTE | 2022-10-06 09:20 | NUR ---
Maladaptive and disruptive Behavior order received on this patient. After review of patients chart, this property underwriter went to discuss with patient the concerns expressed by the nursing staff. Patient indicated he signed a behavioral contract, there is no fucking reason for you to be here. I indicated his behavior is the reason I am here and that he needed to know his behavior is unacceptable and will not be tolerated. Patient continued to be confrontational, agressive, and verbally loud. After informing patient of what is acceptable behavior this property underwriter left the patients room. Patient could be heard from the hallways asking for perscriptions and wanting to go home.
[2022-10-06] MEDS ORDERED: HUMALOG KW100 UNIT/1 SC (09:34)
--- NOTE | 2022-10-06 09:52 | NUR ---
DISCHARGE SUMMARY PATIENT REQUESTING ADDITIONAL SNACKS TODAY, LABILE WITH EMOTION, WALKING HALLS AND REQUESTING DISCHARGE NICOLLE. PATIENT EDUCATION PROVIDED ON DKA AND SUGAR IN DIET. DISCHARGE PACKET GIVEN AND SIGNED BY PATIENT AND PATIENT LEFT FLOOR AT 0949 ON 10/06/22
--- NOTE | 2022-10-06 11:27 | NUR ---
THIS COATING MIXER HAS REVIEWED AND AGREES WITH ALL NOTES AND ASSESSMENTS BY SOO SEVERINO.
== END 2022-10-06 09:50 | disposition home or self-care (01) | DRG 637 ==
LOC: ER 04:28 → ERHOLD 05:57 → MEDS 05:57 → ICUW 07:29 → MEDS 10-05 07:41 → ENPENDDIS 10-06 09:14 → MEDS 10-06 09:50
PROVIDERS: Emergency Medicine; Family Medicine; ADMIT Internal Medicine
DX: E10.10 Type 1 diabetes mellitus with ketoacidosis without coma (principal); G92.8 Other toxic encephalopathy; E87.1 Hypo-osmolality and hyponatremia; N17.9 Acute kidney failure, unspecified; E87.5 Hyperkalemia; D72.828 Other elevated white blood cell count; E87.6 Hypokalemia; D75.839 Thrombocytosis, unspecified; D69.6 Thrombocytopenia, unspecified; E88.09 Other disorders of plasma-protein metabolism, not elsewhere classified; E83.39 Other disorders of phosphorus metabolism; I10 Essential (primary) hypertension; E86.0 Dehydration; D63.8 Anemia in other chronic diseases classified elsewhere; J44.9 Chronic obstructive pulmonary disease, unspecified; F15.10 Other stimulant abuse, uncomplicated; G89.29 Other chronic pain; M54.9 Dorsalgia, unspecified; M41.9 Scoliosis, unspecified; I73.00 Raynaud's syndrome without gangrene; F17.210 Nicotine dependence, cigarettes, uncomplicated; Z91.148 Patient's other noncompliance with medication regimen for other reason; Z88.1 Allergy status to other antibiotic agents; Z88.2 Allergy status to sulfonamides; Z88.8 Allergy status to other drugs, medicaments and biological substances; Z88.6 Allergy status to analgesic agent; Z79.4 Long term (current) use of insulin
CPT/HCPCS: 36415; 80048; 80053; 80069; 82010; 82800; 82947; 83036; 85025; 93005; 93010; 96361; 96374; 96375; 99285-25; A9270; C1751; J0612; J1650; J1815; J7030; J7042

== ENCOUNTER 2022-10-21 01:08 | Inpatient (IN) | payer OTHER ==
[2022-10-21] VITALS (32 sets, daily range): BP systolic 105–168; BP diastolic 45–95
[~2022-10-21] VITALS: Ht 175.3 cm; Wt 63.3 kg
[2022-10-21 01:25] LABS: Bicarbonate Venous 5.4 mmol/L (24.0-30.0); PCO2 Venous 17.7 mmHg (38-42); pH Blood Venous 6.86 (7.34-7.37)
[2022-10-21 01:26] LABS: Base Excess Venous -30.3 mmol/L
[2022-10-21 01:48] LABS: Hemoglobin 11.4 g/dL (13.5-17.5); Mean Corpuscular HGB 30.2 pg (26.0-34.0); Mean Corpuscular HGB Conc 27.1 g/dL (31.5-36.5); Mean Corpuscular Volume 111 fL (80-100); Mean Platelet Volume 9.8 fL (9.1-12.4); NRBC ABSOLUTE 0.02 K/mm3 (0.00-0.02); NRBC Auto 0.1 /100 WBC (0.0-0.2); Platelet Count 616 K/mm3 (150-400); RDW Coefficient Variation 13.2 % (11.7-14.2); RDW Standard Deviation 54.3 fL (35.1-46.3); Red Blood Cell Count 3.78 M/mm3 (4.30-5.90); White Blood Cell Count 32.14 K/mm3 (4.00-11.30)
[2022-10-21 02:11] LABS: Alanine Aminotransfer (ALT/SGP 35 U/L (12-78); Albumin, Blood 2.3 g/dL (3.4-5.0); Albumin/Globulin Ratio 0.6 (0.8-1.8); Alk Phos 206 U/L (50-136); Anion Gap 36 mmol/L (6-16); Aspartate Aminotrans (AST/SGOT 30 U/L (12-37); Bilirubin, Total 0.4 mg/dL (0.1-1.0); Blood Urea Nitrogen 51 mg/dL (8-24); Bun/Creatinine Ratio 31.7 (12.0-20.0); CO2, Blood 2 mmol/L (21-32); Calcium, Blood 7.7 mg/dL (8.5-10.1); Chloride, Blood 74 mmol/L (98-108); Creatinine, Blood 1.61 mg/dL (0.60-1.20); Glomerular Filtration Rate 56 (60-); Glucose, Blood 1452 mg/dL (70-99); Sodium, Blood 112 mmol/L (136-145); Total Protein, Blood 6.3 g/dL (6.4-8.2)
[2022-10-21 02:18] LABS: BAND PERCENT MAN 4 % (0-8); BASOPHILS PERCENT MAN 0 % (0-2); EOSINOPHILS PERCENT MAN 0 % (0-6); LYMPHOCYTES ABSOLUTE MAN 2.89 K/mm3 (0.84-5.20); LYMPHOCYTES PERCENT MAN 9 % (21-46); METAMYELOCYTE ABSOLUTE MAN 0.32 K/mm3 (0.00-0.00); METAMYELOCYTE PERCENT MAN 1 % (0-0); MONOCYTES ABSOLUTE MAN 1.28 K/mm3 (0.16-1.47); MONOCYTES PERCENT MAN 4 % (4-13); MYELOCYTE ABSOLUTE MAN 1.28 K/mm3 (0.00-0.00); MYELOCYTE PERCENT MAN 4 % (0-0); NEUTROPHILS ABSOLUTE MAN 26.35 K/mm3 (1.96-9.15); SEG NEUTROPHILS PERCENT MAN 78 % (41-73); TOTAL CELLS COUNTED 100
--- NOTE | 2022-10-21 03:30 | NUR ---
ADMIT RECEIVED FROM ER VIA [facility]. PT IS ABLE TO MOVE SELF FROM GURNEY TO BED. REPEATEDLY ASKS FOR WATER EVEN THOUGH HE IS DRY HEAVING. PT BECOMES BELLIGERENT WHEN INFORMED THAT HE IS NPO. CURSING AT STAFF AND IS UNCOOPERATIVE WITH SOME CARE. MONITOR SHOWS ST, RATE 100-110s. BP STABLE. AFEBRILE. KUSSMAUL RESPIRATIONS NOTED. RA SATS STABLE. NO URINE VOID YET. INSULIN GTT AT 6UNITS/HR. NS BOLUS FINISHING. SEE ADMIT ASSESSMENT FOR FULL ASSESSMENT.
[2022-10-21 04:35] LABS: Bun/Creatinine Ratio 33.8 (12.0-20.0); Calcium, Blood 6.9 mg/dL (8.5-10.1); Creatinine, Blood 1.48 mg/dL (0.60-1.20); Potassium, Blood 5.8 mmol/L (3.5-5.5)
[2022-10-21 06:11] LABS: Glucose, Blood 1250 mg/dL (70-99)
--- NOTE | 2022-10-21 06:53 | NUR ---
SHIFT SUMMARY NO ACUTE CHANGES. PT CONTINUES TO BE IRRITABLE AND OCCASIONALLY UNCOOPERATIVE WITH SOME CARE. INSULIN GTT NOW AT 11UNITS/HR- GLUCOSE IS STILL CRITICALLY HIGH AND MOST RECENT RESULTS ARE PENDING AT THIS TIME. NS INFUSING AT 250MLS/HR. REMAINS NPO. VSS. WILL REPORT TO ONCOMING RN WHEN AVAILABLE.
--- NOTE | 2022-10-21 07:01 | NUR ---
Assumed care. Report received from adalgisa RN. Pt sleeping in room at time of report. Insulin infusing at 11 units/hr. NS infusing at 250 ml/hr. VS stable, continue to monitor.
[2022-10-21 07:25] LABS: Glucose, Blood 1136 mg/dL (70-99)
[2022-10-21 08:24] LABS: Glucose, Blood 985 mg/dL (70-99)
[2022-10-21 09:01] LABS: Glucose, Blood 883 mg/dL (70-99)
[2022-10-21 10:06] LABS: Glucose, Blood 776 mg/dL (70-99)
[2022-10-21 10:55] LABS: Bun/Creatinine Ratio 31.4 (12.0-20.0); Calcium, Blood 7.8 mg/dL (8.5-10.1); Creatinine, Blood 1.56 mg/dL (0.60-1.20)
[2022-10-21 11:03] LABS: Glucose, Blood 684 mg/dL (70-99)
[2022-10-21 11:05] LABS: Potassium, Blood 3.8 mmol/L (3.5-5.5)
[2022-10-21 11:54] LABS: Glucose, Blood 586 mg/dL (70-99)
[2022-10-21 14:34] LABS: Bun/Creatinine Ratio 34.1 (12.0-20.0); Calcium, Blood 7.5 mg/dL (8.5-10.1); Creatinine, Blood 1.26 mg/dL (0.60-1.20); Potassium, Blood 3.8 mmol/L (3.5-5.5)
--- NOTE | 2022-10-21 18:29 | NUR ---
Shift summary. Pt rested in bed throughout shift. Insulin titrated down to 3 units/hr, scheduled to be titrated off at 1910, see nurse notify. Pt up to commode without difficulty, slept through most of the shift. Orders obtained to transition pt back to ADA diet and SC insulin regiment. No acute events this shift. See assessment for further details. Will continue to monitor and report off to rimma VANN.
--- NOTE | 2022-10-21 19:00 | NUR ---
ASSUMED CARE ASSUMED CARE OF PATIENT. RESTING QUIETLY AT THIS TIME, BUT IS IRRITABLE WHEN AWAKE. RECENTLY FINISHED EATING- TOLERATED WELL. INSULIN GTT TO BE DISCONTINUED NOW. DENIES C/O NAUSEA OR PAIN AT THIS TIME. MONITOR SHOWS ST, RATE 100-105. BP STABLE. RA SATS STABLE. RESPIRATIONS EVEN AND UNLABORED. SEE SHIFT ASSESSMENT FOR FULL ASSESSMENT.
[2022-10-22] VITALS: BP 149/76
--- NOTE | 2022-10-22 00:45 | NUR ---
TRANSFER TRANSFER TO MEDICAL FLOOR, ROOM 360 VIA WHEELCHAIR. REPORT GIVEN TO HAWA PIERRE RN.
[2022-10-22 01:04] VITALS: BP 159/96
[2022-10-22 05:55] LABS: BASOPHILS ABSOLUTE AUTO 0.05 K/mm3 (0.00-0.23); BASOPHILS PERCENT AUTO 0 % (0-2); EOSINOPHILS PERCENT AUTO 1 % (0-6); Hematocrit 25.2 % (37.0-53.0); Hemoglobin 8.9 g/dL (13.5-17.5); IMMATURE GRAN ABSOLUTE AUTO 0.12 K/mm3 (0.00-0.10); IMMATURE GRAN PERCENT AUTO 1 % (0-1); LYMPHOCYTES ABSOLUTE AUTO 2.67 K/mm3 (0.84-5.20); LYMPHOCYTES PERCENT AUTO 16 % (21-46); MONOCYTES ABSOLUTE AUTO 0.84 K/mm3 (0.16-1.47); MONOCYTES PERCENT AUTO 5 % (4-13); Mean Corpuscular HGB 30.2 pg (26.0-34.0); Mean Corpuscular HGB Conc 35.3 g/dL (31.5-36.5); Mean Platelet Volume 8.5 fL (9.1-12.4); NEUTROPHILS ABSOLUTE AUTO 12.97 K/mm3 (1.96-9.15); NEUTROPHILS PERCENT AUTO 78 % (41-73); Platelet Count 389 K/mm3 (150-400); RDW Coefficient Variation 13.7 % (11.7-14.2); RDW Standard Deviation 41.9 fL (35.1-46.3); Red Blood Cell Count 2.95 M/mm3 (4.30-5.90); White Blood Cell Count 16.75 K/mm3 (4.00-11.30)
[2022-10-22 05:57] LABS: Mean Corpuscular Volume 85 fL (80-100)
[2022-10-22 06:08] LABS: Bun/Creatinine Ratio 28.7 (12.0-20.0); Calcium, Blood 7.7 mg/dL (8.5-10.1); Creatinine, Blood 0.97 mg/dL (0.60-1.20); Potassium, Blood 3.7 mmol/L (3.5-5.5)
--- NOTE | 2022-10-22 06:18 | NUR ---
RECIEVED PATIENT FROM ICU, ALERT AND ORIENTED X4. PATIENT NOT COOPERATIVE WITH NUTRITION/DIABETIC EDUCATION. NO OTHER ISSUES TO REPORT.
[2022-10-22 08:01] VITALS: BP 124/74
--- NOTE | 2022-10-22 15:07 | NUR ---
PT DISCHARGE HOME. DC INSTRUCTIONS AND EDUCATION MATERIAL EXPLAIND TO PT. NO NEW QUESTIONS OR CONCERNS. PERSCRIPTION MEDICATIONS FAXED TO [facility] PER PT REQUEST. PT GATHERED UP BELONGS INDEPENDENTLY. REMINDED PT TO CHECK DRAWERS AND CUPBOARDS FOR BELONGINGS. IV AND POWER GLIDE DC'D. PT TOLERATED WELL. PT DECLINED WHEELCHAIR FOR DC. PT ABLE TO WALK IND. WITH MOTHER TO WAITING VEHICLE.
== END 2022-10-22 14:01 | disposition home or self-care (01) | DRG 638 ==
LOC: ER 01:08 → ICUW 02:18 → MEDS 10-22 00:56 → ENPENDDIS 10-22 12:07 → MEDS 10-22 14:01
PROVIDERS: Internal Medicine; Internal Medicine Critical Care Medicine; Student in an Organized Health Care Education/Training Program; ADMIT Internal Medicine
DX: E10.10 Type 1 diabetes mellitus with ketoacidosis without coma (principal); E87.1 Hypo-osmolality and hyponatremia; R65.10 Systemic inflammatory response syndrome (SIRS) of non-infectious origin without acute organ dysfunction; N17.9 Acute kidney failure, unspecified; E87.5 Hyperkalemia; R94.31 Abnormal electrocardiogram [ECG] [EKG]; E86.0 Dehydration; M51.36 Other intervertebral disc degeneration, lumbar region; J44.9 Chronic obstructive pulmonary disease, unspecified; F15.11 Other stimulant abuse, in remission; I73.00 Raynaud's syndrome without gangrene; M54.9 Dorsalgia, unspecified; G89.29 Other chronic pain; F17.210 Nicotine dependence, cigarettes, uncomplicated; Z90.89 Acquired absence of other organs; Z98.890 Other specified postprocedural states; Z88.8 Allergy status to other drugs, medicaments and biological substances; Z88.2 Allergy status to sulfonamides; Z79.4 Long term (current) use of insulin
CPT/HCPCS: 80048; 80053; 82803; 82947; 85025; 93005; 93010; 96365; 96375; 99285-25; A9270; C1751; J0612; J1815; J7030

== ENCOUNTER 2022-11-10 00:20 | Inpatient (IN) | payer OTHER ==
[2022-11-10] VITALS (8 sets, daily range): BP systolic 118–167; BP diastolic 62–104
[~2022-11-10] VITALS: Ht 177.8 cm; Wt 60.0 kg
[2022-11-10 01:55] LABS: Bicarbonate Venous 8.1 mmol/L (24.0-30.0); pH Blood Venous 7.01 (7.34-7.37)
[2022-11-10 02:41] LABS: BASOPHILS ABSOLUTE AUTO 0.15 K/mm3 (0.00-0.23); BASOPHILS PERCENT AUTO 1 % (0-2); EOSINOPHILS ABSOLUTE AUTO 0.09 K/mm3 (0.00-0.68); EOSINOPHILS PERCENT AUTO 1 % (0-6); Hematocrit 40.6 % (37.0-53.0); Hemoglobin 12.3 g/dL (13.5-17.5); IMMATURE GRAN ABSOLUTE AUTO 0.26 K/mm3 (0.00-0.10); IMMATURE GRAN PERCENT AUTO 2 % (0-1); LYMPHOCYTES ABSOLUTE AUTO 1.96 K/mm3 (0.84-5.20); LYMPHOCYTES PERCENT AUTO 14 % (21-46); MONOCYTES ABSOLUTE AUTO 0.88 K/mm3 (0.16-1.47); MONOCYTES PERCENT AUTO 6 % (4-13); Mean Corpuscular HGB 31.3 pg (26.0-34.0); Mean Corpuscular HGB Conc 30.3 g/dL (31.5-36.5); Mean Corpuscular Volume 103 fL (80-100); NEUTROPHILS ABSOLUTE AUTO 10.64 K/mm3 (1.96-9.15); NEUTROPHILS PERCENT AUTO 76 % (41-73); NRBC ABSOLUTE 0.02 K/mm3 (0.00-0.02); NRBC Auto 0.1 /100 WBC (0.0-0.2); RDW Coefficient Variation 14.3 % (11.7-14.2); RDW Standard Deviation 54.1 fL (35.1-46.3); Red Blood Cell Count 3.93 M/mm3 (4.30-5.90); White Blood Cell Count 13.98 K/mm3 (4.00-11.30)
[2022-11-10 02:48] LABS: Platelet Count 403 K/mm3 (150-400)
[2022-11-10 02:56] LABS: Albumin, Blood 2.2 g/dL (3.4-5.0); Albumin/Globulin Ratio 0.5 (0.8-1.8); Bilirubin, Total 0.6 mg/dL (0.1-1.0); Bun/Creatinine Ratio 25.2 (12.0-20.0); Calcium, Blood 8.4 mg/dL (8.5-10.1); Creatinine, Blood 1.07 mg/dL (0.60-1.20); Globulin, Blood 4.2 g/dL (2.2-4.0); Potassium, Blood 5.3 mmol/L (3.5-5.5); Total Protein, Blood 6.4 g/dL (6.4-8.2)
--- NOTE | 2022-11-10 05:38 | NUR ---
PATIENT TO ICU 2 FROM ER AT 0430. PATIENT IS ALERT AND AGITATED. YELLING AT STAFF WHEN TRYING TO PROVIDE CARE. PATIENT NOT WILLING TO ANSWER QUESTIONS. ATTMEPTED TO GET PATIENT TO WEAR A GOWN, PATIENT REFUSED. 02 SATS >95% ON RA, TACHYPNIEC. HR ST 130s, BP STABLE. PATIENT ABLE TO USE URINAL, VOIDED 1550 MLS. IV IN NICKOLAS INFILTRATED, REMOVED IV. UNABLE TO INFUSE MEDS UNTIL POWERGLIDE WAS INSERTED IN ROJELIO. CALL LIGHT IN REACH.
[2022-11-10 06:05] LABS: Bun/Creatinine Ratio 25.6 (12.0-20.0); Calcium, Blood 7.9 mg/dL (8.5-10.1); Creatinine, Blood 1.21 mg/dL (0.60-1.20); Potassium, Blood 5.2 mmol/L (3.5-5.5)
[2022-11-10 07:17] LABS: Bun/Creatinine Ratio 25.2 (12.0-20.0); Calcium, Blood 7.9 mg/dL (8.5-10.1); Creatinine, Blood 1.15 mg/dL (0.60-1.20)
[2022-11-10 08:09] LABS: Glucose, Blood 750 mg/dL (70-99)
--- NOTE | 2022-11-10 08:25 | NUR ---
SHIFT ASSESSMENT ASSUMED CARE OF PT @ 0700. PT IN BED WITH COVER OVER HIS HEAD. WHEN ASKED QUESTIONS PT WILL YELL OUT "I'M HUNGRY, GET ME SOME FOOD". REFUSES TO INTERACT WITH STAFF. PHYSICIAN AND MEDICAL STUDENT IN ROOM, PT REFUSES TO INTERACT WITH THEM WELL. WHILE ATTEMPTING A DETAILED ASSESSMENT PT YELLS "I NEED TO POOP, THEY WON'T LET ME POOP". THIS NURSE MANAGED LINES WHILE PT WALKED WITHOUT DIFFICULTY TO BS. PT SPEAKING IN FULL SENTENCES, DEMANDING THE WINDOWS TO BE CLOSED WELL DOOR, THEN DEMANDING FOOD. INFORMED PT HE IS CURRENTLY NPO, WE WILL GET HIM FOOD NICOLLE. Q1 CBG'S TITRATING INSULIN GTT, CURRENTLY @ 6U/HR. LR BOLUS INFUSING NOW X 2.
[2022-11-10 09:51] LABS: Bun/Creatinine Ratio 22.6 (12.0-20.0); Calcium, Blood 8.1 mg/dL (8.5-10.1); Creatinine, Blood 1.06 mg/dL (0.60-1.20); Potassium, Blood 3.4 mmol/L (3.5-5.5)
--- NOTE | 2022-11-10 11:25 | NUR ---
UPDATE PT IN ROOM CALLING OUT, THIS NURSE INTO ROOM TO SEE WHAT'S WRONG. PT STATES "I'M HUNGRY, ROAST BEEF SANDWICH NOW". THIS NURSE INFORMED PT THAT LUNCH WILL BE HERE IN ABOUT 15 MINUTES. PT CONTINUES TO YELL AT NURSE, TOOK OFF ECG LEADS, NOT ALLOWING NURSE TO PUT THEM BACK ON, REFUSING CLOSE CONTACT WITH STAFF. WILL MONITOR CLOSELY.
[2022-11-10 11:33] LABS: Bun/Creatinine Ratio 23.9 (12.0-20.0); Calcium, Blood 8.2 mg/dL (8.5-10.1); Creatinine, Blood 0.92 mg/dL (0.60-1.20); Potassium, Blood 3.8 mmol/L (3.5-5.5)
--- NOTE | 2022-11-10 11:50 | NUR ---
PROVIDED PT WITH ROAST BEEF AND WATER, STILL AWAITING LUNCH TRAY. PT REMAINS NONCOMPLIANT. INFORMED PT OF THE REASONING FOR ECG LEADS AND THE CARDIAC RISKS INVOLVED WITH THE ELCTROLYTE IMBALANCE SECONDARY TO DKA. PT STILL REFUSES TO ALLOW THIS NURSE TO PLACE NEW ECG LEADS ON.
[2022-11-10 13:31] LABS: Bun/Creatinine Ratio 20.4 (12.0-20.0); Calcium, Blood 8.3 mg/dL (8.5-10.1); Creatinine, Blood 0.88 mg/dL (0.60-1.20)
--- NOTE | 2022-11-10 14:07 | NUR ---
UPDATE TRANSITIONING PT TO DAILY INSULIN DOSING. D5-1/2NS @ 150 AND INSULIN GTT @ 2U/HR. PT ALLOWED THIS NURSE TO ADMINSTER SC GLARGINE BUT CONTINUES TO NOT ALLOW BP/ PULSE/ ECG LEADS.
[2022-11-10 16:36] LABS: Albumin, Blood 1.7 g/dL (3.4-5.0); Albumin/Globulin Ratio 0.5 (0.8-1.8); Bilirubin, Total 0.2 mg/dL (0.1-1.0); Bun/Creatinine Ratio 21.4 (12.0-20.0); Creatinine, Blood 0.79 mg/dL (0.60-1.20); Globulin, Blood 3.1 g/dL (2.2-4.0); Potassium, Blood 3.7 mmol/L (3.5-5.5); Total Protein, Blood 4.8 g/dL (6.4-8.2)
[2022-11-10] MEDS ORDERED: Celexa20 MG PO (17:35)
--- NOTE | 2022-11-10 18:06 | NUR ---
DISCHARGE PT ALERT AND ORIENTED, REMAINS AGITATED. ANGRY THAT HE CANNOT HAVE MORE CARBOHYDRATES. THIS NURSE EXPLAINED THE NEED TO COMPLY WITH ADA DIET BUT PT TOO AGITATED TO LISTEN. POWERGLIDE REMOVED. PT GIVEN LOW GLUCOSE SNACKS HE STATES HE'S HOMELESS. HAND WRITTEN PRESCRIPTION PROVIDED FOR GLUCOSE STRIPS, GLUCOMETER, AND LANCETS. GLARGINE PRESCRIPTION FAXED TO [facility].
== END 2022-11-10 18:05 | disposition home or self-care (01) | DRG 638 ==
LOC: ER 00:20 → ICUE 00:21
PROVIDERS: Emergency Medicine; Family Medicine; ADMIT Student in an Organized Health Care Education/Training Program
DX: E10.10 Type 1 diabetes mellitus with ketoacidosis without coma (principal); R65.10 Systemic inflammatory response syndrome (SIRS) of non-infectious origin without acute organ dysfunction; E86.0 Dehydration; F15.10 Other stimulant abuse, uncomplicated; F32.9 Major depressive disorder, single episode, unspecified; R74.8 Abnormal levels of other serum enzymes; D75.839 Thrombocytosis, unspecified; E87.8 Other disorders of electrolyte and fluid balance, not elsewhere classified; M54.9 Dorsalgia, unspecified; F17.210 Nicotine dependence, cigarettes, uncomplicated; J44.9 Chronic obstructive pulmonary disease, unspecified; I73.00 Raynaud's syndrome without gangrene; G89.29 Other chronic pain; F12.10 Cannabis abuse, uncomplicated; M51.9 Unspecified thoracic, thoracolumbar and lumbosacral intervertebral disc disorder; M41.9 Scoliosis, unspecified; Z59.00 Homelessness unspecified; D72.828 Other elevated white blood cell count; Z88.5 Allergy status to narcotic agent; Z88.8 Allergy status to other drugs, medicaments and biological substances; Z88.1 Allergy status to other antibiotic agents; Z90.89 Acquired absence of other organs; Z98.890 Other specified postprocedural states; Z91.148 Patient's other noncompliance with medication regimen for other reason
CPT/HCPCS: 80048; 80053; 82803; 82947; 85025; 96361; 96374; 99285-25; A9270; C1751; G0378; J1790; J1815; J3480; J7030; J7042; J7050; J7120

== ENCOUNTER 2022-12-20 13:19 | Inpatient (IN) | payer OTHER ==
[~2022-12-20] VITALS: Ht 177.8 cm; Wt 56.5 kg
[2022-12-20] VITALS (11 sets, daily range): BP systolic 130–178; BP diastolic 69–163
[~2022-12-20 13:19] MED LIST changes: +Celexa20 MG PO
[2022-12-20 13:49] LABS: BASOPHILS ABSOLUTE AUTO 0.19 K/mm3 (0.00-0.23); BASOPHILS PERCENT AUTO 1 % (0-2); EOSINOPHILS ABSOLUTE AUTO 0.02 K/mm3 (0.00-0.68); EOSINOPHILS PERCENT AUTO 0 % (0-6); Hematocrit 36.7 % (37.0-53.0); Hemoglobin 11.1 g/dL (13.5-17.5); IMMATURE GRAN ABSOLUTE AUTO 0.38 K/mm3 (0.00-0.10); IMMATURE GRAN PERCENT AUTO 2 % (0-1); LYMPHOCYTES ABSOLUTE AUTO 1.65 K/mm3 (0.84-5.20); LYMPHOCYTES PERCENT AUTO 8 % (21-46); MONOCYTES ABSOLUTE AUTO 0.98 K/mm3 (0.16-1.47); MONOCYTES PERCENT AUTO 5 % (4-13); Mean Corpuscular HGB 31.4 pg (26.0-34.0); Mean Corpuscular HGB Conc 30.2 g/dL (31.5-36.5); Mean Corpuscular Volume 104 fL (80-100); NEUTROPHILS ABSOLUTE AUTO 17.27 K/mm3 (1.96-9.15); NEUTROPHILS PERCENT AUTO 84 % (41-73); Platelet Count 508 K/mm3 (150-400); RDW Coefficient Variation 13.5 % (11.7-14.2); RDW Standard Deviation 51.3 fL (35.1-46.3); Red Blood Cell Count 3.53 M/mm3 (4.30-5.90); White Blood Cell Count 20.49 K/mm3 (4.00-11.30)
[2022-12-20 13:55] LABS: Base Excess Venous -26.8 mmol/L; Bicarbonate Venous 7.3 mmol/L (24.0-30.0); PCO2 Venous 15.9 mmHg (38-42); pH Blood Venous 7.02 (7.34-7.37)
[2022-12-20 14:41] LABS: Alanine Aminotransfer (ALT/SGP 35 U/L (12-78); Albumin, Blood 2.9 g/dL (3.4-5.0); Albumin/Globulin Ratio 0.7 (0.8-1.8); Alk Phos 200 U/L (50-136); Anion Gap 31 mmol/L (6-16); Aspartate Aminotrans (AST/SGOT 22 U/L (12-37); Beta-hydroxybutyrate >138.0 mg/dL (0.2-2.8); Bilirubin, Total 0.6 mg/dL (0.1-1.0); Blood Urea Nitrogen 41 mg/dL (8-24); Bun/Creatinine Ratio 29.3 (12.0-20.0); CO2, Blood 6 mmol/L (21-32); Calcium, Blood 9.2 mg/dL (8.5-10.1); Chloride, Blood 74 mmol/L (98-108); Globulin, Blood 4.1 g/dL (2.2-4.0); Glomerular Filtration Rate 66 (60-); Glucose, Blood 1220 mg/dL (70-99); Sodium, Blood 111 mmol/L (136-145)
[2022-12-20 14:42] LABS: Potassium, Blood 6.9 mmol/L (3.5-5.5)
[2022-12-20 16:21] LABS: Glucose, Blood 1226 mg/dL (70-99)
--- NOTE | 2022-12-20 17:10 | NUR ---
ARRIVAL TO ICU/SHIFT SUMMARY PT ARRIVES TO ICU FROM ER FOR DKA AT 1627. REPORT FROM ALEXANDRA VANN. PT ARRIVES c EYES CLOSED, IRRITABLE, RELUCTANT TO ANSWER QUESTIONS OR PARTICIPATE IN CARE. ABLE TO FOLLOW DIRECTIONS WHEN ASKED MULTIPLE TIMES. INCOHERANT MOANING MOSTLY THOUGH ABLE TO INTERMITTANTLY COMMUNICATE NEEDS. KUSSMAL RESP, RATE 30'S. LUNGS CLEAR. ST, RATE 100-130'S ON MONITOR. BP STABLE. ABD FLAT, SOFT, TENDER, BT X 4. MAEW. SWELLING NOTED TO ELBOWS BILATERALLY AND HANDS. PT UNABLE TO ARTICULATE WHEN SWELLING STARTED. PT REPORTS PAIN c ALL CARE OR MOVEMENT. INSULIN GTT AND LR STARTED ON ARRIVAL. PLAN FOR q4 CHEM AND q1 CBG. WILL CONTINUE TO MONITOR UNTIL REPORT TO ONCOMING NURSE.
[2022-12-20 17:46] LABS: Bun/Creatinine Ratio 32.1 (12.0-20.0); Creatinine, Blood 1.31 mg/dL (0.60-1.20); Potassium, Blood 6.2 mmol/L (3.5-5.5)
[2022-12-20 18:07] LABS: Glucose, Blood 1051 mg/dL (70-99)
[2022-12-20 19:22] LABS: Glucose, Blood 927 mg/dL (70-99)
--- NOTE | 2022-12-20 19:57 | NUR ---
ASSUMPTION OF CARE/ASSESSMENT: ASSUMED CARE OF PT AT 1900. PT ASLEEP IN BED UPON ASSESSMENT. PT WAKES EASILY TO VERBAL STIMULI AND IS NOTED TO BE IRRITABLE. PT STATED NAME AND TO THIS RN BUT WOULD NOT PARTICIPATE IN ANY OTHER ORIENTING QUESTIONS. PT ON RA WITH SPO2 100, RR 16-20, AND LUNG SOUNDS ARE CLEAR THROUGHOUT; PT STATES NO SOB AT THIS TIME. PT SR-ST ON MONITOR WITH HR 90-110'S, SBP 130-140'S, CONTINUOUS CLINICAL DATA PROGRAMMER IN PLACE AND PT STATES NO CHEST PAIN AT THIS TIME. PT DECLINES N/V BUT ABD TENDER UPON PALPATION; HYPOACTIVE BOWEL SOUNDS IN ALL QUADRANTS. PT NPO AT THIS TIME AND IS CONTINUOUSLY REQUESTING FOOD; PT EDUCATED REGARDING NPO STATUS R/T HIGH CBG AND PT NO HAPPY ABOUT IT. PT HAS INTACT SKIN. PT ABLE TO USE URINAL INDEPENDENTLY AND HAS INDEPENDENT BED MOBILITY. PT HAS INSULIN GTT @ 3 AND LR INFUSING @ 200 MLS/HR. PT MOANS/AJAY OUT FREQUENTLY. BED LOWERED, CALL LIGHT IN REACH. EDUCATED PT REGARDING IGNITION SOURCES AND FIRE RISK; PT STATED THAT HE DOES SMOKE BUT DOES NOT HAVE A NEW ACCOUNT INTERVIEWER ON HIM. BELONGINGS LOOKED THROUGHOUT AND NO IGNITION SOURCES FOUND; BELONGINGS PLACED IN CABINET IN ROOM.
[2022-12-20 20:11] LABS: Glucose, Blood 771 mg/dL (70-99)
[2022-12-20 21:15] LABS: Magnesium, Blood 2.2 mg/dL (1.6-2.4)
[2022-12-20 21:19] LABS: Calcium, Blood 8.5 mg/dL (8.5-10.1); Creatinine, Blood 1.29 mg/dL (0.60-1.20); Potassium, Blood 4.8 mmol/L (3.5-5.5)
[2022-12-20 21:20] LABS: Phosphorus, Blood 3.9 mg/dL (2.5-4.9)
[2022-12-20 22:19] LABS: Glucose, Blood 658 mg/dL (70-99)
[2022-12-20 23:20] LABS: Glucose, Blood 575 mg/dL (70-99)
[2022-12-21] VITALS (18 sets, daily range): BP systolic 132–176; BP diastolic 70–115
[2022-12-21 01:46] LABS: Magnesium, Blood 2.1 mg/dL (1.6-2.4)
[2022-12-21 01:50] LABS: Bun/Creatinine Ratio 32.4 (12.0-20.0); Calcium, Blood 8.5 mg/dL (8.5-10.1); Creatinine, Blood 1.05 mg/dL (0.60-1.20); Phosphorus, Blood 2.6 mg/dL (2.5-4.9); Potassium, Blood 5.2 mmol/L (3.5-5.5)
--- NOTE | 2022-12-21 06:28 | NUR ---
SHIFT SUMMARY: NO ACUTE CHANGES THROUGHOUT THE NIGHT; VSS THIS SHIFT. PT SLEPT FOR MAJORITY OF THE NIGHT AND GOT UP TO USE URINAL AT BEDSIDE TWICE THIS SHIFT WITH ABOUT 3L URINE OUTPUT. PT COOPERATIVE WITH CARE AT THIS TIME. PT REMAINS ON INSULIN GTT @ 1 UNIT/HR AND LR @ 200 MLS/HR. MOST RECENT CBG THIS MORNING WAS 224; DR CANTU CALLED AND NOTIFIED OF BLOOD SUGARS AND NO NEW ORDERS FOR FLUIDS RECIEVED AT THIS TIME. BED LOWERED, CALL LIGHT IN REACH, WILL CONTINUE TO MONITOR UNTIL ONCOMING RN ARRIVES.
[2022-12-21 07:01] LABS: Magnesium, Blood 1.7 mg/dL (1.6-2.4)
[2022-12-21 07:02] LABS: Bun/Creatinine Ratio 28.3 (12.0-20.0); Calcium, Blood 8.5 mg/dL (8.5-10.1); Creatinine, Blood 0.88 mg/dL (0.60-1.20); Phosphorus, Blood 2.1 mg/dL (2.5-4.9); Potassium, Blood 3.9 mmol/L (3.5-5.5)
--- NOTE | 2022-12-21 13:00 | NUR ---
PT A/O X4. LABILE MOOD. DOES NOT PARTICIPATE WITH CARE. PT REFUSED AFTERNOON BLOOD DRAW. EATING MEALS WITHOUT N/V. LONG ACTING INSULIN STARTED THIS AM. PT WANTING TO GO HOME. DISCHARGE PAPERWORK GONE OVER WITH PT. RX FAXED TO [facility] PER PT REQUEST. NO SIGN OF DISTRESS.
== END 2022-12-21 13:33 | disposition home or self-care (01) | DRG 637 ==
LOC: ER 13:19 → ICUE 15:49
PROVIDERS: Emergency Medicine; Nurse Practitioner Acute Care; Physician Assistant; ADMIT Internal Medicine
DX: E10.10 Type 1 diabetes mellitus with ketoacidosis without coma (principal); G93.41 Metabolic encephalopathy; E87.1 Hypo-osmolality and hyponatremia; N17.9 Acute kidney failure, unspecified; R65.10 Systemic inflammatory response syndrome (SIRS) of non-infectious origin without acute organ dysfunction; G89.29 Other chronic pain; M51.36 Other intervertebral disc degeneration, lumbar region; I73.00 Raynaud's syndrome without gangrene; F32.9 Major depressive disorder, single episode, unspecified; J44.9 Chronic obstructive pulmonary disease, unspecified; F17.210 Nicotine dependence, cigarettes, uncomplicated; F15.11 Other stimulant abuse, in remission; E86.0 Dehydration; E87.5 Hyperkalemia; Z59.00 Homelessness unspecified; Z79.4 Long term (current) use of insulin; Z79.899 Other long term (current) drug therapy; Z88.8 Allergy status to other drugs, medicaments and biological substances; Z90.89 Acquired absence of other organs; Z98.890 Other specified postprocedural states
CPT/HCPCS: 80048; 80053; 82010; 82803; 82947; 83735; 84100; 85025; 93005; 93010; 96360; 99291-25; A9270; J1815; J7030; J7060; J7120

== ENCOUNTER 2022-12-29 08:37 | Inpatient (IN) | payer OTHER ==
[~2022-12-29] VITALS: Ht 177.8 cm; Wt 61.0 kg
[2022-12-29] VITALS (13 sets, daily range): BP systolic 120–173; BP diastolic 54–88
[2022-12-29 09:07] LABS: Source, Urine Clean Catch
[2022-12-29 09:10] LABS: Calcium, Ionized (POC) 1.21 mmol/L (1.10-1.46); Chloride (POC) 90 mmol/L (98-108); Glucose (ISTAT POC) >700 mg/dL (70-99); Hemoglobin (POC) 12.2 g/dL (13.5-17.5); Potassium (POC) 5.7 mmol/L (3.5-5.5); Sodium (POC) 119 mmol/L (135-148); Total CO2 (POC) 6 mmol/L (21-32)
[2022-12-29 09:10] LABS: Appearance, Urine Clear (Clear); Bilirubin, Urine Neg (Neg); Blood, Urine 1+ (Neg); Color, Urine Yellow (P-Yellow); Glucose Qualitative, Urine 4+ (Neg); Ketones, Urine 3+ (Neg); Leukocyte Esterase, Urine Neg (Neg); Nitrite, Urine Neg (Neg); Protein, Urine 3+ (Neg); Specific Gravity, Urine 1.015 (1.003-1.022); Urobilinogen, Urine NORM (Normal)
[2022-12-29 09:10] LABS: Hematocrit 38.9 % (37.0-53.0); Mean Corpuscular HGB 32.5 pg (26.0-34.0); Mean Corpuscular HGB Conc 28.3 g/dL (31.5-36.5); Mean Corpuscular Volume 115 fL (80-100); Mean Platelet Volume 10.3 fL (9.1-12.4); NRBC ABSOLUTE 0.02 K/mm3 (0.00-0.02); NRBC Auto 0.1 /100 WBC (0.0-0.2); Platelet Count 630 K/mm3 (150-400); RDW Coefficient Variation 13.4 % (11.7-14.2); RDW Standard Deviation 56.9 fL (35.1-46.3); Red Blood Cell Count 3.38 M/mm3 (4.30-5.90); White Blood Cell Count 35.66 K/mm3 (4.00-11.30)
[2022-12-29 09:16] LABS: Hyaline Casts 0-2 /lpf (0-2)
[2022-12-29 09:17] LABS: Amorphous Light (0-Heavy); Bacteria Rare /hpf; Mucus Light (0-Heavy); Red Blood Cells, Urine 0-2 /hpf (0-2); Renal Epithelial Rare /hpf (0-Rare); Squamous Epithelial Cells Rare /hpf (Few); Transitional Epithelial Cells Rare /hpf (0-Rare); White Blood Cells, Urine 0-2 /hpf (0-5)
[2022-12-29 09:34] LABS: BAND PERCENT MAN 6 % (0-8); BASOPHILS ABSOLUTE MAN 0.35 K/mm3 (0.00-0.23); BASOPHILS PERCENT MAN 1 % (0-2); EOSINOPHILS ABSOLUTE MAN 0.35 K/mm3 (0.00-0.68); EOSINOPHILS PERCENT MAN 1 % (0-6); LYMPHOCYTES ABSOLUTE MAN 2.85 K/mm3 (0.84-5.20); LYMPHOCYTES PERCENT MAN 8 % (21-46); MONOCYTES ABSOLUTE MAN 1.78 K/mm3 (0.16-1.47); MONOCYTES PERCENT MAN 5 % (4-13); MYELOCYTE ABSOLUTE MAN 2.49 K/mm3 (0.00-0.00); MYELOCYTE PERCENT MAN 7 % (0-0); NEUTROPHILS ABSOLUTE MAN 27.81 K/mm3 (1.96-9.15); SEG NEUTROPHILS PERCENT MAN 72 % (41-73); TOTAL CELLS COUNTED 100
[2022-12-29 09:44] LABS: Albumin, Blood 2.3 g/dL (3.4-5.0); Albumin/Globulin Ratio 0.6 (0.8-1.8); Alk Phos 211 U/L (50-136); Bilirubin, Total 0.5 mg/dL (0.1-1.0); Blood Urea Nitrogen 53 mg/dL (8-24); Bun/Creatinine Ratio 28.2 (12.0-20.0); Calcium, Blood 8.5 mg/dL (8.5-10.1); Chloride, Blood 80 mmol/L (98-108); Creatinine, Blood 1.88 mg/dL (0.60-1.20); Globulin, Blood 3.7 g/dL (2.2-4.0); Glomerular Filtration Rate 46 (60-); Potassium, Blood 5.7 mmol/L (3.5-5.5); Sodium, Blood 122 mmol/L (136-145)
[2022-12-29 09:47] LABS: Alanine Aminotransfer (ALT/SGP 50 U/L (12-78); Anion Gap 36 mmol/L (6-16); Aspartate Aminotrans (AST/SGOT 42 U/L (12-37); CO2, Blood 6 mmol/L (21-32); Glucose, Blood 1474 mg/dL (70-99)
[2022-12-29 10:41] LABS: PCO2 Venous 23.5 mmHg (38-42)
[2022-12-29 10:45] LABS: Bicarbonate Venous 3.6 mmol/L (24.0-30.0)
[2022-12-29 10:46] LABS: Base Excess Venous -33.3 mmol/L; pH Blood Venous <6.80 (7.34-7.37)
[2022-12-29 11:46] LABS: Glucose, Blood 1419 mg/dL (70-99)
[2022-12-29 12:41] LABS: Bun/Creatinine Ratio 29.1 (12.0-20.0); Calcium, Blood 7.7 mg/dL (8.5-10.1); Creatinine, Blood 1.75 mg/dL (0.60-1.20)
[2022-12-29 13:08] LABS: Glucose, Blood 1286 mg/dL (70-99)
--- NOTE | 2022-12-29 13:25 | NUR ---
ADMIT PT ARRIVED TO ICU 14 AT 1232 VIA ER BED. PT IS SOMNOLENT, BUT AROUSEABLE TO VERBAL AND NOXIOUS STIMULI. PT MOANS OUT AND THRASHES IN BED, THEN IS BACK TO RESTING QUIETLY WHEN UNDISTURBED. INSULIN GTT INFUSING AT 7 UNITS/HR INITIALLY AND NS BOLUS INFUSING. SEALS TEMP PROBE IN PLACE WITH CLEAR YELLOW OUTPUT NOTED. VITAL SIGNS STABLE. PT HYPOTHERMIC. ALLIE HUGGER IN PLACE. WILL CONTINUE TO MONITOR.
--- NOTE | 2022-12-29 13:59 | NUR ---
IGNITION RISK/TRAFFICKING PT BELONGINGS SEARCHED, NO IGNITION SOURCES FOUND. PT EDUCATED ABOUT SMOKING AND IGNITION RISK WHILE IN HOSPITAL. PT UNABLE TO ANSWER QUESTIONS ABOUT DOMESTIC VIOLENCE AND TRAFFICKING AT THIS TIME.
[2022-12-29 14:33] LABS: Glucose, Blood 1290 mg/dL (70-99)
[2022-12-29 16:02] LABS: Bun/Creatinine Ratio 29.9 (12.0-20.0); Calcium, Blood 6.7 mg/dL (8.5-10.1); Creatinine, Blood 1.64 mg/dL (0.60-1.20); Glucose, Blood 1050 mg/dL (70-99); Potassium, Blood 4.2 mmol/L (3.5-5.5)
[2022-12-29 16:40] LABS: Glucose, Blood 1006 mg/dL (70-99)
[2022-12-29 17:05] LABS: U Amphetamine Screen DETECTED; U Barbituate Screen Not Detected; U Benzodiazapine Screen Not Detected; U Buprenorphine Screen Not Detected; U Cannabinoids Screen Not Detected; U Cocaine Screen Not Detected; U Methadone Screen Not Detected; U Methamphetamine Screen DETECTED; U Opiates Screen Not Detected; U Oxycodone Screen Not Detected; U Phencyclidine Screen Not Detected; U Propoxyphene Screen Not Detected
[2022-12-29 17:44] LABS: Glucose, Blood 896 mg/dL (70-99)
--- NOTE | 2022-12-29 17:48 | NUR ---
SHIFT SUMMARY PT IS MORE ALERT THIS AFTERNOON. PT CONTINUES TO MOAN OUT AT TIMES AND THRASH IN BED. PT UNCOOPERATIVE WITH CARE AND IS NOT REDIRECTABLE. PT YELLS AT STAFF WITH CARE. POWERGLIDE TO NICKOLAS PLACED. INSULIN INFUSING AT 5 UNITS/HR, NS 200 ML/HR, AND BICARB GTT AT 200 ML/HR. SEALS TEMP PROBE REMAINS IN PLACE WITH CLEAR YELLOW OUTPUT NOTED. PT TEMP UP TO 97.5. VITAL SIGNS STABLE. ALLIE HUGGER REMAINS IN PLACE PER PT REQUEST. NO IGNITION RISK IDENTIFIED, AND PT EDUCATED ABOUT FIRE RISK RELATED TO SMOKING. PT ON ROOM AIR. WILL CONTINUE TO MONITOR AND REPORT OFF TO ONCOMING RN.
[2022-12-29 18:53] LABS: Glucose, Blood 809 mg/dL (70-99)
[2022-12-29 19:52] LABS: Glucose, Blood 662 mg/dL (70-99)
[2022-12-29 19:56] LABS: Bun/Creatinine Ratio 26.4 (12.0-20.0); Calcium, Blood 6.8 mg/dL (8.5-10.1); Creatinine, Blood 1.74 mg/dL (0.60-1.20); Potassium, Blood 3.7 mmol/L (3.5-5.5)
--- NOTE | 2022-12-29 20:12 | NUR ---
ASSUMED CARE PT IS A&O X4; PT IS SOMNULENT, BUT EASILY AROUSES TO VERBAL STIMULI. SPO2 >92% ON RA; MAP >65; HR IN THE 100-110'S. INSULIN GTT TITRATING W/ NS AND SODIUM BICARB INFUSING PER ORDER. SEALS CATHETER PATENT AND DRAINING TO GRAVITY.
[2022-12-29 20:47] LABS: Glucose, Blood 581 mg/dL (70-99)
[2022-12-29 23:31] LABS: Bun/Creatinine Ratio 24.3 (12.0-20.0); Calcium, Blood 7.2 mg/dL (8.5-10.1); Creatinine, Blood 1.81 mg/dL (0.60-1.20); Phosphorus, Blood 3.1 mg/dL (2.5-4.9); Potassium, Blood 3.3 mmol/L (3.5-5.5)
[2022-12-30] VITALS (8 sets, daily range): BP systolic 147–170; BP diastolic 76–102
[2022-12-30 03:41] LABS: BASOPHILS ABSOLUTE AUTO 0.05 K/mm3 (0.00-0.23); BASOPHILS PERCENT AUTO 0 % (0-2); EOSINOPHILS ABSOLUTE AUTO 0.14 K/mm3 (0.00-0.68); EOSINOPHILS PERCENT AUTO 1 % (0-6); Hematocrit 23.8 % (37.0-53.0); Hemoglobin 8.7 g/dL (13.5-17.5); IMMATURE GRAN ABSOLUTE AUTO 0.16 K/mm3 (0.00-0.10); IMMATURE GRAN PERCENT AUTO 1 % (0-1); LYMPHOCYTES ABSOLUTE AUTO 1.09 K/mm3 (0.84-5.20); LYMPHOCYTES PERCENT AUTO 6 % (21-46); MONOCYTES ABSOLUTE AUTO 1.48 K/mm3 (0.16-1.47); MONOCYTES PERCENT AUTO 8 % (4-13); Mean Corpuscular HGB 31.5 pg (26.0-34.0); Mean Corpuscular HGB Conc 36.6 g/dL (31.5-36.5); Mean Platelet Volume 8.9 fL (9.1-12.4); NEUTROPHILS ABSOLUTE AUTO 15.13 K/mm3 (1.96-9.15); NEUTROPHILS PERCENT AUTO 84 % (41-73); Platelet Count 432 K/mm3 (150-400); RDW Coefficient Variation 12.9 % (11.7-14.2); RDW Standard Deviation 39.8 fL (35.1-46.3); Red Blood Cell Count 2.76 M/mm3 (4.30-5.90); White Blood Cell Count 18.05 K/mm3 (4.00-11.30)
[2022-12-30 03:51] LABS: Mean Corpuscular Volume 86 fL (80-100)
[2022-12-30 03:55] LABS: Bun/Creatinine Ratio 22.5 (12.0-20.0); Calcium, Blood 6.8 mg/dL (8.5-10.1); Creatinine, Blood 1.82 mg/dL (0.60-1.20); Magnesium, Blood 1.9 mg/dL (1.6-2.4); Phosphorus, Blood 2.6 mg/dL (2.5-4.9); Potassium, Blood 3.2 mmol/L (3.5-5.5)
--- NOTE | 2022-12-30 05:42 | NUR ---
SHIFT SUMMARY PT SLEPT FOR MAJORITY OF NIGHT. SPO2 >92% ON RA; MAP >65. INSULIN GTT AND D5W INFUSING PER ORDER (SEE FLOWSHEET). PT UNWILLING TO COMMUNICATE AND BECOMES AGITATED W/ ANY INTERVENTION REQUIRING PT MOVEMENT (CHANGING DEPENDS, ETC.). EXCLUDING DKA MANAGEMENT NO ACUTE EVENTS OVERNIGHT.
--- NOTE | 2022-12-30 07:32 | NUR ---
ASSUMED CARE BEDSIDE REPORT RECIEVED. PT FOUND TO BE ROLLING IN BED SIDE TO SIDE WITH STOOL OVER LEGS, ASPEN AREA, AND HANDS. PT UNCOOPERATIVE WITH CARE AND REFUSING TO BE CLEANED. THIS RN AND JOURNEYMAN WELDER EMPHAISIZED IMPORTANCE OF CLEANING PT AND CHANGING LINENS. PT REMAINS UNCOOPERATIVE AND THREATENING TO PUNCH STAFF WITH CARE. PT CONTINUES TO MOAN OUT AND THRASH IN BED SIDE TO SIDE. INSULIN GTT INFUSING AND D5W GTT INFUSING. VSS. PT UNRECEPTIVE TO FIRE RISK EDUCATION.
[2022-12-30 07:59] LABS: Bun/Creatinine Ratio 20.6 (12.0-20.0); Calcium, Blood 7.1 mg/dL (8.5-10.1); Creatinine, Blood 1.89 mg/dL (0.60-1.20); Magnesium, Blood 1.8 mg/dL (1.6-2.4); Phosphorus, Blood 2.7 mg/dL (2.5-4.9); Potassium, Blood 3.6 mmol/L (3.5-5.5)
[2022-12-30 13:33] LABS: Bun/Creatinine Ratio 20.1 (12.0-20.0); Calcium, Blood 7.3 mg/dL (8.5-10.1); Creatinine, Blood 1.84 mg/dL (0.60-1.20); Potassium, Blood 3.3 mmol/L (3.5-5.5)
--- NOTE | 2022-12-30 17:42 | NUR ---
SHIFT SUMMARY PT HAS REMAINED LABILE THROUGHOUT THE SHIFT. PT ALTERNATES FROM RESTING QUIETLY, AND REFUSING TO TALK TO STAFF OR PARTICIPATE IN CARE, TO RESTLESS, THRASHING IN BED, AND BEING UNCOOPERATIVE WITH CARE. PT TITRATED OFF INSULIN GTT THIS MORNING. 1/2 NS INFUSING AT THIS TIME TO PG IN NICKOLAS. PT BECOMES ALERT AND BREIFLY COOPERATIVE WHEN ASKING FOR MEALS/SNACKS/DRINKS. PT WITH MULTIPLE INCONTINENT BM'S AND VOIDS THIS SHIFT IN THE BED, AND ON THE FLOOR OF THE ROOM. PT REPORTS HE IS NOT INCONTINENT AND KNOWS WHEN HE HAS TO VOID OR HAVE BM. PT REFUSES TO WEAR ATTENDS OR GOWN. VITAL SIGNS HAVE REMAINED STABLE. PT CHANGED TO MEDICAL STATUS THIS AFTERNOON. NO IGNITION SOURCES FOUND THIS SHIFT. PT HAS REMAINED UNRECEPTIVE TO ANY PT EDUCATION INCLUDING FIRE RISK R/T SMOKING. WILL CONTINUE TO MONITOR AND REPORT OFF TO ONCOMING RN.
--- NOTE | 2022-12-30 20:24 | NUR ---
ASSUMED CARE PT IS A&O X4; SPO2 >92% ON RA; MAP >65. PT RESTING QUIETLY AFTER EATING DINNER. PT MUCH MORE COOPERATIVE AND ALERT THAN LAST NIGHT.
[2022-12-31 03:56] LABS: Hematocrit 25.5 % (37.0-53.0); Hemoglobin 8.9 g/dL (13.5-17.5); Mean Corpuscular HGB 31.7 pg (26.0-34.0); Mean Corpuscular HGB Conc 34.9 g/dL (31.5-36.5); Mean Platelet Volume 8.9 fL (9.1-12.4); Platelet Count 389 K/mm3 (150-400); RDW Coefficient Variation 13.5 % (11.7-14.2); RDW Standard Deviation 44.3 fL (35.1-46.3); Red Blood Cell Count 2.81 M/mm3 (4.30-5.90); White Blood Cell Count 13.31 K/mm3 (4.00-11.30)
[2022-12-31 04:04] LABS: Mean Corpuscular Volume 91 fL (80-100)
[2022-12-31 04:20] LABS: Bun/Creatinine Ratio 14.1 (12.0-20.0); Calcium, Blood 6.9 mg/dL (8.5-10.1); Creatinine, Blood 1.99 mg/dL (0.60-1.20); Potassium, Blood 3.3 mmol/L (3.5-5.5)
--- NOTE | 2022-12-31 05:25 | NUR ---
SHIFT SUMMARY PT SLEPT T/O MOST OF NIGHT. PT C/O OF PERSISTENT COUGH, BUT IT HAS SINCE RESOLVED. LUNG SOUNDS CLEAR AND SATS MAINTAINED >92%. NO ACUTE EVENTS OVERNIGHT.
[2022-12-31 08:52] VITALS: BP 162/88
--- NOTE | 2022-12-31 11:04 | NUR ---
TRANSFER PT TRANSFERRED TO MEDICAL FLOOR ROOM 306 AFTER GIVING REPORT TO SOO SAEZ. PT TRANSFERRED BY . HE WAS ABLE TO STAND AND TRANSFER TO , THEN BACK TO BED WITH MINIMAL ASSIST. ALL BELONGINGS TRANSFERRED WITH PT. WHEN GETTING OUT OF BED IT WAS DISCOVERED THAT PT HAD A BM. PT DENIES BEING AWARE OF GOING. HE STATES THAT HE IS NORMALLY CONTINENT. PT CLEANED UP AND ATTENDS PUT ON. PT'S SCROTUM IS STARTING TO GET RED. PT EDUCATED ABOUT SKIN BREAKDOWN AND STRONGLY ENCOURAGED TO TRY TO LET NURSING STAFF KNOW WHEN HE NEEDS TO USE THE RESTROOM OR AFTER HE HAS GONE IN ORDER TO PROTECT HIS SKIN.
--- NOTE | 2022-12-31 11:17 | NUR ---
TRANSFER SUMMARY: REPORT RECEIVED FROM DANE VANN. 2 RN SKIN CHECK COMPLETED WITH DANE. PT TRANSFERRED TO UNIT VIA WHEELCHAIR. PT IND TRANSFERRED WITH STANDBY ASSIST TO BED. PT ALERT AND ORIENTED X3. PT ORIENTED TO ROOM, CALL LIGHT, SITUATION. PT PLACED IN BED WITH BED ALARM SET, BED IN LOW POSITION. PT ROLLED OVER AND APPEARED TO GO TO SLEEP. RR E/U PT HAD NO COMPLAINTS OR REQUESTS AT THIS TIME.
[2022-12-31 14:22] LABS: Adenovirus F 40/41 Not Detected (NOT DETECT); Astrovirus Not Detected (NOT DETECT); Campylobacter Sp Not Detected (NOT DETECT); Cryptosporidium Not Detected (NOT DETECT); Cyclospora Cayetanensis Not Detected (NOT DETECT); E. Coli O157 Not Detected (NOT DETECT); Entamoeba Histolytica Not Detected (NOT DETECT); Enteroaggregative E. coli-EAEC Not Detected (NOT DETECT); Enteropathogenic E. coli-EPEC Not Detected (NOT DETECT); Enterotoxigenic E. coli-ETEC Not Detected (NOT DETECT); Giardia Lamblia Not Detected (NOT DETECT); Norovirus GI/GII Not Detected (NOT DETECT); Plesiomonas Shigelloides Not Detected (NOT DETECT); Rotavirus A Not Detected (NOT DETECT); Salmonella Sp Not Detected (NOT DETECT); Sapovirus Not Detected (NOT DETECT); Shiga Toxin-prod E. coli-STEC Not Detected (NOT DETECT); Shigella/Enteroin E. coli-EIEC Not Detected (NOT DETECT); Vibrio Cholerae Not Detected (NOT DETECT); Vibrio Sp Not Detected (NOT DETECT); Yersinia Enterocolitica Not Detected (NOT DETECT)
--- NOTE | 2022-12-31 16:18 | NUR ---
PT REQUESTED DIET PEPSI AND PUDDING AND JELLO. PT PROVIDED WITH DIET JELLO AND PUDDING REQUESTED. THE SODA FOUNTAIN IS CURRENTLY OUT OF ORDER. EXPLAINED TO PATIENT WE HAVE ICE WATER AVAILABLE AT THIS TIME AND A DIET SODA WAS ORDERED WITH HIS DINNER. PT BEGAN YELLING AT ME AND CUTTER OPERATOR HELPER. PT CALLED US "NAZI'S" AND "LIARS". RE-EMPHASIZED THE SODA FOUNTAIN IS OUT OF ORDER AND WE CANNOT GET A DIET PEPSI NOW HE REQUESTED AGAIN. PT CONTINUED TO YELL OUT INTO THE [place]. EXPLAINED TO PT IF HIS BEHAVIORS OF YELLING CONTINUED A MAD CONSULT WOULD NEED TO BE PLACE. PT YELLED "GO AHEAD."
[2022-12-31 17:01] VITALS: BP 182/108
--- NOTE | 2022-12-31 17:50 | NUR ---
PT BP ELEVATED AT 182/108. ON REGIONAL CLINICAL DIRECTOR, PT IS RESTING IN BED IN NO APPARENT DISTRESS. PT REFUSED TO ALLOW BP TO BE RECHECKED BY PULLING ARM AWAY WHEN BP ATTEMPTED. PT IS ALERT BUT NOT RESPONDING TO QUESTIONS. PT HAD BEEN UPSET EARLIER BECAUSE HE DID NOT GET A DIET PEPSI DUE TO SODA FOUNTAIN BEING OUT OF ORDER. PT DID RECEIVE DIET PEPSI ON DINNER TRAY REQUESTED. DR. HALEY NOTIFIED OF BP CONCERNS. ORDER RECEIVED TO START LISINOPRIL 5 MG AT BEDTIME AND GIVE IF PT ALLOWS BP TO BE CHECKED. ORDER PLACED.
--- NOTE | 2022-12-31 18:50 | NUR ---
SHIFT SUMMARY: PT A/O X 4 STANDBY ASSIST TO BATHROOM. PT BP ELEVATED TODAY. LISINOPRIL ADDED PER ORDER. PT YELLING AT STAFF DUE TO HIS FOOD/DRINK CHOICES NOT AVAILABLE. PT BLOOD SUGARS WNL BELOW 200. PT HAD SEVERAL LOOSE STOOLS THIS SHIFT, STOOL SAMPLE NEGATIVE FOR BACTERIA.
--- NOTE | 2022-12-31 18:52 | NUR ---
PT HAD NO EVIDENT USE OF IGNITION SOURCES WHILE ROUNDING.
--- NOTE | 2022-12-31 19:56 | NUR ---
ASSUMED CARE OF PT AT 1900. 1950: INTRODUCED MYSELF TO PT, ATTEMPTED TO ASSESS PT'S PAIN LEVEL, AND ASK IF CARE STAFF COULD OBTAIN VS. PT PLAYING POSSUM, NOT RESPONDING TO QUESTIONS BEING ASKED. THE ONLY THING THIS PT STATED WAS, "I DON'T WANT TO GET MY VITAL SIGNS TAKEN, YOU JUST TOOK THEM." ATTEMPTED TO EDUCATE PT ON CURRENT MEDICATION LIST, THAT CARE STAFF NEEDS A RECENT BP IN ORDER TO ADMINISTER LINSINOPRIL. WILL CONTINUE TO TRY AGAIN, AND DOCUMENT WHEN PT REFUSES ALL CARE PROVIDED.
[2022-12-31 21:50] VITALS: BP 148/87
[2023-01-01 02:54] VITALS: BP 159/89
--- NOTE | 2023-01-01 04:52 | NUR ---
END OF SHIFT REPORT PT SLEPT FOR MOST OF THE NIGHT AFTER RECEIVING NIGHT MEDICATIONS. NO BEHAVIORS NOTED. VSS, AFEBRILE. PT CALM AND COOPERATIVE WITH CARE PROVIDED. PT REQUESTED PRN ATIVAN, WHICH WAS EFFECTIVE. PT A&O x3. CARE STAFF CLUSTERED CARE AND SET BOUNDARIES. PT CALLS APPROPRIATELY AND MAKES NEEDS KNOWN. PT UNABLE TO REMEMBER HOW HE GOT TO THE HOSPITAL. PT EDUCATION REGARDING PROPER NUTRITION. CALL LIGHT WITHIN REACH, WCTM.
[2023-01-01 05:21] LABS: BASOPHILS ABSOLUTE AUTO 0.02 K/mm3 (0.00-0.23); BASOPHILS PERCENT AUTO 0 % (0-2); EOSINOPHILS ABSOLUTE AUTO 0.09 K/mm3 (0.00-0.68); EOSINOPHILS PERCENT AUTO 1 % (0-6); Hematocrit 26.7 % (37.0-53.0); Hemoglobin 8.9 g/dL (13.5-17.5); IMMATURE GRAN ABSOLUTE AUTO 0.06 K/mm3 (0.00-0.10); IMMATURE GRAN PERCENT AUTO 1 % (0-1); LYMPHOCYTES ABSOLUTE AUTO 1.67 K/mm3 (0.84-5.20); LYMPHOCYTES PERCENT AUTO 16 % (21-46); MONOCYTES ABSOLUTE AUTO 0.72 K/mm3 (0.16-1.47); MONOCYTES PERCENT AUTO 7 % (4-13); Mean Corpuscular HGB 31.4 pg (26.0-34.0); Mean Corpuscular HGB Conc 33.3 g/dL (31.5-36.5); Mean Corpuscular Volume 94 fL (80-100); Mean Platelet Volume 9.4 fL (9.1-12.4); NEUTROPHILS ABSOLUTE AUTO 8.17 K/mm3 (1.96-9.15); NEUTROPHILS PERCENT AUTO 76 % (41-73); Platelet Count 362 K/mm3 (150-400); RDW Standard Deviation 48.6 fL (35.1-46.3); Red Blood Cell Count 2.83 M/mm3 (4.30-5.90); White Blood Cell Count 10.73 K/mm3 (4.00-11.30)
[2023-01-01 05:43] LABS: Bun/Creatinine Ratio 13.1 (12.0-20.0); Calcium, Blood 7.4 mg/dL (8.5-10.1); Creatinine, Blood 1.6 mg/dL (0.60-1.20); Potassium, Blood 3.4 mmol/L (3.5-5.5)
[2023-01-01 07:32] VITALS: BP 126/76
--- NOTE | 2023-01-01 08:31 | NUR ---
Responded to MAD Consult from yesterday. Per notes, patient had a decent night. Spoke with RN who states patient is okay right now and that he did okay during the night once the RN did limit setting. I asked the RN to call me if there were additional behavioral issues. I am familiar with this patient and didn't want to create more issues if he was compliant with his behavior at the time. More follow up as necessary.
[2023-01-01] MEDS ORDERED: HUMALOG JU100 UNIT/2 SC (11:39)
[2023-01-01] MEDS ORDERED: LISI5 PO (11:39)
--- NOTE | 2023-01-01 15:11 | NUR ---
DISCHARGE PT A&OX4, IRRITABLE. NO ACUTE CHANGES DURING THIS SHIFT. REVIEWED AND ASSESSED FOR SOURCES OF IGNITION. PT FREQUENTLY REQUESTED SNACKS. DENIED ANY PAIN. REPORTED THAT INSULIN GIVES HIM COLD SWEATS. PT'S MOTHER PICKED HIM UP AT 1450 AND HE DISCHARGED VIA WHEELCHAIR.
[2023-01-04] MEDS ORDERED: LOPE2C PO ×2 (12:24)
== END 2023-01-01 15:03 | disposition home or self-care (01) | DRG 637 ==
LOC: ER 08:37 → ICUE 11:34 → MEDS 11:34 → ICUE 12:23 → MEDS 12-31 10:49
PROVIDERS: Family Medicine; Physician Assistant; ADMIT Internal Medicine
DX: E10.10 Type 1 diabetes mellitus with ketoacidosis without coma (principal); G93.41 Metabolic encephalopathy; E44.0 Moderate protein-calorie malnutrition; N17.9 Acute kidney failure, unspecified; E87.0 Hyperosmolality and hypernatremia; Z68.1 Body mass index [BMI] 19.9 or less, adult; M54.9 Dorsalgia, unspecified; G89.29 Other chronic pain; J44.9 Chronic obstructive pulmonary disease, unspecified; F12.90 Cannabis use, unspecified, uncomplicated; E86.0 Dehydration; E87.5 Hyperkalemia; E87.6 Hypokalemia; D72.829 Elevated white blood cell count, unspecified; F15.10 Other stimulant abuse, uncomplicated; E10.22 Type 1 diabetes mellitus with diabetic chronic kidney disease; N18.30 Chronic kidney disease, stage 3 unspecified; I95.9 Hypotension, unspecified; M51.36 Other intervertebral disc degeneration, lumbar region; D63.1 Anemia in chronic kidney disease; R19.7 Diarrhea, unspecified; I73.00 Raynaud's syndrome without gangrene; F17.210 Nicotine dependence, cigarettes, uncomplicated; F32.9 Major depressive disorder, single episode, unspecified; Z59.00 Homelessness unspecified; Z91.148 Patient's other noncompliance with medication regimen for other reason; Z90.89 Acquired absence of other organs; Z98.890 Other specified postprocedural states; Z88.8 Allergy status to other drugs, medicaments and biological substances; Z79.4 Long term (current) use of insulin; Z79.899 Other long term (current) drug therapy; Z71.51 Drug abuse counseling and surveillance of drug abuser
CPT/HCPCS: 51702; 71045; 74018; 80047; 80048; 80053; 81001; 82010; 82803; 82947; 83605; 83735; 83930; 84100; 84145; 84484; 85014; 85025; 85027; 87040; 87507; 93005; 93010; 96361; 96374; 99285-25; A9270; C1751; G0480; J0612; J1815; J2060; J2405; J2543; J3480; J7030; J7050; J7070; J7120

== ENCOUNTER 2023-01-02 21:27 | Observation (INO) | payer OTHER ==
[~2023-01-02] VITALS: Ht 177.8 cm; Wt 65.9 kg
[2023-01-02 22:24] LABS: BASOPHILS ABSOLUTE AUTO 0.05 K/mm3 (0.00-0.23); BASOPHILS PERCENT AUTO 0 % (0-2); EOSINOPHILS ABSOLUTE AUTO 0.02 K/mm3 (0.00-0.68); EOSINOPHILS PERCENT AUTO 0 % (0-6); Hematocrit 34.3 % (37.0-53.0); Hemoglobin 10.7 g/dL (13.5-17.5); IMMATURE GRAN ABSOLUTE AUTO 0.09 K/mm3 (0.00-0.10); IMMATURE GRAN PERCENT AUTO 1 % (0-1); LYMPHOCYTES PERCENT AUTO 10 % (21-46); MONOCYTES PERCENT AUTO 4 % (4-13); Mean Corpuscular HGB 31.4 pg (26.0-34.0); Mean Corpuscular HGB Conc 31.2 g/dL (31.5-36.5); NEUTROPHILS ABSOLUTE AUTO 10.03 K/mm3 (1.96-9.15); NEUTROPHILS PERCENT AUTO 84 % (41-73); NRBC ABSOLUTE 0.03 K/mm3 (0.00-0.02); NRBC Auto 0.3 /100 WBC (0.0-0.2); Platelet Count 411 K/mm3 (150-400); RDW Coefficient Variation 13.5 % (11.7-14.2); Red Blood Cell Count 3.41 M/mm3 (4.30-5.90); White Blood Cell Count 11.89 K/mm3 (4.00-11.30)
[2023-01-02 22:25] LABS: Base Excess Venous -15.5 mmol/L; Bicarbonate Venous 13.8 mmol/L (24.0-30.0); PCO2 Venous 24.9 mmHg (38-42)
[2023-01-02 22:25] LABS: Mean Corpuscular Volume 101 fL (80-100)
[2023-01-02 22:26] LABS: pH Blood Venous 7.27 (7.34-7.37)
[2023-01-02 23:04] LABS: Alanine Aminotransfer (ALT/SGP 46 U/L (12-78); Albumin, Blood 1.6 g/dL (3.4-5.0); Albumin/Globulin Ratio 0.4 (0.8-1.8); Alk Phos 182 U/L (50-136); Anion Gap 20 mmol/L (6-16); Aspartate Aminotrans (AST/SGOT 18 U/L (12-37); Bilirubin, Total 0.4 mg/dL (0.1-1.0); Blood Urea Nitrogen 27 mg/dL (8-24); Bun/Creatinine Ratio 20.5 (12.0-20.0); CO2, Blood 13 mmol/L (21-32); Calcium, Blood 8.1 mg/dL (8.5-10.1); Chloride, Blood 97 mmol/L (98-108); Creatinine, Blood 1.32 mg/dL (0.60-1.20); Globulin, Blood 3.8 g/dL (2.2-4.0); Glomerular Filtration Rate 70 (60-); Glucose, Blood 791 mg/dL (70-99); Total Protein, Blood 5.4 g/dL (6.4-8.2)
[2023-01-02 23:08] LABS: Sodium, Blood 130 mmol/L (136-145)
[2023-01-03] VITALS (15 sets, daily range): BP systolic 118–153; BP diastolic 60–94
[2023-01-03 01:37] LABS: Creatinine, Blood 1.13 mg/dL (0.60-1.20); Potassium, Blood 4.6 mmol/L (3.5-5.5)
[2023-01-03 02:49] LABS: Glucose, Blood 759 mg/dL (70-99)
[2023-01-03 04:26] LABS: Glucose, Blood 645 mg/dL (70-99)
[2023-01-03 06:16] LABS: BASOPHILS ABSOLUTE AUTO 0.07 K/mm3 (0.00-0.23); BASOPHILS PERCENT AUTO 1 % (0-2); EOSINOPHILS ABSOLUTE AUTO 0.05 K/mm3 (0.00-0.68); EOSINOPHILS PERCENT AUTO 0 % (0-6); Hemoglobin 8.4 g/dL (13.5-17.5); IMMATURE GRAN ABSOLUTE AUTO 0.12 K/mm3 (0.00-0.10); IMMATURE GRAN PERCENT AUTO 1 % (0-1); LYMPHOCYTES ABSOLUTE AUTO 2.39 K/mm3 (0.84-5.20); LYMPHOCYTES PERCENT AUTO 20 % (21-46); MONOCYTES ABSOLUTE AUTO 0.55 K/mm3 (0.16-1.47); MONOCYTES PERCENT AUTO 5 % (4-13); Mean Corpuscular HGB 31.9 pg (26.0-34.0); Mean Corpuscular HGB Conc 33.6 g/dL (31.5-36.5); Mean Platelet Volume 9.5 fL (9.1-12.4); NEUTROPHILS ABSOLUTE AUTO 8.72 K/mm3 (1.96-9.15); NEUTROPHILS PERCENT AUTO 73 % (41-73); Platelet Count 394 K/mm3 (150-400); RDW Coefficient Variation 13.2 % (11.7-14.2); RDW Standard Deviation 45.9 fL (35.1-46.3); Red Blood Cell Count 2.63 M/mm3 (4.30-5.90)
[2023-01-03 06:22] LABS: Mean Corpuscular Volume 95 fL (80-100)
[2023-01-03 06:34] LABS: Albumin, Blood 1.8 g/dL (3.4-5.0); Albumin/Globulin Ratio 0.7 (0.8-1.8); Bilirubin, Total 0.3 mg/dL (0.1-1.0); Bun/Creatinine Ratio 20.9 (12.0-20.0); Calcium, Blood 7.8 mg/dL (8.5-10.1); Creatinine, Blood 1.34 mg/dL (0.60-1.20); Globulin, Blood 2.7 g/dL (2.2-4.0); Total Protein, Blood 4.5 g/dL (6.4-8.2)
--- NOTE | 2023-01-03 06:42 | NUR ---
SHIFT SUMMARY PATIENT TO ICU 1 FROM ED AT 0110. PATIENT IS ALERT AND ORIENTED X4. 02 SATS >95% ON RA, DENIES SOB. WILL NOT WEAR PULSE OX CONTINUOUSLY. HR ST 102, BP STABLE, DENIES CP PRESSURE. INSULIN DRIP INFUSING WELL NS AT 125 MLS/HR. Q1 CBGs. PATIENT NPO. CONTINENT OF BOWEL AND BLADDER. INDEPENDENT IN ROOM. CALL LIGHT IN REACH
--- NOTE | 2023-01-03 06:48 | NUR ---
GLUCOSE SENT TO LAB AT 0602 WAS THE SAME BLOOD USED ON GLUCOMETER AT 0559, RESULTS WERE SIGNIFICANTLY DIFFERENT. RECHECKED CAP GLUCOSE WITH GLUCOMETER WHICH READ CLOSER TO GLUCOSE RESULTS FROM LAB. INSULIN TITRATED BACK UP
--- NOTE | 2023-01-03 08:08 | NUR ---
DR PRESLEY AT BEDSIDE, FULL REPORT/UPDATE GIVEN. POSSIBLE DISCHARGE HOME TODAY
--- NOTE | 2023-01-03 10:00 | NUR ---
INSULIN GTT AND NS DC'D AT 0940. PT ATE 100% OF BREAKFAST PLUS SNACKS. DRINKING LARGE AMTS OF FLUIDS. PT C/O LIQUID STOOLS AND REQUEST IMMODIUM, WILL CALL MD. SPENCER 243 AT 0924.
[2023-01-03 12:34] LABS: Bun/Creatinine Ratio 19.7 (12.0-20.0); Calcium, Blood 7.9 mg/dL (8.5-10.1); Creatinine, Blood 1.22 mg/dL (0.60-1.20)
--- NOTE | 2023-01-03 14:57 | NUR ---
IMODIUM GIVEN. PT CONTINUES TO HAVE LIQUID STOOLS, NEXT DOSE DUE NOW. PT HAD ORDERS TO GO HOME TODAY, PT REQUESTED TO STAY ANOTHER NIGHT, HE IS STILL FEELING WEAK W DR KRISTI SMITH WITH PT STAYING ANOTHER NIGHT. PT NOW MEDICAL STATUS W/O TELE.
--- NOTE | 2023-01-03 15:23 | NUR ---
PT EDUCATED ON IGNITION RISKS AND O2, PT VERBALIZED UNDERSTANDING, HOURLY ROUNDING ON IGNITION RISK/SOURCE COMPLETED.
--- NOTE | 2023-01-03 15:40 | NUR ---
PT ARRIVED TO ROOM 340 VIA W/C FROM ICU. AWAKE AND ALERT. SHOWER OFFERED AND GIVEN. STATES HE HAS BEEN TRYING TO BE GOOD BUT PLEASE DON'T BE A FOOD NAZI.
--- NOTE | 2023-01-03 16:58 | NUR ---
SHIFT SUMMARY FAXED DISCHARGE MED REC TO [facility] PER HIM REPORTING ITS THE PHARMACY TO FAX TO. SPOKE WITH JAVASCRIPT SOFTWARE ENGINEER ABOUT OBTAINING A RIDE WHICH WILL STOP AT PHARMACY PRIOR TO TAKING HIM HOME TO BE ABLE TO OBTAIN INSULIN TO DECREASE CHANCES OF READMISSION. SO FAR HAS BEEN COOPERATIVE WITH CARE.
--- NOTE | 2023-01-03 21:07 | NUR ---
POC GLUCOSE 373 THIS RN NOTIFIED MIKE MEYER, OF THIS VALUE. NO ORDER CHANGES INSULIN ADMINISTRATION REFLECTED IN EMAR. THIS RN WILL CONTINUE TO MONITOR.
[2023-01-04 01:34] LABS: Bun/Creatinine Ratio 16.5 (12.0-20.0); Calcium, Blood 7.5 mg/dL (8.5-10.1); Creatinine, Blood 1.27 mg/dL (0.60-1.20); Potassium, Blood 3.7 mmol/L (3.5-5.5)
[2023-01-04 03:25] VITALS: BP 139/83
--- NOTE | 2023-01-04 04:11 | NUR ---
CLEAN ROOM OPERATOR SUMMARY NO ACUTE CHANGES OVERNIGHT. A&OX4. PATIENT EFFECTIVELY COMMUNICATES NEEDS. VSS. RR EVEN AND UNLABORED ON RA. PATIENT NOTED TO MAKE FREQUENT REQUESTS FOR SNACKS, AND WAS EDUCATED ON ADMITTING DIAGNOSIS, DIET ORDERS/RESTRICTIONS, ETC. DIET APPROPRIATE SNACKS OFFERED. IMMODIUM ADMINISTERED PER EMAR FOR REPORTS OF LOOSE STOOLS. BED LOW AND LOCKED. CALL LIGHT WITHIN REACH. THIS RN WILL CONTINUE TO MONITOR.
[2023-01-04 05:38] LABS: Bun/Creatinine Ratio 17.4 (12.0-20.0); Calcium, Blood 7.1 mg/dL (8.5-10.1); Creatinine, Blood 1.21 mg/dL (0.60-1.20)
[2023-01-04 07:35] VITALS: BP 172/97
[2023-01-04] MEDS ORDERED: LOPE2C PO (12:24)
--- NOTE | 2023-01-04 13:15 | NUR ---
DISCHARGE INSTRUCTIONS COMPLETED AND DISCUSSED WITH PT. CALLED MOM TO PICK HIM UP. TO [facility] VIA W/C.
== END 2023-01-04 13:20 | disposition home or self-care (01) ==
LOC: ER 21:27 → ICUE 21:28 → MEDS 21:28 → ICUE 01-03 01:10 → MEDS 01-03 16:00
PROVIDERS: Internal Medicine; Student in an Organized Health Care Education/Training Program; ADMIT Internal Medicine
DX: E10.10 Type 1 diabetes mellitus with ketoacidosis without coma (principal); E86.0 Dehydration; E88.09 Other disorders of plasma-protein metabolism, not elsewhere classified; J44.9 Chronic obstructive pulmonary disease, unspecified; D63.8 Anemia in other chronic diseases classified elsewhere; Z88.8 Allergy status to other drugs, medicaments and biological substances; Z88.1 Allergy status to other antibiotic agents; Z79.4 Long term (current) use of insulin; Z79.899 Other long term (current) drug therapy
CPT/HCPCS: 80048; 80053; 82010; 82803; 82947; 85025; 93005; 93010; 96360; 96361; 96365; 96372; 99285-25; A9270; C1751; G0378; J1650; J1815; J7030; P9047

== ENCOUNTER 2023-01-07 04:18 | Emergency (ER) | payer OTHER ==
[~2023-01-07] VITALS: Ht 177.8 cm; Wt 68.0 kg
[~2023-01-07 04:18] MED LIST changes: +LOPE2C PO
[2023-01-07 04:31] VITALS: BP 152/89
[2023-01-07] MEDS ORDERED: POTCHL20ER PO (05:00)
[2023-01-07] MEDS ORDERED: LASIX20 M2 PO (05:00)
== END 2023-01-07 05:18 | disposition home or self-care (01) ==
LOC: ER 04:18
DX: R60.0 Localized edema (principal); N50.89 Other specified disorders of the male genital organs; F17.210 Nicotine dependence, cigarettes, uncomplicated; Z88.6 Allergy status to analgesic agent; Z88.1 Allergy status to other antibiotic agents; Z88.2 Allergy status to sulfonamides; Z88.8 Allergy status to other drugs, medicaments and biological substances
CPT/HCPCS: 99283; A9270

== ENCOUNTER 2023-01-12 16:05 | Inpatient (IN) | payer OTHER ==
[~2023-01-12] VITALS: Ht 175.3 cm; Wt 74.8 kg
[~2023-01-12 16:05] MED LIST changes: +LASIX20 M2 PO; +POTCHL20ER PO
[2023-01-12 16:28] LABS: BASOPHILS ABSOLUTE AUTO 0.22 K/mm3 (0.00-0.23); BASOPHILS PERCENT AUTO 1 % (0-2); EOSINOPHILS ABSOLUTE AUTO 0.06 K/mm3 (0.00-0.68); EOSINOPHILS PERCENT AUTO 0 % (0-6); Hematocrit 31.6 % (37.0-53.0); Hemoglobin 9.4 g/dL (13.5-17.5); IMMATURE GRAN PERCENT AUTO 4 % (0-1); LYMPHOCYTES ABSOLUTE AUTO 2.73 K/mm3 (0.84-5.20); LYMPHOCYTES PERCENT AUTO 15 % (21-46); MONOCYTES ABSOLUTE AUTO 1.09 K/mm3 (0.16-1.47); MONOCYTES PERCENT AUTO 6 % (4-13); Mean Corpuscular HGB 32.2 pg (26.0-34.0); Mean Corpuscular HGB Conc 29.7 g/dL (31.5-36.5); Mean Corpuscular Volume 108 fL (80-100); Mean Platelet Volume 9.2 fL (9.1-12.4); NEUTROPHILS ABSOLUTE AUTO 13.81 K/mm3 (1.96-9.15); NEUTROPHILS PERCENT AUTO 74 % (41-73); NRBC ABSOLUTE 0.02 K/mm3 (0.00-0.02); NRBC Auto 0.1 /100 WBC (0.0-0.2); Platelet Count 698 K/mm3 (150-400); RDW Coefficient Variation 14.2 % (11.7-14.2); RDW Standard Deviation 56.1 fL (35.1-46.3); Red Blood Cell Count 2.92 M/mm3 (4.30-5.90); White Blood Cell Count 18.61 K/mm3 (4.00-11.30)
[2023-01-12 16:49] LABS: Albumin, Blood 2.2 g/dL (3.4-5.0); Albumin/Globulin Ratio 0.6 (0.8-1.8); Bilirubin, Total 0.5 mg/dL (0.1-1.0); Bun/Creatinine Ratio 29.7 (12.0-20.0); Calcium, Blood 8.2 mg/dL (8.5-10.1); Creatinine, Blood 1.11 mg/dL (0.60-1.20); Globulin, Blood 3.9 g/dL (2.2-4.0); Potassium, Blood 5.3 mmol/L (3.5-5.5); Total Protein, Blood 6.1 g/dL (6.4-8.2)
[2023-01-12 17:00] LABS: Calcium, Ionized (POC) 1.03 mmol/L (1.10-1.46); Chloride (POC) 88 mmol/L (98-108); Creatinine (POC) 1.1 mg/dL (0.8-1.3); Glucose (ISTAT POC) >700 mg/dL (70-99); Hemoglobin (POC) 9.5 g/dL (13.5-17.5); Potassium (POC) 5.6 mmol/L (3.5-5.5); Sodium (POC) 116 mmol/L (135-148); Total CO2 (POC) 9 mmol/L (21-32)
[2023-01-12 17:30] LABS: Base Excess Venous -24.1 mmol/L; Bicarbonate Venous 8.4 mmol/L (24.0-30.0); PCO2 Venous 16.1 mmHg (38-42)
[2023-01-12 17:31] LABS: pH Blood Venous 7.12 (7.34-7.37)
[2023-01-12 18:50] LABS: Glucose, Blood 1084 mg/dL (70-99)
[2023-01-12 19:59] LABS: Source, Urine Clean Catch
[2023-01-12 20:00] LABS: Appearance, Urine Clear (Clear); Bilirubin, Urine Neg (Neg); Blood, Urine 1+ (Neg); Color, Urine Yellow (P-Yellow); Glucose Qualitative, Urine 4+ (Neg); Ketones, Urine 3+ (Neg); Leukocyte Esterase, Urine Neg (Neg); Nitrite, Urine Neg (Neg); Protein, Urine 3+ (Neg); Specific Gravity, Urine 1.015 (1.003-1.022); Urobilinogen, Urine NORM (Normal)
[2023-01-12 20:06] LABS: Amorphous Light (0-Heavy); Bacteria Not Seen /hpf; Red Blood Cells, Urine 0-2 /hpf (0-2); Squamous Epithelial Cells Rare /hpf (Few); White Blood Cells, Urine 0-2 /hpf (0-5)
[2023-01-12 20:18] LABS: U Amphetamine Screen DETECTED; U Barbituate Screen Not Detected; U Benzodiazapine Screen Not Detected; U Buprenorphine Screen Not Detected; U Cannabinoids Screen Not Detected; U Cocaine Screen Not Detected; U Methadone Screen Not Detected; U Methamphetamine Screen DETECTED; U Opiates Screen Not Detected; U Oxycodone Screen Not Detected; U Phencyclidine Screen Not Detected; U Propoxyphene Screen Not Detected
[2023-01-12 20:35] LABS: Glucose, Blood 920 mg/dL (70-99)
--- NOTE | 2023-01-12 21:30 | NUR ---
ASSUMED CARE PT ARRIVED ON UNIT @ 2114. SOMNULENT, BUT AROUSABLE TO VERBAL STIMULI. INSULIN GTT INFUSING (SEE FLOWSHEET). PT STATED "HELLO, MITCH" AND APPEARED TO KNOW WHERE HE WAS AT. PT WOULD FALL ASLEEP AND/OR REFUSE TO ANSWER QUESTIONS; FREQUENTLY TAKING OFF SPO2 PROBE/BP CUFF, BUT OTHERWISE COOPERATIVE W/ CARE. PT COMPLAINED OF SEVERE LEG PAIN AND ITCHINESS ON ARMS. PT ONLY STATED THAT LEG PAIN WAS 10/10, BUT DID NOT DESCRIBE QUALITY WHEN PROMPTED. DR CANTU CALLED W/ NEW ORDERS FOR FENTANYL AND BENEDRYL; PT ASLEEP SINCE ADMINISTRATION. PT UNABLE TO GIVE HX AT THIS TIME.
[2023-01-12 22:21] LABS: Bun/Creatinine Ratio 27.2 (12.0-20.0); Calcium, Blood 7.8 mg/dL (8.5-10.1); Creatinine, Blood 1.25 mg/dL (0.60-1.20); Potassium, Blood 3.8 mmol/L (3.5-5.5)
[2023-01-12 23:00] LABS: Glucose, Blood 599 mg/dL (70-99)
[2023-01-12 23:11] VITALS: BP 118/61
[2023-01-12 23:15] VITALS: BP 121/60
[2023-01-13] VITALS (12 sets, daily range): BP systolic 117–175; BP diastolic 60–85
[2023-01-13 02:20] LABS: BASOPHILS ABSOLUTE AUTO 0.11 K/mm3 (0.00-0.23); BASOPHILS PERCENT AUTO 1 % (0-2); EOSINOPHILS ABSOLUTE AUTO 0.16 K/mm3 (0.00-0.68); EOSINOPHILS PERCENT AUTO 1 % (0-6); Hematocrit 22.1 % (37.0-53.0); Hemoglobin 7.5 g/dL (13.5-17.5); IMMATURE GRAN ABSOLUTE AUTO 0.44 K/mm3 (0.00-0.10); IMMATURE GRAN PERCENT AUTO 3 % (0-1); LYMPHOCYTES ABSOLUTE AUTO 3.45 K/mm3 (0.84-5.20); LYMPHOCYTES PERCENT AUTO 24 % (21-46); MONOCYTES ABSOLUTE AUTO 1.05 K/mm3 (0.16-1.47); MONOCYTES PERCENT AUTO 7 % (4-13); Mean Corpuscular HGB 31.8 pg (26.0-34.0); Mean Corpuscular HGB Conc 33.9 g/dL (31.5-36.5); Mean Platelet Volume 8.4 fL (9.1-12.4); NEUTROPHILS PERCENT AUTO 64 % (41-73); NRBC ABSOLUTE 0.02 K/mm3 (0.00-0.02); NRBC Auto 0.1 /100 WBC (0.0-0.2); Platelet Count 586 K/mm3 (150-400); RDW Coefficient Variation 13.8 % (11.7-14.2); Red Blood Cell Count 2.36 M/mm3 (4.30-5.90); White Blood Cell Count 14.51 K/mm3 (4.00-11.30)
[2023-01-13 02:30] LABS: Mean Corpuscular Volume 94 fL (80-100)
[2023-01-13 02:43] LABS: Albumin, Blood 1.6 g/dL (3.4-5.0); Albumin/Globulin Ratio 0.5 (0.8-1.8); Bilirubin, Total 0.3 mg/dL (0.1-1.0); Bun/Creatinine Ratio 27.7 (12.0-20.0); Calcium, Blood 7.7 mg/dL (8.5-10.1); Creatinine, Blood 1.12 mg/dL (0.60-1.20); Magnesium, Blood 1.7 mg/dL (1.6-2.4); Phosphorus, Blood 2.5 mg/dL (2.5-4.9); Potassium, Blood 3.5 mmol/L (3.5-5.5); Total Protein, Blood 4.6 g/dL (6.4-8.2)
[2023-01-13 03:54] LABS: Bicarbonate Venous 11.9 mmol/L (24.0-30.0); PCO2 Venous 25.2 mmHg (38-42); pH Blood Venous 7.21 (7.34-7.37)
[2023-01-13 03:55] LABS: Base Excess Venous -17.7 mmol/L
[2023-01-13 03:56] LABS: Base Excess Venous -1.3 mmol/L; Bicarbonate Venous 23.4 mmol/L (24.0-30.0); PCO2 Venous 37.1 mmHg (38-42); pH Blood Venous 7.41 (7.34-7.37)
--- NOTE | 2023-01-13 05:34 | NUR ---
SHIFT SUMMARY PT SLEPT/RESTED QUIETLY T/O MOST OF NIGHT. INSULIN GTT AND D5 1/2NS INFUSING PER ORDER. NO ACUTE/NEW EVENTS OVERNIGHT SINCE PREVIOUS NOTE.
[2023-01-13 06:11] LABS: Base Excess Venous 3.9 mmol/L; Bicarbonate Venous 27.3 mmol/L (24.0-30.0); PCO2 Venous 43.2 mmHg (38-42); pH Blood Venous 7.42 (7.34-7.37)
[2023-01-13 07:06] LABS: Bun/Creatinine Ratio 27.7 (12.0-20.0); Calcium, Blood 7.9 mg/dL (8.5-10.1); Creatinine, Blood 0.97 mg/dL (0.60-1.20); Magnesium, Blood 1.6 mg/dL (1.6-2.4); Phosphorus, Blood 2.8 mg/dL (2.5-4.9); Potassium, Blood 3.4 mmol/L (3.5-5.5)
--- NOTE | 2023-01-13 07:40 | NUR ---
AM NOTE... ASSUMED CARE OF PT AT 0700. PT IS SLEEPING, OPENS EYES TO VERBAL STIMULI BUT DOES NOT ANSWER QUESTIONS AT THIS TIME. HE IS IN SINUS TACH 100'S-110'S. BP IS STABLE. HE IS ON RA WITH O2 SATS>95% L/S CLEAR T/O. BT PRESENT AND HYPERACTIVE. PT DENIES ANY N/V AT THIS TIME. INSULIN DRIP WAS RUNNING AT 0.5MG/HR THIS WAS INCREASED TO 1MG/HR. D5w1/2 IS RUNNING PER ORDERS. CALL LIGHT IN REACH WILL CONTINUE TO MONITOR.
--- NOTE | 2023-01-13 14:54 | NUR ---
PT TRANSFER.... PT TRANSFER TO MEDICAL FLOOR. REPORT GIVEN TO CARLOS VANN. ALL OF PT'S BELONGINGS WERE PACKED AND SENT WITH THE PT. PT DENIES ANY N/V. VS STABLE.
--- NOTE | 2023-01-13 19:08 | NUR ---
PT ADMITTED TO ROOM 341 AT 1520, AMBULATES STEADY ON FEET. ORIENTED TO ROOM AND CALL LIGHT. CURLED UP IN BED AND RESTING CURRENTLY
--- NOTE | 2023-01-13 19:23 | NUR ---
SUMMARY- PT INDEPENDANT IN ROOM. TOLERATING FOOD AND FLUIDS. USES CALL LIGHT TO MAKE NEEDS KNOWN- PT HAS POOR COPING AND GETS UPSET EASY IF TOLD TO WAIT OR IF WE DON'T HAVE SOME FOOD ITEM. BLOOD SUGAR ACD 242, COVERED WITH HUMALOG. CONSUMED ALL OF DINNER. ASKING FOR ANOTHER SNACK AND CHEESE AN HOUR LATER. BIG APPETITE. VOIDING IN TOILET. REPORTED ALL TO NOC SOO FONTANA
--- NOTE | 2023-01-13 20:44 | NUR ---
PT SBP TRENDING >160 FOR THE DAY. MD TO BE NOTIFIED IF SBP>180. PER DR. DUMONT, NO CHANGES IN TREATMENT AT THIS TIME.
[2023-01-14 01:54] VITALS: BP 151/84
[2023-01-14 05:37] LABS: BASOPHILS ABSOLUTE AUTO 0.07 K/mm3 (0.00-0.23); BASOPHILS PERCENT AUTO 1 % (0-2); EOSINOPHILS ABSOLUTE AUTO 0.12 K/mm3 (0.00-0.68); EOSINOPHILS PERCENT AUTO 1 % (0-6); Hematocrit 24.5 % (37.0-53.0); IMMATURE GRAN ABSOLUTE AUTO 0.06 K/mm3 (0.00-0.10); IMMATURE GRAN PERCENT AUTO 1 % (0-1); LYMPHOCYTES ABSOLUTE AUTO 2.47 K/mm3 (0.84-5.20); LYMPHOCYTES PERCENT AUTO 27 % (21-46); MONOCYTES ABSOLUTE AUTO 0.55 K/mm3 (0.16-1.47); MONOCYTES PERCENT AUTO 6 % (4-13); Mean Corpuscular HGB 31.7 pg (26.0-34.0); Mean Corpuscular HGB Conc 32.7 g/dL (31.5-36.5); Mean Corpuscular Volume 97 fL (80-100); Mean Platelet Volume 8.5 fL (9.1-12.4); NEUTROPHILS ABSOLUTE AUTO 5.81 K/mm3 (1.96-9.15); NEUTROPHILS PERCENT AUTO 64 % (41-73); Platelet Count 542 K/mm3 (150-400); RDW Coefficient Variation 14.6 % (11.7-14.2); RDW Standard Deviation 50.6 fL (35.1-46.3); Red Blood Cell Count 2.52 M/mm3 (4.30-5.90); White Blood Cell Count 9.08 K/mm3 (4.00-11.30)
[2023-01-14 06:42] LABS: Alanine Aminotransfer (ALT/SGP 33 U/L (12-78); Albumin, Blood 1.6 g/dL (3.4-5.0); Albumin/Globulin Ratio 0.5 (0.8-1.8); Alk Phos 193 U/L (50-136); Anion Gap 4 mmol/L (6-16); Aspartate Aminotrans (AST/SGOT 18 U/L (12-37); Bilirubin, Total <0.1 mg/dL (0.1-1.0); Blood Urea Nitrogen 16 mg/dL (8-24); Bun/Creatinine Ratio 20.3 (12.0-20.0); CO2, Blood 28 mmol/L (21-32); Calcium, Blood 7.7 mg/dL (8.5-10.1); Chloride, Blood 112 mmol/L (98-108); Creatinine, Blood 0.79 mg/dL (0.60-1.20); Globulin, Blood 3.1 g/dL (2.2-4.0); Glomerular Filtration Rate 116 (60-); Glucose, Blood 51 mg/dL (70-99); Potassium, Blood 3.5 mmol/L (3.5-5.5); Sodium, Blood 144 mmol/L (136-145); Total Protein, Blood 4.7 g/dL (6.4-8.2)
--- NOTE | 2023-01-14 07:08 | NUR ---
PT BG 51. RECHECKED WITH CAP STICK. CBG 49. PT IS ALERT AND ORIENTED X4 NOT SYMPTOMATIC AT THIS TIME, GAVE PT. HONEY, PEANUT BUTTER, CRACKERS. DR CARDOZA NOTIFIED. ONCOMING RN, CARLOS NOTIFIED.
[2023-01-14 07:57] VITALS: BP 181/99
--- NOTE | 2023-01-14 07:59 | NUR ---
SHIFT SUMMARY- PT IS ALERT AND ORIENTED X4. CAPABLE OF INDEPENDENT AMBULATION, INCONT URINATION OVERNIGHT. NO ACUTE CHANGES OVERNIGHT. WHEN LOOKING OVER LABS THIS MORNING, FOUND BLOOD GLUCOSE TO BE 51. CHECKED CBG RESULT WAS 49 PT WAS UN SYMPTOMATIC. PLS SEE PREVIOUS NOTE. BED IS IN THE LOWEST POSITION WITH CALL LIGHT IN REACH.
[2023-01-14 15:43] VITALS: BP 177/99
--- NOTE | 2023-01-14 20:37 | NUR ---
SUMMARY- PT A/O X4, INDEPENANT IN ROOM. TOLERATING FOOD AND FLUIDS. CONSUMES A LOT OF SNACKS IN BETWEEN MEALS. BLOOD SUGAR THIS AM 48, GLARGINE DECREASED. SUGARS LABILE, CHECKED AC/HS AND COVERED WITH SS HUMALOG. STARTED LISINOPRIL THIS PM. REFUSED CITALIPRAM. PLACED CASE MANAGEMENT CONSULT FOR AID IN GETTING PT TO COMPLY WITH INSULIN REGIMINE AND CHECKING SUGARS INDEPENDANTLY
[2023-01-14 21:01] VITALS: BP 161/89
[2023-01-14 21:02] VITALS: BP 154/90
[2023-01-15 03:00] VITALS: BP 129/77
--- NOTE | 2023-01-15 04:51 | NUR ---
NO ACUTE CHANGES. PT IS AOX4 AND COOPERATIVE OF CARE. PT TREATED FOR DIARHEA X1 NO DISTRESS NOTED. PT IS INDEPENDENT IN ROOM CALL LIGHT WITHIN REACH WILL CONTINUE TO MONITOR. IGNITION RISK ASSESSMENT HAS BEEN DONE WITH HOURLY ROUNDING AND NO HAZARDS HAVE BEEN FOUND.
--- NOTE | 2023-01-15 05:41 | NUR ---
IGNITION RISK ASSESSMENT HAS BEEN COMPLETED WITH HOURLY ROUNDING NO HAZARD HAS BEEN FOUND.
[2023-01-15 06:57] LABS: BASOPHILS ABSOLUTE AUTO 0.07 K/mm3 (0.00-0.23); BASOPHILS PERCENT AUTO 1 % (0-2); EOSINOPHILS ABSOLUTE AUTO 0.11 K/mm3 (0.00-0.68); EOSINOPHILS PERCENT AUTO 1 % (0-6); Hematocrit 25.8 % (37.0-53.0); Hemoglobin 8.4 g/dL (13.5-17.5); IMMATURE GRAN ABSOLUTE AUTO 0.05 K/mm3 (0.00-0.10); IMMATURE GRAN PERCENT AUTO 1 % (0-1); LYMPHOCYTES ABSOLUTE AUTO 2.63 K/mm3 (0.84-5.20); LYMPHOCYTES PERCENT AUTO 32 % (21-46); MONOCYTES ABSOLUTE AUTO 0.63 K/mm3 (0.16-1.47); MONOCYTES PERCENT AUTO 8 % (4-13); Mean Corpuscular HGB 32.1 pg (26.0-34.0); Mean Corpuscular HGB Conc 32.6 g/dL (31.5-36.5); Mean Corpuscular Volume 99 fL (80-100); Mean Platelet Volume 8.6 fL (9.1-12.4); NEUTROPHILS PERCENT AUTO 57 % (41-73); Platelet Count 473 K/mm3 (150-400); RDW Coefficient Variation 14.6 % (11.7-14.2); RDW Standard Deviation 52.3 fL (35.1-46.3); Red Blood Cell Count 2.62 M/mm3 (4.30-5.90); White Blood Cell Count 8.19 K/mm3 (4.00-11.30)
[2023-01-15 07:44] VITALS: BP 138/81
[2023-01-15 07:55] LABS: Alanine Aminotransfer (ALT/SGP 28 U/L (12-78); Albumin, Blood 1.7 g/dL (3.4-5.0); Albumin/Globulin Ratio 0.5 (0.8-1.8); Alk Phos 188 U/L (50-136); Anion Gap 0 mmol/L (6-16); Aspartate Aminotrans (AST/SGOT 24 U/L (12-37); Bilirubin, Total <0.1 mg/dL (0.1-1.0); Blood Urea Nitrogen 16 mg/dL (8-24); CO2, Blood 31 mmol/L (21-32); Calcium, Blood 7.8 mg/dL (8.5-10.1); Chloride, Blood 109 mmol/L (98-108); Creatinine, Blood 0.89 mg/dL (0.60-1.20); Globulin, Blood 3.3 g/dL (2.2-4.0); Glomerular Filtration Rate 112 (60-); Glucose, Blood 74 mg/dL (70-99); Potassium, Blood 4.1 mmol/L (3.5-5.5); Sodium, Blood 140 mmol/L (136-145)
--- NOTE | 2023-01-15 15:27 | NUR ---
DISCHARGE PATIENT A&OX4, IRRITABLE. NO ACUTE CHANGES THIS SHIFT. ASSESSED FOR SOURCES OF IGNITION DURING HOURLY ROUNDING. DENIED ANY CP, SOB, OR DIZZINESS. DISCHARGE PACKET REVIEWED WITH LUISITO ASEZ. PT REFUSED WHEELCHAIR ESCORT AND LEFT ON FOOT ACCOMPANIED BY SON AT 1525.
== END 2023-01-15 15:25 | disposition home or self-care (01) | DRG 638 ==
LOC: ER 16:05 → MEDS 19:09 → ICUE 19:09 → MEDS 19:10 → ICUE 21:13 → MEDS 01-13 15:03
PROVIDERS: Emergency Medicine; Family Medicine; ADMIT Student in an Organized Health Care Education/Training Program
DX: E10.10 Type 1 diabetes mellitus with ketoacidosis without coma (principal); F15.20 Other stimulant dependence, uncomplicated; M54.9 Dorsalgia, unspecified; G89.29 Other chronic pain; M41.9 Scoliosis, unspecified; M51.9 Unspecified thoracic, thoracolumbar and lumbosacral intervertebral disc disorder; J44.9 Chronic obstructive pulmonary disease, unspecified; I73.00 Raynaud's syndrome without gangrene; F32.9 Major depressive disorder, single episode, unspecified; F17.210 Nicotine dependence, cigarettes, uncomplicated; Z88.8 Allergy status to other drugs, medicaments and biological substances; Z91.148 Patient's other noncompliance with medication regimen for other reason; Z88.2 Allergy status to sulfonamides; Z98.890 Other specified postprocedural states; Z90.89 Acquired absence of other organs; Z88.1 Allergy status to other antibiotic agents; Z79.4 Long term (current) use of insulin; Z79.899 Other long term (current) drug therapy; Z59.00 Homelessness unspecified
CPT/HCPCS: 71045; 80047; 80048; 80053; 81001; 82010; 82803; 82947; 83036; 83735; 84100; 85014; 85025; 93005; 93010; 96361; 96374; 96375; 99285-25; A9270; C1751; J1200; J1650; J1815; J2765; J3010; J3480; J7030; J7042; J7050; J7120

== ENCOUNTER 2023-01-17 18:47 | Inpatient (IN) | payer OTHER ==
[~2023-01-17] VITALS: Ht 182.9 cm; Wt 62.1 kg
[2023-01-17 19:27] LABS: BASOPHILS ABSOLUTE AUTO 0.23 K/mm3 (0.00-0.23); BASOPHILS PERCENT AUTO 1 % (0-2); EOSINOPHILS ABSOLUTE AUTO 0.07 K/mm3 (0.00-0.68); EOSINOPHILS PERCENT AUTO 0 % (0-6); Hemoglobin 9.2 g/dL (13.5-17.5); IMMATURE GRAN ABSOLUTE AUTO 0.77 K/mm3 (0.00-0.10); IMMATURE GRAN PERCENT AUTO 4 % (0-1); LYMPHOCYTES ABSOLUTE AUTO 2.66 K/mm3 (0.84-5.20); LYMPHOCYTES PERCENT AUTO 14 % (21-46); MONOCYTES ABSOLUTE AUTO 0.96 K/mm3 (0.16-1.47); MONOCYTES PERCENT AUTO 5 % (4-13); Mean Corpuscular HGB 32.1 pg (26.0-34.0); Mean Corpuscular HGB Conc 28.8 g/dL (31.5-36.5); Mean Platelet Volume 10.2 fL (9.1-12.4); NEUTROPHILS ABSOLUTE AUTO 14.09 K/mm3 (1.96-9.15); NEUTROPHILS PERCENT AUTO 75 % (41-73); Platelet Count 532 K/mm3 (150-400); RDW Coefficient Variation 14.4 % (11.7-14.2); Red Blood Cell Count 2.87 M/mm3 (4.30-5.90); White Blood Cell Count 18.78 K/mm3 (4.00-11.30)
[2023-01-17 19:28] LABS: Mean Corpuscular Volume 112 fL (80-100)
[2023-01-17 19:30] LABS: Base Excess Venous -31.4 mmol/L; Bicarbonate Venous 4.5 mmol/L (24.0-30.0); PCO2 Venous 13.6 mmHg (38-42); pH Blood Venous 6.85 (7.34-7.37)
[2023-01-17 19:49] LABS: Magnesium, Blood 2.7 mg/dL (1.6-2.4)
[2023-01-17 20:34] LABS: Alanine Aminotransfer (ALT/SGP 38 U/L (12-78); Albumin, Blood 2.3 g/dL (3.4-5.0); Albumin/Globulin Ratio 0.6 (0.8-1.8); Alk Phos 243 U/L (50-136); Anion Gap 34 mmol/L (6-16); Aspartate Aminotrans (AST/SGOT 28 U/L (12-37); Beta-hydroxybutyrate >138.0 mg/dL (0.2-2.8); Bilirubin, Total 0.4 mg/dL (0.1-1.0); Blood Urea Nitrogen 38 mg/dL (8-24); Bun/Creatinine Ratio 28.8 (12.0-20.0); CO2, Blood 2 mmol/L (21-32); Calcium, Blood 8.8 mg/dL (8.5-10.1); Chloride, Blood 86 mmol/L (98-108); Creatinine, Blood 1.32 mg/dL (0.60-1.20); Globulin, Blood 3.7 g/dL (2.2-4.0); Glomerular Filtration Rate 70 (60-); Glucose, Blood 1115 mg/dL (70-99); Sodium, Blood 122 mmol/L (136-145)
[2023-01-17 22:15] VITALS: BP 116/67
[2023-01-17 22:39] VITALS: BP 104/84
[2023-01-17 22:45] VITALS: BP 101/89
[2023-01-17 23:02] LABS: Bun/Creatinine Ratio 27.3 (12.0-20.0); Calcium, Blood 7.5 mg/dL (8.5-10.1); Creatinine, Blood 1.39 mg/dL (0.60-1.20); Potassium, Blood 5.1 mmol/L (3.5-5.5)
[2023-01-17 23:15] VITALS: BP 116/88
--- NOTE | 2023-01-17 23:16 | NUR ---
CRITICAL LABS CALLED TO DR. CANTU, ORDERS GIVEN
[2023-01-17 23:30] VITALS: BP 108/62
[2023-01-17 23:45] VITALS: BP 122/72
[2023-01-18] VITALS (19 sets, daily range): BP systolic 90–181; BP diastolic 50–92
--- NOTE | 2023-01-18 00:45 | NUR ---
DR CANTU NOTIFIED OF CRITICAL LAB
[2023-01-18 00:57] LABS: Glucose, Blood 934 mg/dL (70-99)
--- NOTE | 2023-01-18 02:00 | NUR ---
DR CANTU NOTIFIED OF CRITICAL LAB
[2023-01-18 02:02] LABS: Glucose, Blood 791 mg/dL (70-99)
--- NOTE | 2023-01-18 03:00 | NUR ---
DR CANTU NOTIFED OF CRITIAL LABS
[2023-01-18 03:03] LABS: Glucose, Blood 609 mg/dL (70-99)
[2023-01-18 03:19] LABS: Base Excess Venous -13.4 mmol/L; Bicarbonate Venous 14.9 mmol/L (24.0-30.0); PCO2 Venous 22.4 mmHg (38-42); pH Blood Venous 7.35 (7.34-7.37)
[2023-01-18 03:35] LABS: Bun/Creatinine Ratio 27.8 (12.0-20.0); Calcium, Blood 7.6 mg/dL (8.5-10.1); Creatinine, Blood 1.33 mg/dL (0.60-1.20); Magnesium, Blood 2.1 mg/dL (1.6-2.4); Potassium, Blood 3.9 mmol/L (3.5-5.5)
[2023-01-18 03:54] LABS: BASOPHILS ABSOLUTE AUTO 0.11 K/mm3 (0.00-0.23); BASOPHILS PERCENT AUTO 1 % (0-2); EOSINOPHILS ABSOLUTE AUTO 0.01 K/mm3 (0.00-0.68); EOSINOPHILS PERCENT AUTO 0 % (0-6); Hematocrit 22.1 % (37.0-53.0); Hemoglobin 7.5 g/dL (13.5-17.5); IMMATURE GRAN ABSOLUTE AUTO 0.52 K/mm3 (0.00-0.10); IMMATURE GRAN PERCENT AUTO 3 % (0-1); LYMPHOCYTES ABSOLUTE AUTO 3.02 K/mm3 (0.84-5.20); LYMPHOCYTES PERCENT AUTO 16 % (21-46); MONOCYTES ABSOLUTE AUTO 0.86 K/mm3 (0.16-1.47); MONOCYTES PERCENT AUTO 5 % (4-13); Mean Corpuscular HGB 32.1 pg (26.0-34.0); Mean Corpuscular HGB Conc 33.9 g/dL (31.5-36.5); Mean Platelet Volume 9.6 fL (9.1-12.4); NEUTROPHILS ABSOLUTE AUTO 13.96 K/mm3 (1.96-9.15); NEUTROPHILS PERCENT AUTO 76 % (41-73); Platelet Count 459 K/mm3 (150-400); RDW Coefficient Variation 13.5 % (11.7-14.2); RDW Standard Deviation 46.4 fL (35.1-46.3); Red Blood Cell Count 2.34 M/mm3 (4.30-5.90); White Blood Cell Count 18.48 K/mm3 (4.00-11.30)
[2023-01-18 04:19] LABS: Mean Corpuscular Volume 94 fL (80-100)
--- NOTE | 2023-01-18 05:41 | NUR ---
SHIFT SUMMERY PT ADMITTED THIS SHIFT FOR DKA. INSULIN GTT NOW AT 3, BLOOD GLUCOSE AND OTHER LABS IMPROVING. D5 1/2NS @ 100 INFUSING WELL. PT IS ORIENTED X2, ESTEBAN. VSS THIS SHIFT, AFEBRILE. NO N/V/D.
--- NOTE | 2023-01-18 06:28 | NUR ---
DR CANTU NOTIFIED OF PT LABS. ORDERS GIVEN
--- NOTE | 2023-01-18 07:31 | NUR ---
Assumed care of pt at 0700. Report received from Richa VANN. Pt in bed, sleeping, even chest rise and fall noted. No signs of distress noted. Insulin 2 units/hr. Resident and medical student in to see patient. BMP pending.
[2023-01-18 07:57] LABS: Bun/Creatinine Ratio 27.9 (12.0-20.0); Calcium, Blood 8.1 mg/dL (8.5-10.1); Creatinine, Blood 1.29 mg/dL (0.60-1.20); Potassium, Blood 3.7 mmol/L (3.5-5.5)
--- NOTE | 2023-01-18 10:46 | NUR ---
UPDATE Call placed to Dr Adiel roa order for IV potassium entered by resident. Provider stated hold potassium at this time. Pt has BMP at 1100. Patient requesting food. Provider stated to hold food at this time, pending care team reviewing case and 1100 labs.
[2023-01-18 10:56] LABS: Bun/Creatinine Ratio 30.5 (12.0-20.0); Creatinine, Blood 1.05 mg/dL (0.60-1.20); Potassium, Blood 3.7 mmol/L (3.5-5.5)
--- NOTE | 2023-01-18 13:06 | NUR ---
Dr Chun in to see patient. Discussed most recent labs. Patient is eating and tolerating food well. Notified provider of recent high BP measurement. Continue with current plan of care. Med tele status.
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
--- NOTE | 2023-01-18 15:26 | NUR ---
Patient to transfer to room 332, report given to Yessenia VANN. Pt is A&O x 4. Pleasant and cooperative with care. Independent in room. Medical floor status without telemetry. Ambulated to shower room with nurse assist.
--- NOTE | 2023-01-18 16:57 | NUR ---
PATIENT IS ALERT AND ORIENTED AND COOPERATIVE WITH CARE. ON RA. NO TELE. TRANSFERRED TO ROOM 332 THIS AFTERNOON FROM ICU 1. PATIENT C/O DIARRHEA, HE WAS MEDICATED FOR THIS PER EMAR IN ICU. NO C/O PAIN. HE HAS ASKED FOR SNACKS AND DRINKS BUT OTHERWISE QUIET AND LAYING IN BED. WILL CONTINUE TO MONITOR
[2023-01-19] VITALS (8 sets, daily range): BP systolic 148–185; BP diastolic 78–103
--- NOTE | 2023-01-19 04:42 | NUR ---
SHIFT SUMMARY. SHIFT HAS BEEN MOSTLY UNREMARKABLE. PT IS MOSTLY COOPERATIVE WITH CARE BUT IS SOMEWHAT IRRITABLE. PARTICULAR. AOX4. MOSTLY PLEASANT. CALLS APPROPRIATELY. NO PAIN REPORTED. INDEPENDENT WITHIN ROOM. HAS SLEPT THROUGH MOST OF SHIFT AFTER SHIFT ASSESSMENT. BED LOCKED IN LOWEST POSITION. CALL LIGHT LEFT WITHIN REACH.
--- NOTE | 2023-01-19 12:48 | NUR ---
DR. GIL NOTIFIED OF PATIENT'S LAST BP. 20MG LISINORIL WAS GIVEN TO THE PATIENT PER DR. DAWKINS REQUEST. THE PATIENT TOK THE MEDICATION BUT IS NOW UPSET AND EAGER TO LEAVE. HE DOES NOT WANT TO WAIT FOR HIS BLOOD PRESSURE TO BE MONITORED FOLLOWING THE ADMINISTRATION OF LISINOPRIL. DR. GIL NOTIFIED THAT THE PATIENT WANTS TO GO NOW, DR. GIL ASKED THAT THE PATIENT BE NOTIFIED TO COME BACK TO THE ER WITH WORSENING SYMPTOMS, HEADACHE OR BLURRY VISION. WILL START DISCHARGE NOW
--- NOTE | 2023-01-19 15:33 | NUR ---
Soke with viola and his mother. Will reach out on sunday to see if we can increase his services.
== END 2023-01-19 13:58 | disposition home or self-care (01) | DRG 638 ==
LOC: ER 18:47 → ICUE 21:42 → MEDS 01-18 15:28 → ENPENDDIS 01-19 12:09 → MEDS 01-19 13:58
PROVIDERS: Emergency Medicine; Nurse Practitioner Acute Care; ADMIT Internal Medicine
DX: E10.10 Type 1 diabetes mellitus with ketoacidosis without coma (principal); N17.9 Acute kidney failure, unspecified; R65.10 Systemic inflammatory response syndrome (SIRS) of non-infectious origin without acute organ dysfunction; I10 Essential (primary) hypertension; M54.9 Dorsalgia, unspecified; G89.29 Other chronic pain; M41.9 Scoliosis, unspecified; J44.9 Chronic obstructive pulmonary disease, unspecified; I73.00 Raynaud's syndrome without gangrene; E87.5 Hyperkalemia; F15.10 Other stimulant abuse, uncomplicated; E86.0 Dehydration; F31.9 Bipolar disorder, unspecified; R10.9 Unspecified abdominal pain; F17.210 Nicotine dependence, cigarettes, uncomplicated; Z79.4 Long term (current) use of insulin; Z79.899 Other long term (current) drug therapy; Z88.2 Allergy status to sulfonamides; Z90.89 Acquired absence of other organs; Z88.1 Allergy status to other antibiotic agents; Z59.00 Homelessness unspecified; Z98.890 Other specified postprocedural states; Z88.8 Allergy status to other drugs, medicaments and biological substances; Z91.148 Patient's other noncompliance with medication regimen for other reason
CPT/HCPCS: 36415; 71045; 80048; 80053; 82010; 82803; 82947; 83735; 85025; 96361; 96374; 96375; 99285-25; A9270; C1751; J0780; J1650; J1815; J7030

== ENCOUNTER 2023-02-01 02:30 | Inpatient (IN) | payer OTHER ==
[2023-02-01] VITALS (9 sets, daily range): BP systolic 93–133; BP diastolic 51–80
[~2023-02-01] VITALS: Ht 182.9 cm; Wt 61.2 kg
[2023-02-01 02:57] LABS: Base Excess Venous -29.6 mmol/L; Bicarbonate Venous 5.7 mmol/L (24.0-30.0); PCO2 Venous 13.6 mmHg (38-42); pH Blood Venous 6.93 (7.34-7.37)
[2023-02-01 03:08] LABS: Hematocrit 33.6 % (37.0-53.0); Hemoglobin 10.1 g/dL (13.5-17.5); Mean Corpuscular HGB 32.1 pg (26.0-34.0); Mean Corpuscular HGB Conc 30.1 g/dL (31.5-36.5); Mean Corpuscular Volume 107 fL (80-100); NRBC ABSOLUTE 0.05 K/mm3 (0.00-0.02); NRBC Auto 0.2 /100 WBC (0.0-0.2); RDW Coefficient Variation 14.5 % (11.7-14.2); RDW Standard Deviation 56.5 fL (35.1-46.3); Red Blood Cell Count 3.15 M/mm3 (4.30-5.90); White Blood Cell Count 27.98 K/mm3 (4.00-11.30)
[2023-02-01 03:28] LABS: Magnesium, Blood 2.1 mg/dL (1.6-2.4)
[2023-02-01 03:29] LABS: Mean Platelet Volume 10.1 fL (9.1-12.4)
[2023-02-01 03:39] LABS: BAND PERCENT MAN 4 % (0-8); BASOPHILS ABSOLUTE MAN 0.55 K/mm3 (0.00-0.23); BASOPHILS PERCENT MAN 2 % (0-2); EOSINOPHILS PERCENT MAN 0 % (0-6); LYMPHOCYTES ABSOLUTE MAN 4.47 K/mm3 (0.84-5.20); LYMPHOCYTES PERCENT MAN 16 % (21-46); MONOCYTES ABSOLUTE MAN 1.11 K/mm3 (0.16-1.47); MONOCYTES PERCENT MAN 4 % (4-13); MYELOCYTE ABSOLUTE MAN 1.67 K/mm3 (0.00-0.00); MYELOCYTE PERCENT MAN 6 % (0-0); NEUTROPHILS ABSOLUTE MAN 20.14 K/mm3 (1.96-9.15); SEG NEUTROPHILS PERCENT MAN 68 % (41-73); TOTAL CELLS COUNTED 100
[2023-02-01 03:41] LABS: Platelet Count 847 K/mm3 (150-400)
[2023-02-01 03:55] LABS: Calcium, Ionized (POC) 1.08 mmol/L (1.10-1.46); Chloride (POC) 87 mmol/L (98-108); Creatinine (POC) 1.2 mg/dL (0.8-1.3); Glucose (ISTAT POC) >700 mg/dL (70-99); Hemoglobin (POC) 12.6 g/dL (13.5-17.5); Potassium (POC) 8.2 mmol/L (3.5-5.5); Sodium (POC) 112 mmol/L (135-148); Total CO2 (POC) 7 mmol/L (21-32)
[2023-02-01 03:57] LABS: Alanine Aminotransfer (ALT/SGP 40 U/L (12-78); Albumin/Globulin Ratio 0.5 (0.8-1.8); Alk Phos 311 U/L (50-136); Anion Gap 36 mmol/L (6-16); Aspartate Aminotrans (AST/SGOT 35 U/L (12-37); Beta-hydroxybutyrate >138.0 mg/dL (0.2-2.8); Bilirubin, Total 0.5 mg/dL (0.1-1.0); Blood Urea Nitrogen 31 mg/dL (8-24); Bun/Creatinine Ratio 25.8 (12.0-20.0); Calcium, Blood 8.4 mg/dL (8.5-10.1); Chloride, Blood 78 mmol/L (98-108); Globulin, Blood 4.4 g/dL (2.2-4.0); Glomerular Filtration Rate 79 (60-); Phosphorus, Blood 7.1 mg/dL (2.5-4.9); Potassium, Blood 5.5 mmol/L (3.5-5.5); Total Protein, Blood 6.4 g/dL (6.4-8.2)
[2023-02-01 03:58] LABS: Sodium, Blood 117 mmol/L (136-145)
[2023-02-01 03:59] LABS: CO2, Blood 3 mmol/L (21-32); Glucose, Blood 1070 mg/dL (70-99)
[2023-02-01 05:47] LABS: Bun/Creatinine Ratio 26.8 (12.0-20.0); Creatinine, Blood 1.23 mg/dL (0.60-1.20); Potassium, Blood 4.9 mmol/L (3.5-5.5)
--- NOTE | 2023-02-01 06:23 | NUR ---
ASSUMED CARE PT SOMNULENT; AROUSES TO VERBAL STIMULI; ORIENTED X3. SPO2 >92% ON RA; MAP >65. PT DENIES NAUSEA. PT INTERMITTENTLY REFUSES TO ANSWER QUESTIONS. INSULIN TITRATING W/ BICARB INFUSING PER ORDERS. PT STATED THAT HE HAD LAST TAKEN INSULIN 2 DAYS AGO. PT IS CURRENTLY RESTING QUIETLY; WILL REPEATEDLY ASK FOR DIET PEPSI IF WOKEN.
[2023-02-01 07:03] LABS: Glucose, Blood 985 mg/dL (70-99)
[2023-02-01 07:58] LABS: Bun/Creatinine Ratio 26.4 (12.0-20.0); Creatinine, Blood 1.29 mg/dL (0.60-1.20); Potassium, Blood 3.9 mmol/L (3.5-5.5)
[2023-02-01 09:13] LABS: Bun/Creatinine Ratio 26.4 (12.0-20.0); Creatinine, Blood 1.29 mg/dL (0.60-1.20); Potassium, Blood 3.7 mmol/L (3.5-5.5)
[2023-02-01] MEDS ORDERED: Celexa20 MG PO (10:10)
[2023-02-01 10:11] LABS: Glucose, Blood 554 mg/dL (70-99)
[2023-02-01] MEDS ORDERED: BASAGLAR K100 UNIT/3 SC (10:11)
[2023-02-01] MEDS ORDERED: LISI5 PO (10:11)
[2023-02-01] MEDS ORDERED: HUMALOG KW100 UNIT/1 SC (10:12)
[2023-02-01 11:17] LABS: Bun/Creatinine Ratio 27.1 (12.0-20.0); Calcium, Blood 8.1 mg/dL (8.5-10.1); Creatinine, Blood 1.18 mg/dL (0.60-1.20); Potassium, Blood 3.4 mmol/L (3.5-5.5)
--- NOTE | 2023-02-01 12:05 | NUR ---
Refusing telemetry: Patient refusing cardiac leads at this time.
--- NOTE | 2023-02-01 18:22 | NUR ---
SUMMARY PT A/OX4. OFF INSULIN GTT THIS AFTERNOON AFTER BEING TRANSITIONED TO LONG ACTING INSULIN. ALSO HAS SS COVERAGE. FREQUENTLY DEMANDING SANDWICHES AND CHEESE. ADA DIET STARTED. PT ADMITTED TO DR. VELEZ THAT HE HAS BEEN FEELING SUICIDAL AND HIS PLAN WAS TO NOT TAKE HIS INSULIN. 1:1 SITTER INITIATED AND ROOM MITIGATED. PT REFUSES TO BE ON TELE MONITOR AND ALL VS OF THIS AFTERNOON. ALSO SELECTIVE OF WHAT CARE HE WILL ALLOW OR WON'T AND YELLS OUT DEMANDS. NO SIGN OF DISTRESS AT THE MOMENT.
--- NOTE | 2023-02-01 19:29 | NUR ---
ASSUMED CARE OF PT AT 1900. REPORT RECEIVED. PT PRESENTS IN BED. INCONTINENT TO STOOL. LIQUID IN NATURE. PT STATES THAT HE TAKE LOMOTIL AT HOME DAILY FOR DIARRHEA. PT VERY ARGUEMENTATIVE WANTING FOOD, AND STATING THAT HE HAS NOT EATEN EXCEPT SMALL AMOUNT AT DINNER. WHEN TAKING OVER CARE, PT WAS EATING A SANDWHICH THAT WAS PROVIDED BY PREVIOUS RN. PT AGREES TO HAVE HIS BLOOD SUGAR DONE PRIOR TO ANOTHER SANDWHICH. PT HAS JUST COME OFF INSULIN DRIP EARIER IN THE DAY. PT KEEPS COVERING HIS HEAD WITH BLANKET, AND DOES NOT WANT TO COMPLY WITH SUICIDAL SAFETY PLAN. AFTER MUCH CONVERSATION PT AGREES TO KEEP HIS BLANKET OFF HIS HEAD.
[2023-02-01 21:02] LABS: Bun/Creatinine Ratio 24.7 (12.0-20.0); Calcium, Blood 8.2 mg/dL (8.5-10.1); Creatinine, Blood 0.97 mg/dL (0.60-1.20); Potassium, Blood 4.1 mmol/L (3.5-5.5)
--- NOTE | 2023-02-01 22:28 | NUR ---
PT STATUS CHANGED TO MEDICAL FLOOR NO TELEMETRY. PT MADE AWARE OF POSSIBLE MOVEMENT TO MEDICAL FLOOR. BED ROOM ASSIGNMENT HAS BEEN MADE. PENDING REPORT. PT MEDICATED WITH LOMOTIL FOR LOOSE STOOL. NO FURTHER EPISODES TO NOTE. PT CURRENTLY SLEEPING. NO S/S HARMFUL BEHAVIOR. SITTER REMAINS AT DOORWAY FOR PT SAFETY. PT AWARE OF IGNITION SOURCE AND NON-SMOKING POLICY.
--- NOTE | 2023-02-01 23:47 | NUR ---
REPORT GIVEN TO SOO HALE. ALLOWED FOR QUESTIONS. PT TRANSFERRED TO ROOM 352 VIA W/C. PT AMBULATES TO W/C, AND ONCE TO ROOM, AMBUATED WITH STANDBY ASSIST.
--- NOTE | 2023-02-02 00:17 | NUR ---
IN HOUSE TRANSFER FROM ICU 2. ROOM MITIGATED FOR SI. PT TRANSFERRED BY ICE RN WITH ALL BELONGINGS WHICH ARE LOCKED IN CHART BOX. BATHROOM IS LOCKED AND DOYLE IS IN NURSE STATION DRAWER OUTSIDE ROOM WHERE SITTER IS SITTING.
--- NOTE | 2023-02-02 03:38 | NUR ---
SHIFT SUMMARY NOC ICU TRANSFER. PT WAS IN ICU FOR DKA DUE TO NON ADHERENCE TO TAKING INSULIN FOR DM1. PT IS ON 2 MD HOLD FOR SI AND HAS 1:1 SITTER FOR DIRECT OBSERVATION. PT IS A/O X 4. HAS BEEN PLEASANT AND COOPERATIVE WITH CARE SO FAR DURING SHIFT. PT HAS BEEN ASKING FOR SNACKS WHEN AWAKE, BUT HAS BEEN ASLEEP FOR MAJORITY OF TIME SINCE TRANSFERRING TO UNIT. PT HAS PG IN [facility] THAT DOES NOT DRAW. PT HAS CONSULT SCHEDULED TODAY WITH PSYCHIATRIST DR HAM. PT IS CURRENTLY RESTING WITH SITTER IN PLACE, BED IN LOWEST POSITION, AND CALL LIGHT WITHIN REACH.
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
[2023-02-02 04:57] VITALS: BP 128/57
[2023-02-02 05:16] LABS: BASOPHILS ABSOLUTE AUTO 0.06 K/mm3 (0.00-0.23); BASOPHILS PERCENT AUTO 0 % (0-2); EOSINOPHILS PERCENT AUTO 1 % (0-6); Hematocrit 23.1 % (37.0-53.0); IMMATURE GRAN ABSOLUTE AUTO 0.16 K/mm3 (0.00-0.10); IMMATURE GRAN PERCENT AUTO 1 % (0-1); LYMPHOCYTES ABSOLUTE AUTO 1.92 K/mm3 (0.84-5.20); LYMPHOCYTES PERCENT AUTO 14 % (21-46); MONOCYTES ABSOLUTE AUTO 0.75 K/mm3 (0.16-1.47); MONOCYTES PERCENT AUTO 5 % (4-13); Mean Corpuscular HGB 31.9 pg (26.0-34.0); Mean Corpuscular HGB Conc 34.6 g/dL (31.5-36.5); Mean Platelet Volume 8.9 fL (9.1-12.4); NEUTROPHILS ABSOLUTE AUTO 10.91 K/mm3 (1.96-9.15); NEUTROPHILS PERCENT AUTO 79 % (41-73); NRBC ABSOLUTE 0.02 K/mm3 (0.00-0.02); NRBC Auto 0.1 /100 WBC (0.0-0.2); Platelet Count 610 K/mm3 (150-400); RDW Coefficient Variation 14.5 % (11.7-14.2); RDW Standard Deviation 48.5 fL (35.1-46.3); Red Blood Cell Count 2.51 M/mm3 (4.30-5.90)
[2023-02-02 05:43] LABS: Mean Corpuscular Volume 92 fL (80-100)
[2023-02-02 06:01] LABS: Albumin, Blood 1.6 g/dL (3.4-5.0); Anion Gap 7 mmol/L (6-16); Blood Urea Nitrogen 23 mg/dL (8-24); Bun/Creatinine Ratio 21.9 (12.0-20.0); CO2, Blood 25 mmol/L (21-32); Calcium, Blood 7.6 mg/dL (8.5-10.1); Chloride, Blood 101 mmol/L (98-108); Creatinine, Blood 1.05 mg/dL (0.60-1.20); Glomerular Filtration Rate 93 (60-); Glucose, Blood 524 mg/dL (70-99); Phosphorus, Blood 3.2 mg/dL (2.5-4.9); Potassium, Blood 4.5 mmol/L (3.5-5.5); Sodium, Blood 133 mmol/L (136-145)
--- NOTE | 2023-02-02 06:21 | NUR ---
HOSPITALIST NOTIFIED PT AM LAB SERUM GLUCOSE 524. INSTRUCTIONS GIVEN TO GIVE AM LISPRO DOSE NOW.
--- NOTE | 2023-02-02 06:48 | NUR ---
PT REFUSED BLOOD GLUCOSE CHECK AND INSULIN ADMINISTRATION FOR BLOOD GLUCOSE OF 524. SENIOR IOS SOFTWARE ENGINEER AND NIGHT HOSPITALIST NOTIFIED. INTRUCTIONS GIVEN TO DOCUMENT REFUSAL.
[2023-02-02 07:40] VITALS: BP 155/76
--- NOTE | 2023-02-02 08:00 | NUR ---
PATIENT A&OX4. ANSWER TO ASSESSMENT QUESTIONS APPROPRIATELY, PLEASANT AND COOPERATIVE c CARE PROVIDED. PATIENT DENIES SI, HARMING HIMSELF OR OTHERS AT THIS TIME. PATIENT STILL ON 2 MD HOLD. WILL CONTINUE TO MONITOR PATIENT T/O SHIFT.
--- NOTE | 2023-02-02 08:20 | NUR ---
NOTE: CALLED DR BAE TO NOTIFY PATIENT BS REGISTERED ON GLUCOMETER IS HIGH, LAB WAS NOTIFIED AND AWAITING FOR CONFORMATION LAB DRAWN. NO ORDERS RECEIVED, PER DR. BAE HE WILL LOOK INTO PATIENT INSULIN COVERAGE.
[2023-02-02 09:08] LABS: Glucose, Blood 582 mg/dL (70-99)
--- NOTE | 2023-02-02 12:13 | NUR ---
NOTE: CALLED DR. BAEZ TO NOTIFY PATIENT BS [address] BAEZ TO CONTINUE INSULIN ON HIGH SLIDING COVERAGE.
[2023-02-02 15:21] VITALS: BP 151/94
--- NOTE | 2023-02-02 17:21 | NUR ---
SHIFT SUMMARY: PATIENT IS A&OX4. CALM, PLEASANT AND COOPERATIVE c CARE. USES CALL LIGHT APPROPRIATELY AND ABLE TO MAKE NEEDS KNOWN. BS RANGES [phone] THIS SHIFT, RECEIVED INSULIN PER EMAR COVERAGE. PATIENT DENIES SI, HARMING HIMSELF OR OTHERS THIS SHIFT. STILL ON 2 MD HOLD c 1:1 SITTER OUTSIDE THE ROOM FOR DIRECT OBSERVATION. PATIENT REPORTS 5 LOOSE BROWN BM, AND REQUESTING FOR LOMOTIL. MEDICATED X1 c LOMOTIL c GOOD EFFECT. PATIENT IS EATING AND DRINKING WELL. DENIES N/V, SOB, CP/PRESSURE AND GENERALIZED PAIN. DR. LICONA CAME AND SAW PATIENT THIS PM FOR PSYCH CONSULT. VITAL SIGNS REVIEWED. CALL LIGHT IN REACH.
[2023-02-02 19:14] VITALS: BP 129/84
--- NOTE | 2023-02-03 03:07 | NUR ---
REPORT RECEIVED AND VERIFIED ON SI WATCH, SITTER AT BEDSIDE, BUT PT STATES HE NO LONGER WANTS TO HARMSELF, PT WILL BE REEVALUATED TOMORROW. PT C/O DIARRHEA AND WAS MEDICATED PT ALSO VERY HUNGRY AND HAS ASKED FOR MULTIPLE SANDWICHES AND CHEESE, HAS GOOD APPETITE.
[2023-02-03 04:31] VITALS: BP 143/83
[2023-02-03 05:04] LABS: BASOPHILS ABSOLUTE AUTO 0.07 K/mm3 (0.00-0.23); BASOPHILS PERCENT AUTO 1 % (0-2); EOSINOPHILS ABSOLUTE AUTO 0.18 K/mm3 (0.00-0.68); EOSINOPHILS PERCENT AUTO 2 % (0-6); Hematocrit 26.1 % (37.0-53.0); Hemoglobin 8.7 g/dL (13.5-17.5); IMMATURE GRAN ABSOLUTE AUTO 0.11 K/mm3 (0.00-0.10); IMMATURE GRAN PERCENT AUTO 1 % (0-1); LYMPHOCYTES ABSOLUTE AUTO 2.79 K/mm3 (0.84-5.20); LYMPHOCYTES PERCENT AUTO 28 % (21-46); MONOCYTES ABSOLUTE AUTO 0.64 K/mm3 (0.16-1.47); MONOCYTES PERCENT AUTO 6 % (4-13); Mean Corpuscular HGB 31.6 pg (26.0-34.0); Mean Corpuscular HGB Conc 33.3 g/dL (31.5-36.5); Mean Corpuscular Volume 95 fL (80-100); Mean Platelet Volume 8.9 fL (9.1-12.4); NEUTROPHILS ABSOLUTE AUTO 6.17 K/mm3 (1.96-9.15); NEUTROPHILS PERCENT AUTO 62 % (41-73); NRBC ABSOLUTE 0.02 K/mm3 (0.00-0.02); NRBC Auto 0.2 /100 WBC (0.0-0.2); Platelet Count 595 K/mm3 (150-400); Red Blood Cell Count 2.75 M/mm3 (4.30-5.90); White Blood Cell Count 9.96 K/mm3 (4.00-11.30)
[2023-02-03 05:21] LABS: Bun/Creatinine Ratio 24.2 (12.0-20.0); Creatinine, Blood 0.83 mg/dL (0.60-1.20)
[2023-02-03 08:10] VITALS: BP 161/89
[2023-02-03 15:26] VITALS: BP 177/95
--- NOTE | 2023-02-03 18:05 | NUR ---
SHIFT/DISCHARGE SUMMARY: PATIENT A&OX4. CALM, PLEASANT AND COOPERATIVE c CARE. USES CALL LIGHT APPROPRIATELY AND ABLE TO MAKE NEEDS KNOWN. PATIENT DENIED SI, HARMIMG HIMSELF OR OTHERS THIS SHIFT. 1:1 SITTER. 2 MD HOLD AND SUICIDE PRECAUTION WAS DC'D BY DR. BAE THIS PM. BS RANGES [phone] THIS SHIFT, RECEIVED INSULIN COVERAGE PER EMAR. DENIES CP/PRESSURE, N/V, SOB, DIZZINESS AND GENERALIZED PAIN. PATIENT HAD 1 SOFT BROWN BM THIS SHIFT. VITAL SIGNS REVIEWED. POWERGLIDE TO ROJELIO DC'D. PIV TO L FOREARM DC'D. PATIENT DISCHARGE HOME. DISCHARGE INSTRUCTIONS PACKET GIVEN TO PATIENT. EDUCATE PATIENT REGARDING ADMITTING DX OF DKA, S/S, TX, SELF CARE AND MEDICATIONS TO HOME. PATIENT VERBALIZED UNDERSTANDING AND NO FURTHER QUESTIONS. RX WAS FAXED TO PATIENT PREFERRED PHARMACY ([facility]). ALL PATIENT PERSONAL BELONGINGS WERE SENT HOME c THE PATIENT. PATIENT LEFT THE ROOM AT AROUND 1813 AND TRANSPORTED VIA WHEELCHAIR BY MEERA SPICER TO PATIENT ENTRANCE.
== END 2023-02-03 18:11 | disposition home or self-care (01) | DRG 638 ==
LOC: ER 02:30 → MEDS 04:24 → ICUE 04:24 → MEDS 23:35
PROVIDERS: Internal Medicine; Nurse Practitioner Acute Care; Student in an Organized Health Care Education/Training Program; ADMIT Internal Medicine
DX: E10.10 Type 1 diabetes mellitus with ketoacidosis without coma (principal); E87.1 Hypo-osmolality and hyponatremia; R65.10 Systemic inflammatory response syndrome (SIRS) of non-infectious origin without acute organ dysfunction; I10 Essential (primary) hypertension; M54.9 Dorsalgia, unspecified; G89.29 Other chronic pain; J44.9 Chronic obstructive pulmonary disease, unspecified; F17.210 Nicotine dependence, cigarettes, uncomplicated; I73.00 Raynaud's syndrome without gangrene; F32.9 Major depressive disorder, single episode, unspecified; M51.36 Other intervertebral disc degeneration, lumbar region; E87.5 Hyperkalemia; F10.90 Alcohol use, unspecified, uncomplicated; F15.21 Other stimulant dependence, in remission; Z88.8 Allergy status to other drugs, medicaments and biological substances; Z79.4 Long term (current) use of insulin; Z79.811 Long term (current) use of aromatase inhibitors; Z79.899 Other long term (current) drug therapy; Z90.89 Acquired absence of other organs; Z98.890 Other specified postprocedural states; Z91.148 Patient's other noncompliance with medication regimen for other reason; Z59.00 Homelessness unspecified
CPT/HCPCS: 36415; 80047; 80048; 80053; 80069; 82010; 82803; 82947; 83605; 83735; 84100; 85014; 85025; 93005; 93010; 94644; 94664; 96361; 96374; 96375; 99285-25; A9270; C1751; J0612; J0692; J1790; J1815; J3370; J3480; J7030; J7040

== ENCOUNTER 2023-02-08 02:01 | Emergency (ER) | payer OTHER ==
[~2023-02-08] VITALS: Ht 177.8 cm; Wt 59.0 kg
[~2023-02-08 02:01] MED LIST changes: +BASAGLAR K100 UNIT/3 SC
[2023-02-08 03:53] LABS: Bun/Creatinine Ratio 25.7 (12.0-20.0); Creatinine, Blood 1.09 mg/dL (0.60-1.20); Magnesium, Blood 2.4 mg/dL (1.6-2.4)
[2023-02-08 05:00] VITALS: BP 128/89
== END 2023-02-08 05:17 | disposition home or self-care (01) ==
LOC: ER 02:01
PROVIDERS: Student in an Organized Health Care Education/Training Program
DX: R60.0 Localized edema (principal); E10.65 Type 1 diabetes mellitus with hyperglycemia; Z88.1 Allergy status to other antibiotic agents; Z88.8 Allergy status to other drugs, medicaments and biological substances; Z88.2 Allergy status to sulfonamides; Z79.899 Other long term (current) drug therapy; I10 Essential (primary) hypertension; J44.9 Chronic obstructive pulmonary disease, unspecified; F17.200 Nicotine dependence, unspecified, uncomplicated
CPT/HCPCS: 80048; 82947; 83735; 99283; A9270

== ENCOUNTER 2023-02-09 17:11 | Inpatient (IN) | payer OTHER ==
[~2023-02-09] VITALS: Ht 172.7 cm; Wt 66.8 kg
[2023-02-09 18:27] LABS: BASOPHILS ABSOLUTE AUTO 0.18 K/mm3 (0.00-0.23); BASOPHILS PERCENT AUTO 1 % (0-2); EOSINOPHILS ABSOLUTE AUTO 0.06 K/mm3 (0.00-0.68); EOSINOPHILS PERCENT AUTO 0 % (0-6); Hematocrit 30.4 % (37.0-53.0); Hemoglobin 8.8 g/dL (13.5-17.5); IMMATURE GRAN ABSOLUTE AUTO 0.93 K/mm3 (0.00-0.10); IMMATURE GRAN PERCENT AUTO 4 % (0-1); LYMPHOCYTES ABSOLUTE AUTO 1.87 K/mm3 (0.84-5.20); LYMPHOCYTES PERCENT AUTO 9 % (21-46); MONOCYTES ABSOLUTE AUTO 1.61 K/mm3 (0.16-1.47); MONOCYTES PERCENT AUTO 8 % (4-13); Mean Corpuscular HGB 31.9 pg (26.0-34.0); Mean Corpuscular HGB Conc 28.9 g/dL (31.5-36.5); Mean Corpuscular Volume 110 fL (80-100); Mean Platelet Volume 9.6 fL (9.1-12.4); NEUTROPHILS ABSOLUTE AUTO 16.86 K/mm3 (1.96-9.15); NEUTROPHILS PERCENT AUTO 78 % (41-73); NRBC ABSOLUTE 0.02 K/mm3 (0.00-0.02); NRBC Auto 0.1 /100 WBC (0.0-0.2); Platelet Count 666 K/mm3 (150-400); RDW Coefficient Variation 15.4 % (11.7-14.2); RDW Standard Deviation 60.4 fL (35.1-46.3); Red Blood Cell Count 2.76 M/mm3 (4.30-5.90); White Blood Cell Count 21.51 K/mm3 (4.00-11.30)
[2023-02-09 18:28] LABS: PCO2 Venous 15 mmHg (38-42); pH Blood Venous 6.89 (7.34-7.37)
[2023-02-09 18:29] LABS: Base Excess Venous -30.1 mmol/L; Bicarbonate Venous 5.1 mmol/L (24.0-30.0)
[2023-02-09 19:07] LABS: Alanine Aminotransfer (ALT/SGP 65 U/L (12-78); Albumin, Blood 1.9 g/dL (3.4-5.0); Albumin/Globulin Ratio 0.5 (0.8-1.8); Alk Phos 319 U/L (50-136); Anion Gap 29 mmol/L (6-16); Aspartate Aminotrans (AST/SGOT 41 U/L (12-37); Beta-hydroxybutyrate >138.0 mg/dL (0.2-2.8); Bilirubin, Total 0.3 mg/dL (0.1-1.0); Blood Urea Nitrogen 33 mg/dL (8-24); Bun/Creatinine Ratio 33.3 (12.0-20.0); CO2, Blood 4 mmol/L (21-32); Calcium, Blood 7.3 mg/dL (8.5-10.1); Chloride, Blood 83 mmol/L (98-108); Creatinine, Blood 0.99 mg/dL (0.60-1.20); Globulin, Blood 3.6 g/dL (2.2-4.0); Glomerular Filtration Rate 99 (60-); Glucose, Blood 1395 mg/dL (70-99); Potassium, Blood 5.6 mmol/L (3.5-5.5); Sodium, Blood 116 mmol/L (136-145); Total Protein, Blood 5.5 g/dL (6.4-8.2)
--- NOTE | 2023-02-09 20:20 | NUR ---
ASSUMED CARE PT WAS BROUGHT VIA GURNEY FROM ED AND ARRIVED TO ROOM AT 2020. UPON ARRIVAL PT MAKING MOANING AND GAGGING NOISES. PT CAN FOLLOW COMMANDS AFTER REDIRECTING MULTIPLE TIMES. CARDIAC MONITORING REFLECTED SINUS TACH, HR 110s. PT ON ROOM AIR, TACHYPNEIC RESPIRATIONS. O2 SATS >95% WHEN SPOT CHECKED. PT NONCOMPLIANT WITH FINGER PROBE. PT INCONTINENT OF BLADDER, ATTENDS IN PLACE. INSULIN GTT INFUSING, TITRATING RATE UP. BLOOD GLUCOSE REMAINS >1000.
[2023-02-09 20:30] VITALS: BP 81/63
[2023-02-09 21:00] LABS: Glucose, Blood 1460 mg/dL (70-99)
[2023-02-09 21:30] VITALS: BP 139/79
[2023-02-09 22:32] LABS: U Amphetamine Screen DETECTED; U Barbituate Screen Not Detected; U Benzodiazapine Screen Not Detected; U Buprenorphine Screen Not Detected; U Cannabinoids Screen Not Detected; U Cocaine Screen Not Detected; U Methadone Screen Not Detected; U Methamphetamine Screen DETECTED; U Opiates Screen Not Detected; U Oxycodone Screen Not Detected; U Phencyclidine Screen Not Detected; U Propoxyphene Screen Not Detected
[2023-02-09 22:36] LABS: Glucose, Blood 1456 mg/dL (70-99)
[2023-02-09 23:30] VITALS: BP 129/62
[2023-02-10] VITALS (27 sets, daily range): BP systolic 102–183; BP diastolic 58–106
[2023-02-10 00:40] LABS: Bun/Creatinine Ratio 31.4 (12.0-20.0); Calcium, Blood 7.4 mg/dL (8.5-10.1); Creatinine, Blood 1.21 mg/dL (0.60-1.20); Potassium, Blood 4.3 mmol/L (3.5-5.5)
[2023-02-10 01:23] LABS: Glucose, Blood 1105 mg/dL (70-99)
[2023-02-10 02:20] LABS: Glucose, Blood 980 mg/dL (70-99)
[2023-02-10 03:23] LABS: Glucose, Blood 814 mg/dL (70-99)
[2023-02-10 04:03] LABS: Base Excess Venous -11.3 mmol/L; Bicarbonate Venous 16.1 mmol/L (24.0-30.0); PCO2 Venous 28.7 mmHg (38-42); pH Blood Venous 7.32 (7.34-7.37)
[2023-02-10 04:52] LABS: Bun/Creatinine Ratio 29.8 (12.0-20.0); Creatinine, Blood 1.21 mg/dL (0.60-1.20); Potassium, Blood 3.1 mmol/L (3.5-5.5)
--- NOTE | 2023-02-10 06:32 | NUR ---
SHIFT SUMMARY BHAVIK CONTINUES TO BE ALERT AND SEEMS TO BE MORE ORIENTED. PT IS STILL MOANING OUT AND YELLING HE WAS WHEN HE WAS ADMITTED FROM ED. PT IS REDIRECTABLE AFTER MULTIPLES ATTEMPTS. PT HAS BEEN ON ROOM AIR THIS SHIFT, PT DID NOT COMPLY WITH KEEPING O2 PROBE ON FINGER. WHEN SPOT CHECKED, O2 SATS >95%. CARDIAC MONITORING REFLECTED SINUS TACH, HR 110s, SBP 100s-130s DEPENDING ON IF AWAKE OR NOT. PT'S BLOOD SUGAR HAS CONTINUOUSLY DECREASED, INSULIN GTT @ 9 UNITS/HR. PT'S POTASSIUM CAME BACK 3.1, KCL REPLACEMENT INFUSING PER TELEPHONE ORDER FROM DR. CANTU. PT COMPLAINING OF PAIN, MEDICATED PER ORDER. WILL CONTINUE TO MONITOR UNTIL CARE IS TRANSITIONED TO DAY SHIFT.
--- NOTE | 2023-02-10 08:08 | NUR ---
CARE OF PT ASSUMED AT 0700. PT SLEEPING, SOMNOLENT. AWAKENS TO VOICE, RESISTANT TO CARE, MOANS, PULLS ARMS AWAY. INSULIN GTT INITIALLY AT 9UNITS, DECREASED TO 6UNITS AT 0715. BICARB GTT COMPLETE, CHANGED TO NS AT 75CC/HR PER ORDERS. POTASSIUM INFUSING, CHEM 8 DRAWN. LEFT LEG FROM CALF DOWN, SWOLLEN, WARM. PT CRIES OUT WHEN LEGS TOUCHED.
[2023-02-10 08:12] LABS: Bun/Creatinine Ratio 28.8 (12.0-20.0); Calcium, Blood 8.1 mg/dL (8.5-10.1); Creatinine, Blood 1.04 mg/dL (0.60-1.20); Potassium, Blood 3.2 mmol/L (3.5-5.5)
--- NOTE | 2023-02-10 10:15 | NUR ---
DR POLLACK IN TO SEE PT THIS AM, INSULIN TURNED OFF AT 0830 FOR K+ 3.2. 40MEQ K+ INFUSING NOW, TO BE FOLLOWED BY AN ADDITION 40MEQ K+. FLUIDS CHANGED TO D5 1/2NS AT 200CC/HR. LABS TO BE REPEATED AT NOON. PT SLEEPING, AWAKENS TO VOICE, IS RESISTANT TO CARE BUT WILL ALLOW IT.
[2023-02-10 12:32] LABS: Bun/Creatinine Ratio 30.6 (12.0-20.0); Calcium, Blood 7.9 mg/dL (8.5-10.1); Creatinine, Blood 0.85 mg/dL (0.60-1.20); Potassium, Blood 4.3 mmol/L (3.5-5.5)
--- NOTE | 2023-02-10 13:27 | NUR ---
INSULIN RESTARTED AT 4UNITS/HR. PER DR GRISSOM, OKAY TO RESTART INSULIN GTT ONCE K+ OVER 3.5. K+ AT 4.3. PT WOKE UP TO ASK FOR WATER BUT IS REFUSING TO ANSWER QUESTIONS AT THIS TIME.
--- NOTE | 2023-02-10 14:49 | NUR ---
PT WOKE UP SCREAMING AND YELLING, DEMANDING WATER AND FOOD. PT ANSWERS SOME QUESTIONS AND NOT OTHERS. PT DENIES NAUSEA. C/O PAIN TO LEFT LEG. INSULIN GTT AT 6UNITS/HR. D5 1/2 NS AT 200CC/HR. k+ INFUSING COMPLETE. DR GRISSOM CALLED AND GIVEN UPDATE. DR HARPER PT STARTED SCREAMING PROFANITIES FROM BED AND CRYING. DR GRISSOM WILL COME EVALUATE LEG.
--- NOTE | 2023-02-10 15:08 | NUR ---
ORDERS RECEIVED TO TRANSITION PT OFF OF INSULIN GTT. GLARGINE 20UNITS SQ GIVEN TO PT.
--- NOTE | 2023-02-10 16:24 | NUR ---
PT INCONTINENT OF STOOL. SHOWER OFFERED, PT REFUSED. BED BATH GIVEN. DURING BEDBATH PT BECAME AGIATED, SPEECH PRESSURED, MAKING REQUESTS THAT WERE NOT ALWAYS OBTAINABLE. PT THEN YELLED AT LAUNDROMAT MANAGER "STOP BEING A F-ING RETARD". STRONG BOUNDRIES SET WITH CLEAR EXPECTATIONS ON BEHAVIOR REVIEWED W PT. PT DID APOLOGIZE TO LAUNDROMAT MANAGER. INSULIN GTT OFF AT 1610. PT EATING SANDWICH NOW AND TOLERATING WELL.
--- NOTE | 2023-02-10 19:22 | NUR ---
ASSUMED CARE OF PT AT 1900 PT RESTING IN BED WITH TRAY AT BEDSIDE. BEDSIDE REPORT DONE. STATUS CHANGE TO MED FLOOR AND WAITING FOR ROOM TO COME AVAIL. VITALS WNL AT THIS TIME.
--- NOTE | 2023-02-10 19:28 | NUR ---
PT REFUSES TO SHOWER. PT HAD BM WHILE IN BED. PT GIVEN WET WIPES, NEW GOWN AND BEDDING TO CHANGE HIMSELF. PT EDUCATED ON USING CALL LIGHT IF NEEDING HELP TO TOILET. PT IS CONTINENT OF BOWEL AND BLADDER.
--- NOTE | 2023-02-10 20:18 | NUR ---
PT YELLING FROM ROOM "PLEASE HELP ME". THIS RN ENTERED ROOM WITH PT ON TOILET. PT STATED "GIVE ME A FUCKING DIAPER". PT EDUCATED ON PROPER TREATMENT OF STAFF WITH REQUESTS. PT GIVEN BRIEF.
--- NOTE | 2023-02-10 20:50 | NUR ---
REPORT GIVEN TO RM 355 RN. SECURITY CALLED FOR EXTRA TRANSPORT FOR TRANSFER FROM ICU 12 TO RM 355.
--- NOTE | 2023-02-10 21:09 | NUR ---
PT TRANSFERED FROM ICU 12 TO RM 355. PT CALLING THIS RN MANY CRUDE NAMES WELL THREATENING SECURITY (SU) WHILE ON 3RD FLOOR.
[2023-02-11 03:13] VITALS: BP 157/73
[2023-02-11 05:31] LABS: BASOPHILS ABSOLUTE AUTO 0.05 K/mm3 (0.00-0.23); BASOPHILS PERCENT AUTO 0 % (0-2); EOSINOPHILS ABSOLUTE AUTO 0.23 K/mm3 (0.00-0.68); EOSINOPHILS PERCENT AUTO 2 % (0-6); Hemoglobin 7.7 g/dL (13.5-17.5); IMMATURE GRAN ABSOLUTE AUTO 0.07 K/mm3 (0.00-0.10); IMMATURE GRAN PERCENT AUTO 1 % (0-1); LYMPHOCYTES ABSOLUTE AUTO 2.28 K/mm3 (0.84-5.20); LYMPHOCYTES PERCENT AUTO 18 % (21-46); MONOCYTES PERCENT AUTO 6 % (4-13); Mean Corpuscular HGB 31.8 pg (26.0-34.0); NEUTROPHILS ABSOLUTE AUTO 9.52 K/mm3 (1.96-9.15); NEUTROPHILS PERCENT AUTO 74 % (41-73); NRBC ABSOLUTE 0.02 K/mm3 (0.00-0.02); NRBC Auto 0.2 /100 WBC (0.0-0.2); Platelet Count 386 K/mm3 (150-400); RDW Coefficient Variation 15.3 % (11.7-14.2); RDW Standard Deviation 49.7 fL (35.1-46.3); Red Blood Cell Count 2.42 M/mm3 (4.30-5.90); White Blood Cell Count 12.95 K/mm3 (4.00-11.30)
[2023-02-11 05:32] LABS: Mean Corpuscular Volume 91 fL (80-100)
[2023-02-11 06:04] LABS: Albumin, Blood 1.7 g/dL (3.4-5.0); Albumin/Globulin Ratio 0.6 (0.8-1.8); Bilirubin, Total 0.1 mg/dL (0.1-1.0); Bun/Creatinine Ratio 17.4 (12.0-20.0); Creatinine, Blood 0.92 mg/dL (0.60-1.20); Globulin, Blood 2.9 g/dL (2.2-4.0); Potassium, Blood 3.9 mmol/L (3.5-5.5); Total Protein, Blood 4.6 g/dL (6.4-8.2)
--- NOTE | 2023-02-11 06:43 | NUR ---
AOX4 BUT UNHAPPY AND YELLING AT STAFF DURING TRANSFER FROM ICU, PT FELT LESS ANXIOUS AFTER PREVIOUS NURSE AND BUTTON MAKER AND INSTALLER LEFT. PT REQUESTS SNACKS AND DRINKS REGULARLY THROUGHOUT SHIFT. HYPERTENSIVE AT TIMES BUT VSS ON RA. UP AD KRYSTYNA TO TOILET, ALSO SHOWERED AFTER TRANSFERRING. HAS BEEN COOPERATIVE THIS SHIFT WITH CARES THOUGH TENDS TO DISAGREE WITH ADA DIET RESTRICTIONS. OVERALL CBG'S ARE MUCH LOWER THAN ON ADMISSION. FIRE SAFETY REVIEWED. NO ACUTE CHANGES NOTED.
[2023-02-11 07:54] VITALS: BP 199/98
--- NOTE | 2023-02-11 09:00 | NUR ---
pt laying in bed awake, eating breakfast, a/ox4, cooperative with care, accepted insulin as ordered, got an extra sandwich for him, no complaints or further needs this am. call light in reach.
[2023-02-11 14:10] LABS: Hematocrit 24.5 % (37.0-53.0); Hemoglobin 8.4 g/dL (13.5-17.5)
[2023-02-11 15:31] VITALS: BP 197/99
[2023-02-11 17:53] LABS: Percent Saturation 8.9 % (20.0-50.0)
--- NOTE | 2023-02-11 18:57 | NUR ---
pt has asked for food all day, will be discharged tomorrow, has been cooperative with care, sleeps when left undisturbed, no acute changes this shift. call light in reach.
[2023-02-11 19:16] VITALS: BP 177/107
[2023-02-12 08:17] VITALS: BP 165/90
--- NOTE | 2023-02-12 09:00 | NUR ---
pt laying with head under the covers, responded when called his name, he is asking about breakfast, his blood sugar is high, gave insulin as ordered, will continue to monitor, he is cold, heat in room turned up, refused celexa, irritable this am, call light reach.
[2023-02-12 09:16] LABS: BASOPHILS ABSOLUTE AUTO 0.07 K/mm3 (0.00-0.23); BASOPHILS PERCENT AUTO 1 % (0-2); EOSINOPHILS ABSOLUTE AUTO 0.16 K/mm3 (0.00-0.68); EOSINOPHILS PERCENT AUTO 2 % (0-6); Hematocrit 30.7 % (37.0-53.0); Hemoglobin 9.9 g/dL (13.5-17.5); IMMATURE GRAN ABSOLUTE AUTO 0.04 K/mm3 (0.00-0.10); IMMATURE GRAN PERCENT AUTO 0 % (0-1); LYMPHOCYTES ABSOLUTE AUTO 1.51 K/mm3 (0.84-5.20); LYMPHOCYTES PERCENT AUTO 15 % (21-46); MONOCYTES ABSOLUTE AUTO 0.69 K/mm3 (0.16-1.47); MONOCYTES PERCENT AUTO 7 % (4-13); Mean Corpuscular HGB 31.7 pg (26.0-34.0); Mean Corpuscular HGB Conc 32.2 g/dL (31.5-36.5); NEUTROPHILS ABSOLUTE AUTO 7.47 K/mm3 (1.96-9.15); NEUTROPHILS PERCENT AUTO 75 % (41-73); NRBC ABSOLUTE 0.02 K/mm3 (0.00-0.02); NRBC Auto 0.2 /100 WBC (0.0-0.2); Platelet Count 462 K/mm3 (150-400); RDW Coefficient Variation 15.9 % (11.7-14.2); RDW Standard Deviation 56.7 fL (35.1-46.3); Red Blood Cell Count 3.12 M/mm3 (4.30-5.90); White Blood Cell Count 9.94 K/mm3 (4.00-11.30)
[2023-02-12 09:18] LABS: Mean Corpuscular Volume 98 fL (80-100)
[2023-02-12 09:38] LABS: Calcium, Blood 8.9 mg/dL (8.5-10.1); Creatinine, Blood 0.71 mg/dL (0.60-1.20); Potassium, Blood 4.6 mmol/L (3.5-5.5)
[2023-02-12 11:10] LABS: Glucose, Blood 629 mg/dL (70-99)
[2023-02-12 11:55] LABS: Glucose, Blood 527 mg/dL (70-99)
[2023-02-12 13:01] LABS: Glucose, Blood 462 mg/dL (70-99)
[2023-02-12 14:43] LABS: Glucose, Blood 490 mg/dL (70-99)
--- NOTE | 2023-02-12 15:12 | NUR ---
pt has been angry and uncooperative with Drs orders, threatening to leave ama if he doesn't get his way about food. blood sugars are high, and concerned about going into [facility] again, Drs came in to see him, he yelled at them to get out of his room. call light in reach.
[2023-02-12 15:15] LABS: Glucose, Blood 600 mg/dL (70-99)
--- NOTE | 2023-02-12 18:28 | NUR ---
pt has been made npo this evening, he is very unhappy, asking to go to icu if he has to not eat, spoke to Dr. Bergman, this is not indicated at this time, pt unable to handle not having what he wants, and has threatened to leave ama, he was given a one time dose of 15units this evening, will recheck blood sugar an hr from last check. call light in reach.
[2023-02-12 19:11] VITALS: BP 145/132
[2023-02-12 19:16] LABS: Bun/Creatinine Ratio 34.9 (12.0-20.0); Calcium, Blood 8.3 mg/dL (8.5-10.1); Creatinine, Blood 0.92 mg/dL (0.60-1.20); Potassium, Blood 4.2 mmol/L (3.5-5.5)
[2023-02-13] VITALS (24 sets, daily range): BP systolic 108–176; BP diastolic 56–90
[2023-02-13 08:03] LABS: BASOPHILS ABSOLUTE AUTO 0.07 K/mm3 (0.00-0.23); BASOPHILS PERCENT AUTO 1 % (0-2); EOSINOPHILS PERCENT AUTO 1 % (0-6); Hematocrit 29.3 % (37.0-53.0); Hemoglobin 9.3 g/dL (13.5-17.5); IMMATURE GRAN ABSOLUTE AUTO 0.06 K/mm3 (0.00-0.10); IMMATURE GRAN PERCENT AUTO 1 % (0-1); LYMPHOCYTES PERCENT AUTO 13 % (21-46); MONOCYTES ABSOLUTE AUTO 0.85 K/mm3 (0.16-1.47); MONOCYTES PERCENT AUTO 7 % (4-13); Mean Corpuscular HGB 31.4 pg (26.0-34.0); Mean Corpuscular HGB Conc 31.7 g/dL (31.5-36.5); Mean Corpuscular Volume 99 fL (80-100); Mean Platelet Volume 9.2 fL (9.1-12.4); NEUTROPHILS ABSOLUTE AUTO 9.66 K/mm3 (1.96-9.15); NEUTROPHILS PERCENT AUTO 78 % (41-73); NRBC ABSOLUTE 0.04 K/mm3 (0.00-0.02); NRBC Auto 0.3 /100 WBC (0.0-0.2); Platelet Count 430 K/mm3 (150-400); RDW Coefficient Variation 15.5 % (11.7-14.2); RDW Standard Deviation 55.8 fL (35.1-46.3); Red Blood Cell Count 2.96 M/mm3 (4.30-5.90); White Blood Cell Count 12.34 K/mm3 (4.00-11.30)
--- NOTE | 2023-02-13 08:37 | NUR ---
LAB CALLED, CRITICAL GLUCOSE OF 742 GIVEN. WILL NOTIFY
[2023-02-13 08:38] LABS: Bun/Creatinine Ratio 41.4 (12.0-20.0); Calcium, Blood 8.2 mg/dL (8.5-10.1); Creatinine, Blood 0.89 mg/dL (0.60-1.20); Potassium, Blood 4.8 mmol/L (3.5-5.5)
--- NOTE | 2023-02-13 08:56 | NUR ---
DR. BAE NOTIFIED OF CRITICAL VALUE, ORDERS TO BE RECEIVED. CHARGE CORNELL EARL NOTIFIED OF CRITICAL.
--- NOTE | 2023-02-13 08:57 | NUR ---
ASSUMED CARE OF PT. PT AGITATED STATING "DO NOT TALK TO ME" AND REQUESTING FOOD. PT NPO DUE TO HIGH BLOOD SUGARS. THERAPEUTIC COMMUNICATION ATTEMPTED, PT NOT RESPONSIVE TO COMMUNICATION ATTEMPTS.
--- NOTE | 2023-02-13 09:14 | NUR ---
PT TO BE TRANSFERRED TO THE ICU. MEDS TO BE HELD TILL TRANSFER PER PCP VERBALIZATION. PCP IN ROOM TO TALK WITH PT, PT NOTIFIED OF PLAN TO TRANSFER.
--- NOTE | 2023-02-13 10:27 | NUR ---
REPORT GIVEN TO ICU NURSE VIA TELEPHONE, PROCEEDING TO TRANSFER TO ICU.
--- NOTE | 2023-02-13 11:48 | NUR ---
CARE ASSSUMPTION PT ARRIVED TO ICU VIA WC. PT TRANSFERED SELF TO ICU BED. POWERGLIDE STARTED AND BLOOD GLUCOSE SENT TO LAB. INSULIN GTT STARTED AT 2 UNITS HR. PROVIDER CONTACTED REGARDING FLUID ORDERS THE PT RECIEVED NO FLUIDS BEFORE HIS TRANSFER.
[2023-02-13 11:55] LABS: Glucose, Blood 877 mg/dL (70-99)
--- NOTE | 2023-02-13 12:14 | NUR ---
PT TRANSFERED TO THE ICU DUE TO CRITICAL GLUCOSE READING OF 742. PT AM MEDS NOT ADMINISTERED DUE TO TRANSFERRING TAKING PRIORITY. MORNING INSULIN HELD PER PHYSICIAN ORDERS DUE TO INSULIN DRIP BEING ORDERED IN ICU. PT RESISTANT AND REFUSED CARE PRIOR TO TRANSFER, STATING "DO NOT TALK TO ME" WHEN ATTEMPTING TO ASK QUESTIONS REGARDING CARE.
--- NOTE | 2023-02-13 12:39 | NUR ---
THIS GLASS ENAMEL MIXER HAS REVIEWED AND AGREES WITH NOTES DONE BY SOO LAO.
[2023-02-13 12:54] LABS: Glucose, Blood 794 mg/dL (70-99)
[2023-02-13 13:26] LABS: Glucose, Blood 738 mg/dL (70-99)
[2023-02-13 14:42] LABS: Glucose, Blood 551 mg/dL (70-99)
[2023-02-13 14:49] LABS: Bun/Creatinine Ratio 39.2 (12.0-20.0); Calcium, Blood 8.5 mg/dL (8.5-10.1)
--- NOTE | 2023-02-13 15:45 | NUR ---
UPDATE PT REPORTING HIP PAIN THEN HE SAID HIS HIP DOES NOT HURT IT IS HIS LEFT KNEE. PT YELLING FROM HIS BED AND SLAMMING RM PHONE AGAINST THE BED. PT INSTRUCTED TO CALM DOWN AND THAT THIS RN WILL REMOVE HIS PHONE IF HE CONTINUES THIS BEHAVIOUR. THIS RN CALLED THE PROVIDER AND OBTAINED PO TYLENOL FOR PT'S KNEE PAIN.
--- NOTE | 2023-02-13 18:15 | NUR ---
DAY SHIFT SUMMARY PT ARIVED FROM THE MEDICAL FLOOR VIA WC AND TRANSFERED SELF TO ICU BED. PT HAS REMAINED ALERT, VERY AGITATED REGARDING BEING IN THE HOSPITAL AND PLACED PT HAS REMAINED ALERT USING THE CALL LIGHT TO MAKE HIS NEEDS KNOWN. PT ON THE INSULIN GTT SINCE ARRIVAL DUE TO CBG >800. CBG NOW <200 AND D5W RUNNING AT 200ML/HR W INSULIN GTT RUNNING AT 3 UNITS/HR. PT'S MONITOR SHOWING ST 110'S. BP WNL AND STABLE. SPO2 >94% ON RM AIR. PT RECIEVED 4L LR BOLUS IN THE ICU, PT VOIDING LARGE AMOUNTS OF CLEAR YELLOW URINE. PT HAD 2 BM'S THIS SHIFT. PT IS CURRENTLY SLEEPING IN BED COMFORTABLY W INSULIN AT 3 UNITS/HR, D5 1/2NS RUNNING AT 200ML/HR, AND 40 MEQ POTASSIUM RUNNING AT 10MEQ/HR. WILL REPORT TO ONCMEDINA VANN
[2023-02-13 19:25] LABS: Bun/Creatinine Ratio 34.6 (12.0-20.0); Calcium, Blood 8.4 mg/dL (8.5-10.1); Creatinine, Blood 0.87 mg/dL (0.60-1.20)
--- NOTE | 2023-02-13 21:02 | NUR ---
ASSUMED CARE PT IS A&O X4; VSS W/ HR AT 110'S. PT CURRENTLY TRANSITIONING OFF INSULIN GTT PER DR POLLACK/RESIDENT. GLARGINE GIVEN PER ORDER AND PT EATING. SEE FLOWSHEET FOR INSULIN GTT TITRATIONS. PT DENIES CP, SOB, OR NAUSEA. AT START OF SHIFT PT WAS NOT WILLING TO COOPERATE W/ CARE D/T BEING HUNGRY. EDUCATED PT ON IMPORTANCE OF MAINTAINING NPO STATUS WHILE IN DKA. PT CURRENTLY RESTING QUIETLY AND COOPERATING W/ CARE PLAN.
--- NOTE | 2023-02-13 22:42 | NUR ---
UPDATE DR CASTILLO NOTIFIED ABOUT PT TRANSITIONING OFF INSULIN GTT. ORDERS FOR TRANSFER TO MEDICAL STATUS NO TELE AND SC INSULIN GIVEN.
--- NOTE | 2023-02-13 23:56 | NUR ---
TRANSFER PT TRANSFERRED AT 2340 TO [facility] FLOOR W/ MEDS AND BELONGINGS.
[2023-02-14 04:04] VITALS: BP 139/70
--- NOTE | 2023-02-14 04:26 | NUR ---
REGARDING PREVIOUS NOC SHIFT THAT BEGAN IN THE EVENING OF 02/12/23: DURING SHIFT REPORT AND PRIOR TO MY RECEIVING REPORT ON THE PATIENT, MR. BERRY ALERTED STAFF THAT HE HAD JUST GIVEN HIMSELF 12 UNITS OF HUMALOG SO HE NEEDED TO EAT DINNER. HE HAD AN ACTIVE NPO ORDER PLACED EARLY DURING 02/12 DAY SHIFT. I REPORTED THE INCIDENT TO HIS ASSIGNED NURSE AND THEN RETURNED TO PATIENT'S ROOM TO ASSESS. HE HAD A BURGER AND SIDES IN HIS ROOM AND STATED "I FOUND MY TRAY." I EXPLAINED TO HIM HOW DANGEROUS IT CAN BE TO TAKE A LARGE DOSE OF INSULIN. I NOTICED HIS MOST RECENT BLOOD SUGAR WAS IN THE 600'S. AFTER HE FINISHED THE FOOD IN HIS ROOM STAFF SAW THE PATIENT GETTING MORE FOOD FROM THE DINNER TRAYS IN THE [place] FROM OTHER PATIENTS' TRAYS. DURING HS CBG CHECKS PATIENT'S BLOOD SUGARS HAD DROPPED INTO THE 300'S. PATIENT REPORTED FEELING HIS BLOOD SUGAR WAS LOW AND HE "FELT WEAK AND SHAKY" AND NEEDED MORE FOOD. HIS NPO ORDER WAS STILL ACTIVE SO WE DID NOT GIVE MORE FOOD. PATIENT WAS ANGRY AND BEGAN YELLING, CURSING AND THROWING ITEMS IN HIS ROOM. PATIENT DID CALM DOWN LATER AND WENT TO SLEEP, DID NOT REQUEST MORE FOOD. EVEN THOUGH PT CBG WAS STILL HIGH AT THE HS CHECK I DID NOT FEEL SAFE GIVING INSULIN IN CASE HIS CBG'S CONTINUED TO DROP. LATER IN THE SHIFT WE ENTERED THE PATIENT'S ROOM TO CHECK CBG AND VITALS BUT PATIENT REFUSED. I LEARNED WHEN I CAME BACK ON THE EVENING OF 02/13 THAT PATIENT'S CBG'S WERE CRITICALLY HIGH AGAIN AND HE HAD TO RETURN TO ICU TO MANAGE LEVELS.
--- NOTE | 2023-02-14 04:56 | NUR ---
SHIFT SUMMARY REPORT RECEIVED FROM ICU, PT CAME UP TO ROOM A IMMIDIATLY BEGAN ASKING FOR FOOD. STAFF CAME UP WITH A TIMED FEEDING FOR PT AND THOUGH PT AGREED HE CONSISTANTLY KEEPS ASKING FOR FOOD, PT UNDERSTANDS HIS BLOOD SUGAR LEVEL BUT DOESNT SEEM TO WANT TO PARTICIPATE IN PLAN. FSBS AT 0200 WAS 137, SNACK GIVEN. BILAT POWER GLUIDES NO LONGER DRAW BLOOD. LAB TO DRAW PT.
[2023-02-14 06:52] LABS: Bun/Creatinine Ratio 28.1 (12.0-20.0); Calcium, Blood 8.1 mg/dL (8.5-10.1); Creatinine, Blood 0.89 mg/dL (0.60-1.20)
[2023-02-14 07:38] VITALS: BP 160/80
[2023-02-14] MEDS ORDERED: HUMALOG KW100 UNIT/1 SC (10:08)
--- NOTE | 2023-02-14 12:08 | NUR ---
PT WAS DISCHARGED AT 1100 AOX4. PT COLLECTED ALL PERSONAL BELONGINGS AND TOOK WITH HIM. [facility] WAS CALLED FOR PT AND HE WAS ESCORTED OUT VIA WHEEL CHAIR TO ENTRANCE TO MEET TAXI.
== END 2023-02-14 11:12 | disposition home or self-care (01) | DRG 637 ==
LOC: ER 17:11 → ICUE 17:12 → MEDS 02-10 15:10 → ICUE 02-10 18:55 → MEDS 02-10 21:02 → ICUE 02-13 10:43 → MEDS 02-13 23:55 → ENPENDDIS 02-14 08:36 → MEDS 02-14 11:12
PROVIDERS: Emergency Medicine; Family Medicine; Hospitalist; Student in an Organized Health Care Education/Training Program; ADMIT Internal Medicine
DX: E10.10 Type 1 diabetes mellitus with ketoacidosis without coma (principal); G92.8 Other toxic encephalopathy; E86.0 Dehydration; I10 Essential (primary) hypertension; G89.29 Other chronic pain; M54.9 Dorsalgia, unspecified; E87.6 Hypokalemia; D50.9 Iron deficiency anemia, unspecified; F15.10 Other stimulant abuse, uncomplicated; J44.9 Chronic obstructive pulmonary disease, unspecified; I73.00 Raynaud's syndrome without gangrene; F32.9 Major depressive disorder, single episode, unspecified; M41.9 Scoliosis, unspecified; F17.200 Nicotine dependence, unspecified, uncomplicated; Z88.1 Allergy status to other antibiotic agents; Z88.2 Allergy status to sulfonamides; Z88.6 Allergy status to analgesic agent; Z79.4 Long term (current) use of insulin; Z79.899 Other long term (current) drug therapy; Z90.89 Acquired absence of other organs; Z87.730 Personal history of (corrected) cleft lip and palate; Z91.148 Patient's other noncompliance with medication regimen for other reason; Z59.00 Homelessness unspecified
CPT/HCPCS: 36415; 80048; 80053; 82010; 82728; 82803; 82947; 83540; 83550; 85014; 85018; 85025; 93005; 93010; 96361; 96365; 96374; 96375; 96376; 99285-25; A9270; C1751; G0378; J1815; J2765; J3010; J3480; J7030; J7042; J7050; J7120; P9047

== ENCOUNTER 2023-03-22 10:38 | Inpatient (IN) | payer OTHER ==
[~2023-03-22] VITALS: Ht 182.9 cm; Wt 61.6 kg
[2023-03-22] VITALS (15 sets, daily range): BP systolic 114–168; BP diastolic 60–93
[~2023-03-22 10:38] MED LIST changes: +GABA300 PO
[2023-03-22 11:20] LABS: Calcium, Ionized (POC) 1.12 mmol/L (1.10-1.46); Chloride (POC) 82 mmol/L (98-108); Creatinine (POC) 1.5 mg/dL (0.8-1.3); Glucose (ISTAT POC) >700 mg/dL (70-99); Hemoglobin (POC) 11.2 g/dL (13.5-17.5); Potassium (POC) 6.7 mmol/L (3.5-5.5); Sodium (POC) 106 mmol/L (135-148); Total CO2 (POC) <5 mmol/L (21-32)
[2023-03-22 11:23] LABS: BASOPHILS ABSOLUTE AUTO 0.37 K/mm3 (0.00-0.23); BASOPHILS PERCENT AUTO 1 % (0-2); EOSINOPHILS ABSOLUTE AUTO 0.12 K/mm3 (0.00-0.68); EOSINOPHILS PERCENT AUTO 0 % (0-6); Hematocrit 32.4 % (37.0-53.0); Hemoglobin 9.3 g/dL (13.5-17.5); IMMATURE GRAN ABSOLUTE AUTO 1.38 K/mm3 (0.00-0.10); IMMATURE GRAN PERCENT AUTO 5 % (0-1); LYMPHOCYTES ABSOLUTE AUTO 3.97 K/mm3 (0.84-5.20); LYMPHOCYTES PERCENT AUTO 13 % (21-46); MONOCYTES ABSOLUTE AUTO 1.67 K/mm3 (0.16-1.47); MONOCYTES PERCENT AUTO 6 % (4-13); Mean Corpuscular HGB 29.6 pg (26.0-34.0); Mean Corpuscular HGB Conc 28.7 g/dL (31.5-36.5); Mean Corpuscular Volume 103 fL (80-100); Mean Platelet Volume 9.7 fL (9.1-12.4); NEUTROPHILS ABSOLUTE AUTO 22.19 K/mm3 (1.96-9.15); NEUTROPHILS PERCENT AUTO 75 % (41-73); Platelet Count 865 K/mm3 (150-400); RDW Coefficient Variation 15.4 % (11.7-14.2); RDW Standard Deviation 58.1 fL (35.1-46.3); Red Blood Cell Count 3.14 M/mm3 (4.30-5.90)
[2023-03-22 11:29] LABS: PCO2 Venous 11.7 mmHg (38-42); pH Blood Venous <6.80 (7.34-7.37)
[2023-03-22 11:30] LABS: Base Excess Venous -33.2 mmol/L; Bicarbonate Venous 3.7 mmol/L (24.0-30.0)
[2023-03-22 11:35] LABS: Calcium, Ionized (POC) 1.16 mmol/L (1.10-1.46); Chloride (POC) 82 mmol/L (98-108); Creatinine (POC) 1.5 mg/dL (0.8-1.3); Glucose (ISTAT POC) >700 mg/dL (70-99); Hemoglobin (POC) 10.2 g/dL (13.5-17.5); Potassium (POC) 6.8 mmol/L (3.5-5.5); Sodium (POC) 106 mmol/L (135-148); Total CO2 (POC) <5 mmol/L (21-32)
[2023-03-22 11:49] LABS: Magnesium, Blood 2.7 mg/dL (1.6-2.4)
[2023-03-22 12:41] LABS: Alanine Aminotransfer (ALT/SGP 43 U/L (12-78); Albumin, Blood 2.3 g/dL (3.4-5.0); Albumin/Globulin Ratio 0.6 (0.8-1.8); Alk Phos 255 U/L (50-136); Anion Gap 36 mmol/L (6-16); Aspartate Aminotrans (AST/SGOT 31 U/L (12-37); Bilirubin, Total 0.4 mg/dL (0.1-1.0); Blood Urea Nitrogen 32 mg/dL (8-24); Bun/Creatinine Ratio 21.9 (12.0-20.0); CO2, Blood 2 mmol/L (21-32); Calcium, Blood 8.3 mg/dL (8.5-10.1); Chloride, Blood 73 mmol/L (98-108); Creatinine, Blood 1.46 mg/dL (0.60-1.20); Globulin, Blood 4.1 g/dL (2.2-4.0); Glomerular Filtration Rate 62 (60-); Glucose, Blood 1384 mg/dL (70-99); Potassium, Blood 6.8 mmol/L (3.5-5.5); Sodium, Blood 111 mmol/L (136-145); Total Protein, Blood 6.4 g/dL (6.4-8.2)
[2023-03-22 12:42] LABS: Beta-hydroxybutyrate >138.0 mg/dL (0.2-2.8)
[2023-03-22 13:18] LABS: Phosphorus, Blood 8.5 mg/dL (2.5-4.9)
[2023-03-22 13:25] LABS: Magnesium, Blood 2.4 mg/dL (1.6-2.4)
[2023-03-22 14:05] LABS: Glucose, Blood 1214 mg/dL (70-99); Phosphorus, Blood 7.5 mg/dL (2.5-4.9)
[2023-03-22 14:39] LABS: Source, Urine Clean Catch
[2023-03-22 15:00] LABS: Appearance, Urine Clear (Clear); Bilirubin, Urine Neg (Neg); Blood, Urine 2+ (Neg); Glucose Qualitative, Urine 4+ (Neg); Ketones, Urine 4+ (Neg); Leukocyte Esterase, Urine Neg (Neg); Nitrite, Urine Neg (Neg); Protein, Urine 3+ (Neg); Specific Gravity, Urine 1.015 (1.003-1.022); Urobilinogen, Urine NORM (Normal)
[2023-03-22 15:08] LABS: Amorphous Light (0-Heavy); Bacteria Not Seen /hpf; Color, Urine Pale Yellow (P-Yellow); Red Blood Cells, Urine 0-2 /hpf (0-2); Squamous Epithelial Cells Few /hpf (Few); White Blood Cells, Urine 0-2 /hpf (0-5)
[2023-03-22 15:25] LABS: Bun/Creatinine Ratio 22.1 (12.0-20.0); Calcium, Blood 8.5 mg/dL (8.5-10.1); Creatinine, Blood 1.4 mg/dL (0.60-1.20); Potassium, Blood 5.2 mmol/L (3.5-5.5)
[2023-03-22 15:54] LABS: Glucose, Blood 865 mg/dL (70-99)
[2023-03-22 17:06] LABS: Glucose, Blood 692 mg/dL (70-99)
--- NOTE | 2023-03-22 18:25 | NUR ---
ARRIVAL TO ICU PT BROUGHT TO ICU VIA GURNEY. INSULIN GTT INFUSING AT 1UNIT/HR AND LR 125ML/HR. PT OPENS EYES AND MOVES AROUND BUT WILL NOT INTERACT WITH STAFF AT THIS TIME. ADMISSION INFORMATION UPDATED PER RECORDS FROM 03/03/23. SINUS TACH ON MONITOR WITH RATE IN 120S. SBP 140S. LUNGS ARE CLEAR THROUGHOUT, SPO2 100%. PT VOIDED IN ER, URINAL PLACED AT BEDSIDE. LAB AT BEDSIDE FOR GLUCOSE CHECK. BED IN LOW POSITION, CALL LIGHT WITHIN REACH.
[2023-03-22] MEDS ORDERED: GABA300 PO (18:36)
[2023-03-22 19:23] LABS: Bun/Creatinine Ratio 23.6 (12.0-20.0); Calcium, Blood 8.7 mg/dL (8.5-10.1); Creatinine, Blood 1.23 mg/dL (0.60-1.20); Potassium, Blood 4.9 mmol/L (3.5-5.5)
--- NOTE | 2023-03-22 19:50 | NUR ---
ASSUMPTION OF CARE/ASSESSMENT: ASSUMED CARE OF PT AT 1900; PT CURRENTLY SLEEPING BUT WAKES TO PAIN STIMULI, OPENS EYES BUT DOES NOT ANSWER QUESTIONS OR FOLLOWING DIRECTIONS AT THIS TIME. PT MOVING IN BED INDEPENDENTLY AND GROANS OUT PERIODICALLY. PT CURRENTLY RA WITH SPO2 100, RR 18-20 AND LUNG SOUNDS ARE CLEAR THROUGHOUT. ST ON MONITOR WITH HR 120-130 AND SBP 140-150'S; CONTINUOUS BOARD OPERATOR IN PLACE. HYPOACTIVE BOWEL SOUNDS NOTED, PT NOT VOMMITTING AT THIS TIME. URINAL AT BEDSIDE. LR @ 125 MLS/HR AND INSULIN GTT @ 1 UN/HR. BED ALRAM ON, CALL LIGHT IN REACH.
[2023-03-22 21:18] LABS: Phosphorus, Blood 3.7 mg/dL (2.5-4.9)
[2023-03-22 22:23] LABS: Bun/Creatinine Ratio 23.1 (12.0-20.0); Calcium, Blood 8.5 mg/dL (8.5-10.1); Creatinine, Blood 1.17 mg/dL (0.60-1.20); Potassium, Blood 4.6 mmol/L (3.5-5.5)
--- NOTE | 2023-03-22 22:54 | NUR ---
PT UPDATE: PT PULLING OFF ALL CORDS AND REFUSING TO WEAR CONSTRUCTION AREA MANAGER AT THIS TIME. PT CURSING AT STAFF MEMBERS AND HITTING SIDE RAILS. PT EDUCATED ON IMPORTANCE ON NOT DAMAGING MEDICAL EQUIPMENT. WILL CONTINUE TO MONITOR CLOSELY.
[2023-03-23 02:06] LABS: Bun/Creatinine Ratio 22.4 (12.0-20.0); Calcium, Blood 8.4 mg/dL (8.5-10.1); Creatinine, Blood 1.07 mg/dL (0.60-1.20); Magnesium, Blood 1.9 mg/dL (1.6-2.4); Phosphorus, Blood 2.8 mg/dL (2.5-4.9); Potassium, Blood 4.1 mmol/L (3.5-5.5)
[2023-03-23 05:38] LABS: BASOPHILS ABSOLUTE AUTO 0.08 K/mm3 (0.00-0.23); BASOPHILS PERCENT AUTO 1 % (0-2); EOSINOPHILS ABSOLUTE AUTO 0.12 K/mm3 (0.00-0.68); EOSINOPHILS PERCENT AUTO 1 % (0-6); Hematocrit 22.9 % (37.0-53.0); Hemoglobin 8.2 g/dL (13.5-17.5); IMMATURE GRAN ABSOLUTE AUTO 0.12 K/mm3 (0.00-0.10); IMMATURE GRAN PERCENT AUTO 1 % (0-1); LYMPHOCYTES ABSOLUTE AUTO 2.55 K/mm3 (0.84-5.20); LYMPHOCYTES PERCENT AUTO 15 % (21-46); MONOCYTES PERCENT AUTO 8 % (4-13); Mean Corpuscular HGB 29.5 pg (26.0-34.0); Mean Corpuscular HGB Conc 35.8 g/dL (31.5-36.5); Mean Platelet Volume 8.5 fL (9.1-12.4); NEUTROPHILS ABSOLUTE AUTO 12.99 K/mm3 (1.96-9.15); NEUTROPHILS PERCENT AUTO 75 % (41-73); Platelet Count 609 K/mm3 (150-400); RDW Coefficient Variation 14.6 % (11.7-14.2); RDW Standard Deviation 43.8 fL (35.1-46.3); Red Blood Cell Count 2.78 M/mm3 (4.30-5.90); White Blood Cell Count 17.26 K/mm3 (4.00-11.30)
[2023-03-23 06:03] LABS: Albumin, Blood 1.9 g/dL (3.4-5.0); Albumin/Globulin Ratio 0.6 (0.8-1.8); Bilirubin, Total 0.2 mg/dL (0.1-1.0); Bun/Creatinine Ratio 21.8 (12.0-20.0); Calcium, Blood 8.6 mg/dL (8.5-10.1); Creatinine, Blood 0.92 mg/dL (0.60-1.20); Globulin, Blood 3.2 g/dL (2.2-4.0); Magnesium, Blood 1.8 mg/dL (1.6-2.4); Phosphorus, Blood 2.3 mg/dL (2.5-4.9); Potassium, Blood 3.7 mmol/L (3.5-5.5); Total Protein, Blood 5.1 g/dL (6.4-8.2)
--- NOTE | 2023-03-23 06:14 | NUR ---
SHIFT SUMMARY: PT SLEPT FOR MAJORITY OF SHIFT, AGGRESSIVE BEHAVIOR WHEN AWAKE AND ATTEMPTING PT CARE. PT OFF INSULIN DRIP SINCE 344 AND TRANSITIONED TO SUBQ INSULIN; PT HAD A FEW STICKS OF CHEESE AND WENT BACK TO SLEEP. PT STATUS CHANGED TO MED FLOOR. BED LOWERED, CALL LIGHT IN REACH, WILL REPORT OFF TO ONCOMING RN.
[2023-03-23 06:15] LABS: Mean Corpuscular Volume 82 fL (80-100)
--- NOTE | 2023-03-23 10:34 | NUR ---
MAD request processed. 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 His unprovoked outbursts are extremely demoralizing and disruptive to the care delivery process. He is not re-directable and is openly relacitrant to complying with our basic standards of conduct expectations. I have engaged the attending provider on the matter. Dr Alcocer is fast tracking and priopritizing his stabalization so that his discharge can be safely expedited. Additinoally, the principal could elect (without encouragment) to depart AMA, if he is unreceptive to this approach.
--- NOTE | 2023-03-23 10:47 | NUR ---
Summary. Assumed care at 0700. Pt resting in bed, on RA. Pt refuses to answer questions or allow physical exam. As morning continued, pt became increasingly agitated and verbally abusive. Security called to pt room at approximately 1015. Pt signed AMA paperwork at 1045 and walked out of unit. All PIVs removed prior to pt leaving unit.
== END 2023-03-23 10:45 | disposition left against medical advice (07) | DRG 638 ==
LOC: ER 10:38 → ICUE 12:52 → ERHOLD 12:52 → ICUE 18:17
PROVIDERS: Student in an Organized Health Care Education/Training Program; ADMIT Internal Medicine
DX: E10.10 Type 1 diabetes mellitus with ketoacidosis without coma (principal); N17.9 Acute kidney failure, unspecified; E10.42 Type 1 diabetes mellitus with diabetic polyneuropathy; F15.10 Other stimulant abuse, uncomplicated; I10 Essential (primary) hypertension; M54.9 Dorsalgia, unspecified; G89.29 Other chronic pain; E87.5 Hyperkalemia; E86.0 Dehydration; F32.9 Major depressive disorder, single episode, unspecified; J44.9 Chronic obstructive pulmonary disease, unspecified; F17.210 Nicotine dependence, cigarettes, uncomplicated; Z53.29 Procedure and treatment not carried out because of patient's decision for other reasons; Z88.8 Allergy status to other drugs, medicaments and biological substances; Z91.148 Patient's other noncompliance with medication regimen for other reason; Z88.1 Allergy status to other antibiotic agents; Z88.2 Allergy status to sulfonamides; Z79.4 Long term (current) use of insulin; Z79.899 Other long term (current) drug therapy; Z90.89 Acquired absence of other organs; Z98.890 Other specified postprocedural states
CPT/HCPCS: 71045; 80047; 80048; 80053; 81001; 82010; 82803; 82947; 83735; 84100; 85014; 85025; 93005; 93010; 96361; 96365; 96366; 96372-59; 99285-25; A9270; C1751; J0612; J1630; J1815; J7030; J7050; J7120

== ENCOUNTER 2023-04-20 18:52 | Emergency (ER) | payer OTHER ==
[~2023-04-20] VITALS: Ht 177.8 cm; Wt 79.4 kg
[2023-04-20 19:27] LABS: BASOPHILS ABSOLUTE AUTO 0.09 K/mm3 (0.00-0.23); BASOPHILS PERCENT AUTO 1 % (0-2); EOSINOPHILS ABSOLUTE AUTO 0.26 K/mm3 (0.00-0.68); EOSINOPHILS PERCENT AUTO 2 % (0-6); Hemoglobin 9.2 g/dL (13.5-17.5); IMMATURE GRAN ABSOLUTE AUTO 0.12 K/mm3 (0.00-0.10); IMMATURE GRAN PERCENT AUTO 1 % (0-1); LYMPHOCYTES ABSOLUTE AUTO 2.76 K/mm3 (0.84-5.20); LYMPHOCYTES PERCENT AUTO 20 % (21-46); MONOCYTES ABSOLUTE AUTO 1.05 K/mm3 (0.16-1.47); MONOCYTES PERCENT AUTO 8 % (4-13); Mean Corpuscular HGB Conc 30.7 g/dL (31.5-36.5); Mean Corpuscular Volume 91 fL (80-100); Mean Platelet Volume 8.8 fL (9.1-12.4); NEUTROPHILS ABSOLUTE AUTO 9.35 K/mm3 (1.96-9.15); NEUTROPHILS PERCENT AUTO 69 % (41-73); Platelet Count 794 K/mm3 (150-400); RDW Coefficient Variation 16.6 % (11.7-14.2); RDW Standard Deviation 55.9 fL (35.1-46.3); Red Blood Cell Count 3.29 M/mm3 (4.30-5.90); White Blood Cell Count 13.63 K/mm3 (4.00-11.30)
[2023-04-20 20:06] LABS: Alanine Aminotransfer (ALT/SGP 42 U/L (12-78); Albumin, Blood 2.1 g/dL (3.4-5.0); Albumin/Globulin Ratio 0.5 (0.8-1.8); Alk Phos 165 U/L (50-136); Anion Gap 6 mmol/L (6-16); Aspartate Aminotrans (AST/SGOT 37 U/L (12-37); Bilirubin, Total <0.1 mg/dL (0.1-1.0); Blood Urea Nitrogen 23 mg/dL (8-24); Bun/Creatinine Ratio 20.5 (12.0-20.0); CO2, Blood 26 mmol/L (21-32); Calcium, Blood 8.8 mg/dL (8.5-10.1); Chloride, Blood 107 mmol/L (98-108); Creatinine, Blood 1.12 mg/dL (0.60-1.20); Globulin, Blood 4.4 g/dL (2.2-4.0); Glomerular Filtration Rate 86 (60-); Glucose, Blood 177 mg/dL (70-99); Potassium, Blood 4.5 mmol/L (3.5-5.5); Sodium, Blood 139 mmol/L (136-145); Total Protein, Blood 6.5 g/dL (6.4-8.2)
[2023-04-20 21:51] VITALS: BP 161/103
== END 2023-04-20 22:07 | disposition home or self-care (01) ==
LOC: ER 18:52
PROVIDERS: Emergency Medicine
DX: R60.0 Localized edema (principal); F17.210 Nicotine dependence, cigarettes, uncomplicated; F17.290 Nicotine dependence, other tobacco product, uncomplicated; Z88.8 Allergy status to other drugs, medicaments and biological substances; Z88.1 Allergy status to other antibiotic agents; Z79.899 Other long term (current) drug therapy; Z79.4 Long term (current) use of insulin
CPT/HCPCS: 80053; 82947; 85025; 99283

== ENCOUNTER 2023-05-18 15:48 | Inpatient (IN) | payer OTHER ==
[2023-05-18] VITALS (15 sets, daily range): BP systolic 109–140; BP diastolic 61–81
[~2023-05-18] VITALS: Ht 170.2 cm; Wt 67.5 kg
[2023-05-18 16:55] LABS: Base Excess Venous -28.5 mmol/L; Bicarbonate Venous 6.1 mmol/L (24.0-30.0); PCO2 Venous 17.2 mmHg (38-42)
[2023-05-18 16:56] LABS: pH Blood Venous 6.99 (7.34-7.37)
[2023-05-18 16:59] LABS: BASOPHILS PERCENT AUTO 1 % (0-2); EOSINOPHILS PERCENT AUTO 0 % (0-6); Hematocrit 33.7 % (37.0-53.0); IMMATURE GRAN ABSOLUTE AUTO 0.91 K/mm3 (0.00-0.10); IMMATURE GRAN PERCENT AUTO 3 % (0-1); LYMPHOCYTES ABSOLUTE AUTO 2.63 K/mm3 (0.84-5.20); LYMPHOCYTES PERCENT AUTO 9 % (21-46); MONOCYTES ABSOLUTE AUTO 1.73 K/mm3 (0.16-1.47); MONOCYTES PERCENT AUTO 6 % (4-13); Mean Corpuscular HGB 26.6 pg (26.0-34.0); Mean Corpuscular HGB Conc 29.7 g/dL (31.5-36.5); Mean Corpuscular Volume 90 fL (80-100); Mean Platelet Volume 9.4 fL (9.1-12.4); NEUTROPHILS ABSOLUTE AUTO 24.09 K/mm3 (1.96-9.15); NEUTROPHILS PERCENT AUTO 81 % (41-73); NRBC ABSOLUTE 0.02 K/mm3 (0.00-0.02); NRBC Auto 0.1 /100 WBC (0.0-0.2); Platelet Count 886 K/mm3 (150-400); RDW Coefficient Variation 15.4 % (11.7-14.2); RDW Standard Deviation 50.1 fL (35.1-46.3); Red Blood Cell Count 3.76 M/mm3 (4.30-5.90); White Blood Cell Count 29.66 K/mm3 (4.00-11.30)
[2023-05-18 17:23] LABS: Magnesium, Blood 2.2 mg/dL (1.6-2.4)
[2023-05-18 17:30] LABS: Alanine Aminotransfer (ALT/SGP 24 U/L (12-78); Albumin, Blood 2.1 g/dL (3.4-5.0); Albumin/Globulin Ratio 0.4 (0.8-1.8); Alk Phos 176 U/L (50-136); Anion Gap 31 mmol/L (6-16); Aspartate Aminotrans (AST/SGOT 19 U/L (12-37); Bilirubin, Total 0.4 mg/dL (0.1-1.0); Blood Urea Nitrogen 26 mg/dL (8-24); Bun/Creatinine Ratio 20.2 (12.0-20.0); CO2, Blood 4 mmol/L (21-32); Calcium, Blood 9.1 mg/dL (8.5-10.1); Chloride, Blood 87 mmol/L (98-108); Creatinine, Blood 1.29 mg/dL (0.60-1.20); Globulin, Blood 4.7 g/dL (2.2-4.0); Glomerular Filtration Rate 72 (60-); Glucose, Blood 832 mg/dL (70-99); Potassium, Blood 4.9 mmol/L (3.5-5.5); Sodium, Blood 122 mmol/L (136-145); Total Protein, Blood 6.8 g/dL (6.4-8.2)
[2023-05-18 17:59] LABS: Beta-hydroxybutyrate >138.0 mg/dL (0.2-2.8)
--- NOTE | 2023-05-18 19:15 | NUR ---
ASSUMPTION OF CARE: RECEIVED REPORT FROM MITCH VANN. PT ALERT AND ORIENTED TO PERSON, PLACE AND SELF. PT MUMBLING AND HARD TO UNDERSTAND AT TIMES. ANSWERS SOME SIMPLE QUESTIONS BUT THEN GOES BACK TO SLEEP. PT MOANING OUT BUT DENIES PAIN. STATES HE DOES NOT KNOW WHY HE IS MOANING. PT ON RA WITH SPO2 >95%. DENIES SOB. LUNG SOUNDS CLEAR. FAMILY SUPPORT COORDINATOR IN PLACE, ST WITH HR 100'S, SBP 120'S. PT DENIES NEEDING TO VOID YET. PIV'S INTACT AND INFUSING. INSULIN DRIP AT 6 UNITS/HR, TITRATED NEEDED. NS 1/2 INFUSING AT 500 ML/HR. NO BM YET. CALL LIGHT IN REACH. BED LOW AND LOCKED.
[2023-05-18 19:34] LABS: Glucose, Blood 765 mg/dL (70-99)
[2023-05-18 19:41] LABS: Calcium, Blood 8.2 mg/dL (8.5-10.1); Creatinine, Blood 1.32 mg/dL (0.60-1.20); Potassium, Blood 3.8 mmol/L (3.5-5.5)
[2023-05-18 20:37] LABS: Glucose, Blood 621 mg/dL (70-99)
[2023-05-18 23:58] LABS: Magnesium, Blood 1.8 mg/dL (1.6-2.4)
[2023-05-18 23:59] LABS: Creatinine, Blood 1.22 mg/dL (0.60-1.20); Phosphorus, Blood 4.1 mg/dL (2.5-4.9); Potassium, Blood 4.1 mmol/L (3.5-5.5)
[2023-05-19] VITALS (23 sets, daily range): BP systolic 126–177; BP diastolic 68–141
[2023-05-19 04:23] LABS: Bun/Creatinine Ratio 24.3 (12.0-20.0); Calcium, Blood 8.1 mg/dL (8.5-10.1); Creatinine, Blood 1.03 mg/dL (0.60-1.20); Magnesium, Blood 1.8 mg/dL (1.6-2.4); Phosphorus, Blood 2.7 mg/dL (2.5-4.9); Potassium, Blood 3.9 mmol/L (3.5-5.5)
--- NOTE | 2023-05-19 06:23 | NUR ---
SHIFT SUMMARY: PT ALERT AND ORIENTED TO TIME, PERSON AND PLACE. PT NOT COOPERATIVE WITH LAB DRAWS. STARTED YELLING AT STAFF AND KICKING BEDRAILS. PT REFUSING TO WEAR SPO2 MONITOR T/O THE SHIFT. FREQUENTLY PULLING OFF TELEMETRY WIRES AND ATTEMPTING TO PULL OUT IV'S. PT REMAINS ON RA WITH SPO2 >95 WITH SPOT CHECKS. FORENSIC SCIENCE TECHNICIAN IN PLACE, ST WITH HR 100'S. SBP 150'S-160'S. PT DENIES PAIN BUT FREQUENTLY MOANS OUT AND CRIES. PT TOLERATING PO INTAKE WELL. DENIES N/V. LONG ACTING INSULIN GIVEN AT 0450. INSULIN DRIP TURNED OFF AT 0600. PIV'S INTACT AND SALINE LOCKED. PT HAD FREQUENT INCONTINENT BOWEL MOVEMENTS T/O THE SHIFT. ABLE TO AMBULATE TO BEDSIDE COMMODE WITH MINIMAL ASSIST. ABLE TO VOID IND ON COMMODE. CALL LIGHT IN REACH. BED LOW AND LOCKED.
--- NOTE | 2023-05-19 09:20 | NUR ---
DR SINGLETON PT TRANSITIONED OFF INSULIN GTT ON NOC SHIFT. PT TAKING IN PO INTAKE WELL AND CBG STABLE. IV'S SALINE LOCKED. DR SINGLETON AT BEDSIDE TO SEE PT. PT REFUSES TO TAKE BLANKETS OFF OF FACE WHEN INTERACTING WITH RN AND DR SINGLETON. PT MOANS AND ROLLS SIDE TO SIDE IN BED. ORDERS RECIEVED FOR REPEAT LABS AT THIS TIME. PT TOOK MONITOR LEADS OFF. LEADS REPLACED WITH DR SINGLETON AT BEDSIDE.
[2023-05-19 09:21] LABS: BASOPHILS ABSOLUTE AUTO 0.05 K/mm3 (0.00-0.23); BASOPHILS PERCENT AUTO 0 % (0-2); EOSINOPHILS ABSOLUTE AUTO 0.36 K/mm3 (0.00-0.68); EOSINOPHILS PERCENT AUTO 2 % (0-6); Hematocrit 25.6 % (37.0-53.0); Hemoglobin 8.3 g/dL (13.5-17.5); IMMATURE GRAN ABSOLUTE AUTO 0.14 K/mm3 (0.00-0.10); IMMATURE GRAN PERCENT AUTO 1 % (0-1); LYMPHOCYTES ABSOLUTE AUTO 1.44 K/mm3 (0.84-5.20); LYMPHOCYTES PERCENT AUTO 9 % (21-46); MONOCYTES ABSOLUTE AUTO 1.24 K/mm3 (0.16-1.47); MONOCYTES PERCENT AUTO 8 % (4-13); Mean Corpuscular HGB 26.5 pg (26.0-34.0); Mean Corpuscular HGB Conc 32.4 g/dL (31.5-36.5); Mean Platelet Volume 8.7 fL (9.1-12.4); NEUTROPHILS ABSOLUTE AUTO 13.33 K/mm3 (1.96-9.15); NEUTROPHILS PERCENT AUTO 81 % (41-73); Platelet Count 698 K/mm3 (150-400); RDW Coefficient Variation 15.3 % (11.7-14.2); RDW Standard Deviation 45.8 fL (35.1-46.3); Red Blood Cell Count 3.13 M/mm3 (4.30-5.90); White Blood Cell Count 16.56 K/mm3 (4.00-11.30)
[2023-05-19 09:22] LABS: Mean Corpuscular Volume 82 fL (80-100)
[2023-05-19 09:39] LABS: Albumin, Blood 1.6 g/dL (3.4-5.0); Albumin/Globulin Ratio 0.4 (0.8-1.8); Bilirubin, Total 0.2 mg/dL (0.1-1.0); Bun/Creatinine Ratio 21.3 (12.0-20.0); Calcium, Blood 7.9 mg/dL (8.5-10.1); Creatinine, Blood 0.99 mg/dL (0.60-1.20); Globulin, Blood 3.6 g/dL (2.2-4.0); Total Protein, Blood 5.2 g/dL (6.4-8.2)
[2023-05-19] MEDS ORDERED: DULO60 PO (13:02)
--- NOTE | 2023-05-19 13:26 | NUR ---
DISCHARGE PT VERBALIZED UNDERSTANDING OF DISCHARGE INSTRUCTIONS. IV'S REMOVED. PT SIGNED DISCHARGE PAPERWORK. PT TAKEN OUT TO RIDE HOME VIA WHEELCHAIR. ALL PT BELONGINGS SENT WITH PT.
== END 2023-05-19 13:39 | disposition home or self-care (01) | DRG 639 ==
LOC: ER 15:48 → ICUE 15:49
PROVIDERS: Emergency Medicine; Family Medicine; ADMIT Internal Medicine
DX: E10.10 Type 1 diabetes mellitus with ketoacidosis without coma (principal); E10.42 Type 1 diabetes mellitus with diabetic polyneuropathy; D72.829 Elevated white blood cell count, unspecified; I10 Essential (primary) hypertension; F32.9 Major depressive disorder, single episode, unspecified; D64.9 Anemia, unspecified; D75.839 Thrombocytosis, unspecified; J44.9 Chronic obstructive pulmonary disease, unspecified; G89.29 Other chronic pain; M54.9 Dorsalgia, unspecified; F17.200 Nicotine dependence, unspecified, uncomplicated; F15.11 Other stimulant abuse, in remission; Z88.8 Allergy status to other drugs, medicaments and biological substances; Z88.2 Allergy status to sulfonamides; Z88.1 Allergy status to other antibiotic agents; Z88.6 Allergy status to analgesic agent; Z79.4 Long term (current) use of insulin; Z91.148 Patient's other noncompliance with medication regimen for other reason
CPT/HCPCS: 36415; 71045; 80048; 80053; 82010; 82803; 82947; 83690; 83735; 84100; 85025; 93005; 93010; 96361; 96365; 96366; 96374; 96375; 99285-25; A9270; G0378; J0780; J1790; J1815; J3480; J7030; J7042; J7050; J7120

== ENCOUNTER 2023-05-26 12:23 | Observation (INO) | payer OTHER ==
[~2023-05-26] VITALS: Ht 177.8 cm; Wt 72.4 kg
[~2023-05-26 12:23] MED LIST changes: +DULO60 PO
[2023-05-26 13:11] LABS: Base Excess Venous 1.9 mmol/L; Bicarbonate Venous 26.1 mmol/L (24.0-30.0); PCO2 Venous 38.3 mmHg (38-42); pH Blood Venous 7.44 (7.34-7.37)
[2023-05-26 13:32] LABS: BASOPHILS ABSOLUTE AUTO 0.13 K/mm3 (0.00-0.23); BASOPHILS PERCENT AUTO 1 % (0-2); EOSINOPHILS ABSOLUTE AUTO 0.17 K/mm3 (0.00-0.68); EOSINOPHILS PERCENT AUTO 1 % (0-6); IMMATURE GRAN ABSOLUTE AUTO 0.07 K/mm3 (0.00-0.10); IMMATURE GRAN PERCENT AUTO 1 % (0-1); LYMPHOCYTES ABSOLUTE AUTO 1.66 K/mm3 (0.84-5.20); LYMPHOCYTES PERCENT AUTO 14 % (21-46); MONOCYTES ABSOLUTE AUTO 0.71 K/mm3 (0.16-1.47); MONOCYTES PERCENT AUTO 6 % (4-13); Mean Corpuscular HGB 26.4 pg (26.0-34.0); Mean Corpuscular HGB Conc 32.3 g/dL (31.5-36.5); Mean Corpuscular Volume 82 fL (80-100); NEUTROPHILS ABSOLUTE AUTO 9.56 K/mm3 (1.96-9.15); NEUTROPHILS PERCENT AUTO 78 % (41-73); RDW Coefficient Variation 15.7 % (11.7-14.2); RDW Standard Deviation 46.9 fL (35.1-46.3); Red Blood Cell Count 3.79 M/mm3 (4.30-5.90)
[2023-05-26 13:39] LABS: Albumin, Blood 1.7 g/dL (3.4-5.0); Albumin/Globulin Ratio 0.4 (0.8-1.8); Bilirubin, Total 0.3 mg/dL (0.1-1.0); Bun/Creatinine Ratio 26.1 (12.0-20.0); Calcium, Blood 8.1 mg/dL (8.5-10.1); Creatinine, Blood 0.73 mg/dL (0.60-1.20); Globulin, Blood 4.1 g/dL (2.2-4.0); Potassium, Blood 5.8 mmol/L (3.5-5.5); Total Protein, Blood 5.8 g/dL (6.4-8.2)
[2023-05-26 13:45] LABS: Mean Platelet Volume 9.6 fL (9.1-12.4)
[2023-05-26 14:14] LABS: Platelet Count 585 K/mm3 (150-400)
[2023-05-26] MEDS ORDERED: ATOR10 PO (14:55)
[2023-05-26] MEDS ORDERED: DIPATR (14:55)
[2023-05-26 16:10] LABS: Calcium, Ionized (POC) 1.09 mmol/L (1.10-1.46); Chloride (POC) 95 mmol/L (98-108); Creatinine (POC) 0.8 mg/dL (0.8-1.3); Glucose (ISTAT POC) 598 mg/dL (70-99); Hemoglobin (POC) 10.2 g/dL (13.5-17.5); Potassium (POC) 4.6 mmol/L (3.5-5.5); Sodium (POC) 128 mmol/L (135-148); Total CO2 (POC) 24 mmol/L (21-32)
[2023-05-26 16:12] LABS: Source, Urine Clean Catch
[2023-05-26 16:15] LABS: Bilirubin, Urine Neg (Neg); Blood, Urine 2+ (Neg); Glucose Qualitative, Urine 4+ (Neg); Ketones, Urine 2+ (Neg); Leukocyte Esterase, Urine Neg (Neg); Nitrite, Urine Neg (Neg); Protein, Urine 4+ (Neg); Urobilinogen, Urine NORM (Normal)
[2023-05-26 16:21] LABS: Appearance, Urine Clear (Clear); Color, Urine Pale Yellow (P-Yellow)
[2023-05-26 16:22] LABS: Bacteria Few /hpf; Granular Casts 0-2 /lpf (0); Red Blood Cells, Urine 0-2 /hpf (0-2); Squamous Epithelial Cells Not Seen /hpf (Few); White Blood Cells, Urine 0-2 /hpf (0-5)
[2023-05-26 16:25] LABS: Acetaminophen, Random <2.0 ug/mL (10.0-30.0); Ethanol (Alcohol), Blood, Med <3 mg/dL; Salicylate <1.7 mg/dL (2.8-20.0)
[2023-05-26 16:26] LABS: U Amphetamine Screen Not Detected; U Barbituate Screen Not Detected; U Benzodiazapine Screen Not Detected; U Buprenorphine Screen Not Detected; U Cannabinoids Screen Not Detected; U Cocaine Screen Not Detected; U Methadone Screen Not Detected; U Methamphetamine Screen Not Detected; U Opiates Screen Not Detected; U Oxycodone Screen Not Detected; U Phencyclidine Screen Not Detected
[2023-05-26 18:03] LABS: Influenza A, PCR NEGATIVE (NEGATIVE); Influenza B, PCR NEGATIVE (NEGATIVE); Resp Syncytial Virus, PCR NEGATIVE (NEGATIVE); SARS-Cov-2 (COVID-19) PCR, MMC NEGATIVE (NEGATIVE)
[2023-05-26 21:06] LABS: Glucose, Blood 499 mg/dL (70-99)
--- NOTE | 2023-05-27 01:12 | NUR ---
ARRIVAL TO ICU PT ARRIVED IN WC WITH ED NURSE AT BEDSIDE. PT A/O X 4. CALM AND COOPERATIVE WITH CARE. PT IN ROOM STATING "THIS FEELS LIKE HOME", "MY MOM HATES ME", "I DIDN'T KNOW I WAS A 'BITER' UNTIL I WAS HERE", AND "I'M GOING TO CRY". LABILE, GOING FROM [facility]/JOKING WHEN REQUESTS GRANTED, AND IRRITABLE WHEN REQUESTS ARE DENIED. PT ASKING ABOUT OTHER NURSES AND IF THEY STILL WORK HERE. NO INFORMATION GIVEN TO PT. PT ASKNG FOR SODA, SANDWICHES, CHEESE, JELLO AND TEA. CBG 467. PT GIVEN WATER AND TEA, CALL MADE TO HOSP REGARDING CBG AND PAST INSULIN GIVEN INCLUDING 75 UNITS OF GLARGINE. ORDERS RECEIVED. CBG AT 0000 283 AND PT GIVEN HALF OF A SANDWICH, SUGAR FREE JELLO, AND DIET SODA. PT THEN ASKING FOR SOUP, AND CHEESE. EDUCATED PT ON NEEDING TO WAIT UNTIL NEXT CBG CHECK AT 0200. PT COMPLIED. PT ENDORSING THOUGHTS ABOUT SUICIDE AND MAKING A PLAN. DOES NOT ELABORATE REGARDING PLAN OR THOUGHTS. 1:1 SITTER AT BEDSIDE. ROOM MITIGATION DONE. BELONGINGS LOCKED IN CLOSET. MEDICATIONS LOCKED IN MED LOCKER. VSS. NO TELE.
[2023-05-27 03:44] LABS: BASOPHILS ABSOLUTE AUTO 0.12 K/mm3 (0.00-0.23); BASOPHILS PERCENT AUTO 1 % (0-2); EOSINOPHILS ABSOLUTE AUTO 0.26 K/mm3 (0.00-0.68); EOSINOPHILS PERCENT AUTO 2 % (0-6); Hematocrit 27.4 % (37.0-53.0); Hemoglobin 8.4 g/dL (13.5-17.5); IMMATURE GRAN ABSOLUTE AUTO 0.13 K/mm3 (0.00-0.10); IMMATURE GRAN PERCENT AUTO 1 % (0-1); LYMPHOCYTES ABSOLUTE AUTO 3.32 K/mm3 (0.84-5.20); LYMPHOCYTES PERCENT AUTO 27 % (21-46); MONOCYTES ABSOLUTE AUTO 1.06 K/mm3 (0.16-1.47); MONOCYTES PERCENT AUTO 9 % (4-13); Mean Corpuscular HGB 26.1 pg (26.0-34.0); Mean Corpuscular HGB Conc 30.7 g/dL (31.5-36.5); Mean Corpuscular Volume 85 fL (80-100); Mean Platelet Volume 8.7 fL (9.1-12.4); NEUTROPHILS ABSOLUTE AUTO 7.26 K/mm3 (1.96-9.15); NEUTROPHILS PERCENT AUTO 60 % (41-73); Platelet Count 626 K/mm3 (150-400); RDW Coefficient Variation 15.6 % (11.7-14.2); RDW Standard Deviation 48.5 fL (35.1-46.3); Red Blood Cell Count 3.22 M/mm3 (4.30-5.90); White Blood Cell Count 12.15 K/mm3 (4.00-11.30)
[2023-05-27 04:09] LABS: Magnesium, Blood 2.1 mg/dL (1.6-2.4)
[2023-05-27 04:11] LABS: Alanine Aminotransfer (ALT/SGP 28 U/L (12-78); Albumin, Blood 1.4 g/dL (3.4-5.0); Albumin/Globulin Ratio 0.4 (0.8-1.8); Alk Phos 129 U/L (50-136); Aspartate Aminotrans (AST/SGOT 17 U/L (12-37); Bilirubin, Total <0.1 mg/dL (0.1-1.0); Blood Urea Nitrogen 19 mg/dL (8-24); Bun/Creatinine Ratio 18.4 (12.0-20.0); CO2, Blood 29 mmol/L (21-32); Calcium, Blood 7.7 mg/dL (8.5-10.1); Chloride, Blood 105 mmol/L (98-108); Creatinine, Blood 1.03 mg/dL (0.60-1.20); Globulin, Blood 3.4 g/dL (2.2-4.0); Glomerular Filtration Rate 95 (60-); Glucose, Blood 100 mg/dL (70-99); Total Protein, Blood 4.8 g/dL (6.4-8.2)
[2023-05-27 04:16] LABS: Anion Gap 4 mmol/L (6-16); Potassium, Blood 3.8 mmol/L (3.5-5.5); Sodium, Blood 138 mmol/L (136-145)
[2023-05-27 05:00] VITALS: BP 157/89
--- NOTE | 2023-05-27 06:44 | NUR ---
SHIFT SUMMARY PT CBG CONTINUED TO DROP TO 97 THIS AM WITH PT EATING EVERY TWO HOURS. PT DIAPHORETIC AND PALE. CALL TO HOSP AND ORDERS RECEIVED FOR GLUCAGON AND D5 1/2NS AT 100ML/HR. SECOND RECHECK CBG 177 FROM 111. HOSP CALLED AND RATE 75ML/HR. PT PLEASANT OVERALL. PT WOKE UP ONE TIME CRYING OUT AND SOBBING. PT STATED HE HAD A BAD DREAM. LIGHTS TURNED ON AND PT REASSURED THAT HE IS SAFE. SITTER REMAINS AT BEDSIDE. VSS. WILL REPORT OFF TO ONCOMING RN.
--- NOTE | 2023-05-27 10:23 | NUR ---
SHIFT ASSESSMENT ASSUMED CARE OF PT @ 0700. PT A&OX4, EULALIA, CURRENTLY COOPERATIVE WITH CARE. D5 INITIALLY INFUSING, DC'D @ 0915 PER HOSPITALIST, Q1HR CBG'S X 3 ORDERED. GLUCOSE CURRENTLY 290. PT TOLERATING PO INTAKE WELL. DURING SUICIDE ASSESSMENT PT ADMITTED TO WANTING TO HURT HIMSELF, STATES "I WOULD HANG MYSELF BUT I DON'T HAVE A TREE STRONG ENOUGH, A PLUM TREE WON'T HOLD ME UP." ALSO STATED "I THINK ABOUT HURTING MYSELF DAILY". PT HAS A 1:1 SITTER, ROOM MITIGATION COMPLETE.
--- NOTE | 2023-05-27 13:18 | NUR ---
UPDATE DR HARTLEY BY TO REASSESS PT. DURING VISIT WITH DR HARTLEY WHEN ASKED IF PT WANTED TO KILL HIMSELF PT STATED "I'M GOING TO BE HONEST, I SAID I WAS SUICIDAL SO I COULD BE ADMITTED" & "I REALLY LIKE THE FOOD HERE" & "I DON'T WANT TO KILL MYSELF, I HAVE KIDS, I WAS JUST MOUTHING OFF TO GET A ROOM". PT ALSO TOLD THIS NURSE "I MADE A DUMB MISTAKE AND MOUTHED OFF, THE [employer] HERE ARE SO GOOD". PTS MOTHER AT BEDSIDE WITH MINING AND QUARRYING MACHINERY REPAIRER DISCUSSING SAFETY PLAN FOR PT. PT CONTINUES TO INSIST HE IS NOT SUICIDAL.
[2023-05-27 13:54] VITALS: BP 161/91
--- NOTE | 2023-05-27 13:55 | NUR ---
DISCHARGE PTS MOTHER AT BEDSIDE DURING DISCHARGE STATING SHE WILL TAKE PT WITH HER TO [facility] & ASSIST WITH HIS SUPPORT. PT JOVIAL UPON DISCHARGE, WISHING EVERYONE A WILLIAM CRUZ, QUITE THANKFUL FOR CARE.
== END 2023-05-27 13:53 | disposition home or self-care (01) ==
LOC: ER 12:23 → ICUE 12:24
PROVIDERS: Physician Assistant; Student in an Organized Health Care Education/Training Program; ADMIT Student in an Organized Health Care Education/Training Program
DX: E10.65 Type 1 diabetes mellitus with hyperglycemia (principal); R45.851 Suicidal ideations; E87.5 Hyperkalemia; D72.829 Elevated white blood cell count, unspecified; F33.9 Major depressive disorder, recurrent, unspecified; F15.10 Other stimulant abuse, uncomplicated; F12.10 Cannabis abuse, uncomplicated; R11.2 Nausea with vomiting, unspecified; D64.9 Anemia, unspecified; E10.319 Type 1 diabetes mellitus with unspecified diabetic retinopathy without macular edema; E78.5 Hyperlipidemia, unspecified; J44.9 Chronic obstructive pulmonary disease, unspecified; F17.210 Nicotine dependence, cigarettes, uncomplicated; Z88.1 Allergy status to other antibiotic agents; Z88.6 Allergy status to analgesic agent; Z88.8 Allergy status to other drugs, medicaments and biological substances; Z79.4 Long term (current) use of insulin; Z79.899 Other long term (current) drug therapy
CPT/HCPCS: 0241U; 36415; 71046; 80047; 80053; 81001; 82803; 82947; 83735; 85014; 85025; 93005; 93010; 96360; 96361; 96372; 99285-25; A9270; G0378; G0480; J1610; J1650; J1815; J7030; J7042

== ENCOUNTER 2023-06-24 05:23 | Inpatient (IN) | payer OTHER ==
[~2023-06-24] VITALS: Ht 177.8 cm; Wt 77.0 kg
[~2023-06-24 05:23] MED LIST changes: +DIPATR
[2023-06-24 06:21] LABS: BASOPHILS PERCENT AUTO 1 % (0-2); EOSINOPHILS ABSOLUTE AUTO 0.25 K/mm3 (0.00-0.68); EOSINOPHILS PERCENT AUTO 2 % (0-6); Hematocrit 28.6 % (37.0-53.0); Hemoglobin 8.8 g/dL (13.5-17.5); IMMATURE GRAN ABSOLUTE AUTO 0.05 K/mm3 (0.00-0.10); IMMATURE GRAN PERCENT AUTO 0 % (0-1); LYMPHOCYTES ABSOLUTE AUTO 2.38 K/mm3 (0.84-5.20); LYMPHOCYTES PERCENT AUTO 21 % (21-46); MONOCYTES ABSOLUTE AUTO 0.78 K/mm3 (0.16-1.47); MONOCYTES PERCENT AUTO 7 % (4-13); Mean Corpuscular HGB 25.7 pg (26.0-34.0); Mean Corpuscular HGB Conc 30.8 g/dL (31.5-36.5); Mean Corpuscular Volume 84 fL (80-100); Mean Platelet Volume 8.7 fL (9.1-12.4); NEUTROPHILS ABSOLUTE AUTO 8.03 K/mm3 (1.96-9.15); NEUTROPHILS PERCENT AUTO 69 % (41-73); Platelet Count 707 K/mm3 (150-400); RDW Coefficient Variation 15.5 % (11.7-14.2); RDW Standard Deviation 46.9 fL (35.1-46.3); Red Blood Cell Count 3.42 M/mm3 (4.30-5.90); White Blood Cell Count 11.59 K/mm3 (4.00-11.30)
[2023-06-24 06:22] LABS: Base Excess Venous 1.1 mmol/L; Bicarbonate Venous 25.2 mmol/L (24.0-30.0); PCO2 Venous 42.8 mmHg (38-42); pH Blood Venous 7.39 (7.34-7.37)
[2023-06-24 06:38] LABS: Albumin, Blood 1.6 g/dL (3.4-5.0); Albumin/Globulin Ratio 0.3 (0.8-1.8); Beta-hydroxybutyrate 1.5 mg/dL (0.2-2.8); Bilirubin, Total 0.1 mg/dL (0.1-1.0); Bun/Creatinine Ratio 17.7 (12.0-20.0); Calcium, Blood 8.8 mg/dL (8.5-10.1); Creatinine, Blood 1.13 mg/dL (0.60-1.20); Globulin, Blood 4.7 g/dL (2.2-4.0); Magnesium, Blood 2.4 mg/dL (1.6-2.4); Total Protein, Blood 6.3 g/dL (6.4-8.2)
[2023-06-24 11:00] VITALS: BP 155/95
--- NOTE | 2023-06-24 11:49 | NUR ---
ADMISSION: PT ARRIVED TO UNIT @1100 VIA WHEELCHAIR. PT ABLE TO TRANSFER TO BED INDEPENDENTLY. PT ASKED FOR FOOD RIGHT WHEN HE GOT TO HIS ROOM. BS OBTAINED SHOWING 416. STATED TO PT THIS RN NEEDS TO GIVE INSULIN THEN LUNCH WOULD BE HERE SOON. PT REFUSED SKIN CHECK AT THIS TIME. HEAD OF SALES PROMOTION AWARE. CALL LIGHT IN REACH. BED IN LOWEST POSITION.
[2023-06-24 16:35] VITALS: BP 157/103
--- NOTE | 2023-06-24 18:27 | NUR ---
SHIFT SUMMARY: PT A&O X4. PT C/O 12/11 SHOOTING/SHARP PAIN IN L. LEG THIS AFTERNOON INTO EVENING. CALLED DR. SINGLETON FOR PAIN RELIEF MEDICATION. PT MEDICATED PER EMAR STATING HE IS FEELING BETTER BUT STILL PAINFUL. BS PRIOR TO DINNER DOWN TO 220. INSULIN PROVIDED PER EMAR. CONTINUING c IV LASIX. COVID/RSV/INFLUENZA SWAB COMPLETED AND SENT TO LAB. CALL LIGHT IN REACH. BED IN LOWEST POSITION. WILL REPORT TO ONCOMING RN.
[2023-06-24 18:34] LABS: Influenza A Negative (NEGATIVE); Influenza B Negative (NEGATIVE)
[2023-06-24 18:41] LABS: SARS-Cov-2 (COVID-19) PCR, MMC NEGATIVE (NEGATIVE)
[2023-06-24 20:24] VITALS: BP 147/87
--- NOTE | 2023-06-25 05:26 | NUR ---
PATIENT IS ALERT AND ORIENTED, ON ROOM AIR. WITH PIV LINE ON LEFT WRIST PATENT AND INTACT. BLOOD SUGAR CHECKED AND INSULIN GIVEN ACCORDINGLY. EDUCATED ABOUT HIS DIET BUT PATIENT STATED HE ALREADY KNOW. COMPLAINT OF PAIN AND MEDICATED ACCORDINGLY. NEEDS ATTENDED. CALL LIGHT WITHIN PATIENT'S REACH. WILL CONTINUE TO MONITOR
[2023-06-25 05:44] LABS: BASOPHILS PERCENT AUTO 1 % (0-2); EOSINOPHILS ABSOLUTE AUTO 0.31 K/mm3 (0.00-0.68); EOSINOPHILS PERCENT AUTO 3 % (0-6); Hematocrit 25.6 % (37.0-53.0); Hemoglobin 7.8 g/dL (13.5-17.5); IMMATURE GRAN ABSOLUTE AUTO 0.05 K/mm3 (0.00-0.10); IMMATURE GRAN PERCENT AUTO 1 % (0-1); LYMPHOCYTES PERCENT AUTO 25 % (21-46); MONOCYTES ABSOLUTE AUTO 0.77 K/mm3 (0.16-1.47); MONOCYTES PERCENT AUTO 7 % (4-13); Mean Corpuscular HGB 25.5 pg (26.0-34.0); Mean Corpuscular HGB Conc 30.5 g/dL (31.5-36.5); Mean Corpuscular Volume 84 fL (80-100); Mean Platelet Volume 8.9 fL (9.1-12.4); NEUTROPHILS ABSOLUTE AUTO 6.57 K/mm3 (1.96-9.15); NEUTROPHILS PERCENT AUTO 63 % (41-73); Platelet Count 599 K/mm3 (150-400); RDW Coefficient Variation 15.5 % (11.7-14.2); RDW Standard Deviation 46.7 fL (35.1-46.3); Red Blood Cell Count 3.06 M/mm3 (4.30-5.90)
[2023-06-25 06:06] LABS: Bun/Creatinine Ratio 27.5 (12.0-20.0); Creatinine, Blood 1.2 mg/dL (0.60-1.20); Potassium, Blood 4.3 mmol/L (3.5-5.5)
[2023-06-25 07:58] VITALS: BP 139/87
[2023-06-25 18:10] VITALS: BP 130/81
--- NOTE | 2023-06-25 19:16 | NUR ---
SHIFT SUMMARY: PT A&O X4. PT PLEASANT AND COOPERATIVE WITH CARE THIS SHIFT. PT N/V THIS AM AFTER ADMINISTRATION OF MEDICATIONS. PT STATES IT WAS FROM "UNUSUAL DIABETES. SOMETIMES THIS HAPPENS." PT BS MUCH BETTER THIS SHIFT. BS PRIOR TO DINNER OF 114. MEDICATED FOR PAIN ONCE THIS SHIFT. CALL LIGHT IN REACH. BED IN LOWEST POSITION.
[2023-06-25 20:41] VITALS: BP 109/60
--- NOTE | 2023-06-26 04:56 | NUR ---
PATIENT IS ALERT AND ORIENTED, ON ROOM AIR. BLOOD SUGAR CHECKED DONE, NO INSULIN OCVERAGE GIVEN. WITH PIV LINE ON LEFT WRIST, PATENT AND INTACT. ON 2 L FREE WATER RESTRICTION. COMPLAINT OF PAIN, MEDICATED. POSSIBLE DISCHARGE TODAY. NEEDS ATTENDED. CALL LIGHT WTIHIN PATIENT'S REACH. WILL CONTINUE TO MONITOR.
[2023-06-26 05:34] LABS: Bun/Creatinine Ratio 29.1 (12.0-20.0); Calcium, Blood 7.8 mg/dL (8.5-10.1); Creatinine, Blood 1.17 mg/dL (0.60-1.20); Potassium, Blood 4.2 mmol/L (3.5-5.5)
[2023-06-26 08:46] VITALS: BP 142/93
[2023-06-26] MEDS ORDERED: Acetaminophen650 M1 PO (11:01)
[2023-06-26] MEDS ORDERED: AMOCLA500 PO (11:02)
[2023-06-26] MEDS ORDERED: Bumetanide2 MG PO (11:04)
--- NOTE | 2023-06-26 13:00 | NUR ---
DISCHARGE AT 1254. PT EDUCATED ON NEW MEDICATOINS, BUMEX AND AUGMENTIN. PT ALSO EDUCATED ON CHF AND THE IMPORTANCE OF CONTINUING HIS MED REGIMEN. PT EAGER TO LEARN AND ASKING QUESTIONS ABOUT CHF. PRINTED ENDUCATION PROVIDED TO PATIENT. HARD SCRIPT FOR LABS GIVEN TO PT. IV REMOVED & INTACT. PT ENCOURAGED TO REACH OUT TO HIS PRIMARY ABOUT A REFFERAL TO A PAIN SPECIALIST HE STATES HIS PAIN IS UNCONTROLLED. PT STATES HE WILL DO THIS AT HIS NEXT APPOINTMENT. PT WHEELED OUT BY FRIEND AND DRIVEN HOME. DENIED FURTHER INSTRUCTION PRIOR TO DC.
== END 2023-06-26 12:54 | disposition home or self-care (01) | DRG 291 ==
LOC: ER 05:23 → MEDS 05:24 → EDBEDREQ 09:54 → MEDS 10:48 → ENPENDDIS 06-26 11:10 → MEDS 06-26 12:54
PROVIDERS: Internal Medicine; Student in an Organized Health Care Education/Training Program; ADMIT Family Medicine
DX: I11.0 Hypertensive heart disease with heart failure (principal); I50.33 Acute on chronic diastolic (congestive) heart failure; J18.9 Pneumonia, unspecified organism; J44.0 Chronic obstructive pulmonary disease with (acute) lower respiratory infection; E87.1 Hypo-osmolality and hyponatremia; E10.40 Type 1 diabetes mellitus with diabetic neuropathy, unspecified; D63.8 Anemia in other chronic diseases classified elsewhere; D75.838 Other thrombocytosis; E78.5 Hyperlipidemia, unspecified; G89.29 Other chronic pain; M54.9 Dorsalgia, unspecified; F17.290 Nicotine dependence, other tobacco product, uncomplicated; F32.9 Major depressive disorder, single episode, unspecified; E10.65 Type 1 diabetes mellitus with hyperglycemia; I27.20 Pulmonary hypertension, unspecified; T50.1X6A Underdosing of loop [high-ceiling] diuretics, initial encounter; Z91.138 Patient's unintentional underdosing of medication regimen for other reason; Z88.1 Allergy status to other antibiotic agents; Z88.6 Allergy status to analgesic agent; Z88.2 Allergy status to sulfonamides; Z88.8 Allergy status to other drugs, medicaments and biological substances; Z79.4 Long term (current) use of insulin
CPT/HCPCS: 36415; 71045; 80048; 80053; 82010; 82803; 82947; 83735; 83880; 84145; 85025; 87804; 87807; 93005; 93010; 93306; 96372; 96374; 96376; 99285-25; A9270; G0378; J1650; J1815; J1940; U0002

== ENCOUNTER 2023-06-28 02:18 | Emergency (ER) | payer OTHER ==
[~2023-06-28] VITALS: Ht 177.8 cm; Wt 72.6 kg
[~2023-06-28 02:18] MED LIST changes: +AMOCLA500 PO; +Acetaminophen650 M1 PO; +Bumetanide2 MG PO
[2023-06-28 06:32] VITALS: BP 137/81
== END 2023-06-28 07:51 | disposition home or self-care (01) ==
LOC: ER 02:18
DX: L03.116 Cellulitis of left lower limb (principal); F15.10 Other stimulant abuse, uncomplicated; I50.9 Heart failure, unspecified; E10.9 Type 1 diabetes mellitus without complications; F17.200 Nicotine dependence, unspecified, uncomplicated; Z79.899 Other long term (current) drug therapy; Z88.1 Allergy status to other antibiotic agents; Z88.2 Allergy status to sulfonamides; Z88.6 Allergy status to analgesic agent; Z88.8 Allergy status to other drugs, medicaments and biological substances
CPT/HCPCS: 93005; 93010; 93971; 99284-25

== ENCOUNTER 2023-07-22 23:47 | Inpatient (IN) | payer OTHER ==
[~2023-07-22] VITALS: Ht 170.2 cm; Wt 68.8 kg
[2023-07-23] VITALS (23 sets, daily range): BP systolic 107–169; BP diastolic 56–101
[2023-07-23 00:12] LABS: Base Excess Venous -29.7 mmol/L; Bicarbonate Venous 5.6 mmol/L (24.0-30.0); PCO2 Venous 14.8 mmHg (38-42); pH Blood Venous 6.91 (7.34-7.37)
[2023-07-23] MEDS ORDERED: Prochlorperazine Edisylate 10 mg Vial IV ONE (00:50)
[2023-07-23] MEDS ORDERED: NS 1,000 ML IV SCH (00:50)
[2023-07-23 01:15] LABS: Hematocrit 34.3 % (37.0-53.0); Hemoglobin 9.4 g/dL (13.5-17.5); Mean Corpuscular HGB 25.3 pg (26.0-34.0); Mean Corpuscular HGB Conc 27.4 g/dL (31.5-36.5); Mean Corpuscular Volume 92 fL (80-100); Mean Platelet Volume 9.5 fL (9.1-12.4); NRBC ABSOLUTE 0.02 K/mm3 (0.00-0.02); NRBC Auto 0.1 /100 WBC (0.0-0.2); Platelet Count 674 K/mm3 (150-400); RDW Coefficient Variation 15.1 % (11.7-14.2); RDW Standard Deviation 51.1 fL (35.1-46.3); Red Blood Cell Count 3.72 M/mm3 (4.30-5.90); White Blood Cell Count 29.43 K/mm3 (4.00-11.30)
[2023-07-23] MEDS ORDERED: Insulin Human Regular 100 UNIT in NS 100 ML IV SCH ×2 (01:15→01:50)
[2023-07-23 01:35] LABS: Magnesium, Blood 2.5 mg/dL (1.6-2.4)
[2023-07-23 01:39] LABS: BAND PERCENT MAN 7 % (0-8); BASOPHILS PERCENT MAN 0 % (0-2); EOSINOPHILS ABSOLUTE MAN 0.29 K/mm3 (0.00-0.68); EOSINOPHILS PERCENT MAN 1 % (0-6); LYMPHOCYTES ABSOLUTE MAN 1.76 K/mm3 (0.84-5.20); LYMPHOCYTES PERCENT MAN 6 % (21-46); METAMYELOCYTE ABSOLUTE MAN 0.29 K/mm3 (0.00-0.00); METAMYELOCYTE PERCENT MAN 1 % (0-0); MONOCYTES ABSOLUTE MAN 1.76 K/mm3 (0.16-1.47); MONOCYTES PERCENT MAN 6 % (4-13); MYELOCYTE ABSOLUTE MAN 0.58 K/mm3 (0.00-0.00); MYELOCYTE PERCENT MAN 2 % (0-0); NEUTROPHILS ABSOLUTE MAN 24.72 K/mm3 (1.96-9.15); SEG NEUTROPHILS PERCENT MAN 77 % (41-73); TOTAL CELLS COUNTED 100
[2023-07-23] MEDS ORDERED: FentaNYL Citrate 50 MCG/ML 2 ML Injection IV PRN (01:40)
[2023-07-23] MEDS ORDERED: FLU VACC QS2023-24(6MOS UP)/PF 60 MCG/0.5 ML SYRINGE IM ONE (01:40)
[2023-07-23] MEDS ORDERED: Metoclopramide HCl 5MG / ML 2ML Vial IV PRN (01:45)
[2023-07-23] MEDS ORDERED: Sodium Bicarb 8.4% Inj 100 MEQ in Sodium Chloride 0.45% 1,000 ML IV SCH (01:50)
[2023-07-23 01:51] LABS: Alanine Aminotransfer (ALT/SGP 25 U/L (12-78); Albumin, Blood 2.1 g/dL (3.4-5.0); Albumin/Globulin Ratio 0.5 (0.8-1.8); Alk Phos 153 U/L (50-136); Anion Gap 31 mmol/L (6-16); Aspartate Aminotrans (AST/SGOT 25 U/L (12-37); Beta-hydroxybutyrate >138.0 mg/dL (0.2-2.8); Bilirubin, Total 0.4 mg/dL (0.1-1.0); Blood Urea Nitrogen 37 mg/dL (8-24); Bun/Creatinine Ratio 21.9 (12.0-20.0); CO2, Blood 4 mmol/L (21-32); Calcium, Blood 8.7 mg/dL (8.5-10.1); Chloride, Blood 83 mmol/L (98-108); Creatinine, Blood 1.69 mg/dL (0.60-1.20); Globulin, Blood 4.4 g/dL (2.2-4.0); Glomerular Filtration Rate 52 (60-); Glucose, Blood 1026 mg/dL (70-99); Phosphorus, Blood 9.4 mg/dL (2.5-4.9); Potassium, Blood 6.4 mmol/L (3.5-5.5); Sodium, Blood 118 mmol/L (136-145); Total Protein, Blood 6.5 g/dL (6.4-8.2)
[2023-07-23] MEDS ORDERED: Sodium Bicarb 8.4% 1 MEQ/ML 50 ML Vial IV ONE (02:00)
[2023-07-23] MEDS ORDERED: Calcium Gluconate 10% 1,000 MG in NS 50 ML IV ONE (02:20)
[2023-07-23 02:50] LABS: International Normalized Ratio 0.97; Prothrombin Time Results 10.2 Sec (9.7-11.5)
[2023-07-23 02:51] LABS: Glucose, Blood 1025 mg/dL (70-99)
--- NOTE | 2023-07-23 03:50 | NUR ---
ASSUMPTION OF CARE REPORT RECEIVED FROM EXECUTIVE CANDIDATE DEVELOPER. PT TO ICU VIA HOSPITAL BED, TRANSFERRED TO ICU BED VIA SLIDER SHEET. PT ALERT AND ORIENTED, IRRITABLE AT TIMES. PT ASNWERS SOME QUESTIONS ADN FOLLOWS SOME COMMANDS, ABLE TO MAKE NEEDS KNOWN. PT MOVES ALL EXTREMITIES EQUALLY BILATERALLY. HR 100'S SINUS, MAP >65. PT ON RA, OXYGEN SATURATION >95% LUNG SOUNDS CLEAR THROUGHOUT. ABDOMEN SOFT, PT COMPLAINING OF N/V. PIV TO RIGHT UPPER ARM INFUSING NS BOLUS AND INSULIN AT 6 UNITS/HR, SEE FLOWSHEET FOR TITRATIONS. BED IN LOWEST POSITION, CALL LIGHT WITHIN REACH. CARE CONTINUES.
[2023-07-23 04:36] LABS: Glucose, Blood 979 mg/dL (70-99)
[2023-07-23] MEDS ORDERED: Albumin (Human) 25gm/100ml 100 ML IV ONE (05:30)
[2023-07-23 05:44] LABS: Glucose, Blood 879 mg/dL (70-99)
--- NOTE | 2023-07-23 05:51 | NUR ---
SHIFT SUMMARY PT RESTING IN BED, SLEEPING BUT AROUSABLE. PT IRRITABLE AT TIMES, ANSWERS MOST QUESTIONS AND FOLLOWS COMMANDS. PT MOVES ALL EXTREMITIES EQUALLY BILATERALLY. HR 100-110'S SINUS TACH, MAP >65. PT ON RA, OXYGEN SATURATION >95%, LUNG SOUNDS CLEAR THROUGHOUT. PT ABDOMEN SOFT, BOWEL TONES ACTIVE IN ALL FOUR QUADRANTS. PT COMPLAINING OF NAUSEA AND VOMITING THIS SHIFT. PIV TO ROJELIO INFUSING INSULIN AT 5UNITS/HR SEE FLOWSHEET FOR TITRATIONS. SODIUM BICARB INFUSING AT 125MLS/HR. BED IN LOWEST POSITION, CARE CONTINEUS.
[2023-07-23 06:42] LABS: U Amphetamine Screen Not Detected; U Barbituate Screen Not Detected; U Benzodiazapine Screen Not Detected; U Buprenorphine Screen Not Detected; U Cannabinoids Screen DETECTED; U Cocaine Screen Not Detected; U Methadone Screen Not Detected; U Methamphetamine Screen Not Detected; U Opiates Screen Not Detected; U Oxycodone Screen Not Detected; U Phencyclidine Screen Not Detected
[2023-07-23 07:11] LABS: Bun/Creatinine Ratio 22.7 (12.0-20.0); Creatinine, Blood 1.81 mg/dL (0.60-1.20); Potassium, Blood 4.8 mmol/L (3.5-5.5)
[2023-07-23 07:14] LABS: Glucose, Blood 707 mg/dL (70-99)
--- NOTE | 2023-07-23 07:51 | NUR ---
CARE OF PT ASSUMED AT 0700. PT INITIALLY SLEEPING, PT WOKE UP IRRITABLE. ORIENTED X3, FOLLOWING COMMANDS, COOPERATIVE WITH CARE, ALLOWED ASSESSMENT. PT MAKING LOUD GRUNTING NOISES; WHEN ASKED IF HE FEELS NAUSEATED HE INITIALLY DENIED NAUSEA, STATING IT WAS HICCUPS. A FEW MOMENTS LATER PT C/O NAUSEA, DECLINED ANTIMETICS. PT SBA TO TOILET; WEAK W UNSTEADY GAIT. INSULIN GTT AT 5UNITS/HR, 1/2NS W 2 AMPS BICARB GTT AT 125CC/HR. DR SINGLETON IN THIS AM TO SEE PT, UPDATE GIVEN. BLOOD GLUCOSE 707, K+ 4.8. PT DECLINED 2ND IV; ALBUMIN ON HOLD UNTIL IV SITE AVAILABLE.
[2023-07-23 08:42] LABS: Glucose, Blood 598 mg/dL (70-99)
[2023-07-23] MEDS ORDERED: Enoxaparin 40 MG/0.4 ML SYR SC SCH (09:00)
[2023-07-23 09:25] LABS: Glucose, Blood 531 mg/dL (70-99)
[2023-07-23 10:11] LABS: Source, Urine Clean Catch
[2023-07-23 10:17] LABS: Appearance, Urine Clear (Clear); Bilirubin, Urine Neg (Neg); Blood, Urine 2+ (Neg); Color, Urine Yellow (P-Yellow); Glucose Qualitative, Urine 4+ (Neg); Ketones, Urine 3+ (Neg); Leukocyte Esterase, Urine Neg (Neg); Nitrite, Urine Neg (Neg); Protein, Urine 4+ (Neg); Urobilinogen, Urine NORM (Normal)
[2023-07-23 10:26] LABS: Bacteria Rare /hpf; Squamous Epithelial Cells Few /hpf (Few)
[2023-07-23 10:27] LABS: Amorphous Mod (0-Heavy)
[2023-07-23 13:45] LABS: Bun/Creatinine Ratio 25.6 (12.0-20.0); Creatinine, Blood 1.56 mg/dL (0.60-1.20); Potassium, Blood 3.8 mmol/L (3.5-5.5)
--- NOTE | 2023-07-23 13:59 | NUR ---
DR SINGELTON CALLED WITH LAB RESULTS. PT TO BE TRANSITIONED OFF OF INSULIN. SNACK GIVEN. PT REMOVED TELEMETRY; DR SINGLETON NOTIFIED. IF BLOOD SUGARS REMAIN STABLE PT TO BE CHANGED TO MED FLOOR STATUS W/O TELE.
[2023-07-23] MEDS ORDERED: Insulin Glargine-Yfgn 100 Unit/mL 3 ML SYR SC ONE (14:00)
--- NOTE | 2023-07-23 15:07 | NUR ---
PT TOLERATED 1/2SANDWICH AND CHEESE. INSULIN GTT AND BICARB GTT DC'D. PT NOW MEDICAL STATUS W/O TELE. DR SINGLETON GIVEN UPDATE
[2023-07-23] MEDS ORDERED: Insulin Human Lispro 100 Units/ML 3ML Syringe SC SCH (16:30)
[2023-07-23] MEDS ORDERED: Insulin Regular 100 UNIT/ML 10ML Vial SC SCH (16:30)
--- NOTE | 2023-07-23 17:30 | NUR ---
PT USED CALL LIGHT TO ASK FOR ASSISTANCE AFTER HE WAS INCONTINENT OF LARGE AMT OF STOOL IN BED. PT ASSISTED WITH WIPES AND CHANGE OF GOWN WHILE SHOWER BEING SET UP. SOCKS HANDED TO PT; AFTER ATTEMPTING ONCE TO PUT SOCKS ON PT STARTED TO CRY LOUDLY, COMPLAINING THAT HE COULDNT DO IT, "I CANT FING PUT THESE ON BY MYSELF", THEN THREW THEM ACROSS THE ROOM. I THEN STATED, " SOON IM DONE CHANGING THE LINEN ON YOUR BED, I CAN HELP YOU PUT THEM ON". PT CONTINUED TO CRY BECOMING MORE FRUSTRATED. I ASSISTED PT WITH HIS SOCKS. PT SBA TO SHOWER HE WAS ABLE TO WALK W ASSIST TO TOILET SEVERAL TIMES T/O SHIFT W/O DIFFICULTY. PT CONTINUED TO CRY IN SHOWER, "IM SICK OF THIS *HIT", AND STARTED TO SIT DOWN TOWARD THE FLOOR IN A MADDY CROSS APPLESAUCE FASION. I ASSISTED PT BACK TO STANDING POSITION AND CALLED FOR ASSISTANCE. PT STOOD AND WALKED TO SHOWER CHAIR FOR SHOWER. PT THEN ASSISTED TO WHEELCHAIR AND TAKEN TO MEDICAL FLOOR ROOM 341.
[2023-07-23] MEDS ORDERED: Acetaminophen 500 MG Tab PO PRN (20:45)
[2023-07-24 03:08] VITALS: BP 167/86
--- NOTE | 2023-07-24 04:27 | NUR ---
SHIFT SUMMARY PT HAD HIGH BLOOD GLUCOSE SEVERAL TIMES THIS SHIFT AND KEPT ASKING FOR FOOD. OFFERED SUGAR FREE SNACKS WHICH HE REFUSED. PT HAS HAD CRYING AND SCREAMING SPELLS T/O THE NIGHT. HE REPORTED THAT HIS LEGS HAVE BEEN HURTING FROM NEUROPATHY AND RLS. MEDICATED WITH TYLENOL PER EMAR. PT STATES THAT HE DOESN'T WANT TO GO HOME IN THE AM BECAUSE HE STATES, "I AM NOT READY". WILL CONTINUE TO PROVIDE CARE AND MONITOR FOR CHANGES T/O SHIFT.
[2023-07-24] MEDS ORDERED: Insulin Human Lispro 100 Units/ML 3ML Syringe SC SCH (05:24)
--- NOTE | 2023-07-24 05:59 | NUR ---
PTS BLOOD SUGAR 451. CALL PLACED TO AND HUMALOG WAS CHANGED TO MED S/S WITH FIRST DOSE NOW. WENT IN ROOM TO GIVE INSULIN AND PT STARTED YELLING AT US TO TURN THE LIGHT OFF. I EXPLAINED THAT I NEEDED TO GIVE HIS INSULIN TO BRING HIS BLOOD SUGAR DOWN. PT CONTINUES YELLING AND CUSSING AT STAFF. STATED HE IS SUPPOSED TO BE ON 40 UNITS OF LANTUS AND HE ONLY GOT 10 UNITS. ALSO, HE IS STATING THAT HIS DOCTOR WILL NOT GIVE HIM NEEDLES. LAB IS ENTERING ROOM NOW. PT HAS CALMED WHILE I WAS WRITING THIS NOTE.
[2023-07-24] MEDS ORDERED: Insulin Human Lispro 100 Units/ML 3ML Syringe SC ONE (06:00)
[2023-07-24 06:24] LABS: BASOPHILS ABSOLUTE AUTO 0.06 K/mm3 (0.00-0.23); BASOPHILS PERCENT AUTO 0 % (0-2); EOSINOPHILS ABSOLUTE AUTO 0.12 K/mm3 (0.00-0.68); EOSINOPHILS PERCENT AUTO 1 % (0-6); Hematocrit 26.5 % (37.0-53.0); Hemoglobin 8.5 g/dL (13.5-17.5); IMMATURE GRAN ABSOLUTE AUTO 0.12 K/mm3 (0.00-0.10); IMMATURE GRAN PERCENT AUTO 1 % (0-1); LYMPHOCYTES ABSOLUTE AUTO 2.08 K/mm3 (0.84-5.20); LYMPHOCYTES PERCENT AUTO 12 % (21-46); MONOCYTES ABSOLUTE AUTO 1.03 K/mm3 (0.16-1.47); MONOCYTES PERCENT AUTO 6 % (4-13); Mean Corpuscular HGB 25.4 pg (26.0-34.0); Mean Corpuscular HGB Conc 32.1 g/dL (31.5-36.5); Mean Platelet Volume 8.8 fL (9.1-12.4); NEUTROPHILS ABSOLUTE AUTO 14.04 K/mm3 (1.96-9.15); NEUTROPHILS PERCENT AUTO 81 % (41-73); Platelet Count 515 K/mm3 (150-400); RDW Coefficient Variation 15.2 % (11.7-14.2); RDW Standard Deviation 43.8 fL (35.1-46.3); Red Blood Cell Count 3.34 M/mm3 (4.30-5.90); White Blood Cell Count 17.45 K/mm3 (4.00-11.30)
[2023-07-24 06:25] LABS: Mean Corpuscular Volume 79 fL (80-100)
[2023-07-24 07:00] LABS: Calcium, Blood 8.4 mg/dL (8.5-10.1); Creatinine, Blood 1.46 mg/dL (0.60-1.20); Potassium, Blood 3.7 mmol/L (3.5-5.5)
[2023-07-24 07:25] VITALS: BP 140/74
[2023-07-24] MEDS ORDERED: Insulin Glargine-Yfgn 100 Unit/mL 3 ML SYR SC SCH (08:00)
[2023-07-24] MEDS ORDERED: NS 1,000 ML IV SCH (09:10)
[2023-07-24] MEDS ORDERED: HydrALAZINE HCl 20 MG / ML 1ML Vial IV PRN (13:20)
[2023-07-24 14:33] VITALS: BP 158/85
--- NOTE | 2023-07-24 17:43 | NUR ---
DISCHARGE NOTE PT DISCHARGED TO HOME, PICKED UP BY HIS MOM. IV REMOVED. DISCHARGE EDUCATION AND INFORMATION PROVIDED. PT MEDICATED FOR PAIN THIS SHIFT PER THE EMAR. NO OTHER COMPLAINTS.
== END 2023-07-24 17:43 | disposition home or self-care (01) | DRG 638 ==
LOC: ER 23:47 → MEDS 07-23 01:17 → ICUE 07-23 01:17 → EDBEDREQ 07-23 01:48 → ICUE 07-23 02:14 → MEDS 07-23 17:01
PROVIDERS: Emergency Medicine; Family Medicine; ADMIT Internal Medicine
DX: E10.10 Type 1 diabetes mellitus with ketoacidosis without coma (principal); E87.1 Hypo-osmolality and hyponatremia; N17.9 Acute kidney failure, unspecified; I50.32 Chronic diastolic (congestive) heart failure; E87.5 Hyperkalemia; E78.5 Hyperlipidemia, unspecified; I11.0 Hypertensive heart disease with heart failure; E10.40 Type 1 diabetes mellitus with diabetic neuropathy, unspecified; G89.29 Other chronic pain; M54.9 Dorsalgia, unspecified; E86.0 Dehydration; E88.09 Other disorders of plasma-protein metabolism, not elsewhere classified; E83.39 Other disorders of phosphorus metabolism; F15.90 Other stimulant use, unspecified, uncomplicated; D63.8 Anemia in other chronic diseases classified elsewhere; D75.839 Thrombocytosis, unspecified; F17.210 Nicotine dependence, cigarettes, uncomplicated; Z91.148 Patient's other noncompliance with medication regimen for other reason
CPT/HCPCS: 36415; 80048; 80053; 81001; 82010; 82803; 82947; 83735; 83880; 84100; 85025; 85610; 93005; 93010; 96360; 99285; A9270; J0612; J0780; J1815; J7030

== ENCOUNTER 2023-09-29 20:58 | Inpatient (IN) | payer OTHER ==
[~2023-09-29] VITALS: Ht 172.7 cm; Wt 71.2 kg
[~2023-09-29 20:58] MED LIST changes: +Enoxaparin 40 MG/0.4 ML SYR SC SCH
[2023-09-29] MEDS ORDERED: NS 1,000 ML IV SCH (21:05)
[2023-09-29] MEDS ORDERED: Metoclopramide HCl 5MG / ML 2ML Vial IM ONE (21:15)
[2023-09-29] MEDS ORDERED: Ondansetron HCl 2 MG / ML 2ML Vial IM ONE (21:15)
[2023-09-29 21:30] LABS: Chloride (POC) 91 mmol/L (98-108); Creatinine (POC) 1.9 mg/dL (0.8-1.3); Glucose (ISTAT POC) >700 mg/dL (70-99); Hemoglobin (POC) 12.2 g/dL (13.5-17.5); Sodium (POC) 112 mmol/L (135-148); Total CO2 (POC) <5 mmol/L (21-32)
[2023-09-29 21:43] LABS: PCO2 Venous 15.1 mmHg (38-42); pH Blood Venous < 6.82 (7.34-7.37)
[2023-09-29 21:44] LABS: Base Excess Venous -32.2 mmol/L; Bicarbonate Venous 4.3 mmol/L (24.0-30.0)
[2023-09-29 21:45] LABS: BASOPHILS PERCENT AUTO 1 % (0-2); EOSINOPHILS ABSOLUTE AUTO 0.05 K/mm3 (0.00-0.68); EOSINOPHILS PERCENT AUTO 0 % (0-6); Hemoglobin 9.9 g/dL (13.5-17.5); IMMATURE GRAN ABSOLUTE AUTO 1.26 K/mm3 (0.00-0.10); IMMATURE GRAN PERCENT AUTO 4 % (0-1); LYMPHOCYTES ABSOLUTE AUTO 2.45 K/mm3 (0.84-5.20); LYMPHOCYTES PERCENT AUTO 8 % (21-46); MONOCYTES ABSOLUTE AUTO 2.09 K/mm3 (0.16-1.47); MONOCYTES PERCENT AUTO 7 % (4-13); Mean Corpuscular HGB 25.8 pg (26.0-34.0); Mean Corpuscular HGB Conc 26.8 g/dL (31.5-36.5); Mean Corpuscular Volume 96 fL (80-100); Mean Platelet Volume 9.6 fL (9.1-12.4); NEUTROPHILS ABSOLUTE AUTO 23.67 K/mm3 (1.96-9.15); NEUTROPHILS PERCENT AUTO 80 % (41-73); NRBC ABSOLUTE 0.02 K/mm3 (0.00-0.02); NRBC Auto 0.1 /100 WBC (0.0-0.2); Platelet Count 765 K/mm3 (150-400); RDW Coefficient Variation 15.8 % (11.7-14.2); RDW Standard Deviation 55.8 fL (35.1-46.3); Red Blood Cell Count 3.84 M/mm3 (4.30-5.90); White Blood Cell Count 29.72 K/mm3 (4.00-11.30)
[2023-09-29] MEDS ORDERED: Droperidol 5 mg/2 ml Vial IV ONE (21:50)
[2023-09-29] MEDS ORDERED: Insulin Human Regular 100 UNIT in NS 100 ML IV SCH ×2 (21:55→23:45)
[2023-09-29] MEDS ORDERED: Insulin Human Regular 100 UNIT in NS 100 ML IV ONE (21:55)
[2023-09-29 22:12] LABS: Magnesium, Blood 2.4 mg/dL (1.6-2.4)
[2023-09-29 22:16] LABS: Albumin, Blood 1.9 g/dL (3.4-5.0); Albumin/Globulin Ratio 0.4 (0.8-1.8); Bilirubin, Total 0.3 mg/dL (0.1-1.0); Calcium, Blood 7.9 mg/dL (8.5-10.1); Creatinine, Blood 1.68 mg/dL (0.60-1.20); Globulin, Blood 4.3 g/dL (2.2-4.0); Phosphorus, Blood 8.3 mg/dL (2.5-4.9); Total Protein, Blood 6.2 g/dL (6.4-8.2)
[2023-09-29] MEDS ORDERED: Metoclopramide HCl 5MG / ML 2ML Vial IV PRN (23:30)
[2023-09-29] MEDS ORDERED: Sodium Bicarb 8.4% Inj 100 MEQ in Sodium Chloride 0.45% 1,000 ML IV SCH (23:30)
[2023-09-29] MEDS ORDERED: FentaNYL Citrate 50 MCG/ML 2 ML Injection IV PRN (23:30)
[2023-09-29] MEDS ORDERED: Sodium Bicarb 8.4% 1 MEQ/ML 50 ML Vial IV ONE (23:40)
[2023-09-29 23:45] LABS: Glucose, Blood 1366 mg/dL (70-99)
[2023-09-30] VITALS (21 sets, daily range): BP systolic 95–148; BP diastolic 29–88
[2023-09-30] MEDS ORDERED: Enoxaparin 40 MG/0.4 ML SYR SC SCH
[2023-09-30] MEDS ORDERED: Albumin (Human) 25gm/100ml 100 ML IV ONE
[2023-09-30 00:26] LABS: International Normalized Ratio 0.96; Prothrombin Time Results 10.3 Sec (9.7-11.5)
[2023-09-30 00:41] LABS: Bun/Creatinine Ratio 24.3 (12.0-20.0); Calcium, Blood 7.3 mg/dL (8.5-10.1); Creatinine, Blood 1.81 mg/dL (0.60-1.20); Potassium, Blood 5.2 mmol/L (3.5-5.5)
[2023-09-30 02:06] LABS: Bicarbonate Venous 7.2 mmol/L (24.0-30.0); PCO2 Venous 33.3 mmHg (38-42)
[2023-09-30 02:07] LABS: Base Excess Venous -25.5 mmol/L; pH Blood Venous 6.93 (7.34-7.37)
[2023-09-30 02:24] LABS: Glucose, Blood 1295 mg/dL (70-99)
--- NOTE | 2023-09-30 03:41 | NUR ---
ARRIVAL TO ICU PT ARRIVED TO ICU AT 0055 VIA ED BED AND TRANSFERED OVER TO ICU BED VIA SLIDE SHEET. BEING ADMITTED FOR DKA. HE IS SOMNULENT AND IRRITABLE; MOANS AND AJAY OUT AT ANY MOVEMENT AND PERSONAL CARE; SELECTIVLY ANSWERS QUESTIONS; HE IS ORIENTED TO SELF AND PLACE. SPO2 >98% ON RA, RR 20'S. HR 100'S. SBP 90-120'S. BICARB INFUSING AT 125ML/HR. INSULIN INFUSING AT 8UNITS/HR; GLUCOSE CONT TO BE >1300. POWERGLIDE PLACED TO RUE; PT PULLED OUT RAC PIV. SEE ADMISSION ASSESSMENT FOR FULL ASSESSMENT.
[2023-09-30 03:55] LABS: Glucose, Blood 1215 mg/dL (70-99)
[2023-09-30 04:35] LABS: Glucose, Blood 1156 mg/dL (70-99)
[2023-09-30 05:28] LABS: BASOPHILS ABSOLUTE AUTO 0.08 K/mm3 (0.00-0.23); BASOPHILS PERCENT AUTO 0 % (0-2); EOSINOPHILS ABSOLUTE AUTO 0.01 K/mm3 (0.00-0.68); EOSINOPHILS PERCENT AUTO 0 % (0-6); Hematocrit 25.1 % (37.0-53.0); Hemoglobin 7.6 g/dL (13.5-17.5); IMMATURE GRAN ABSOLUTE AUTO 0.64 K/mm3 (0.00-0.10); IMMATURE GRAN PERCENT AUTO 3 % (0-1); LYMPHOCYTES PERCENT AUTO 8 % (21-46); MONOCYTES ABSOLUTE AUTO 1.43 K/mm3 (0.16-1.47); MONOCYTES PERCENT AUTO 6 % (4-13); Mean Corpuscular HGB 25.7 pg (26.0-34.0); Mean Corpuscular HGB Conc 30.3 g/dL (31.5-36.5); Mean Platelet Volume 9.4 fL (9.1-12.4); NEUTROPHILS ABSOLUTE AUTO 20.13 K/mm3 (1.96-9.15); NEUTROPHILS PERCENT AUTO 83 % (41-73); NRBC ABSOLUTE 0.02 K/mm3 (0.00-0.02); NRBC Auto 0.1 /100 WBC (0.0-0.2); Platelet Count 559 K/mm3 (150-400); RDW Standard Deviation 46.3 fL (35.1-46.3); Red Blood Cell Count 2.96 M/mm3 (4.30-5.90); White Blood Cell Count 24.29 K/mm3 (4.00-11.30)
[2023-09-30 05:52] LABS: Mean Corpuscular Volume 85 fL (80-100)
[2023-09-30 06:02] LABS: Albumin, Blood 1.9 g/dL (3.4-5.0); Albumin/Globulin Ratio 0.6 (0.8-1.8); Bilirubin, Total 0.3 mg/dL (0.1-1.0); Calcium, Blood 7.3 mg/dL (8.5-10.1); Creatinine, Blood 1.96 mg/dL (0.60-1.20); Total Protein, Blood 4.9 g/dL (6.4-8.2)
--- NOTE | 2023-09-30 06:26 | NUR ---
END OF SHIFT [facility] NO ACUTE EVENTS SINCE LAST NOTE. HE CONT TO BE CHALLENGING AND IRRITABLE; HE DOES NOT LIKE BEING WOKEN UP TO CHECK HIS BLOOD SUGAR THAT WE ARE DRAWING FROM HIS POWERGLIDE. DR CANTU AT BEDSIDE AND STATED TO REACH OUT ONCE AM LABS RETURNED REGARDING ADMINISTERING MORE FLUID; NO URINE OUTPUT SINCE ARRIVAL TO ICU. GLUCOSE STILL >1000; INSULIN INFUSING AT 12UNITS/HR. BICARB INFUSING AT 125ML/HR. WILL REPORT TO AM RN WHEN AVAILABLE.
[2023-09-30 06:40] LABS: Glucose, Blood 908 mg/dL (70-99)
[2023-09-30 07:30] LABS: Glucose, Blood 821 mg/dL (70-99)
[2023-09-30] MEDS ORDERED: Potassium Chloride 40 MEQ in NS 250 ML IV ONE ×2 (08:00→12:35)
--- NOTE | 2023-09-30 08:30 | NUR ---
SHIFT ASSESSMENT ASSUMED CARE OF PT @ 0700. BEDSIDE REPORT RECEIVED FROM SOO FRANCIS. PT ALERT, IN BED MOANING. PT KNOWS NAME, , FOLLOWS SOME COMMANDS BUT IS CANTANKEROUS WHICH HAS BEEN HIS NORMAL WHEN HERE FOR DKA. PULLS OFF CORDS, DOES NOT ALLOW THIS NURSE TO GET A BLOOD PRESSURE NOR PULSE OXIMETRY. FREQUENTLY PULLING ECG LEADS OFF. PULLED HIS PERIPHERAL IV OUT THIS AM. CURRENTLY HAS INSULIN GTT INFUSING @ 12U/HR, SEE FLOWSHEET FOR TITRATIONS. Q1 GLUCOSE CHECKS.
[2023-09-30 08:37] LABS: Glucose, Blood 710 mg/dL (70-99)
[2023-09-30 10:01] LABS: Glucose, Blood 613 mg/dL (70-99)
[2023-09-30 10:40] LABS: Glucose, Blood 529 mg/dL (70-99)
[2023-09-30 11:34] LABS: Hematocrit 22.6 % (37.0-53.0); Hemoglobin 7.9 g/dL (13.5-17.5)
[2023-09-30 11:59] LABS: Calcium, Blood 7.7 mg/dL (8.5-10.1); Creatinine, Blood 1.96 mg/dL (0.60-1.20); Potassium, Blood 3.3 mmol/L (3.5-5.5)
[2023-09-30] MEDS ORDERED: Insulin Glargine-Yfgn 100 Unit/mL 3 ML SYR SC SCH (15:00)
[2023-09-30] MEDS ORDERED: Insulin Human Lispro 100 Units/ML 3ML Syringe SC SCH (16:30)
[2023-09-30 17:05] LABS: Bun/Creatinine Ratio 21.6 (12.0-20.0); Calcium, Blood 7.5 mg/dL (8.5-10.1); Creatinine, Blood 1.94 mg/dL (0.60-1.20)
--- NOTE | 2023-09-30 18:10 | NUR ---
SHIFT SUMMARY PT A&OX4, AMBULATING TO BEDSIDE COMMODE. REMAINS SLIGHTLY AGITATED WITH STIMULATION BUT MORE THANKFUL THAN EARLIER. CONTINUES TO MOAN AND CRY OUT RANDOMLY. TOLERATING PO INTAKE. INSULIN GTT IS OFF, TRANSITIONED TO LONG ACTING.
[2023-09-30] MEDS ORDERED: Acetaminophen 500 MG Tab PO PRN (20:40)
--- NOTE | 2023-09-30 22:10 | NUR ---
ASSUMED CARE OF PT AT 1900. PT ALERT AND ORIENTED x4, ANXIOUS DEMEANOR. INTERMITTENTLY TEARFUL, COMPLAINING OF PAIN IN HIS LEGS & FEET FROM NEUROPATHY. PT REQUESTED TYLENOL. ORDERED PER MD AND GIVEN. PT REPORTS IMPROVEMENT. PT IN ST, HR @ 100'S. SBP 140'S. AFEBRILE. SP02 > 90% ON RA. PT UP TO COMMODE WITH SBA AND WALKER, TOLERATING AMBULATION WELL. BLOOD GLUCOSE STABLE IN 90'S.
[2023-10-01] VITALS (8 sets, daily range): BP systolic 114–156; BP diastolic 58–87
[2023-10-01 03:36] LABS: BASOPHILS ABSOLUTE AUTO 0.04 K/mm3 (0.00-0.23); BASOPHILS PERCENT AUTO 0 % (0-2); EOSINOPHILS ABSOLUTE AUTO 0.12 K/mm3 (0.00-0.68); EOSINOPHILS PERCENT AUTO 1 % (0-6); Hematocrit 23.1 % (37.0-53.0); Hemoglobin 7.7 g/dL (13.5-17.5); IMMATURE GRAN ABSOLUTE AUTO 0.09 K/mm3 (0.00-0.10); IMMATURE GRAN PERCENT AUTO 1 % (0-1); LYMPHOCYTES ABSOLUTE AUTO 1.97 K/mm3 (0.84-5.20); LYMPHOCYTES PERCENT AUTO 11 % (21-46); MONOCYTES ABSOLUTE AUTO 1.33 K/mm3 (0.16-1.47); MONOCYTES PERCENT AUTO 8 % (4-13); Mean Corpuscular HGB 25.7 pg (26.0-34.0); Mean Corpuscular HGB Conc 33.3 g/dL (31.5-36.5); Mean Corpuscular Volume 77 fL (80-100); Mean Platelet Volume 8.8 fL (9.1-12.4); NEUTROPHILS ABSOLUTE AUTO 13.82 K/mm3 (1.96-9.15); NEUTROPHILS PERCENT AUTO 80 % (41-73); NRBC ABSOLUTE 0.02 K/mm3 (0.00-0.02); NRBC Auto 0.1 /100 WBC (0.0-0.2); Platelet Count 505 K/mm3 (150-400); RDW Coefficient Variation 15.7 % (11.7-14.2); RDW Standard Deviation 44.1 fL (35.1-46.3); White Blood Cell Count 17.37 K/mm3 (4.00-11.30)
--- NOTE | 2023-10-01 03:54 | NUR ---
PT IN BED, WATCHING TV. INTERMITTENTLY TEARFUL, COMPLAINING OF PAIN, REQUESTING TYLENOL. TYLENOL GIVEN PER ORDERS. PT REMAINS HEMODYNAMICALLY STABLE & WITHOUT ACUTE EVENTS.
[2023-10-01 03:57] LABS: Albumin, Blood 1.7 g/dL (3.4-5.0); Albumin/Globulin Ratio 0.5 (0.8-1.8); Bilirubin, Total 0.2 mg/dL (0.1-1.0); Bun/Creatinine Ratio 19.9 (12.0-20.0); Calcium, Blood 7.9 mg/dL (8.5-10.1); Creatinine, Blood 1.96 mg/dL (0.60-1.20); Globulin, Blood 3.2 g/dL (2.2-4.0); Potassium, Blood 3.8 mmol/L (3.5-5.5); Total Protein, Blood 4.9 g/dL (6.4-8.2)
--- NOTE | 2023-10-01 04:05 | NUR ---
PT REFUSING TO WEAR BP CUFF STATING "IT HURTS." PT'S VITALS HAVE BEEN STABLE THROUGHOUT SHIFT.
[2023-10-01 04:49] LABS: Source, Urine Clean Catch
[2023-10-01 04:57] LABS: Bilirubin, Urine Neg (Neg); Blood, Urine 3+ (Neg); Glucose Qualitative, Urine 2+ (Neg); Ketones, Urine 1+ (Neg); Leukocyte Esterase, Urine Neg (Neg); Nitrite, Urine Neg (Neg); Protein, Urine 4+ (Neg); Specific Gravity, Urine 1.015 (1.003-1.022); Urobilinogen, Urine NORM (Normal)
[2023-10-01 05:19] LABS: Appearance, Urine Clear (Clear); Color, Urine Pale Yellow (P-Yellow)
[2023-10-01 05:21] LABS: Granular Casts 0-2 /lpf (0); Hyaline Casts 0-2 /lpf (0-2)
[2023-10-01 05:24] LABS: White Blood Cells, Urine 0-2 /hpf (0-5)
[2023-10-01 05:25] LABS: Amorphous Mod (0-Heavy); Bacteria Few /hpf; Mucus Light (0-Heavy); Red Blood Cells, Urine 0-2 /hpf (0-2); Squamous Epithelial Cells Rare /hpf (Few)
[2023-10-01] MEDS ORDERED: Albuterol HFA200 ACT/6.7 GM INH INH PRN (05:35)
[2023-10-01 05:50] LABS: U Amphetamine Screen Not Detected; U Barbituate Screen Not Detected; U Benzodiazapine Screen Not Detected; U Buprenorphine Screen Not Detected; U Cannabinoids Screen DETECTED; U Cocaine Screen Not Detected; U Methadone Screen Not Detected; U Methamphetamine Screen Not Detected; U Opiates Screen Not Detected; U Oxycodone Screen Not Detected; U Phencyclidine Screen Not Detected
[2023-10-01] MEDS ORDERED: Albuterol 2.5 MG/3 ML VIAL INH PRN (06:00)
--- NOTE | 2023-10-01 06:02 | NUR ---
SHIFT SUMMARY PT ALERT AND ORIENTED x4 THROUGHOUT SHIFT. INTERMITTENTLY TEARFUL, SOME ATTENTION SEEKING BEHAVIOR NOTED. PAIN TREATED PER MAR ORDERS. REMAINS HEMODYNAMICALLY STABLE, AFEBRILE. SOME NONCOMPLIANCE WITH BP CUFF. PT COMPLAINED OF WHEEZING AROUND 0530, ALBUTEROL ORDERED PER MD. ADMINISTERED BY RT. PT ABLE TO AMBULATE TO COMMODE WITH WALKER.
--- NOTE | 2023-10-01 09:48 | NUR ---
SHIFT ASSESSMENT ASSUMED CARE OF PT @ 0700. PT A&OX4, FOLLOWING COMMANDS, ESTEBAN, AMBULATING WITH WALKER & SBA. PT INTERMITTENTLY COOPERATING WITH STAFF BUT REMAINS GROUCHY. TOLERATING PO INTAKE WELL. GLUCOSE WNL, PLAN ON DISCHARGING THIS AM.
[2023-10-01 12:08] LABS: Hematocrit 22.8 % (37.0-53.0); Hemoglobin 7.5 g/dL (13.5-17.5)
[2023-10-01] MEDS ORDERED: ALBU90OI INH (12:27)
[2023-10-01 12:43] LABS: Percent Saturation 5.1 % (20.0-50.0)
[2023-10-01] MEDS ORDERED: ATOR10 PO ×2 (13:48)
[2023-10-01] MEDS ORDERED: CYMBALTA60 M1 PO (13:48)
--- NOTE | 2023-10-01 14:49 | NUR ---
DISCHARGE PTS PRESCRIPTIONS FAXED TO [facility]. PT AWARE AND STATED HIS MOM & DAD CAN TAKE HIM TO PICK IT UP. HIS DAD IS OUT FRONT TO GIVE HIM A RIDE. IV & PG DC'D, VSS, GLUCOSE WNL. THIS NURSE DISCUSSED IN DEPTH THE NEED FOR PATIENT TO F/U WITH HIS PCP AND TAKE INITIATIVE IN HIS OWN HEALTH. PT CONTINUES TO MAKE EXCUSES FOR NOT FOLLOWING UP WITH HIS PROVIDER BUT UNDERSTANDS THE NEED TO F/U WITH PROVIDER. PT WHEELED OUT TO HIS RIDE WITH LACTATION NURSE.
== END 2023-10-01 14:20 | disposition home or self-care (01) | DRG 637 ==
LOC: ER 20:58 → ICUE 23:26
PROVIDERS: Family Medicine; Hospitalist; Physician Assistant; ADMIT Internal Medicine
DX: E10.10 Type 1 diabetes mellitus with ketoacidosis without coma (principal); G93.41 Metabolic encephalopathy; Z59.00 Homelessness unspecified; N17.9 Acute kidney failure, unspecified; F15.90 Other stimulant use, unspecified, uncomplicated; F32.9 Major depressive disorder, single episode, unspecified; D64.9 Anemia, unspecified; F17.210 Nicotine dependence, cigarettes, uncomplicated; E86.0 Dehydration; E88.09 Other disorders of plasma-protein metabolism, not elsewhere classified; E87.5 Hyperkalemia; E78.5 Hyperlipidemia, unspecified; Z79.899 Other long term (current) drug therapy; Z88.1 Allergy status to other antibiotic agents; Z91.148 Patient's other noncompliance with medication regimen for other reason; Z88.2 Allergy status to sulfonamides; Z88.8 Allergy status to other drugs, medicaments and biological substances; Z79.4 Long term (current) use of insulin
CPT/HCPCS: 80047; 80048; 80053; 81001; 82607; 82728; 82746; 82803; 82947; 83540; 83550; 83605; 83735; 83880; 84100; 84132; 85014; 85018; 85025; 85610; 93005; 93010; 94640; 94664; 94760; 96361; 96374; 96375; 99285-25; A9270; C1751; J1650; J1790; J1815; J2765; J3480; J7030; J7050; P9047

== ENCOUNTER → 2023-10-03 | Outpatient (CLI) | payer OTHER ==
[~2023-10-03] MED LIST changes: +ASPI81CH PO; +CLOP75 PO; +CYMBALTA60 M1 PO; -Enoxaparin 40 MG/0.4 ML SYR SC SCH; +FERSU300 PO; +METOPROLOL SUCC25 MG PO
== END | disposition home or self-care (01) ==
LOC: LAB 13:43 → LAB SHORT 13:43
DX: E10.65 Type 1 diabetes mellitus with hyperglycemia (principal)
CPT/HCPCS: 83036

== ENCOUNTER 2023-10-04 17:52 | Inpatient (IN) | payer OTHER ==
[~2023-10-04] VITALS: Ht 177.8 cm; Wt 67.0 kg
[~2023-10-04 17:52] MED LIST changes: -ASPI81CH PO; -CLOP75 PO; -FERSU300 PO; -METOPROLOL SUCC25 MG PO
[2023-10-04] MEDS ORDERED: Lisinopril2.5 MG PO (18:32)
[2023-10-04 18:37] LABS: BASOPHILS ABSOLUTE AUTO 0.06 K/mm3 (0.00-0.23); BASOPHILS PERCENT AUTO 1 % (0-2); EOSINOPHILS PERCENT AUTO 1 % (0-6); Hematocrit 30.8 % (37.0-53.0); Hemoglobin 9.2 g/dL (13.5-17.5); IMMATURE GRAN ABSOLUTE AUTO 0.02 K/mm3 (0.00-0.10); IMMATURE GRAN PERCENT AUTO 0 % (0-1); LYMPHOCYTES ABSOLUTE AUTO 2.15 K/mm3 (0.84-5.20); LYMPHOCYTES PERCENT AUTO 26 % (21-46); MONOCYTES ABSOLUTE AUTO 0.72 K/mm3 (0.16-1.47); MONOCYTES PERCENT AUTO 9 % (4-13); Mean Corpuscular HGB 25.4 pg (26.0-34.0); Mean Corpuscular HGB Conc 29.9 g/dL (31.5-36.5); Mean Corpuscular Volume 85 fL (80-100); NEUTROPHILS ABSOLUTE AUTO 5.27 K/mm3 (1.96-9.15); NEUTROPHILS PERCENT AUTO 63 % (41-73); Platelet Count 479 K/mm3 (150-400); RDW Coefficient Variation 17.2 % (11.7-14.2); RDW Standard Deviation 53.2 fL (35.1-46.3); Red Blood Cell Count 3.62 M/mm3 (4.30-5.90); White Blood Cell Count 8.32 K/mm3 (4.00-11.30)
[2023-10-04 18:57] LABS: Albumin, Blood 1.9 g/dL (3.4-5.0); Albumin/Globulin Ratio 0.5 (0.8-1.8); Bilirubin, Total 0.2 mg/dL (0.1-1.0); Bun/Creatinine Ratio 19.8 (12.0-20.0); Calcium, Blood 8.5 mg/dL (8.5-10.1); Creatinine, Blood 1.16 mg/dL (0.60-1.20); Globulin, Blood 4.1 g/dL (2.2-4.0)
[2023-10-04] MEDS ORDERED: Acetaminophen 325 MG TABLET PO PRN (22:00)
[2023-10-04 23:54] VITALS: BP 163/91
[2023-10-05 03:57] VITALS: BP 142/83
[2023-10-05 04:57] LABS: BASOPHILS ABSOLUTE AUTO 0.08 K/mm3 (0.00-0.23); BASOPHILS PERCENT AUTO 1 % (0-2); EOSINOPHILS ABSOLUTE AUTO 0.14 K/mm3 (0.00-0.68); EOSINOPHILS PERCENT AUTO 2 % (0-6); Hematocrit 28.8 % (37.0-53.0); Hemoglobin 8.8 g/dL (13.5-17.5); IMMATURE GRAN ABSOLUTE AUTO 0.04 K/mm3 (0.00-0.10); IMMATURE GRAN PERCENT AUTO 0 % (0-1); LYMPHOCYTES ABSOLUTE AUTO 2.76 K/mm3 (0.84-5.20); LYMPHOCYTES PERCENT AUTO 30 % (21-46); MONOCYTES ABSOLUTE AUTO 0.79 K/mm3 (0.16-1.47); MONOCYTES PERCENT AUTO 8 % (4-13); Mean Corpuscular HGB 25.7 pg (26.0-34.0); Mean Corpuscular HGB Conc 30.6 g/dL (31.5-36.5); Mean Corpuscular Volume 84 fL (80-100); NEUTROPHILS ABSOLUTE AUTO 5.54 K/mm3 (1.96-9.15); NEUTROPHILS PERCENT AUTO 59 % (41-73); Platelet Count 517 K/mm3 (150-400); RDW Coefficient Variation 17.2 % (11.7-14.2); RDW Standard Deviation 52.5 fL (35.1-46.3); Red Blood Cell Count 3.42 M/mm3 (4.30-5.90); White Blood Cell Count 9.35 K/mm3 (4.00-11.30)
[2023-10-05 05:33] LABS: Albumin, Blood 1.7 g/dL (3.4-5.0); Albumin/Globulin Ratio 0.4 (0.8-1.8); Bilirubin, Total 0.2 mg/dL (0.1-1.0); Bun/Creatinine Ratio 19.6 (12.0-20.0); Calcium, Blood 8.1 mg/dL (8.5-10.1); Creatinine, Blood 1.02 mg/dL (0.60-1.20); Globulin, Blood 3.9 g/dL (2.2-4.0); Magnesium, Blood 1.9 mg/dL (1.6-2.4); Potassium, Blood 4.4 mmol/L (3.5-5.5); Total Protein, Blood 5.6 g/dL (6.4-8.2)
--- NOTE | 2023-10-05 05:52 | NUR ---
SHIFT SUMMARY PATIENT IS ALERT AND ORIENTED X3. PATIENT IS BEING ADMITTED FOR CVA WITH LEFT SIDED DEFICITS. NEUROCHECKS DONE Q4 WITH NO NOTICABLE NEURO CHANGES. PATIENT HAS A HISTORY OF BEING BRITTLE DIABETIC AND WATCHING CBG CAREFULLY. PATIENT HAS NOT COMPLAINED OF SOB, NAUSEA, VOMITTING OR PAIN THIS SHIFT. MRI FORM SENT TO IMAGING. TELE RUNNING SINUS TACH MOST OF SHIFT. CBG 130-290S THIS SHIFT. BED IN LOCKED AND LOWEST POSITION. CALL LIGHT IN PLACE. WILL MONITOR UNTIL SHIFT CHANGE.
[2023-10-05] MEDS ORDERED: Insulin Regular 100 UNIT/ML 10ML Vial SC SCH (07:30)
[2023-10-05 07:33] VITALS: BP 142/89
[2023-10-05 08:25] LABS: CHOL/HDL RATIO 6.1; Cholesterol 256 mg/dL (50-200); HDL Cholesterol 42 mg/dL (>39); LDL/HDL RATIO Unable to Calculate; Low Density Lipoprotein Chol Unable to Calculate mg/dL (0-110); Triglycerides 424 mg/dL (30-140); Very Low Density Lipoprot Chol Unable to Calculate mg/dL (6-28)
[2023-10-05] MEDS ORDERED: Aspirin 81 MG Chew PO SCH (09:00)
[2023-10-05] MEDS ORDERED: DULoxetine HCL 60 MG Capsule DR PO SCH (09:00)
[2023-10-05] MEDS ORDERED: Atorvastatin 40 MG Tab PO SCH (09:00)
[2023-10-05] MEDS ORDERED: Enoxaparin 40 MG/0.4 ML SYR SC SCH (09:00)
--- NOTE | 2023-10-05 09:00 | NUR ---
pt laying in bed awake a/ox4, somewhat cooperative with care, pounding on the table, and yelling that he wants food, explained to him that breakfast isn't here and speech may need to see him, charge nurse spoke with him about behavior, lungs are clear t/o, resp even and unlabored, no cough noted, on r/a, hrr, running tachy, no edema noted, ppp+1, cap refill <3 sec, vs stable, afebrile, piv clear and patent, btx4, abd flat soft nontender, voids via bathroom, skin c/w/d, dietary services manager are equal, dpfe =, has left facial droop and dysphasia, is ambulating with a walker, speech eval ordered, call light in reach.
[2023-10-05] MEDS ORDERED: Ondansetron HCl 2 MG / ML 2ML Vial IV ONE (11:00)
[2023-10-05] MEDS ORDERED: Insulin Human Lispro 100 Units/ML 3ML Syringe SC SCH ×2 (11:30)
[2023-10-05] MEDS ORDERED: Insulin NPH 100 Unit / ML 10ML Vial SC ONE (13:05)
--- NOTE | 2023-10-05 15:17 | NUR ---
pt has been sleepy this afternoon, states he didn't sleep too much last night, gave 25 units of nph because he did not recieve an hs dose of longacting last night, brought a sandwhich as he only ate a small amount of food, followed up on blood glucose, was over 300. sleeping at this time, call light in reach.
[2023-10-05 15:40] VITALS: BP 145/93
--- NOTE | 2023-10-05 15:44 | NUR ---
TRANSFER OF CARE FROM JEREL BELTRÁN RN, FAMILY IN VISITING PATIENT, RESIDENT ROUNDED ON PATIENT, SLURRED SPEECH NEW SYMPTOM REPORTED DR AWARE. NO S/S OF DISTRESS, CALL LIGHT WITH IN REACH
[2023-10-05] MEDS ORDERED: Dextrose 5% 250 ML IV ONE (18:10)
[2023-10-05 19:22] VITALS: BP 149/89
[2023-10-05] MEDS ORDERED: Insulin Glargine-Yfgn 100 Unit/mL 3 ML SYR SC SCH (21:00)
[2023-10-06] MEDS ORDERED: Dextrose 5% 250 ML IV ONE (02:40)
--- NOTE | 2023-10-06 03:00 | NUR ---
NURSE NOTE PATIENT REPORTED LOW BLOOD SUGAR FEELING. CBG CHECKED. CRITICAL LOW OF 49. DR CONTACTED. ADDITIONAL ORDERS RECEIVED. WILL CLOSELY MONITOR CBG
[2023-10-06 03:43] VITALS: BP 127/66
--- NOTE | 2023-10-06 04:25 | NUR ---
SHIFT SUMMARY PATIENT IS ALERT AND ORIENTED. VITAL SIGNS REVIEWED. PATIENT HAS HAD SWINGS IN CBG THIS SHIFT. SEE PRIOR NOTE TO CRITICAL LOW CBG. PATIENTS CBG HAS CORRECTED TO 150 AT LAST CHECK. PATIENTS FACIAL SLURS HAS REMAINED CONSISTENT THIS SHIFT. PATIENT HAS NOT COMPLAINED OF PAIN, NAUSEA, SOB OR VOMITTING THIS SHIFT. BED IN LOCKED AND LOWEST POSITION. CALL LIGHT IN PLACE. WILL MONITOR UNTIL SHIFT CHANGE.
[2023-10-06 05:02] LABS: BASOPHILS ABSOLUTE AUTO 0.08 K/mm3 (0.00-0.23); BASOPHILS PERCENT AUTO 1 % (0-2); EOSINOPHILS PERCENT AUTO 2 % (0-6); Hematocrit 28.1 % (37.0-53.0); Hemoglobin 8.6 g/dL (13.5-17.5); IMMATURE GRAN ABSOLUTE AUTO 0.06 K/mm3 (0.00-0.10); IMMATURE GRAN PERCENT AUTO 1 % (0-1); LYMPHOCYTES ABSOLUTE AUTO 2.77 K/mm3 (0.84-5.20); LYMPHOCYTES PERCENT AUTO 28 % (21-46); MONOCYTES PERCENT AUTO 9 % (4-13); Mean Corpuscular HGB 25.9 pg (26.0-34.0); Mean Corpuscular HGB Conc 30.6 g/dL (31.5-36.5); Mean Corpuscular Volume 85 fL (80-100); Mean Platelet Volume 9.3 fL (9.1-12.4); NEUTROPHILS ABSOLUTE AUTO 5.99 K/mm3 (1.96-9.15); NEUTROPHILS PERCENT AUTO 60 % (41-73); Platelet Count 532 K/mm3 (150-400); RDW Standard Deviation 51.2 fL (35.1-46.3); Red Blood Cell Count 3.32 M/mm3 (4.30-5.90)
[2023-10-06 05:39] LABS: Albumin, Blood 1.6 g/dL (3.4-5.0); Albumin/Globulin Ratio 0.4 (0.8-1.8); Bilirubin, Total 0.2 mg/dL (0.1-1.0); Bun/Creatinine Ratio 15.9 (12.0-20.0); Calcium, Blood 8.2 mg/dL (8.5-10.1); Creatinine, Blood 0.94 mg/dL (0.60-1.20); Globulin, Blood 3.6 g/dL (2.2-4.0); Potassium, Blood 3.8 mmol/L (3.5-5.5); Total Protein, Blood 5.2 g/dL (6.4-8.2)
[2023-10-06] MEDS ORDERED: Insulin Human Lispro 100 Units/ML 3ML Syringe SC SCH (07:30)
[2023-10-06 08:06] VITALS: BP 150/77
[2023-10-06] MEDS ORDERED: Dextrose 5% 1,000 ML IV SCH ×2 (09:00)
[2023-10-06] MEDS ORDERED: Clopidogrel Bisulfate 75 MG Tab PO SCH (14:00)
--- NOTE | 2023-10-06 14:19 | NUR ---
REPORT RECEIVED VERIFIED, PT HAD VERY LOW BLOOD SUGAR IN THE 30S DIAPHORERTIC BUT A/O, APPLE JUICE GIVEN AND MD NOTIFIED, NEW ORDERS IMPLEMENTED. PT RECHECKED 30 MIN AFTER INTERVENTION AND BLOOD SUGAR NOW ABOVE 120. PT WILL BE MONITOR AND RECHECKED IN 2 HOURS.
--- NOTE | 2023-10-06 14:25 | NUR ---
PT DOING WELL LAYING QUIETLY IN BED. FSBS IS NOW OVER 200 SO D5 WAS DCED. NO CHANGE IN PT CONDITION. CALLS APPROPRIATLY
[2023-10-06 15:11] VITALS: BP 161/89
[2023-10-06 19:33] VITALS: BP 130/80
[2023-10-07 02:42] VITALS: BP 148/86
[2023-10-07 05:16] LABS: BASOPHILS ABSOLUTE AUTO 0.07 K/mm3 (0.00-0.23); BASOPHILS PERCENT AUTO 1 % (0-2); EOSINOPHILS ABSOLUTE AUTO 0.19 K/mm3 (0.00-0.68); EOSINOPHILS PERCENT AUTO 2 % (0-6); Hematocrit 28.7 % (37.0-53.0); Hemoglobin 8.7 g/dL (13.5-17.5); IMMATURE GRAN ABSOLUTE AUTO 0.05 K/mm3 (0.00-0.10); IMMATURE GRAN PERCENT AUTO 1 % (0-1); LYMPHOCYTES ABSOLUTE AUTO 2.68 K/mm3 (0.84-5.20); LYMPHOCYTES PERCENT AUTO 30 % (21-46); MONOCYTES PERCENT AUTO 9 % (4-13); Mean Corpuscular HGB 25.7 pg (26.0-34.0); Mean Corpuscular HGB Conc 30.3 g/dL (31.5-36.5); Mean Corpuscular Volume 85 fL (80-100); Mean Platelet Volume 8.6 fL (9.1-12.4); NEUTROPHILS ABSOLUTE AUTO 5.22 K/mm3 (1.96-9.15); NEUTROPHILS PERCENT AUTO 58 % (41-73); Platelet Count 501 K/mm3 (150-400); RDW Standard Deviation 50.4 fL (35.1-46.3); Red Blood Cell Count 3.38 M/mm3 (4.30-5.90); White Blood Cell Count 9.01 K/mm3 (4.00-11.30)
[2023-10-07 05:56] LABS: Bun/Creatinine Ratio 12.2 (12.0-20.0); Calcium, Blood 7.9 mg/dL (8.5-10.1); Creatinine, Blood 0.98 mg/dL (0.60-1.20); Potassium, Blood 4.1 mmol/L (3.5-5.5)
--- NOTE | 2023-10-07 06:19 | NUR ---
10/07/23: PATIENT FULLY ORIENTED AND COOPERATIVE; PATIENT HEART RATE HIGH OCCASIONALLY FROM MOVING IN BED. BLOOD SUGARS ELEVATED BUT NOT CRITICAL THROUGHOUT SHIFT. ON MINCED AND SOFT DIET; FRONT TOOTH IS LOOSE.
[2023-10-07 07:54] VITALS: BP 151/93
[2023-10-07] MEDS ORDERED: Insulin Glargine-Yfgn 100 Unit/mL 3 ML SYR SC SCH (08:00)
[2023-10-07] MEDS ORDERED: Ferrous Sulfate 325 MG Tab PO SCH (09:00)
[2023-10-07] MEDS ORDERED: Lisinopril 5 MG Tab PO SCH (09:00)
[2023-10-07] MEDS ORDERED: Lisinopril 5 MG Tab PO ONE (11:00)
[2023-10-07] MEDS ORDERED: FERSU300 PO (14:39)
[2023-10-07] MEDS ORDERED: CLOP75 PO (14:39)
[2023-10-07] MEDS ORDERED: ASPI81CH PO (14:39)
[2023-10-07] MEDS ORDERED: METOPROLOL SUCC25 MG PO (14:40)
--- NOTE | 2023-10-07 15:28 | NUR ---
DISCHARGE SUMMARY PT ADMITTED FOR CVA WITH LEFT SIDE FACE DROOP/DEFICIT. WHEN TESTED THE PT'S ARM STRENGTH WAS EQUAL BUT DID NOT ALLOW RN TO CHECK LEGS. PT WAS ABLE TO AMBULATE IN ROOM IND WITH NO ISSUES. SOME FACIAL DROOP NOTED, BUT SLIGHT. PT TO DC HOME WITH PARENTS AND WAS BEING PICKED UP BY FATHER. EDUCATED PT ON NEW MEDICATIONS AND MEDICATIONS FAXED TO [facility]. PT SAID THAT HE WILL PICK THEM UP TODAY IF ABLE. RN ADVISED TO APPEALS REPRESENTATIVE SOON LEAVING THE HOSPITAL. PT EXPRESSED UNDERSTANDING.
[2023-10-07 15:45] LABS: CARDIOLIPIN ANTIBODY IGG <10 GPL (<=14); CARDIOLIPIN ANTIBODY IGM <10 MPL (<=12)
[2023-10-07 21:43] LABS: ANTI-NUCLEAR AB ANA,IGG ELISA None Detected (None Detected)
== END 2023-10-07 15:15 | disposition home or self-care (01) | DRG 65 ==
LOC: ER 17:52 → MEDS 17:53
PROVIDERS: Emergency Medicine; Family Medicine; Student in an Organized Health Care Education/Training Program; ADMIT Student in an Organized Health Care Education/Training Program
DX: I63.9 Cerebral infarction, unspecified (principal); E46 Unspecified protein-calorie malnutrition; Z59.00 Homelessness unspecified; G81.94 Hemiplegia, unspecified affecting left nondominant side; R29.810 Facial weakness; I65.21 Occlusion and stenosis of right carotid artery; R29.703 NIHSS score 3; D64.9 Anemia, unspecified; R47.81 Slurred speech; F17.200 Nicotine dependence, unspecified, uncomplicated; E10.649 Type 1 diabetes mellitus with hypoglycemia without coma; E10.65 Type 1 diabetes mellitus with hyperglycemia; Z88.1 Allergy status to other antibiotic agents; Z88.6 Allergy status to analgesic agent; Z88.8 Allergy status to other drugs, medicaments and biological substances; Z88.2 Allergy status to sulfonamides; Z79.4 Long term (current) use of insulin; Z68.21 Body mass index [BMI] 21.0-21.9, adult
CPT/HCPCS: 36415; 70450; 70496; 70498; 70551; 80048; 80053; 80061; 82947; 83036; 83735; 85025; 85730; 86038; 86147; 92610; 93005; 93010; 93306; 96372; 99285-25; A9270; G0378; J1650; J1815; J7060; J7070; Q9967

== ENCOUNTER 2023-10-14 15:40 | Emergency (ER) | payer OTHER ==
[~2023-10-14] VITALS: Ht 177.8 cm; Wt 68.0 kg
[~2023-10-14 15:40] MED LIST changes: +ASPI81CH PO; +CLOP75 PO; +FERSU300 PO; +METOPROLOL SUCC25 MG PO
[2023-10-14 16:15] LABS: Calcium, Ionized (POC) 1.17 mmol/L (1.10-1.46); Chloride (POC) 91 mmol/L (98-108); Creatinine (POC) 2.7 mg/dL (0.8-1.3); Glucose (ISTAT POC) >700 mg/dL (70-99); Hemoglobin (POC) 10.9 g/dL (13.5-17.5); Potassium (POC) 7.2 mmol/L (3.5-5.5); Sodium (POC) 119 mmol/L (135-148); Total CO2 (POC) 8 mmol/L (21-32)
[2023-10-14] MEDS ORDERED: Rocuronium Bromide 10 MG/ML 5ML Injection IV ONE (18:31)
[2023-10-14] MEDS ORDERED: EPINEPhrine HCl 0.1 MG/ML 10ML SYR IV ONE (18:31)
[2023-10-14] MEDS ORDERED: Amiodarone HCl 50 MG / ML 3 ML Amp IV ONE (18:31)
[2023-10-14] MEDS ORDERED: Naloxone HCl 1MG / ML 2ML SYR XX ONE (18:31)
[2023-10-14] MEDS ORDERED: Etomidate 2MG / ML 10ML Vial IV ONE (18:31)
[2023-10-14] MEDS ORDERED: Sodium Bicarb 8.4% 50 mEq Syringe IV ONE (18:31)
== END 2023-10-14 18:30 ==
LOC: ER 15:40
PROVIDERS: Emergency Medicine
DX: I46.9 Cardiac arrest, cause unspecified (principal); E10.10 Type 1 diabetes mellitus with ketoacidosis without coma; E87.1 Hypo-osmolality and hyponatremia; E78.5 Hyperlipidemia, unspecified; F17.200 Nicotine dependence, unspecified, uncomplicated; Z88.1 Allergy status to other antibiotic agents; Z88.6 Allergy status to analgesic agent; Z88.2 Allergy status to sulfonamides; Z79.82 Long term (current) use of aspirin; Z79.02 Long term (current) use of antithrombotics/antiplatelets; Z79.899 Other long term (current) drug therapy; Z86.73 Personal history of transient ischemic attack (TIA), and cerebral infarction without residual deficits
CPT/HCPCS: 31500; 80047; 85014; J0282; J2310